=== PATIENT | female | born 1955 | race Caucasian/White ===

== ENCOUNTER → 2017-05-27 15:23 | Outpatient (CLI) | payer OTHER, SELFPAY ==
--- NOTE | 2017-05-27 15:31 | EKG12_ITS ---
Test Reason : ARRTHYMIAS Blood Pressure : / mmHG Vent. Rate : 101 BPM Atrial Rate : 101 BPM P-R Int : 174 ms QRS Dur : 080 ms QT Int : 352 ms P-R-T Axes : 034 007 023 degrees QTc Int : 456 ms Sinus tachycardia Possible Left atrial enlargement Borderline ECG Confirmed by DANNI PAULINO, DANTE ([id number]), editor in chief newspaper AKIL MAKI ([id number]) on 05/29/2017 2:34:25 PM Referred By: Nathalia MENDOZA Confirmed By:DANTE RAZO MD
== END ==
DX: R94.31 Abnormal electrocardiogram [ECG] [EKG] (principal); R00.0 Tachycardia, unspecified
CPT/HCPCS: 93005

== ENCOUNTER 2017-06-10 16:49 | Inpatient (IN) | payer OTHER, SELFPAY ==
[2017-06-10 16:50] VITALS: BP 138/63; PULSE 124; RESP 16; TEMP 36.9; O2SAT 99; BMI 31.4
[2017-06-10 16:56] LABS: Bedside Glucose 47 mg/dL (70-110)
--- NOTE | 2017-06-10 17:47 | EKG12_ITS ---
Test Reason : Blood Pressure : / mmHG Vent. Rate : 114 BPM Atrial Rate : 114 BPM P-R Int : 164 ms QRS Dur : 078 ms QT Int : 334 ms P-R-T Axes : 036 007 034 degrees QTc Int : 460 ms Sinus tachycardia Otherwise normal ECG Confirmed by DANNI PAULINO, DANTE ([id number]), newspaper managing editor AKIL MAKI ([id number]) on 06/12/2017 3:46:38 PM Referred By: Nathalia MENDOZA Confirmed By:DANTE RAZO MD
--- NOTE | 2017-06-10 17:47 | RAD_ITS ---
STUDY: X-RAY CHEST REASON FOR EXAM: Female, 61 years old. Chest pain TECHNIQUE: Frontal and lateral views COMPARISON: None. FINDINGS: The lungs are expanded. There is mild interstitial prominence. Normal size heart. Normal mediastinum and kenzie. Normal visualized pulmonary arteries. Calcified aortic arch and descending thoracic aorta. Normal visualized thoracic spine. Normal visualized ribs, clavicles, and shoulders. There is no demonstrated abnormality of the visualized soft tissue structures of the upper abdomen. RAD/Chest PA and Lateral IMPRESSION: Mild interstitial prominence. Electronically Signed: Stanislav Garza DO at 18:49 EDT Tel [phone], Service support ,
[2017-06-10 18:23] LABS: Absolute Lymphocyte Count 1.77 X10^3/ul (0.83-4.51); Absolute Neutrophil Count 13.6 X10^3/uL (2.0-7.7); Basophil# 0.01 X10^3/uL; Basophil% 0.1 % (0-1); Eosinophil# 0.05 X10^3/uL; Eosinophils% 0.3 % (0-5); Hematocrit 34.3 % (37-47); Hemoglobin 11.5 g/dl (12.0-15.0); Lymphocyte # 1.77 X10^3/ul (4.0); Lymphocyte % 10.8 % (19-41); Mean Corp Hgb Conc 33.5 g/gl (32-36); Mean Corpuscular Hgb 31.1 pg (27.0-32.0); Mean Corpuscular Volume 92.7 fL (81-99); Monocyte# 0.88 X10^3/uL; Monocyte% 5.4 % (0-10); Platelet Count 94 K/mm3 (150-450); RBC Distribution Width CV 14.8 % (11.6-14.6); RBC Distribution Width SD 49.6 fl (35.1-43.9); White Blood Count 16.4 K/mm3 (4.4-11.0)
[2017-06-10 18:25] LABS: POSITIVE COUNT NO; POSITIVE DIFFERENTIAL NO; POSITIVE MORPHOLOGY NO
[2017-06-10] MEDS: 0.9% Normal Saline 1,000 ML 1000 ML IV (18:28)
[2017-06-10 18:37] LABS: International Normalized Ratio 1.2; Prothrombin Time (Protime)PT. 14.8 SECONDS (11.7-14.9)
[2017-06-10 18:51] LABS: ALB/GLOB Ratio 0.8 RATIO (0.9-2.4); AST(SGOT) 27 U/L (15-37); Alanine Aminotransfer ALT/SGPT 34 U/L (13-56); Albumin, Serum 3.8 g/dL (3.2-5.0); Alkaline Phosphatase 72 U/L (45-117); Anion Gap 13 (5-15); BUN 71 mg/dL (7-18); BUN/Creat Ratio 35.9 RATIO (10-20); Chloride 107 mmol/L (98-107); Creatinine, Serum 1.98 mg/dL (0.55-1.02); EST Glomerular Filtration Rate 27 mL/min (>60); Est Glom Filt Rate - Afr Amer 33 mL/min (>60); Estimated Creatinine Clearance 34.14 ml/min; Globulin 4.6 g/dL (2.2-4.2); Glucose 143 mg/dL (74-106); Potassium 4.3 mmol/L (3.5-5.1); Protein, Total 8.4 g/dL (6.4-8.2); Sodium Level 137 mmol/L (136-145)
[2017-06-10 19:32] LABS: Mucous, Urine 0 SEEN /hpf (<or=2+); Red Blood Cells-Urine 0 SEEN /hpf (0-5)
[2017-06-10 19:36] LABS: Color, Urine Yellow (Yellow); Glucose, Dipstick Normal (Normal); Ketone-Dipstick Negative (Negative); Leukocyte Esterase-Dipstick 500 /ul (Negative); Nitrite-Dipstick Negative (Negative); Occult Blood-Urine 50 /ul (Negative); Protein-Dipstick 30 mg/dl (Negative); Specific Gravity, Urine 1.015 (1.002-1.030); Urine Bilirubin Dipstick Negative (Negative); Urine Clarity Cloudy (Clear); Urine Urobilinogen Normal (Normal)
[2017-06-10 19:52] LABS: Bacteria 1+ /hpf (None Seen); Squamous Epithelial Cells - UA 0-5 SEEN /hpf (5-10); White Blood Cells >100 SEEN /hpf (0-5)
[2017-06-10 21:04] LABS: Lactic Acid 4.2 mmol/L (0.4-2.0)
--- NOTE | 2017-06-10 21:04 | NURSING ---
lab called with critical lab results. lactic acid 4.2. dr. donnelly made aware. no new orders at this time
--- NOTE | 2017-06-10 21:17 | ED.DCSUM_ITS ---
- ER Visit Summary Date of Service: 06/10/17 Chief Complaint: I feel lousy History of Present Illness: The patient is a 61 F who presents with an extensive list of complaints. She reports chills and sweats but no documented fever. She complains of chest pain shortness of breath. She complains of lightheadedness and dizziness. She complains of decreased urination. She complains of numbness to her left hand. She complains of a pins and needles sensation in her legs. She complains of decreased urination. She denies dysuria or urgency. She is concerned she may have a UTI. She believes the pins and needles sensation is related to her neuropathy. She is off of her medication for a short time while her insurance was being sorted out. Physical Examination: Initial heart rate 124 vitals otherwise normal Moist mucous membranes Heart regular rhythm tachycardia Lungs are clear Abdomen soft Extremities nontender Alert Test Results: Laboratory studies notable for white blood cell count 16.4 and a BUN of 71 with creatinine of 1.98. Blood cultures were sent. UA does show 500 leukocyte esterase and greater than 100 WBCs. Her lactic acid is 4.2. EKG showed sinus tachycardia at a rate of 114. Chest x-ray showed mild interstitial prominence. Emergency Department Course and Treatment: Laboratory studies and IV fluids initially ordered. The patient removed her on IV because it was painful. When laboratory studies returned notable for leukocytosis and significant pyuria and a new IV was established and lactic acid and blood cultures were sent. Patient was treated with IV Rocephin. Based on lactic a 30 cc/kg IV fluid bolus has been ordered and is infusing. Patient discussed with hospitalist will be admitted. Treatment Plan: [] Disposition: Admit Impression: UTI Acute kidney injury Septic shock This note was generated with [employer] dictation software. It may contain incorrect words, spelling, and punctuation that were not noted in review of the chart prior to signing ED Disposition - Plan for ED Patient: Chief Complaint: Weakness Referrals: Nathalia Villegas NP-C [Primary Care Provider] -
[2017-06-10] MEDS: 0.9% Normal Saline 1,000 ML 999 ML IV (21:18)
[2017-06-10] MEDS: Ceftriaxone 1 GM/50 ML BAG IV (21:18)
[2017-06-10 21:33] VITALS: BP 127/84; PULSE 100; PULSE 102; RESP 18; O2SAT 100
--- NOTE | 2017-06-10 21:49 | PCM.HP.STD ---
Problem List (1) UTI (urinary tract infection) Status: Acute Qualifiers: Urinary tract infection type: site unspecified Hematuria presence: with hematuria Qualified Code(s): N39.0 - Urinary tract infection, site not specified; R31.9 - Hematuria, unspecified (2) Severe sepsis Status: Acute (3) Diabetes Status: Chronic Qualifiers: Diabetes mellitus type: type 2 Diabetes mellitus [facility] insulin use: without [facility] use Diabetes mellitus complication status: with unspecified complications Qualified Code(s): E11.8 - Type 2 diabetes mellitus with unspecified complications (4) Hyperlipidemia Status: Chronic Qualifiers: Hyperlipidemia type: unspecified Qualified Code(s): E78.5 - Hyperlipidemia, unspecified History of Present Illness Date of Admission: 06/10/17 Chief Complaint: UTI, general illness The patient is a 61 year old female patient who states she has been progressively ill over the past two weeks. Yesterday she became markedly more sick with fever and generalized weakness. She has not been able to produce much urine. She complains of mild flank pain. In the ER she has a marked leukocytosis with a left shift. Her urine is positive for blood, leukocytes and protein, Lactate is 4.2 and she has an acute kidney injury with BUN 71 and creatinine 1.98. Her current heart rate is 124 and she is normotensive. She will be admitted to the ICU overnight due to sepsis protocol. Past Medical History Past Medical History (Chronic Problems): Chronic Problems Diabetes (Chronic) Hyperlipidemia (Chronic) Allergies haloperidol [From Haldol] Adverse Reaction (Verified 06/10/17 16:55) Unknown haloperidol lactate [From Haldol] Adverse Reaction (Verified 06/10/17 16:55) Unknown Home Medications: Ambulatory Orders Medication Instructions Recorded Atorvastatin Calcium [Lipitor] 10 mg PO QHS 06/10/17 Cyanocobalamin (Vitamin B-12) 1,000 mcg PO DAILY 06/10/17 [Vitamin B-12] Ergocalciferol [Vitamin D] 50,000 unit PO QWEEK 06/10/17 Glimepiride [Amaryl] 4 mg PO BID 06/10/17 Insulin Aspart [Novolog Flexpen 15 units SC BID 06/10/17 ([facility])] Insulin Glargine,Hum.rec.anlog 20 unit SQ DAILY 06/10/17 [Basaglar Kwikpen U-100] Insulin Glargine,Hum.rec.anlog 40 unit SQ QHS 06/10/17 [Basaglar Kwikpen U-100] Linagliptin/Metformin HCl 1 tab PO BID 06/10/17 [Jentadueto 2.5 mg-1000 mg Tab] Surgical History: no surgical history Smoking Status: Current every day smoker - *Family History Maternal History Items: No pertinent history Review of Systems Constitutional: Reports: Chills, Malaise, Weakness, Fatigue. Denies: Fever, Weight Change HEENT: Denies: Head Aches, Sinus Congestion, Sinus Drainage Cardiovascular: Denies: Chest Pain, Palpitations Respiratory: Denies: Cough, Shortness of breath at rest, Sputum production Gastrointestinal: Denies: Abdominal Pain, Nausea, Vomiting Genitourinary: Reports: Hesitancy. Denies: Dysuria Musculoskeletal: Reports: Leg Pain - right, - - bilateral flank pain. Denies: Joint Pain, Joint Tenderness Skin: Denies: Rash, Wounds Neurological: Denies: Numbness, Tingling, Focal weakness Psychiatric: Denies: Anxiety, Depression, Homicidal Ideations, Suicidal Ideations Hematologic/ Lymphatic: Denies: Easy Bruising, Easy Bleeding VTE Information - Inpt Only VTE Present on Admission: No VTE Mechan Device Prophylaxis: None VTE Pharm Prophylaxis ordered?: Yes Patient Problems: Active and Suspected Problems UTI (urinary tract infection) (Acute) Severe sepsis (Acute) - Physical Exam General: Alert, Oriented x3, Cooperative HEENT: Atraumatic, PERRLA, EOMI, Normocephalic Neck: Supple, No JVD, Negative Carotid Bruits Lungs: Clear to auscultation, Normal air movement Cardiovascular: Regular Rhythm, Normal S1, Normal S2, No murmurs, Tachycardic Abdomen: Bowel Sounds Present, Soft, Non Tender Extremities: No edema, Capillary Refill Less than 3 Seconds, Tenderness - right lower leg , ant kim contusion Skin: No rashes, No breakdown Musculoskeletal: Tenderness - bilat flank pain Neurological: Neuro grossly intact Psych/Mental Status: Normal Affect, Appropriate Vital Signs Temp Pulse Resp BP Pulse Ox 98.5 F 102 H 18 127/84 H 100 06/10/17 16:50 06/10/17 21:33 06/10/17 21:33 06/10/17 21:33 06/10/17 21:33 Oxygen Delivery Method Room Air Weight: 155 lb 13.869 oz Body Mass Index (BMI) 31.4 Finger Stick Blood Glucose 47 Laboratory Tests Past 24 Hrs 06/10/17 06/10/17 06/10/17 18:15 18:15 18:15 WBC 16.4 H RBC 3.70 L Hgb 11.5 L Hct 34.3 L MCV 92.7 MCH 31.1 MCHC 33.5 RDW 14.8 H RDW Differential 49.6 H Plt Count 94 L MPV 12.0 Immature Gran % (Auto) 0.400 Neut % (Auto) 83.0 H Lymph % (Auto) 10.8 L [place] % (Auto) 5.4 Eos % (Auto) 0.3 Baso % (Auto) 0.1 Absolute Neuts (auto) 13.6 H Absolute Lymphs (auto) 1.77 Total Counted Not Reportable PT 14.8 INR 1.2 Sodium 137 Potassium 4.3 Chloride 107 Carbon Dioxide 17.0 L Anion Gap 13 BUN 71 H Creatinine 1.98 H Estim Creat Clear Calc 34.14 Est GFR (MDRD) Af Amer 33 L Est GFR (MDRD) Non-Af 27 L BUN/Creatinine Ratio 35.9 H Glucose 143 H Lactic Acid Calcium 10.0 Total Bilirubin 0.40 AST 27 ALT 34 Alkaline Phosphatase 72 Troponin I < 0.02 Total Protein 8.4 H Albumin 3.8 Globulin 4.6 H Albumin/Globulin Ratio 0.8 L Urine Color Urine Clarity Urine pH Ur Specific Doran Urine Protein Urine Glucose (UA) Urine Ketones Urine Occult Blood Urine Nitrite Urine Bilirubin Urine Urobilinogen Ur Leukocyte Esterase Urine RBC Urine WBC Ur Squamous Epith Cells Urine Bacteria Urine Mucus 06/10/17 06/10/17 19:20 20:20 WBC RBC Hgb Hct MCV MCH MCHC RDW RDW Differential Plt Count MPV Immature Gran % (Auto) Neut % (Auto) Lymph % (Auto) [place] % (Auto) Eos % (Auto) Baso % (Auto) Absolute Neuts (auto) Absolute Lymphs (auto) Total Counted PT INR Sodium Potassium Chloride Carbon Dioxide Anion Gap BUN Creatinine Estim Creat Clear Calc Est GFR (MDRD) Af Amer Est GFR (MDRD) Non-Af BUN/Creatinine Ratio Glucose Lactic Acid 4.2 H* Calcium Total Bilirubin AST ALT Alkaline Phosphatase Troponin I Total Protein Albumin Globulin Albumin/Globulin Ratio Urine Color Yellow Urine Clarity Cloudy Urine pH 6.0 Ur Specific Doran 1.015 Urine Protein 30 H Urine Glucose (UA) Normal Urine Ketones Negative Urine Occult Blood 50 H Urine Nitrite Negative Urine Bilirubin Negative Urine Urobilinogen Normal Ur Leukocyte Esterase 500 H Urine RBC 0 SEEN Urine WBC >100 SEEN Ur Squamous Epith Cells 0-5 SEEN Urine Bacteria 1+ Urine Mucus 0 SEEN POC Glucose 06/10/17 16:53 POC Glucose 47 L Assessment/Plan Active and Suspected Problems UTI (urinary tract infection) (Acute) Severe sepsis (Acute) Chronic Problems Diabetes (Chronic) Hyperlipidemia (Chronic) Plan - admit to ICU - Consult Dr Quinonez for ICU management - Sepsis protocol - Rocephin 1gram iv q 24hrs - cbc, bmp in am and repeat lactate - continue routine home medications hold sulfonylurea due to low appetite and hold metformin due to acute kidney changes will add low dose insulin sliding scale coverage - LMWH for DVT prophylaxis Code Visit Inpatient E&M: 75992 Init Hosp L3
--- NOTE | 2017-06-10 22:05 | RAD_ITS ---
STUDY: X-RAY - RIGHT TIBIA AND FIBULA REASON FOR EXAM: Female, 61 years old. Pain TECHNIQUE: 2 view(s) of the tibia and fibula were obtained. COMPARISON: None. FINDINGS: Normal visualized tibia. Normal visualized fibula. The soft tissue structures are unremarkable. RAD/Tibia & Fibula 2 Views IMPRESSION: Normal x-ray examination of the tibia and fibula. Electronically Signed: Stanislav Garza DO at 22:44 EDT Tel [phone], Service support ,
[2017-06-10 22:53] VITALS: BMI 31.5
[2017-06-10 23:00] VITALS: BP 114/59; PULSE 99; RESP 20; TEMP 36.7; O2SAT 100
[2017-06-10 23:03] VITALS: PULSE 99
[2017-06-10 23:15] VITALS: BP 120/62; PULSE 103; RESP 19; O2SAT 100
[2017-06-10 23:23] VITALS: BP 117/98; PULSE 110; RESP 25; O2SAT 99
[2017-06-11] VITALS (15 sets, daily range): BP systolic 94–130; BP diastolic 56–72; PULSE 87–106; RESP 14–24; TEMP 36.2–36.9; O2SAT 94–100
[2017-06-11 00:13] LABS: Lactic Acid 2.7 mmol/L (0.4-2.0)
[2017-06-11] MEDS: Ceftriaxone 1 GM/50 ML BAG IV (00:32)
[2017-06-11 00:35] LABS: Reflex Lactate? Y
[2017-06-11 00:40] LABS: Bedside Glucose 78 mg/dL (70-110)
[2017-06-11 03:33] LABS: Reflex Lactate? Y
[2017-06-11 04:19] LABS: Absolute Lymphocyte Count 2.72 X10^3/ul (0.83-4.51); Absolute Neutrophil Count 9.2 X10^3/uL (2.0-7.7); Basophil# 0.01 X10^3/uL; Basophil% 0.1 % (0-1); Eosinophil# 0.08 X10^3/uL; Eosinophils% 0.6 % (0-5); Hematocrit 27.6 % (37-47); Hemoglobin 9.5 g/dl (12.0-15.0); Lymphocyte # 2.72 X10^3/ul (4.0); Lymphocyte % 21.3 % (19-41); Mean Corp Hgb Conc 34.4 g/gl (32-36); Mean Corpuscular Hgb 31.6 pg (27.0-32.0); Mean Corpuscular Volume 91.7 fL (81-99); Mean Platelet Vol. 12.1 fl (6.2-12.0); Monocyte# 0.78 X10^3/uL; Monocyte% 6.1 % (0-10); Neutrophil # 9.15 X10^3/uL (2.7-7.7); Neutrophil % 71.7 % (47-70); Platelet Count 98 K/mm3 (150-450); RBC Distribution Width CV 14.6 % (11.6-14.6); RBC Distribution Width SD 46.9 fl (35.1-43.9); Red Blood Count 3.01 M/mm3 (4.2-5.4); White Blood Count 12.8 K/mm3 (4.4-11.0)
[2017-06-11 04:22] LABS: POSITIVE COUNT NO; POSITIVE DIFFERENTIAL NO; POSITIVE MORPHOLOGY NO
[2017-06-11 04:36] LABS: Anion Gap 12 (5-15); BUN 61 mg/dL (7-18); BUN/Creat Ratio 42.4 RATIO (10-20); Calcium,Total 8.5 mg/dL (8.5-10.1); Chloride 114 mmol/L (98-107); Creatinine, Serum 1.44 mg/dL (0.55-1.02); EST Glomerular Filtration Rate 40 mL/min (>60); Est Glom Filt Rate - Afr Amer 48 mL/min (>60); Estimated Creatinine Clearance 47.02 ml/min; Glucose 51 mg/dL (74-106); Magnesium 1.5 mg/dL (1.6-2.6); Phosphorus 3.4 mg/dL (2.5-4.9); Potassium 3.2 mmol/L (3.5-5.1); Sodium Level 144 mmol/L (136-145)
[2017-06-11 04:42] LABS: Lactic Acid 1.3 mmol/L (0.4-2.0)
--- NOTE | 2017-06-11 04:54 | PCM.CON.CC ---
Reason for Consult Date of Consultation: 06/11/17 Reason for Consultation: Severe sepsis History of Present Illness: The patient is a 61-year-old female, with a history as outlined below, who presented to the emergency department on June 10 with a myriad of complaints, including generalized malaise, fatigue, shortness of breath, chest pain, dizziness and lightheadedness. The patient also began to experience a decrease in urinary output along with mild flank pain. The patient does have a history of severe obstructive sleep apnea with an AHI of 32, for which it was recommended that she be placed on CPAP with a pressure setting of 10 cm of water with medication. On presentation to the emergency department, the patient was noted to be afebrile, tachycardic and hemodynamically stable. She was able to maintain appropriate oxygen saturations on room air. Initial laboratory evaluation revealed elevated white blood cell count 16,000 with left shift. INR was within normal limits. Chemistry profile revealed a decreased serum bicarbonate to 17 along with evidence of acute kidney injury with a creatinine 1.98. Serum lactate was additionally noted to be 4.3. Troponin was negative. Initial plain film chest x-ray revealed no acute cardiopulmonary process. The patient was provided with supplemental IV fluid hydration and started on antibiotics. She was subsequently transferred to the medical intensive care unit for ongoing management. Overnight, the patient has remained hemodynamically stable. She never required the initiation of vasopressor support. Her lactic acidemia has resolved. Potassium and magnesium levels are low this morning. Creatinine is improving, following IV fluid resuscitation. Past Medical History Past Medical History (Chronic Problems): Chronic Problems Diabetes (Chronic) Hyperlipidemia (Chronic) Allergies haloperidol [From Haldol] Adverse Reaction (Verified 06/10/17 16:55) Unknown haloperidol lactate [From Haldol] Adverse Reaction (Verified 06/10/17 16:55) Unknown Home Medications: Ambulatory Orders Medication Instructions Recorded Atorvastatin Calcium [Lipitor] 10 mg PO QHS 06/10/17 Cyanocobalamin (Vitamin B-12) 1,000 mcg PO DAILY 06/10/17 [Vitamin B-12] Ergocalciferol [Vitamin D] 50,000 unit PO QWEEK 06/10/17 Glimepiride [Amaryl] 4 mg PO BID 06/10/17 Insulin Aspart [Novolog Flexpen 15 units SC BID 06/10/17 ([facility])] Insulin Glargine,Hum.rec.anlog 20 unit SQ DAILY 06/10/17 [Basaglar Kwikpen U-100] Insulin Glargine,Hum.rec.anlog 40 unit SQ QHS 06/10/17 [Basaglar Kwikpen U-100] Linagliptin/Metformin HCl 1 tab PO BID 06/10/17 [Jentadueto 2.5 mg-1000 mg Tab] Surgical History: no surgical history Smoking Status: Current every day smoker - *Family History Maternal History Items: No pertinent history Review of Systems Constitutional: Reports: Chills, Malaise, Fatigue Eyes: Denies: Blurred vision, Double vision HEENT: Denies: Head Aches, Sinus Congestion, Sinus Drainage Cardiovascular: Reports: Chest Pain Respiratory: Denies: Cough, Shortness of breath at rest, Sputum production Gastrointestinal: Reports: Nausea Genitourinary: Reports: Retention Musculoskeletal: Reports: Back Pain, Leg Pain Skin: Denies: Rash, Wounds Neurological: Denies: Numbness, Tingling, Focal weakness Psychiatric: Denies: Anxiety, Depression, Homicidal Ideations, Suicidal Ideations Hematologic/ Lymphatic: Denies: Easy Bruising, Easy Bleeding Patient Problems: Active and Suspected Problems UTI (urinary tract infection) (Acute) Severe sepsis (Acute) Objective: The patient's most recent lab work, culture data and imaging studies have all been personally reviewed. Blood and urine cultures are currently pending. - Physical Exam General: Alert, Cooperative, No apparent distress, - - Seated in bedside recliner, eating breakfast. HEENT: Atraumatic, PERRLA, Normocephalic Oral: No Gingival or Mucosal Lesions/ Ulcerations Neck: Supple, No Nodes, Trachea Midline Lungs: No rhonchi, No wheeze, No rales, Diminished Cardiovascular: Regular rate, Regular Rhythm, Normal S1, Normal S2, No murmurs Abdomen: Bowel Sounds Present, Soft, Non Tender, Obese Extremities: No clubbing, No cyanosis Skin: No rashes, No breakdown Musculoskeletal: No Muscle Wasting Lymphatic: No Cervical, Supraclavicular, or Inguinal Adenopathy Neurological: Neuro grossly intact Psych/Mental Status: Normal Affect, Appropriate Vital Signs Temp Pulse Resp BP Pulse Ox 98.2 F 101 H 21 H 110/65 97 06/11/17 04:00 06/11/17 04:00 06/11/17 04:00 06/11/17 04:00 06/11/17 04:00 Oxygen Delivery Method Room Air Weight: 156 lb 1.396 oz Body Mass Index (BMI) 31.5 Intake and Output for Last 24 Hours 06/09/17 06/10/17 06/11/17 23:59 23:59 23:59 Intake Total 2704 / 2704 Output Total 400 / 400 Balance 2304 / 2304 Laboratory Tests Past 24 Hrs 06/10/17 06/11/17 06/11/17 23:20 04:05 04:05 WBC 12.8 H RBC 3.01 L Hgb 9.5 L Hct 27.6 L MCV 91.7 MCH 31.6 MCHC 34.4 RDW 14.6 RDW Differential 46.9 H Plt Count 98 L MPV 12.1 H Immature Gran % (Auto) 0.200 Neut % (Auto) 71.7 H Lymph % (Auto) 21.3 [place] % (Auto) 6.1 Eos % (Auto) 0.6 Baso % (Auto) 0.1 Absolute Neuts (auto) 9.2 H Absolute Lymphs (auto) 2.72 Total Counted Not Reportable Sodium Potassium Chloride Carbon Dioxide Anion Gap BUN Creatinine Estim Creat Clear Calc Est GFR (MDRD) Af Amer Est GFR (MDRD) Non-Af BUN/Creatinine Ratio Glucose Lactic Acid 2.7 H 1.3 Calcium Phosphorus Magnesium 06/11/17 04:05 WBC RBC Hgb Hct MCV MCH MCHC RDW RDW Differential Plt Count MPV Immature Gran % (Auto) Neut % (Auto) Lymph % (Auto) [place] % (Auto) Eos % (Auto) Baso % (Auto) Absolute Neuts (auto) Absolute Lymphs (auto) Total Counted Sodium 144 Potassium 3.2 L Chloride 114 H Carbon Dioxide 18.0 L Anion Gap 12 BUN 61 H Creatinine 1.44 H Estim Creat Clear Calc 47.02 Est GFR (MDRD) Af Amer 48 L Est GFR (MDRD) Non-Af 40 L BUN/Creatinine Ratio 42.4 H Glucose 51 L Lactic Acid Calcium 8.5 Phosphorus 3.4 Magnesium 1.5 L POC Glucose 06/10/17 23:06 POC Glucose 78 Clinical Impression(s) from Imaging Studies Chest X-Ray 06/10/17 17:47 IMPRESSION: Mild interstitial prominence. Electronically Signed: Stanislav Garza at 18:49 EDT Tel [phone], Service support , Tibia/Fibula X-Ray 06/10/17 22:05 IMPRESSION: Normal x-ray examination of the tibia and fibula. Electronically Signed: Stanislav Garza DO at 22:44 EDT Tel [phone], Service support , Assessment/Plan Active and Suspected Problems UTI (urinary tract infection) (Acute) Severe sepsis (Acute) RECOMMENDATIONS: 1. Encourage p.o. intake. Supplemental IV fluids can be discontinued. 2. Continue antibiotics, pending finalized infectious workup. 3. Electrolyte replacement 4. Continue Levemir and sliding scale insulin coverage 5. Encourage incentive spirometer use and mobilize patient as tolerated. IMPRESSIONS: 1. Severe sepsis secondary to presumptive cystitis The patient has been adequately volume resuscitated at this time. Lactic acidemia has resolved. Continue antibiotics, pending finalized infectious workup. Encourage p.o. intake. Okay from my perspective to discontinue supplemental IV fluids. 2. Acute kidney injury Likely prerenal in etiology. Creatinine has improved with volume expansion. Urine output is appropriate. No indication for renal replacement therapy at this time. 3. Hypokalemia/hypomagnesemia Electrolyte repletion as indicated. Recheck levels in the morning. 4. Obstructive sleep apnea Continue nocturnal CPAP therapy with a pressure setting of 10 cm of water, per polysomnogram report. 5. Diabetes/hyperlipidemia/obesity Complicates care, management, recovery and prognosis. Continue Levemir and sliding scale insulin coverage. Okay to continue statin. Recommend physical therapy evaluation. This note was generated with [employer] dictation software. It may contain incorrect words, spelling, and punctuation that were not noted in checking the note before signing. DISPOSITION: The patient is medically stable for transfer out of the intensive care unit. As the patient is without any further ICU needs, will sign off. Please call with any additional questions. Code Visit Inpatient E&M: 89752 Init Hosp L3
[2017-06-11 08:01] LABS: Bedside Glucose 62 mg/dL (70-110)
--- NOTE | 2017-06-11 09:44 | PCM.PN.HOSP ---
Patient Problems: Active and Suspected Problems UTI (urinary tract infection) (Acute) Severe sepsis (Acute) Subjective: Patient is afebrile.Tachycardia is getting better. Blood pressure is good. No hypoxia. Patient has tenderness over both legs with mild edema for last 3-4 weeks. This seems because of diabetic neuropathy as she was not able to take gabapentin for last 3-4 weeks as the insurance stopped covering her medication Vitals/I&O's: Vital Signs Temp Pulse Resp BP Pulse Ox 98.2 F 93 15 97/63 97 06/11/17 04:00 06/11/17 06:00 06/11/17 06:00 06/11/17 06:00 06/11/17 06:00 Oxygen Delivery Method Room Air Weight: 157 lb 6.561 oz Body Mass Index (BMI) 31.5 Intake and Output for Last 24 Hours 06/09/17 06/10/17 06/11/17 23:59 23:59 23:59 Intake Total 2704 / 2704 60.1 / 60.1 Output Total 400 / 400 400 / 400 Balance 2304 / 2304 -339.9 / -339.9 General: Alert, Oriented x3, Cooperative HEENT: Atraumatic, PERRLA, EOMI, Normocephalic Neck: Supple, No JVD, Negative Carotid Bruits Lungs: No rales, Diminished, Rhonchi - Findings expiratory rhonchi present. Cardiovascular: Regular rate, Regular Rhythm, Normal S1, Normal S2, No murmurs Abdomen: Bowel Sounds Present, Soft, Non Tender, Non-Distended, No Hepato-splenomegaly Extremities: Capillary Refill Less than 3 Seconds, Edema Skin: No rashes, No breakdown Musculoskeletal: Arthritic Changes, Tenderness Neurological: Cranial nerves II-XII grossly intact Psych/Mental Status: Normal Affect, Appropriate Laboratory Results 06/10/17 22:45: MRSA (PCR) Pending 06/10/17 23:06: POC Glucose 78 06/10/17 23:20: Lactic Acid 2.7 H 06/11/17 04:05: Lactic Acid 1.3 06/11/17 04:05: WBC 12.8 H, RBC 3.01 L, Hgb 9.5 L, Hct 27.6 L, MCV 91.7, MCH 31.6, MCHC 34.4, RDW 14.6, RDW Differential 46.9 H, Plt Count 98 L, MPV 12.1 H, Immature Gran % (Auto) 0.200, Neut % (Auto) 71.7 H, Lymph % (Auto) 21.3, [place] % (Auto) 6.1, Eos % (Auto) 0.6, Baso % (Auto) 0.1, Absolute Neuts (auto) 9.2 H, Absolute Lymphs (auto) 2.72, Total Counted Not Reportable 06/11/17 04:05: Sodium 144, Potassium 3.2 L, Chloride 114 H, Carbon Dioxide 18.0 L, Anion Gap 12, BUN 61 H, Creatinine 1.44 H, Estim Creat Clear Calc 47.02, Est GFR (MDRD) Af Amer 48 L, Est GFR (MDRD) Non-Af 40 L, BUN/Creatinine Ratio 42.4 H, Glucose 51 L, Calcium 8.5, Phosphorus 3.4, Magnesium 1.5 L 06/11/17 07:47: POC Glucose 62 L Current Medications Atorvastatin Calcium (Lipitor) 10 mg PO QHS MARCY Cyanocobalamin (Vitamin B12) 1,000 mcg PO DAILY MARCY Dextrose (D50w Syringe) 0 gm IV X1 PRN; Protocol PRN Reason: Hypoglycemia Enoxaparin Sodium (Lovenox) 40 mg SC DAILY@1000 MARCY Glucagon () 1 mg IM .X1 PRN PRN Reason: Hypoglycemia Ceftriaxone Sodium 2 gm/ (Sodium Chloride) 50 mls @ 100 mls/hr IV Q24 MARCY Insulin Aspart (Novolog Flexpen (Bkc)) 0 units SC ACHS MARCY PRN Reason: Protocol Last Admin: 06/11/17 07:56 Dose: Not Given Insulin Detemir (Levemir (Bkc)) 20 units SC DAILY MARCY Magnesium Hydroxide (Milk Of Magnesia) 30 ml PO DAILY PRN PRN PRN Reason: Constipation Magnesium Oxide (Mag-Ox 400) 400 mg PO BIDCM [facility]END[facility] TO [facility] Stop: 06/12/17 08:01 Nutritional Formula (Lactose Free) (Glucerna Shake) 120 ml PO 4X/DAY MARCY Sodium Chloride () 5 - 30 ml IV UD PRN PRN Reason: SALINE FLUSH Assessment/Plan Active and Suspected Problems UTI (urinary tract infection) (Acute) Severe sepsis (Acute) This is a 61-year-old female who was admitted in the ICU through ER for gradual progressive generalized weakness, mild shortness of breath along with fever, chills and mild flank pain and decreased urine output in ER, she has mild leukocytosis with left shift and UA consistent with UTI. Lactate 4.2 with acute kidney injury, BUN 71 creatinine 1.98. Patient was also tachycardic in the ER. And his chronic smoker since teenage, 17 years and still smokes a pack per day but recently 4-5 cigarettes because of her illness. 1. SIRS WITH Septic shock (tachycardia, lactic acid 4.2 leukocytosis with left shift secondary to UTI ): Patient lactic acid improved with IV fluid and did not require vessel pressure. Currently in ICU but hemodynamically stable now. Leukocytosis improving. 2. Lower UTI/cystitis: Patient is diabetic mellitus type II. On IV ceftriaxone 2 g daily. 3. Acute kidney injury on CKD stage II due to ATN secondary to UTI/sepsis and prerenal etiology: Her baseline creatinine in June 2016 and November 2016 is around 1.0. But UA in June 2014 was positive for proteinuria so CKD stage II. Creatinine profile is improving. Continue IV fluid normal saline. Monitor intake and output. 4. Diabetes mellitus type 2 complicated with diabetic neuropathy and diabetic nephropathy CKD stage II with proteinuria. Control blood sugar. Resume gabapentin. Accu-Chek before meals and at bedtime and cover with NovoLog sliding scale. Her blood sugar is controlled. A1c 6.2% in November 2016. Last Accu-Chek is 62 mg percent. 5. Other chronic comorbidities include chronic smoker with possibility of COPD, dyslipidemia, and physical deconditioning: Home medication reconciliation done. Patient is hemodynamically stable to be transferred to regular floor. This note was generated with [employer]ravnik[employer] dictation software. Every effort was made to ensure accuracy, however computerized car changer mistakes may persist. Code Visit Inpatient E&M: 10918 Subs Hosp L3
[2017-06-11 10:09] LABS: M R Staph aureus DNA By PCR Negative (Negative); Probe Check PASS; Specimen Processing Control PASS
--- NOTE | 2017-06-11 10:14 | PN_ITS ---
Patient Problems: Active and Suspected Problems UTI (urinary tract infection) (Acute) Severe sepsis (Acute) Subjective: Patient is afebrile.Tachycardia is getting better. Blood pressure is good. No hypoxia. Patient has tenderness over both legs with mild edema for last 3-4 weeks. This seems because of diabetic neuropathy as she was not able to take gabapentin for last 3-4 weeks as the insurance stopped covering her medication Vitals/I&O's: Vital Signs Temp Pulse Resp BP Pulse Ox 98.2 F 93 15 97/63 97 06/11/17 04:00 06/11/17 06:00 06/11/17 06:00 06/11/17 06:00 06/11/17 06:00 Oxygen Delivery Method Room Air Weight: 157 lb 6.561 oz Body Mass Index (BMI) 31.5 Intake and Output for Last 24 Hours 06/09/17 06/10/17 06/11/17 23:59 23:59 23:59 Intake Total 2704 / 2704 60.1 / 60.1 Output Total 400 / 400 400 / 400 Balance 2304 / 2304 -339.9 / -339.9 General: Alert, Oriented x3, Cooperative HEENT: Atraumatic, PERRLA, EOMI, Normocephalic Neck: Supple, No JVD, Negative Carotid Bruits Lungs: No rales, Diminished, Rhonchi - Findings expiratory rhonchi present. Cardiovascular: Regular rate, Regular Rhythm, Normal S1, Normal S2, No murmurs Abdomen: Bowel Sounds Present, Soft, Non Tender, Non-Distended, No Hepato- splenomegaly Extremities: Capillary Refill Less than 3 Seconds, Edema Skin: No rashes, No breakdown Musculoskeletal: Arthritic Changes, Tenderness Neurological: Cranial nerves II-XII grossly intact Psych/Mental Status: Normal Affect, Appropriate Laboratory Results 06/10/17 22:45: MRSA (PCR) Pending 06/10/17 23:06: POC Glucose 78 06/10/17 23:20: Lactic Acid 2.7 H 06/11/17 04:05: Lactic Acid 1.3 06/11/17 04:05: WBC 12.8 H, RBC 3.01 L, Hgb 9.5 L, Hct 27.6 L, MCV 91.7, MCH 31.6, MCHC 34.4, RDW 14.6, RDW Differential 46.9 H, Plt Count 98 L, MPV 12.1 H, Immature Gran % (Auto) 0.200, Neut % (Auto) 71.7 H, Lymph % (Auto) 21.3, [place] % (Auto) 6.1, Eos % (Auto) 0.6, Baso % (Auto) 0.1, Absolute Neuts (auto) 9.2 H, Absolute Lymphs (auto) 2.72, Total Counted Not Reportable 06/11/17 04:05: Sodium 144, Potassium 3.2 L, Chloride 114 H, Carbon Dioxide 18.0 L, Anion Gap 12, BUN 61 H, Creatinine 1.44 H, Estim Creat Clear Calc 47.02 , Est GFR (MDRD) Af Amer 48 L, Est GFR (MDRD) Non-Af 40 L, BUN/Creatinine Ratio 42.4 H, Glucose 51 L, Calcium 8.5, Phosphorus 3.4, Magnesium 1.5 L 06/11/17 07:47: POC Glucose 62 L Current Medications Atorvastatin Calcium (Lipitor) 10 mg PO QHS MARCY Cyanocobalamin (Vitamin B12) 1,000 mcg PO DAILY MARCY Dextrose (D50w Syringe) 0 gm IV X1 PRN; Protocol PRN Reason: Hypoglycemia Enoxaparin Sodium (Lovenox) 40 mg SC DAILY@1000 MARCY Glucagon () 1 mg IM .X1 PRN PRN Reason: Hypoglycemia Ceftriaxone Sodium 2 gm/ (Sodium Chloride) 50 mls @ 100 mls/hr IV Q24 MARCY Insulin Aspart (Novolog Flexpen (Bkc)) 0 units SC ACHS MARCY PRN Reason: Protocol Last Admin: 06/11/17 07:56 Dose: Not Given Insulin Detemir (Levemir (Bkc)) 20 units SC DAILY MARCY Magnesium Hydroxide (Milk Of Magnesia) 30 ml PO DAILY PRN PRN PRN Reason: Constipation Magnesium Oxide (Mag-Ox 400) 400 mg PO BIDCM [facility] Stop: 06/12/17 08:01 Nutritional Formula (Lactose Free) (Glucerna Shake) 120 ml PO 4X/DAY MARCY Sodium Chloride () 5 - 30 ml IV UD PRN PRN Reason: SALINE FLUSH Assessment/Plan Active and Suspected Problems UTI (urinary tract infection) (Acute) Severe sepsis (Acute) This is a 61-year-old female who was admitted in the ICU through ER for gradual progressive generalized weakness, mild shortness of breath along with fever, chills and mild flank pain and decreased urine output in ER, she has mild leukocytosis with left shift and UA consistent with UTI. Lactate 4.2 with acute kidney injury, BUN 71 creatinine 1.98. Patient was also tachycardic in the ER. And his chronic smoker since teenage, 17 years and still smokes a pack per day but recently 4-5 cigarettes because of her illness. 1. SIRS WITH Septic shock (tachycardia, lactic acid 4.2 leukocytosis with left shift secondary to UTI ): Patient lactic acid improved with IV fluid and did not require vessel pressure. Currently in ICU but hemodynamically stable now. Leukocytosis improving. 2. Lower UTI/cystitis: Patient is diabetic mellitus type II. On IV ceftriaxone 2 g daily. 3. Acute kidney injury on CKD stage II due to ATN secondary to UTI/sepsis and prerenal etiology: Her baseline creatinine in June 2016 and November 2016 is around 1.0. But UA in June 2014 was positive for proteinuria so CKD stage II. Creatinine profile is improving. Continue IV fluid normal saline. Monitor intake and output. 4. Diabetes mellitus type 2 complicated with diabetic neuropathy and diabetic nephropathy CKD stage II with proteinuria. Control blood sugar. Resume gabapentin. Accu-Chek before meals and at bedtime and cover with NovoLog sliding scale. Her blood sugar is controlled. A1c 6.2% in November 2016. Last Accu-Chek is 62 mg percent. 5. Other chronic comorbidities include chronic smoker with possibility of COPD , dyslipidemia, and physical deconditioning: Home medication reconciliation done. Patient is hemodynamically stable to be transferred to regular floor. This note was generated with [employer] dictation software. Every effort was made to ensure accuracy, however computerized senior consumer insights consultant mistakes may persist. Code Visit Inpatient E&M: 14145 Subs Hosp L3
--- NOTE | 2017-06-11 10:24 | CASEMGMT ---
See RN CM Assessment Link. Intro role of CM to patient and her in room. is on disability, and pt has [employer] insurance with higher deductible so [facility] goes to [facility] for [facility] and f/u. Call made to Dr. Shabazz's office requesting a new pt referral. Also noted that Dr. Miles, pulmonology is on the list of [facility] providers if f/u is recommended. Yvon NAVARRETEN RN ACM
[2017-06-11] MEDS: Magnesium Oxide 400 MG Tablet PO ×2 (10:41→17:13)
[2017-06-11] MEDS: Cyanocobalamin 500 MCG Tablet 1000 MCG PO (10:43)
[2017-06-11] MEDS: Gabapentin 300 MG Capsule PO ×2 (10:47→17:13)
[2017-06-11] MEDS: Glucerna Shake 120 ML LIQUID PO ×3 (10:47→21:14)
[2017-06-11 11:55] LABS: Bedside Glucose 264 mg/dL (70-110)
[2017-06-11] MEDS: 0.9% NaCl Peripheral Flush Adult/Peds IV (12:14)
[2017-06-11] MEDS: Acetaminophen 325 MG Tablet 650 MG PO ×3 (14:39→23:53)
[2017-06-11 17:20] LABS: Bedside Glucose 323 mg/dL (70-110)
[2017-06-11] MEDS: Atorvastatin Calcium 10 MG Tablet PO (21:14)
[2017-06-11 21:26] LABS: Bedside Glucose 256 mg/dL (70-110)
--- NOTE | 2017-06-11 22:40 | NURSING ---
Pt arrived to [facility] from ICU.
--- NOTE | 2017-06-11 23:00 | NURSING ---
Addendum entered by Yuni Lopez 06/11/17 23:21: This RN & resp therapist tried to educated and encourage CPAP but pt still refusing. Original Note: Pt is refusing to wear CPAP tonight.
--- NOTE | 2017-06-11 23:40 | CPS ---
Pt refuses to wear CPAP at this time
[2017-06-12 04:25] VITALS: BP 118/54; PULSE 90; RESP 18; TEMP 36.6; O2SAT 98
[2017-06-12 06:45] VITALS: O2SAT 96
[2017-06-12 07:01] LABS: Bedside Glucose 259 mg/dL (70-110)
[2017-06-12] MEDS: Gabapentin 300 MG Capsule PO (07:55)
[2017-06-12] MEDS: Acetaminophen 325 MG Tablet 650 MG PO (07:55)
[2017-06-12] MEDS: Magnesium Oxide 400 MG Tablet PO (07:55)
[2017-06-12 08:27] LABS: Absolute Neutrophil Count 3.6 X10^3/uL (2.0-7.7); Basophil# 0.01 X10^3/uL; Basophil% 0.1 % (0-1); Eosinophil# 0.13 X10^3/uL; Eosinophils% 1.9 % (0-5); Hemoglobin 9.7 g/dl (12.0-15.0); Lymphocyte % 38.8 % (19-41); Mean Corp Hgb Conc 34.6 g/gl (32-36); Mean Corpuscular Hgb 32.1 pg (27.0-32.0); Mean Corpuscular Volume 92.7 fL (81-99); Mean Platelet Vol. 11.3 fl (6.2-12.0); Monocyte# 0.46 X10^3/uL; Monocyte% 6.6 % (0-10); Neutrophil # 3.64 X10^3/uL (2.7-7.7); Neutrophil % 52.5 % (47-70); POSITIVE COUNT NO; POSITIVE DIFFERENTIAL NO; POSITIVE MORPHOLOGY NO; Platelet Count 84 K/mm3 (150-450); RBC Distribution Width CV 14.7 % (11.6-14.6); RBC Distribution Width SD 47.9 fl (35.1-43.9); Red Blood Count 3.02 M/mm3 (4.2-5.4)
[2017-06-12 08:34] LABS: Anion Gap 8 (5-15); BUN 42 mg/dL (7-18); BUN/Creat Ratio 31.3 RATIO (10-20); Calcium,Total 9.1 mg/dL (8.5-10.1); Chloride 112 mmol/L (98-107); Creatinine, Serum 1.34 mg/dL (0.55-1.02); EST Glomerular Filtration Rate 43 mL/min (>60); Est Glom Filt Rate - Afr Amer 52 mL/min (>60); Estimated Creatinine Clearance 50.67 ml/min; Glucose 230 mg/dL (74-106); Potassium 4.3 mmol/L (3.5-5.1); Sodium Level 142 mmol/L (136-145)
[2017-06-12 08:35] VITALS: BP 111/64; PULSE 94; RESP 18; TEMP 37.6; O2SAT 99
[2017-06-12] MEDS: Cyanocobalamin 500 MCG Tablet 1000 MCG PO (08:39)
[2017-06-12] MEDS: 0.9% NaCl Peripheral Flush Adult/Peds IV (10:53)
--- NOTE | 2017-06-12 11:32 | PCM.DC ---
- Discharge Diagnoses Current Active Problems: Current Active and Chronic Problems UTI (urinary tract infection) (Acute) Severe sepsis (Acute) Diabetes (Chronic) Hyperlipidemia (Chronic) You will use the following diet at home:: Calorie/Carbohydrate Controlled (specify 1200, 1400, etc) - 1800 ADA diet, Cardiac Discharge Activity: May not drive while taking narcotic pain medications. Allergies/Adverse Reactions: Allergies haloperidol [From Haldol] Adverse Reaction (Verified 06/10/17 16:55) Unknown haloperidol lactate [From Haldol] Adverse Reaction (Verified 06/10/17 16:55) Unknown Medications to take at Discharge Atorvastatin Calcium [Lipitor] 10 mg PO QHS 06/10/17 Cyanocobalamin (Vitamin B-12) [Vitamin B-12] 1,000 mcg PO DAILY 06/10/17 Ergocalciferol [Vitamin D] 50,000 unit PO QWEEK 06/10/17 Glimepiride [Amaryl] 4 mg PO BID 06/10/17 Insulin Aspart [Novolog Flexpen] 15 units SC BID 06/10/17 Insulin Glargine,Hum.rec.anlog [Basaglar Kwikpen U-100] 20 unit SQ DAILY 06/10/17 Linagliptin/Metformin HCl [Jentadueto 2.5 mg-1000 mg Tab] 1 tab PO BID 06/10/17 Cefadroxil [Duracef] 500 mg PO BID #10 cap 06/12/17 Gabapentin [Neurontin] 300 mg PO TIDCM #90 cap 06/12/17 The following prescriptions were given: Cefadroxil [Duracef] 500 mg PO BID #10 cap Gabapentin [Neurontin] 300 mg PO TIDCM #90 cap Primary Care Physician: Nathalia Villegas NP-C [Primary Care Provider] - Please follow up with your Primary Care Physician in: in 1-2 weeks Please Follow Up With: Natalia Wiggins NP-C When: For DM-2 AND GLUCOSE control
--- NOTE | 2017-06-12 11:34 | DS.PCM_ITS ---
Discharge Date and Diagnosis Date of Admission: 06/10/17 Date of Discharge: 06/12/17 - Primary Discharge Diagnosis Active and Suspected Problems 1. SIRS WITH Septic shock (tachycardia, lactic acid 4.2 leukocytosis with left shift) secondary to E. coli UTI : 2. Lower UTI/cystitis due to E. coli: 3. Acute kidney injury on CKD stage II due to ATN secondary to UTI/sepsis and prerenal etiology: Acute kidney injury resolved. 4. Diabetes mellitus type 2 complicated with diabetic neuropathy and diabetic nephropathy CKD stage II with proteinuria - Secondary Discharge Diagnosis Chronic Problems Diabetes (Chronic) Hyperlipidemia (Chronic) Hospital Course and Treatment Summary of Care Provided: [] This is a 61-year-old female who was admitted in the ICU through ER for gradual progressive generalized weakness, mild shortness of breath along with fever, chills and mild flank pain and decreased urine output in ER, she has mild leukocytosis with left shift and UA consistent with UTI. Lactate 4.2 with acute kidney injury, BUN 71 creatinine 1.98. Patient was also tachycardic in the ER. And his chronic smoker since teenage, 17 years and still smokes a pack per day but recently 4-5 cigarettes because of her illness. Patient seen and examined today. General: Alert, Oriented x3, Cooperative HEENT: Atraumatic, PERRLA, EOMI, Normocephalic Neck: Supple, No JVD, Negative Carotid Bruits Lungs: No rales, Diminished, Rhonchi - Findings expiratory rhonchi present. Cardiovascular: Regular rate, Regular Rhythm, Normal S1, Normal S2, No murmurs Abdomen: Bowel Sounds Present, Soft, Non Tender, Non-Distended, No Hepato- splenomegaly Extremities: Capillary Refill Less than 3 Seconds, Edema Skin: No rashes, No breakdown Musculoskeletal: Arthritic Changes, Tenderness Neurological: Cranial nerves II-XII grossly intact Psych/Mental Status: Normal Affect, Appropriate 1. SIRS WITH Septic shock (tachycardia, lactic acid 4.2 leukocytosis with left shift) secondary to E. coli UTI : Patient lactic acid improved with IV fluid and did not require vessel pressure. Currently in ICU but hemodynamically stable now. Leukocytosis improving. 2. Lower UTI/cystitis due to E. coli: Patient is diabetic mellitus type II. Patient was treated with IV ceftriaxone discharged on cefadroxil. 3. Acute kidney injury on CKD stage II due to ATN secondary to UTI/sepsis and prerenal etiology: Her baseline creatinine in June 2016 and November 2016 is around 1.0. But UA in June 2014 was positive for proteinuria so CKD stage II. Creatinine profile is improving. Was treated with IV fluid. Monitor intake and output. Acute kidney injury resolved. 4. Diabetes mellitus type 2 complicated with diabetic neuropathy and diabetic nephropathy CKD stage II with proteinuria. Control blood sugar. Resume gabapentin. Accu-Chek before meals and at bedtime and cover with NovoLog sliding scale. Her blood sugar is controlled. A1c 6.2% in November 2016. Last Accu-Chek is 62 mg percent. 5. Other chronic comorbidities include chronic smoker with possibility of COPD , dyslipidemia, and physical deconditioning: Home medication reconciliation done. Patient is hemodynamically stable to be transferred to regular floor. Microbiology Past 72 Hours 06/10/17 19:20 Urine, Clean Catch Urine Culture - Preliminary Presumptive E. coli Laboratory Results 06/11/17 21:12: POC Glucose 256 H 06/12/17 06:33: POC Glucose 259 H 06/12/17 08:10: Sodium 142, Potassium 4.3, Chloride 112 H, Carbon Dioxide 22.0, Anion Gap 8, BUN 42 H, Creatinine 1.34 H, Estim Creat Clear Calc 50.67, Est GFR (MDRD) Af Amer 52 L, Est GFR (MDRD) Non-Af 43 L, BUN/Creatinine Ratio 31.3 H, Glucose 230 H, Calcium 9.1 06/12/17 08:10: WBC 7.0, RBC 3.02 L, Hgb 9.7 L, Hct 28.0 L, MCV 92.7, MCH 32.1 H , MCHC 34.6, RDW 14.7 H, RDW Differential 47.9 H, Plt Count 84 L, MPV 11.3, Immature Gran % (Auto) 0.100, Neut % (Auto) 52.5, Lymph % (Auto) 38.8, [place] % ( Auto) 6.6, Eos % (Auto) 1.9, Baso % (Auto) 0.1, Absolute Neuts (auto) 3.6, Absolute Lymphs (auto) 2.70, Total Counted Not Reportable This note was generated with [employer] dictation software. Every effort was made to ensure accuracy, however computerized product safety tester mistakes may persist. Discharge medication reconciliation done. Discharge follow-up instructions completed. Total time spent, exact 32 minutes on discharge meds reconciliation, examination , review of imaging and blood test and discussion with the patient on follow-up instructions. Discharge Activity: May not drive while taking narcotic pain medications. Home Medications: Medications to take at Discharge Atorvastatin Calcium [Lipitor] 10 mg PO QHS 06/10/17 Cyanocobalamin (Vitamin B-12) [Vitamin B-12] 1,000 mcg PO DAILY 06/10/17 Ergocalciferol [Vitamin D] 50,000 unit PO QWEEK 06/10/17 Glimepiride [Amaryl] 4 mg PO BID 06/10/17 Insulin Aspart [Novolog Flexpen] 15 units SC BID 06/10/17 Insulin Glargine,Hum.rec.anlog [Basaglar Kwikpen U-100] 20 unit SQ DAILY Linagliptin/Metformin HCl [Jentadueto 2.5 mg-1000 mg Tab] 1 tab PO BID 06/10/17 Cefadroxil [Duracef] 500 mg PO BID #10 cap 06/12/17 Gabapentin [Neurontin] 300 mg PO TIDCM #90 cap 06/12/17 Following Prescrptions Were Given to Patient: Cefadroxil [Duracef] 500 mg PO BID #10 cap Gabapentin [Neurontin] 300 mg PO TIDCM #90 cap Primary Care Physician: Nathalia Villegas NP-C [Primary Care Provider] - Please follow up with your Primary Care Physician in: in 1-2 weeks Please Follow Up With: Natalia Wiggins NP-C When: For DM-2 AND GLUCOSE control Meaningful Use Info Meaningful Use Diagnoses (Choose all that apply): None applicable Code Visit Inpatient E&M: 66166 Disch Hosp
--- NOTE | 2017-06-12 12:03 | CASEMGMT ---
New pt referral form and brochure given for [facility]. Explained to pt who can take completed form to office and they will set up appointment for her. Discussed dc concerns. Pt appreciative of information. Will f/u in the interim with [facility] for new medications. Yvon NAVARRETEN RN ACM
[2017-06-12 12:05] VITALS: BP 111/64; PULSE 94; RESP 18; TEMP 37.6; O2SAT 99
== END 2017-06-12 12:02 | disposition home or self-care (01) | DRG 871 ==
LOC: ED 22:07 → ICU 22:15 → MS2 06-11 22:35
PROVIDERS: Internal Medicine Critical Care Medicine; Admitting Provider Family Medicine; Emergency Provider Emergency Medicine; Family Provider Nurse Practitioner Family; PCP Nurse Practitioner Family; Visit Provider Internal Medicine
DX: A41.9 Sepsis, unspecified organism (principal); R65.21 Severe sepsis with septic shock; N17.0 Acute kidney failure with tubular necrosis; E11.22 Type 2 diabetes mellitus with diabetic chronic kidney disease; N30.90 Cystitis, unspecified without hematuria; B96.20 Unspecified Escherichia coli [E. coli] as the cause of diseases classified elsewhere; E11.40 Type 2 diabetes mellitus with diabetic neuropathy, unspecified; N18.2 Chronic kidney disease, stage 2 (mild); E78.5 Hyperlipidemia, unspecified; F17.210 Nicotine dependence, cigarettes, uncomplicated; E66.9 Obesity, unspecified; E83.42 Hypomagnesemia; E87.6 Hypokalemia; Z68.31 Body mass index [BMI] 31.0-31.9, adult; Z79.4 Long term (current) use of insulin
CPT/HCPCS: 36415; 71046; 73590; 80048; 80053; 81001; 82962; 83605; 83735; 84100; 84484; 85025; 85610; 87040; 87086; 87088; 87186; 87641; 93005; 97802; 99285; 99406; J7030; J7040; A4216; J0696

== ENCOUNTER → 2017-06-20 11:56 | Outpatient (CLI) | payer OTHER, SELFPAY | PROVIDERS: Family Provider Nurse Practitioner Family; PCP Nurse Practitioner Family; Visit Provider Nurse Practitioner Family | DX: N39.0 Urinary tract infection, site not specified (principal) | CPT/HCPCS: 87086; 87088 ==

== ENCOUNTER 2017-11-16 14:41 | Emergency (ER) | payer OTHER, SELFPAY ==
[2017-11-16 14:43] VITALS: BP 154/81; PULSE 113; RESP 18; TEMP 36.6; O2SAT 97; BMI 31.7
--- NOTE | 2017-11-16 16:10 | ED.DEP ---
ED Disposition - Plan for ED Patient: Chief Complaint: Eye Problem Instructions: Shingles (Herpes Zoster) Prescriptions: Hydrocodone Bitart/Apap 5-325 [[place] 5MG-325MG] 1 tab PO Q4H PRN PRN 2 Days #10 tab PRN Reason: Pain Famciclovir [Famvir] 500 mg PO TID #21 tab Referrals: Nathalia Villegas, FRANCK-C [Primary Care Provider] - Aries Guerrero MD [STAFF PHYSICIAN] - 2 Days
--- NOTE | 2017-11-16 16:13 | ED.VISSUMM ---
- ER Visit Summary Date of Service: 11/16/17 Chief Complaint: [Right eye pain] History of Present Illness: The patient is a 62 F presents the emergency department complaint right eye pain that started 3 days ago. Patient states initially she started with a rash on her right forehead that was blisterlike. Patient subsequently developed redness around the right eye and today woke up with her right eye being swollen shut. Patient complains of photophobia. She complains of a pain to the right side of her head only. Patient denies any visual changes.] Physical Examination: [HEENT-PERRLA, EOMI. Cranial nerves II through XII grossly intact. TMs clear. Mucous membranes moist. No adenopathy. Patient does have a vesicular type rash involving the right side of the forehead. Patient has diffuse erythema to the right upper and lower eyelids with a subtle vesicular component noted. Extraocular muscle movements were painless. Conjunctiva was not injected. Cornea was clear. Cardiovascular-regular rate and rhythm without murmur or ectopy Lungs-clear to auscultation, chest wall stable without crepitus or subcu emphysema Abdomen-normoactive bowel sounds, soft, nontender, no rebound or rigidity, no peritoneal signs. Extremities-intact ?4, normal range of motion, normal pulses, atraumatic] Test Results: [None indicated Emergency Department Course and Treatment: [I did stain the patient's eye with fluorescein and there was no evidence of dendritic lesions. I discussed case with Dr. Guerrero who was on-call for ophthalmology. Patient will be seen by his office in 2 days or if the patient calls his office before that should she feel like her symptoms are worsening he can see her tomorrow.] Treatment Plan: [Patient will be started on Famvir and [place] for pain.] Disposition: [Discharged home in stable condition] Impression: [Herpes zoster Right eye pain] This note was generated with [employer] dictation software. It may contain incorrect words, spelling, and punctuation that were not noted in review of the chart prior to signing ED Disposition - Plan for ED Patient: Chief Complaint: Eye Problem Instructions: Shingles (Herpes Zoster) Prescriptions: Hydrocodone Bitart/Apap 5-325 [[place] 5MG-325MG] 1 tab PO Q4H PRN PRN 2 Days #10 tab PRN Reason: Pain Famciclovir [Famvir] 500 mg PO TID #21 tab Referrals: Aries Guerrero MD [STAFF PHYSICIAN] - 2 Days Nathalia Villegas NP-C [Primary Care Provider] -
== END 2017-11-16 16:33 | disposition home or self-care (01) ==
LOC: ED 16:08
PROVIDERS: Emergency Provider Emergency Medicine; Family Provider Nurse Practitioner Family; PCP Nurse Practitioner Family
DX: B02.9 Zoster without complications (principal); H57.11 Ocular pain, right eye; E11.9 Type 2 diabetes mellitus without complications; E78.00 Pure hypercholesterolemia, unspecified; Z90.49 Acquired absence of other specified parts of digestive tract; Z79.4 Long term (current) use of insulin; Z79.84 Long term (current) use of oral hypoglycemic drugs; Z79.899 Other long term (current) drug therapy; Z72.0 Tobacco use
CPT/HCPCS: 99283

== ENCOUNTER 2017-12-31 22:24 | Emergency (ER) | payer OTHER, SELFPAY ==
[2017-12-31 22:24] VITALS: BP 145/53; PULSE 86; RESP 17; TEMP 36.9; O2SAT 99; BMI 32.4
--- NOTE | 2017-12-31 22:47 | CT_ITS ---
STUDY: CT ABDOMEN AND PELVIS WITHOUT CONTRAST REASON FOR EXAM: Female, 62 years old. Right flank and upper quadrant pain, prior cholecystectomy and x4. RADIATION DOSAGE (If Supplied By Facility): CTDIvol = ( 13.64 ) mGy, DLP = ( 668.11 ) mGycm TECHNIQUE: Transaxial 2.5 mm images were obtained from the dome of the diaphragm to the symphysis pubis without oral contrast, and without intravenous contrast. Sagittal and coronal images were reconstructed. This examination is limited for the evaluation of gastrointestinal, solid organs and vascular structures due to the lack of intravenous and oral contrast. Individualized dose optimization techniques were used for this CT. COMPARISON: CT abdomen and pelvis 07/21/2014. 07/16/2014. FINDINGS: Mild increased interstitial prominence possible mild atelectasis/compression of parenchyma. There is no focal parenchymal abnormality. 2 stable less than 0.5 cm lymph nodes in the anterior right cardiophrenic angle. The visualized portions of the heart are within normal limits. Enlarged stable liver with lobular contour. There are surgical clips in the gallbladder fossa consistent with a prior cholecystectomy. There is stable mild splenomegaly. Normal pancreas. Normal bilateral adrenal glands. Right kidney measures sagittal 8.6 cm. Normal left kidney. Left kidney measures sagittal 8.8 cm. There is a lobular contour of the left upper renal pole possibly an exophytic low-attenuation mass, previously seen is a small cyst on contrast enhanced imaging without change. Normal visualized stomach. Normal small intestine. Normal colon. There is non-visualization of the appendix. There is stable atherosclerotic calcification of the abdominal aorta, without a demonstrated aneurysm. Normal inferior vena cava. Normal retroperitoneum. Normal urinary bladder. There is atrophy of the uterus. There is low attenuation in the left adnexa measuring 2.6 x 2.2 cm measuring 16 Hounsfield units. There is a small umbilical hernia containing fat. Obesity. Age-appropriate osseous structures. CT/Abdomen/Pelvis without Cont IMPRESSION: 1. There is no obstructive uropathy, obstructive renal or ureteral calculi. 2. There is no abscess, collection, perforation or obstruction. 3. Low-attenuation left ovary possibly a cyst, this can be further assessed with ultrasound. 4. Stable hepatosplenomegaly a lobulated hepatic contour possible early cirrhosis. 5. Stable arteriosclerosis fat-containing umbilical hernia, obesity. Electronically Signed: Vicky Cohn MD at 23:57 EDT , Service support ,
--- NOTE | 2017-12-31 22:49 | ED.VIS.GEN ---
History of Present Illness Chief Complaint: Flank Pain Informant: Patient Onset: Days - 2-3 Context: Sudden Onset Timing: Continuous, Waxes and wanes Quality: aching Location: R flank Current Severity: Severe Maximum Severity: Severe Worsened by: moving around, taking deep breath Relieved by: remaining still Associated Symptoms: nausea. sob due to abd pain worse w/ deep inspiration. no cp. no ur sx. Narrative: No trauma. Never had this before. Not triggered or worse w/ eating; appetite has been ok, but hasn't drank a lot of fluids lately. No fevers. Prior remote cholecystectomy, no other abd surgeries. Hurts into right low back also. Prior similar symptoms: No - Past Medical History (1) Anemia Status: Chronic (2) Diabetes Status: Chronic (3) Hyperlipidemia Status: Chronic (4) Obstructive sleep apnea Status: Chronic (5) Peripheral neuropathy Status: Chronic (6) Thrombocytopenia Status: Chronic Past Medical History - Allergies and Home Meds Allergies/Adverse Reactions: Allergies haloperidol [From Haldol] Adverse Reaction (Verified 12/31/17 22:27) Unknown haloperidol lactate [From Haldol] Adverse Reaction (Verified 12/31/17 22:27) Unknown Primary Care Physician: Nathalia Villegas, SENIOR STAFF ACCOUNTANT-C [NON-STAFF] - 3-5 Days if not improving Surgical History: cholecystectomy Smoking Status: Current every day smoker - Family History Maternal Family History: Family History (Last Updated 07/16/17 @ 14:49 by Tami Henry) Unknown No problems noted. Family History: Reports: No pertinent history Review of Systems General: Reports: Malaise. Denies: Chills, Fever, Sweats Eyes: Denies: Visual changes - bilaterally, Diplopia ENT: Denies: Rhinorrhea, Sore throat Cardiovascular: Denies: Chest pain, Palpitations Respiratory: Reports: Dyspnea - only due to R flank pain that is worse w/ inspiring, Cough - just today, minor SENIOR STAFF ACCOUNTANT. Denies: Sputum, Dyspnea on exertion, Orthopnea Gastrointestinal: Reports: Abdominal pain, Nausea. Denies: Vomiting, Diarrhea, Melena, Hematochezia Genitourinary: Reports: - - +urgency chronically, unchanged. Denies: Dysuria, Hematuria, Frequency Musculoskeletal: Reports: Back pain. Denies: Neck pain, Swelling, Extremity Pain Skin: Denies: Rash Neurological: Denies: Headache, Weakness, Parasthesia, Numbness Endocrine: Denies: Polyuria, Polydipsia Hematologic: Denies: Easy bruising, Easy bleeding Allergy: Denies: Swelling of the mouth, Swelling of the tongue Physical Exam Vital Signs/Narrative: Vital Signs Temp Pulse Resp BP Pulse Ox 12/31/17 22:24 98.5 F 86 17 145/53 H 99 Inital Vital Signs reviewed: Yes General: Well nourished, Well developed Head: Normocephalic, Atraumatic Eyes: Perrl, EOMI ENT: Moist mucous membranes, No rhinorrhea Neck: Supple, Nontender, No JVD Cardiovascular: Regular rate, Regular rhythm, No murmurs Respiratory: No distress, CTA bilaterally, Chest nontender Abdomen: Soft, Normal bowel sounds, Tender - throughout R side, moderate; mildly ttp suprapubic and epigastric. Negative for: Nondistended - +distended, soft Back: Normal Inspection, CVA tenderness - R only; also tender w/ superficial palpation of this area. no rashes. Extremities: Nontender, No edema Skin: Normal color, No rash Neurological: Alert, Oriented x3, Cranial nerves II-XII grossly intact, Normal Strength, Normal Sensation, Normal Gait Psychological: - - anxious. Negative for: Agitated Diagnostic/Tx/Re-eval Impressions Abdomen/Pelvis CT 12/31/17 22:47 IMPRESSION: 1. There is no obstructive uropathy, obstructive renal or ureteral calculi. 2. There is no abscess, collection, perforation or obstruction. 3. Low-attenuation left ovary possibly a cyst, this can be further assessed with ultrasound. 4. Stable hepatosplenomegaly a lobulated hepatic contour possible early cirrhosis. 5. Stable arteriosclerosis fat-containing umbilical hernia, obesity. Electronically Signed: Vicky Cohn MD at 23:57 EDT , Service support , Chest X-Ray 12/31/17 22:50 IMPRESSION: Normal x-ray examination of the chest. Electronically Signed: Jonny Arriaza MD at 23:12 EDT Tel , Service support , 12/31/17 22:47 CT Abd [Abdomen/Pelvis without Cont] [CT] Stat 12/31/17 22:50 Chest 1 View (Portable) [RAD] Stat Laboratory Results 12/31/17 12/31/17 12/31/17 23:07 23:07 23:07 WBC 12.0 H RBC 3.86 L Hgb 11.6 L Hct 36.9 L MCV 95.6 MCH 30.1 MCHC 31.4 L RDW 14.4 RDW Differential 49.4 H Plt Count 92 L MPV 12.6 H Immature Gran % (Auto) 0.200 Neut % (Auto) 73.1 H Lymph % (Auto) 17.1 L [place] % (Auto) 8.8 Eos % (Auto) 0.7 Baso % (Auto) 0.1 Absolute Neuts (auto) 8.8 H Absolute Lymphs (auto) 2.05 Total Counted Not Reportable Sodium 141 Potassium 4.8 Chloride 106 Carbon Dioxide 26.0 Anion Gap 9 BUN 18 Creatinine 1.32 H Estim Creat Clear Calc 52.16 Est GFR (MDRD) Af Amer 53 L Est GFR (MDRD) Non-Af 44 L BUN/Creatinine Ratio 13.6 Glucose 241 H Calcium 9.1 Total Bilirubin 0.60 AST 29 ALT 38 Alkaline Phosphatase 66 Total Protein 8.4 H Albumin 3.9 Globulin 4.5 H Albumin/Globulin Ratio 0.9 Urine Color Yellow Urine Clarity Sl. Cloudy Urine pH 5.0 Ur Specific [place] 1.015 Urine Protein 15 H Urine Glucose (UA) 250 H Urine Ketones 5 H Urine Occult Blood Negative Urine Nitrite Negative Urine Bilirubin Negative Urine Urobilinogen 1 H Ur Leukocyte Esterase 25 H Urine RBC 0 SEEN Urine WBC 0-5 SEEN Ur Squamous Epith Cells 10-25 SEEN Urine Bacteria 1+ Urine Mucus 0 SEEN - Medical Decision Making Labs show a mild nonspecific leukocytosis, chronic stable renal insufficiency and thrombocytopenia, and are otherwise unremarkable including urinalysis. Chest x-ray is normal. CT abdomen/pelvis without contrast shows no etiology for her discomfort. There is no rash to suggest recurrent zoster which she just got over from a month or 2 ago on her face, she is very superficially tender in the abdomen and the back, suggesting a possible musculoskeletal etiology, and she is worse with movement which is also consistent with that. Intestinal etiologies are in the differential, although there is no suggestion of inflammation in the mesentery or duodenum on the CT. She is preferring to have something for pain to take home with her, so she is given a home pack of [place] instead of a prescription, and we will give her Bentyl to see if that helps in addition to another shot of morphine, which did take the edge off initially. Holding off on any anti-inflammatories given her renal insufficiency and diabetes. Discussed at length at the bedside she is comfortable with following up or returning if worse. ED Disposition - Plan for ED Patient: Disposition: Home or Assisted Living Chief Complaint: Shortness of Breath Diagnosis: Acute right flank pain Instructions: ED Flank Pain Uncertain Cause, ED Strain Abdominal Muscle Prescriptions: Dicyclomine HCl [Bentyl] 20 mg PO TIDAC PRN #12 cap PRN Reason: abdominal pain Referrals: Nathalia Villegas, SENIOR STAFF ACCOUNTANT-C [NON-STAFF] - 3-5 Days if not improving
--- NOTE | 2017-12-31 22:50 | RAD_ITS ---
STUDY: X-RAY CHEST REASON FOR EXAM: Female, 62 years old. Shortness of breath TECHNIQUE: Single frontal view of the chest. COMPARISON: 06/10/2017 FINDINGS: The lungs are clear and expanded. There is no demonstrated pleural abnormality. Normal size heart. Normal mediastinum and kenzie. Normal visualized pulmonary arteries. Normal visualized aortic arch and descending thoracic aorta. Normal visualized thoracic spine. Normal visualized ribs, clavicles, and shoulders. Abdominal clips. RAD/Chest 1 View (Portable) IMPRESSION: Normal x-ray examination of the chest. Electronically Signed: Jonny Arriaza MD at 23:12 EDT Tel , Service support ,
--- NOTE | 2017-12-31 22:53 | ED.DCSUM_ITS ---
History of Present Illness Chief Complaint: Flank Pain Informant: Patient Onset: Days - 2-3 Context: Sudden Onset Timing: Continuous, Waxes and wanes Quality: aching Location: R flank Current Severity: Severe Maximum Severity: Severe Worsened by: moving around, taking deep breath Relieved by: remaining still Associated Symptoms: nausea. sob due to abd pain worse w/ deep inspiration. no cp. no ur sx. Narrative: No trauma. Never had this before. Not triggered or worse w/ eating; appetite has been ok, but hasn't drank a lot of fluids lately. No fevers. Prior remote cholecystectomy, no other abd surgeries. Hurts into right low back also. Prior similar symptoms: No - Past Medical History (1) Anemia Status: Chronic (2) Diabetes Status: Chronic (3) Hyperlipidemia Status: Chronic (4) Obstructive sleep apnea Status: Chronic (5) Peripheral neuropathy Status: Chronic (6) Thrombocytopenia Status: Chronic Past Medical History - Allergies and Home Meds Allergies/Adverse Reactions: Allergies haloperidol [From Haldol] Adverse Reaction (Verified 12/31/17 22:27) Unknown haloperidol lactate [From Haldol] Adverse Reaction (Verified 12/31/17 22:27) Unknown Primary Care Physician: Nathalia Villegas, DATABASE ADMINISTRATION MANAGER-C [NON-STAFF] - 3-5 Days if not improving Surgical History: cholecystectomy Smoking Status: Current every day smoker - Family History Maternal Family History: Family History (Last Updated 07/16/17 @ 14:49 by Tami Henry) Unknown No problems noted. Family History: Reports: No pertinent history Review of Systems General: Reports: Malaise. Denies: Chills, Fever, Sweats Eyes: Denies: Visual changes - bilaterally, Diplopia ENT: Denies: Rhinorrhea, Sore throat Cardiovascular: Denies: Chest pain, Palpitations Respiratory: Reports: Dyspnea - only due to R flank pain that is worse w/ inspiring, Cough - just today, minor DATABASE ADMINISTRATION MANAGER. Denies: Sputum, Dyspnea on exertion, Orthopnea Gastrointestinal: Reports: Abdominal pain, Nausea. Denies: Vomiting, Diarrhea, Melena, Hematochezia Genitourinary: Reports: - - +urgency chronically, unchanged. Denies: Dysuria, Hematuria, Frequency Musculoskeletal: Reports: Back pain. Denies: Neck pain, Swelling, Extremity Pain Skin: Denies: Rash Neurological: Denies: Headache, Weakness, Parasthesia, Numbness Endocrine: Denies: Polyuria, Polydipsia Hematologic: Denies: Easy bruising, Easy bleeding Allergy: Denies: Swelling of the mouth, Swelling of the tongue Physical Exam Vital Signs/Narrative: Vital Signs Temp Pulse Resp BP Pulse Ox 12/31/17 22:24 98.5 F 86 17 145/53 H 99 Inital Vital Signs reviewed: Yes General: Well nourished, Well developed Head: Normocephalic, Atraumatic Eyes: Perrl, EOMI ENT: Moist mucous membranes, No rhinorrhea Neck: Supple, Nontender, No JVD Cardiovascular: Regular rate, Regular rhythm, No murmurs Respiratory: No distress, CTA bilaterally, Chest nontender Abdomen: Soft, Normal bowel sounds, Tender - throughout R side, moderate; mildly ttp suprapubic and epigastric. Negative for: Nondistended - +distended, soft Back: Normal Inspection, CVA tenderness - R only; also tender w/ superficial palpation of this area. no rashes. Extremities: Nontender, No edema Skin: Normal color, No rash Neurological: Alert, Oriented x3, Cranial nerves II-XII grossly intact, Normal Strength, Normal Sensation, Normal Gait Psychological: - - anxious. Negative for: Agitated Diagnostic/Tx/Re-eval Impressions Abdomen/Pelvis CT 12/31/17 22:47 IMPRESSION: 1. There is no obstructive uropathy, obstructive renal or ureteral calculi. 2. There is no abscess, collection, perforation or obstruction. 3. Low-attenuation left ovary possibly a cyst, this can be further assessed with ultrasound. 4. Stable hepatosplenomegaly a lobulated hepatic contour possible early cirrhosis. 5. Stable arteriosclerosis fat-containing umbilical hernia, obesity. Electronically Signed: Vicky Cohn MD at 23:57 EDT , Service support , Chest X-Ray 12/31/17 22:50 IMPRESSION: Normal x-ray examination of the chest. Electronically Signed: Jonny Arriaza MD at 23:12 EDT Tel , Service support , 12/31/17 22:47 CT Abd [Abdomen/Pelvis without Cont] [CT] Stat 12/31/17 22:50 Chest 1 View (Portable) [RAD] Stat Laboratory Results 12/31/17 12/31/17 12/31/17 23:07 23:07 23:07 WBC 12.0 H RBC 3.86 L Hgb 11.6 L Hct 36.9 L MCV 95.6 MCH 30.1 MCHC 31.4 L RDW 14.4 RDW Differential 49.4 H Plt Count 92 L MPV 12.6 H Immature Gran % (Auto) 0.200 Neut % (Auto) 73.1 H Lymph % (Auto) 17.1 L [place] % (Auto) 8.8 Eos % (Auto) 0.7 Baso % (Auto) 0.1 Absolute Neuts (auto) 8.8 H Absolute Lymphs (auto) 2.05 Total Counted Not Reportable Sodium 141 Potassium 4.8 Chloride 106 Carbon Dioxide 26.0 Anion Gap 9 BUN 18 Creatinine 1.32 H Estim Creat Clear Calc 52.16 Est GFR (MDRD) Af Amer 53 L Est GFR (MDRD) Non-Af 44 L BUN/Creatinine Ratio 13.6 Glucose 241 H Calcium 9.1 Total Bilirubin 0.60 AST 29 ALT 38 Alkaline Phosphatase 66 Total Protein 8.4 H Albumin 3.9 Globulin 4.5 H Albumin/Globulin Ratio 0.9 Urine Color Yellow Urine Clarity Sl. Cloudy Urine pH 5.0 Ur Specific [place] 1.015 Urine Protein 15 H Urine Glucose (UA) 250 H Urine Ketones 5 H Urine Occult Blood Negative Urine Nitrite Negative Urine Bilirubin Negative Urine Urobilinogen 1 H Ur Leukocyte Esterase 25 H Urine RBC 0 SEEN Urine WBC 0-5 SEEN Ur Squamous Epith Cells 10-25 SEEN Urine Bacteria 1+ Urine Mucus 0 SEEN - Medical Decision Making Labs show a mild nonspecific leukocytosis, chronic stable renal insufficiency and thrombocytopenia, and are otherwise unremarkable including urinalysis. Chest x-ray is normal. CT abdomen/pelvis without contrast shows no etiology for her discomfort. There is no rash to suggest recurrent zoster which she just got over from a month or 2 ago on her face, she is very superficially tender in the abdomen and the back, suggesting a possible musculoskeletal etiology, and she is worse with movement which is also consistent with that. Intestinal etiologies are in the differential, although there is no suggestion of inflammation in the mesentery or duodenum on the CT. She is preferring to have something for pain to take home with her, so she is given a home pack of [place] instead of a prescription, and we will give her Bentyl to see if that helps in addition to another shot of morphine, which did take the edge off initially. Holding off on any anti-inflammatories given her renal insufficiency and diabetes. Discussed at length at the bedside she is comfortable with following up or returning if worse. ED Disposition - Plan for ED Patient: Disposition: Home or Assisted Living Chief Complaint: Shortness of Breath Diagnosis: Acute right flank pain Instructions: ED Flank Pain Uncertain Cause, ED Strain Abdominal Muscle Prescriptions: Dicyclomine HCl [Bentyl] 20 mg PO TIDAC PRN #12 cap PRN Reason: abdominal pain Referrals: Nathalia Villegas, DATABASE ADMINISTRATION MANAGER-C [NON-STAFF] - 3-5 Days if not improving
[2017-12-31] MEDS: Ondansetron 4 MG/2 ML Vial IV (23:06)
[2017-12-31] MEDS: 0.9% Normal Saline 1,000 ML 999 ML IV (23:06)
[2017-12-31] MEDS: Morphine 4 MG/ML Syringe IV (23:07)
[2017-12-31 23:22] LABS: Mucous, Urine 0 SEEN /hpf (<or=2+); Red Blood Cells-Urine 0 SEEN /hpf (0-5)
[2017-12-31 23:25] LABS: Absolute Lymphocyte Count 2.05 X10^3/ul (0.83-4.51); Absolute Neutrophil Count 8.8 X10^3/uL (2.0-7.7); Basophil# 0.01 X10^3/uL; Basophil% 0.1 % (0-1); Eosinophil# 0.08 X10^3/uL; Eosinophils% 0.7 % (0-5); Hematocrit 36.9 % (37-47); Hemoglobin 11.6 g/dl (12.0-15.0); Lymphocyte # 2.05 X10^3/ul (4.0); Lymphocyte % 17.1 % (19-41); Mean Corp Hgb Conc 31.4 g/gl (32-36); Mean Corpuscular Hgb 30.1 pg (27.0-32.0); Mean Corpuscular Volume 95.6 fL (81-99); Mean Platelet Vol. 12.6 fl (6.2-12.0); Monocyte# 1.06 X10^3/uL; Monocyte% 8.8 % (0-10); Neutrophil # 8.78 X10^3/uL (2.7-7.7); Neutrophil % 73.1 % (47-70); Platelet Count 92 K/mm3 (150-450); RBC Distribution Width CV 14.4 % (11.6-14.6); RBC Distribution Width SD 49.4 fl (35.1-43.9); Red Blood Count 3.86 M/mm3 (4.2-5.4)
[2017-12-31 23:26] LABS: Color, Urine Yellow (Yellow); Glucose, Dipstick 250 mg/dl (Normal); Ketone-Dipstick 5 mg/dl (Negative); Leukocyte Esterase-Dipstick 25 /ul (Negative); Nitrite-Dipstick Negative (Negative); Occult Blood-Urine Negative /ul (Negative); POSITIVE COUNT NO; POSITIVE DIFFERENTIAL NO; POSITIVE MORPHOLOGY NO; Protein-Dipstick 15 mg/dl (Negative); Specific Gravity, Urine 1.015 (1.002-1.030); Urine Bilirubin Dipstick Negative (Negative); Urine Clarity Sl. Cloudy (Clear); Urine Urobilinogen 1 mg/dl (Normal)
[2017-12-31 23:35] LABS: Bacteria 1+ /hpf (None Seen)
[2017-12-31 23:36] LABS: Squamous Epithelial Cells - UA 10-25 SEEN /hpf (5-10); White Blood Cells 0-5 SEEN /hpf (0-5)
[2017-12-31 23:52] LABS: ALB/GLOB Ratio 0.9 RATIO (0.9-2.4); AST(SGOT) 29 U/L (15-37); Alanine Aminotransfer ALT/SGPT 38 U/L (13-56); Albumin, Serum 3.9 g/dL (3.2-5.0); Alkaline Phosphatase 66 U/L (45-117); Anion Gap 9 (5-15); BUN 18 mg/dL (7-18); BUN/Creat Ratio 13.6 RATIO (10-20); Calcium,Total 9.1 mg/dL (8.5-10.1); Chloride 106 mmol/L (98-107); Creatinine, Serum 1.32 mg/dL (0.55-1.02); EST Glomerular Filtration Rate 44 mL/min (>60); Est Glom Filt Rate - Afr Amer 53 mL/min (>60); Estimated Creatinine Clearance 52.16 ml/min; Globulin 4.5 g/dL (2.2-4.2); Glucose 241 mg/dL (74-106); Potassium 4.8 mmol/L (3.5-5.1); Protein, Total 8.4 g/dL (6.4-8.2); Sodium Level 141 mmol/L (136-145)
[2018-01-01] MEDS: Dicyclomine 10 MG Capsule 20 MG PO (00:22)
[2018-01-01] MEDS: Morphine 4 MG/ML Syringe IV (00:22)
[2018-01-01] MEDS: HYDROcodone Bitartrate/Apap 5/325 Tablet PO (00:23)
[2018-01-01 00:27] VITALS: BP 111/58; PULSE 104; RESP 17; O2SAT 99
== END 2018-01-01 00:39 | disposition home or self-care (01) ==
PROVIDERS: Emergency Provider Emergency Medicine; Referring Provider Nurse Practitioner Family
DX: R10.9 Unspecified abdominal pain (principal); R11.0 Nausea; R06.00 Dyspnea, unspecified; M54.9 Dorsalgia, unspecified; K42.9 Umbilical hernia without obstruction or gangrene; R16.2 Hepatomegaly with splenomegaly, not elsewhere classified; E78.5 Hyperlipidemia, unspecified; G47.33 Obstructive sleep apnea (adult) (pediatric); E11.42 Type 2 diabetes mellitus with diabetic polyneuropathy; D69.6 Thrombocytopenia, unspecified; E11.22 Type 2 diabetes mellitus with diabetic chronic kidney disease; N18.9 Chronic kidney disease, unspecified; Z86.2 Personal history of diseases of the blood and blood-forming organs and certain disorders involving the immune mechanism; Z90.49 Acquired absence of other specified parts of digestive tract; Z79.4 Long term (current) use of insulin; Z79.899 Other long term (current) drug therapy; F17.200 Nicotine dependence, unspecified, uncomplicated
CPT/HCPCS: 71045; 74176; 80053; 81001; 85025; 96361; 96374; 96375; 99284; J2405

== ENCOUNTER → 2018-06-25 07:50 | Outpatient (CLI) | payer OTHER, SELFPAY ==
[2018-06-18 15:09] VITALS: BMI 29.8
--- NOTE | 2018-06-25 07:53 | US_ITS ---
STUDY: ABDOMINAL ULTRASOUND REASON FOR EXAM: Female, 62 years old. Thrombocytopenia. TECHNIQUE: Transabdominal ultrasound was performed with real-time and static isaacs scale imaging. TECHNICAL QUALITY: Adequate. COMPARISON: None. FINDINGS: Liver: The liver measures 17 cm. There is normal echogenicity of the liver. The bile ducts are within normal limits. There is hepatic color flow. The direction of portal flow is hepatopetal. There is no demonstrated mass lesion. Portal vein measurement: Gallbladder: The patient is status post cholecystectomy. Common Bile Duct (C.B.D.): The common bile duct measures 4.1 mm. Pancreas: Normal size of the head, body and tail of the pancreas. There is increased echogenicity of the pancreas. There is no demonstrated pancreatic mass or cyst. Spleen: There is splenomegaly. The spleen measures 16.3 cm x 7 cm x 5.3 cm. Right Kidney: Normal size of the right kidney. The right kidney measures 8.6 cm x 4.4 cm x 4.6 cm. Normal renal cortex. The right cortex measures 1.3 cm. There is no demonstrated renal mass or cyst. There is no right hydronephrosis. Left Kidney: Normal size of the left kidney. The left kidney measures 8.9 cm x 4.2 cm x 4.6 cm. Normal renal cortex. The left cortex measures 1.4 cm. There is a 1.1 cm x 1.2 cm x 0.9 cm cyst. There is no left hydronephrosis. Aorta: Obscured due to overlying bowel gas. I.V.C.: The IVC is patent. There is no ascites. US/Abdomen Complete IMPRESSION: Splenomegaly. Electronically Signed: Tomer Vegas, at 15:54 EDT , Service support ,
== END ==
LOC: US 07:51
PROVIDERS: Referring Provider Internal Medicine Medical Oncology; Visit Provider Internal Medicine Medical Oncology
DX: D69.6 Thrombocytopenia, unspecified (principal)
CPT/HCPCS: 76700

== ENCOUNTER 2018-09-16 22:01 | Emergency (ER) | payer OTHER, SELFPAY ==
[2018-07-02 14:18] VITALS: BMI 29.4
[2018-09-16 22:02] VITALS: BP 141/70; PULSE 108; RESP 18; TEMP 36.4; O2SAT 98; BMI 31.8
--- NOTE | 2018-09-16 22:14 | RAD_ITS ---
STUDY: X-RAY - RIGHT TIBIA AND FIBULA REASON FOR EXAM: Female, 63 years old. Pain. TECHNIQUE: 2 view(s) of the tibia and fibula were obtained. COMPARISON: None. FINDINGS: Normal visualized tibia. Normal visualized fibula. There is no acute fracture, dislocation or destructive osseous pathology. The ankle appear intact. The soft tissue structures are unremarkable. RAD/Tibia & Fibula 2 Views IMPRESSION: Normal x-ray examination of the tibia and fibula. Electronically Signed: Cameron Rai DO at 22:34 EDT Tel [phone], Service support ,
--- NOTE | 2018-09-16 22:15 | ED.VIS.GEN ---
History of Present Illness Chief Complaint: Lower Extremity Injury Informant: Patient Onset: Month(s) - 1 Narrative: Presents for evaluation of pain anterior right lower leg and foot for the past month. Denies any injuries. No paresthesias. No new activities. Denies any previous similar symptoms. No medications taken. Has not seen any healthcare provider for this. History of diabetes denies history gastric ulcers or kidney injury. Pain worse with palpation. Prior similar symptoms: No Past Medical History - Allergies and Home Meds Allergies/Adverse Reactions: Allergies haloperidol [From Haldol] Adverse Reaction (Verified 07/02/18 14:17) Unknown haloperidol lactate [From Haldol] Adverse Reaction (Verified 07/02/18 14:17) Unknown Primary Care Physician: Mikal De Anda,Candace Olivia [NON-STAFF] - Surgical History: cholecystectomy Smoking Status: Current every day smoker - Family History Maternal Family History: Family History (Last Updated 07/16/17 @ 14:49 by Tami Henry) Unknown No problems noted. Family History: Reports: No pertinent history Review of Systems General: Denies: Chills, Fever, Sweats Eyes: Denies: Visual changes - bilaterally, Diplopia ENT: Denies: Rhinorrhea, Sore throat Cardiovascular: Denies: Chest pain, Palpitations Respiratory: Denies: Dyspnea, Cough, Dyspnea on exertion Gastrointestinal: Denies: Abdominal pain, Nausea, Vomiting, Diarrhea, Melena, Hematochezia Genitourinary: Denies: Dysuria, Hematuria, Frequency Musculoskeletal: Reports: Arthralgias. Denies: Back pain, Extremity Pain Skin: Denies: Rash, Wounds Neurological: Denies: Headache, Weakness, Numbness Physical Exam Vital Signs/Narrative: Vital Signs Temp Pulse Resp BP Pulse Ox 09/16/18 22:02 97.6 F L 108 H 18 141/70 H 98 Inital Vital Signs reviewed: Yes General: Well nourished, Well developed, No Acute Distress Head: Normocephalic, Atraumatic Eyes: Perrl, EOMI ENT: Moist mucous membranes, No rhinorrhea Neck: Supple, Nontender Cardiovascular: Regular rate, Regular rhythm, No murmurs Respiratory: No distress, CTA bilaterally, Chest nontender Abdomen: Soft, Nontender, Nondistended, Normal bowel sounds Back: Nontender, Normal Inspection Extremities: - - Right lower extremity: No hip or knee pain. There is tenderness along the anterior aspect of the [place] distal third of the tibia, tender around dorsal foot. There is swelling bilateral malleolus, no erythema. Skin intact. Neurovascular intact distally. Skin: Normal color, No rash Neurological: Alert, Oriented x3, Cranial nerves II-XII grossly intact, Normal Strength, Normal Sensation Psychological: Normal affect, Normal Mood Diagnostic/Tx/Re-eval Right tib-fib: No acute process Right foot: Degenerative changes towards great toe without fracture - Medical Decision Making Patient exam concerns for shinsplints and tendinitis dorsal foot. Treated with Tylenol. X-rays obtained of the tib-fib and foot with no acute findings. Steve wrap provided. Discussed continuing Tylenol every 6 hours as needed. She is able to ambulate. She will follow-up as an outpatient. All questions were answered. ED Disposition - Plan for ED Patient: Disposition: Home or Assisted Living Diagnosis: De [place]ira splint of right lower extremity, Tendinitis of right foot Instructions: De Oliveira Splints, What Is Tendinitis of the Foot? Referrals: Free Candace De Anda [NON-STAFF] - 3-5 Days Additional Instructions: X-ray of your lower leg and foot negative for fracture dislocation. There is degenerative changes of the great toe. Continue Steve wrap, Tylenol every 6 hours as needed.
--- NOTE | 2018-09-16 22:20 | RAD_ITS ---
STUDY: X-RAY - RIGHT FOOT CLINICAL: Female, 63 years old. Pain. TECHNIQUE: 3 view(s) of the foot. COMPARISON: None. FINDINGS: Normal talus, calcaneus, and tarsal bones. There are minimal degenerative changes of the visualized subtalar, talonavicular, calcaneocuboid, tarsal and tarsometatarsal articulations. Normal metatarsi. Mild degenerative changes of the metatarsophalangeal joint of the great toe. Normal tibial and fibular sesamoid bones. Normal phalanges of the great toe. Normal second through fifth metatarsophalangeal joints. There is Claw toe deformity of the second through fifth toes. The soft tissue structures are unremarkable. RAD/Foot min 3 Views IMPRESSION: Degenerative changes of the right foot without acute fracture or dislocation. Electronically Signed: Cameron Rai DO at 22:33 EDT Tel [phone], Service support ,
[2018-09-16] MEDS: Acetaminophen 500 MG Tablet 1000 MG PO (22:34)
[2018-09-16 22:46] VITALS: BP 138/69; PULSE 89; RESP 16; O2SAT 97
[2018-09-16 22:47] VITALS: BP 138/69; PULSE 89; RESP 16; O2SAT 97
== END 2018-09-16 22:56 | disposition home or self-care (01) ==
PROVIDERS: Emergency Provider Emergency Medicine; Family Provider Nurse Practitioner Family; PCP Nurse Practitioner Family
DX: S86.891A Other injury of other muscle(s) and tendon(s) at lower leg level, right leg, initial encounter (principal); M77.51 Other enthesopathy of right foot and ankle; X58.XXXA Exposure to other specified factors, initial encounter; Y93.9 Activity, unspecified; Y92.9 Unspecified place or not applicable; F17.200 Nicotine dependence, unspecified, uncomplicated
CPT/HCPCS: 73590; 73630; 99282

== ENCOUNTER → 2018-12-22 14:34 | Outpatient (CLI) | payer OTHER, SELFPAY ==
--- NOTE | 2018-12-22 14:37 | RAD_ITS ---
STUDY: X-RAY CHEST REASON FOR EXAM: Female, 63 years old. 3 day history of cough and shortness of breath. TECHNIQUE: PA and lateral views of the chest. COMPARISON: Comparison is made with prior examination dated December 31, 2017. FINDINGS: Stable mild increased markings at the bases suggestive of mild scarring. Scattered calcified granulomas. There is no demonstrated pleural abnormality. Normal size heart. Normal mediastinum and kenzie. Normal visualized pulmonary arteries. There is atherosclerotic calcification of the aortic arch with tortuosity. There are degenerative changes of the visualized thoracic spine. Normal visualized ribs, clavicles, and shoulders. Prior cholecystectomy. RAD/Chest PA and Lateral IMPRESSION: Stable mild increased markings at the lung bases suggestive of mild bibasilar atelectasis. Electronically Signed: Tomer Vegas, at 15:10 EDT , Service support ,
== END ==
DX: R05 Cough (principal)
CPT/HCPCS: 71046

== ENCOUNTER 2018-12-27 17:13 | Emergency (ER) | payer OTHER, SELFPAY ==
[2018-12-27 17:14] VITALS: BP 121/69; PULSE 98; RESP 15; TEMP 36.8; O2SAT 97; BMI 32.5
[2018-12-27 17:50] VITALS: BP 121/69; PULSE 98; RESP 15; TEMP 36.8; O2SAT 97
[2018-12-27 17:51] VITALS: O2SAT 97
--- NOTE | 2018-12-27 18:35 | RAD_ITS ---
STUDY: X-RAY CHEST REASON FOR EXAM: Female, 63 years old. Cough, SOB. Bronchitis. TECHNIQUE: PA and lateral chest. COMPARISON: 12/22/2018. FINDINGS: The lungs are clear and expanded. There is no demonstrated pleural abnormality. Normal size heart. Normal mediastinum and kenzie. Normal visualized pulmonary arteries. Mild atherosclerotic calcification of the aortic arch. Normal visualized thoracic spine. Normal visualized ribs, clavicles, and shoulders. There is no demonstrated abnormality of the visualized soft tissue structures of the upper abdomen. RAD/Chest PA and Lateral IMPRESSION: No acute findings. Electronically Signed: Coni Rick MD at 18:57 EDT Tel , Service support ,
--- NOTE | 2018-12-27 19:24 | ED.VIS.DYS ---
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 Negative for: Fever, Rhinorrhea Chest Pain: None Narrative: Patient states I know my body, I have bronchitis. She is a longtime smoker but does not have a history of COPD or heart disease and is on no oxygen at home. She was prescribed doxycycline and she has been taking it for several days, she has been sick for a week total, she states she is no better and she needs to be better for work. She has tried no cough medications for this illness. She states she has taken every [id number] cough medicine made for her other episodes of bronchitis throughout her life and since they have never worked, she chose not to try any for this illness. - Past Medical History (1) Diabetes Status: Chronic (2) Hyperlipidemia Status: Chronic (3) Obstructive sleep apnea Status: Chronic (4) Peripheral neuropathy Status: Chronic (5) Thrombocytopenia Status: Chronic Past Medical History - Allergies and Home Meds Allergies/Adverse Reactions: Allergies haloperidol [From Haldol] Adverse Reaction (Verified 12/27/18 17:17) Unknown haloperidol lactate [From Haldol] Adverse Reaction (Verified 12/27/18 17:17) Unknown Primary Care Physician: Candace Cook [Primary Care Provider] - Surgical History: cholecystectomy Smoking Status: Current every day smoker - Family History Maternal Family History: Family History (Last Updated 07/16/17 @ 14:49 by Tami Henry) Unknown No problems noted. Family History: Reports: No pertinent history Review of Systems General: Reports: Malaise. Denies: Chills, Fever, Sweats Eyes: Denies: Visual changes - bilaterally, Diplopia ENT: Denies: Rhinorrhea, Sore throat Cardiovascular: Denies: Chest pain, Palpitations Respiratory: Reports: Dyspnea - Only due to coughing, Cough, Orthopnea - Due to lots of coughing. Denies: Sputum, Dyspnea on exertion Gastrointestinal: Denies: Abdominal pain, Nausea, Vomiting, Diarrhea, Melena, Hematochezia Genitourinary: Denies: Dysuria, Hematuria, Frequency Musculoskeletal: Denies: Back pain, Swelling, Extremity Pain Skin: Denies: Rash, Wounds Neurological: Reports: Headache. Denies: Weakness, Numbness Physical Exam Vital Signs/Narrative: Vital Signs Temp Pulse Resp BP Pulse Ox 12/27/18 17:50 98.3 F 98 15 121/69 H 97 12/27/18 17:14 98.3 F 98 15 121/69 H 97 Inital Vital Signs reviewed: Yes General: Well nourished, Well developed, No Acute Distress Head: Normocephalic, Atraumatic Eyes: Perrl, EOMI ENT: Moist mucous membranes, No rhinorrhea, TM's clear. Negative for: Nasal congestion, Sinus tenderness Neck: Supple, Nontender, No lymphadenopathy, No JVD Cardiovascular: Regular rate, Regular rhythm, No murmurs Respiratory: No distress, CTA bilaterally, Chest nontender Abdomen: Soft, Nontender, Nondistended, Normal bowel sounds Back: Nontender, Normal Inspection Extremities: Nontender, No edema Skin: Normal color, No rash Neurological: Alert, Oriented x3, Cranial nerves II-XII grossly intact, Normal Strength, Normal Sensation, Normal Gait Psychological: Normal affect, Normal Mood Diagnostic/Tx/Re-eval Chest X-Ray - ED: 2 View, Read by ED Physician, Heart, Lungs, Bony Structures, No Acute Disease Clinical Impression(s) from Imaging Studies Chest X-Ray 12/27/18 18:35 IMPRESSION: No acute findings. Electronically Signed: Coni Rick MD at 18:57 EDT Tel , Service support , - Medical Decision Making Chest x-ray is unremarkable. I agree the patient probably has bronchitis. I do not think she needs a different antibiotic than the one she is on, it probably is not making her better because her illness is viral in etiology. I do not think prednisone will help her at this time since she has no wheezing. I offered an albuterol inhaler but she states that her physician commercial lending assistant already prescribed her one she just has not tried it. I advised that she try it. Will prescribe her Tessalon Perles and advised that she follow-up if it does not help. ED Disposition - Plan for ED Patient: Disposition: Home or Assisted Living Diagnosis: Acute bronchitis with bronchospasm Instructions: BRONCHITIS, No Antibiotic (Adult) Prescriptions: Benzonatate [Tessalon Perle] 100 mg PO Q4H PRN PRN #20 cap PRN Reason: Cough Prescription Printed [facility]errals: [facility] Olivia [Primary Care Provider] - 1 Week if not improving
[2018-12-27] MEDS: guaiFENesin Dm 10 ML UDC PO (19:41)
[2018-12-27 19:48] VITALS: BP 127/87; PULSE 81; RESP 14; O2SAT 97
== END 2018-12-27 19:50 | disposition home or self-care (01) ==
PROVIDERS: Emergency Provider Emergency Medicine
DX: J20.9 Acute bronchitis, unspecified (principal); E11.42 Type 2 diabetes mellitus with diabetic polyneuropathy; E78.5 Hyperlipidemia, unspecified; G47.33 Obstructive sleep apnea (adult) (pediatric); D69.6 Thrombocytopenia, unspecified; Z79.4 Long term (current) use of insulin; Z79.899 Other long term (current) drug therapy; F17.200 Nicotine dependence, unspecified, uncomplicated
CPT/HCPCS: 71046; 99283

== ENCOUNTER 2019-11-30 22:39 | Emergency (ER) | payer MEDICAID, SELFPAY ==
[2019-10-27 14:03] VITALS: BMI 35.7
[2019-11-30 22:40] VITALS: BP 152/76; PULSE 90; RESP 18; TEMP 36.8; O2SAT 95; BMI 34.5
--- NOTE | 2019-11-30 23:29 | EKG12_ITS ---
Test Reason : ABD PAIN Blood Pressure : / mmHG Vent. Rate : 102 BPM Atrial Rate : 102 BPM P-R Int : 172 ms QRS Dur : 080 ms QT Int : 368 ms P-R-T Axes : 026 -03 049 degrees QTc Int : 479 ms Sinus tachycardia Low voltage QRS Poor R wave progression Confirmed by CAROLYN PAULINO, MARIAM ([id number]), staff editor AMANUEL NANCE ([id number]) on 12/03/2019 11:15:33 AM Referred By: CL Confirmed By:MARIAM LEON MD
--- NOTE | 2019-11-30 23:29 | CT_ITS ---
HISTORY: RIGHT SIDED ABD PAIN X 2-3 DAYS. EXAMINATION: CT Abdomen And Pelvis W/O Contrast Injection TECHNIQUE: Helically acquired images were obtained of the abdomen and pelvis following IV contrast. A radiation dose optimization technique was used for this scan. IV Contrast dosage and agent: 100mL Isovue-370 contrast Oral contrast: None. COMPARISON: 12/31/2017 FINDINGS: Lower thorax: Posterior right basilar mild passive atelectasis. No pleural effusion or pericardial effusion. Cholecystectomy with surgical clips within the gallbladder fossa. No biliary dilatation. Generalized hepatosplenomegaly. Spleen is moderately enlarged measuring 17.7 cm in length measured in the sagittal plane as compared to 15.9 cm previously. The liver shows a mildly nodular contour as seen with cirrhosis. No focal hepatic or splenic lesion. Mildly atrophic pancreas. Bilateral borderline atrophic kidneys with each kidney measuring less than 9 cm in length. No hydronephrosis or suspicious renal lesion. Small exophytic cortical cyst of the left renal upper pole. The adrenal glands are not enlarged. Abdominal aorta is atherosclerotic and normal in caliber. Left para-aortic borderline enlarged lymph nodes, unchanged. Right subhepatic and right paracolic gutter trace free fluid. GI tract: No obstruction. Pelvis: Anteverted uterus which is normal in size. Superior to the uterus and urinary bladder, circumscribed multilocular cystic mass measuring 9.1 x 9.8 x 9.1 cm. The lesion shows internal thin septations and an outer thin wall and likely represents ovarian serous cystadenoma. The pelvic mass is new compared to prior. Normal urinary bladder. Fat-containing left inguinal hernia. No free fluid or lymph node enlargement. Bones: No acute osseous abnormality. CT/Abdomen/Pelvis W IV Cont ONLY IMPRESSION: 1. Pelvic 9.8 cm multilocular cystic mass, new compared to prior, and compatible with ovarian serous cystadenoma. INDUSTRIAL HYGIENE MANAGER referral and surgical excision recommended. 2. Hepatosplenomegaly with cirrhosis and worsening splenomegaly. Subhepatic and right paracolic gutter trace free fluid. 3. Cholecystectomy and additional nonacute findings, as above. Individualized dose optimization techniques were used for this CT. at 0201 Reported and signed by: Pedro Carlson MD Electronically Signed: Pedro Carlson, at 2:00 EDT Tel , Service support ,
[2019-11-30 23:46] LABS: Absolute Lymphocyte Count 1.58 X10^3/uL (0.83-4.51); Absolute Neutrophil Count 7.9 X10^3/uL (2.0-7.7); Basophil# 0.02 X10^3/uL; Basophil% 0.2 % (0-1); Eosinophil# 0.03 X10^3/uL; Eosinophils% 0.3 % (0-5); Hematocrit 37.5 % (37-47); Lymphocyte # 1.58 X10^3/ul (4.0); Lymphocyte % 14.9 % (19-41); Mean Corpuscular Hgb 31.4 pg (27.0-32.0); Mean Corpuscular Volume 98.2 fL (81-99); Mean Platelet Vol. 12.5 fl (6.2-12.0); Monocyte# 0.97 X10^3/uL; Monocyte% 9.2 % (0-10); NRBC Flagged by Analyzer 0 % (0-5); Neutrophil # 7.91 X10^3/uL (2.7-7.7); Neutrophil % 74.8 % (47-70); POSITIVE COUNT YES; Platelet Count 77 K/mm3 (150-450); RBC Distribution Width CV 14.6 % (11.6-14.6); RBC Distribution Width SD 52.4 fl (35.1-43.9); Red Blood Count 3.82 M/mm3 (4.2-5.4); White Blood Count 10.6 K/mm3 (4.4-11.0)
--- NOTE | 2019-11-30 23:46 | ED.VIS.GEN ---
History of Present Illness Chief Complaint: Abd Pain Informant: Patient Narrative: 64-year-old female with past medical history of COPD and diabetes presents with concern for right abdominal pain. States it has been present over the past 3 days. Intermittent in nature. Sharp. Denies any relieving or worsening factors. Admits to nausea without vomiting. Denies any diarrhea, constipation, chest pain, shortness of breath, fever, chills, urinary symptoms, vaginal bleeding or discharge. Past Medical History - Allergies and Home Meds Allergies/Adverse Reactions: Allergies haloperidol [From Haldol] Adverse Reaction (Verified 11/30/19 22:43) Unknown haloperidol lactate [From Haldol] Adverse Reaction (Verified 11/30/19 22:43) Unknown Primary Care Physician: Care Physician,No Primary [Primary Care Provider] - Past Medical History: - - COPD and diabetes Surgical History: cholecystectomy, - - x4 Lives: With Family Smoking Status: Current every day smoker Alcohol: None Drugs: None - Family History Maternal Family History: Family History (Last Reviewed 10/27/19 @ 14:[address] Marco Antonio Leiva MD) Unknown No problems noted. Family History: Reports: No pertinent history Review of Systems General: Denies: Chills, Fever, Sweats Eyes: Denies: Visual changes - bilaterally, Diplopia ENT: Denies: Rhinorrhea, Sore throat Cardiovascular: Denies: Chest pain, Palpitations Respiratory: Denies: Dyspnea, Cough, Dyspnea on exertion Gastrointestinal: Reports: Abdominal pain, Nausea. Denies: Vomiting, Diarrhea, Melena, Hematochezia Genitourinary: Denies: Dysuria, Hematuria, Frequency Musculoskeletal: Denies: Back pain, Extremity Pain Skin: Denies: Rash, Wounds Neurological: Denies: Headache, Weakness, Numbness Physical Exam Vital Signs/Narrative: Vital Signs Temp Pulse Resp BP Pulse Ox 11/30/19 22:40 98.3 F 90 18 152/76 H 95 Inital Vital Signs reviewed: Yes General: Well nourished, Well developed, No Acute Distress Head: Normocephalic, Atraumatic Eyes: Perrl, EOMI ENT: Moist mucous membranes, No rhinorrhea Neck: Supple, Nontender Cardiovascular: Regular rate, Regular rhythm, No murmurs Respiratory: No distress, CTA bilaterally, Chest nontender Abdomen: Soft, Normal bowel sounds, - - Tenderness to palpation in the right upper and lower quadrants. No rebound or guarding. Moderate distention. Back: Nontender, Normal Inspection Extremities: Nontender, No edema Skin: Normal color, No rash Neurological: Alert, Oriented x3, Cranial nerves II-XII grossly intact, Normal Strength, Normal Sensation Psychological: Normal affect, Normal Mood Diagnostic/Tx/Re-eval Clinical Impression(s) from Imaging Studies Abdomen/Pelvis CT 11/30/19 23:29 IMPRESSION: 1. Pelvic 9.8 cm multilocular cystic mass, new compared to prior, and compatible with ovarian serous cystadenoma. ASSISTANT PROGRAM DIRECTOR referral and surgical excision recommended. 2. Hepatosplenomegaly with cirrhosis and worsening splenomegaly. Subhepatic and right paracolic gutter trace free fluid. 3. Cholecystectomy and additional nonacute findings, as above. Individualized dose optimization techniques were used for this CT. at 0201 Reported and signed by: Pedro Carlson MD Electronically Signed: Pedro Carlson, at 2:00 EDT Tel , Service support , Laboratory Data 11/30/19 11/30/19 12/01/19 23:26 23:26 00:50 WBC 10.6 RBC 3.82 L Hgb 12.0 Hct 37.5 MCV 98.2 MCH 31.4 MCHC 32.0 RDW Std Deviation 52.4 H RDW Coeff of Nick 14.6 Plt Count 77 L MPV 12.5 H Immature Gran % (Auto) 0.600 Neut % (Auto) 74.8 H Lymph % (Auto) 14.9 L [place] % (Auto) 9.2 Eos % (Auto) 0.3 Baso % (Auto) 0.2 Absolute Neuts (auto) 7.9 H Absolute Lymphs (auto) 1.58 Nucleated RBC % 0 Sodium 138 Potassium 3.6 Chloride 103 Carbon Dioxide 31.0 Anion Gap 4 L BUN 18 Creatinine 1.37 H Estim Creat Clear Calc 52.13 Est GFR (MDRD) Af Amer 50 L Est GFR (MDRD) Non-Af 42 L BUN/Creatinine Ratio 13.1 Glucose 230 H Calcium 8.8 Total Bilirubin 1.60 H AST 26 ALT 30 Alkaline Phosphatase 71 Troponin I < 0.015 Total Protein 8.1 Albumin 3.5 Globulin 4.6 H Albumin/Globulin Ratio 0.8 L Lipase 176 Urine Color Yellow Urine Clarity Cloudy Urine pH 6.0 Ur Specific [place] 1.010 Urine Protein 30 H Urine Glucose (UA) 50 H Urine Ketones Negative Urine Occult Blood 50 H Urine Nitrite Negative Urine Bilirubin Negative Urine Urobilinogen 1 H Ur Leukocyte Esterase 500 H Urine RBC 10-25 SEEN Urine WBC 50-100 SEEN Ur Squamous Epith Cells 0 SEEN Urine Bacteria RARE Urine Mucus 0 SEEN - Rhythm Strip Rhythm Strip: Sinus Tach Rate: 102 Ectopy: None - EKG Initial EKG Interpretation: Sinus Tachycardia - Is tachycardia at 102 bpm. CO interval 172 ms. QTC of 479 ms. Nonspecific T wave changes. No evidence of ST elevation or depression at this time. No significant change from 06/10/2017. - Medical Decision Making Patient in mild to moderate distress secondary to abdominal pain. Was given 1 L of normal saline, Zofran, morphine. Lab work shows no evidence of leukocytosis. Chronic kidney disease at baseline. Hyperbilirubinemia of 1.6. Urine shows the infection. Will be sent for culture. CT shows large most likely ovarian serous cystadenoma. Patient was continued to have pain and was given 0.5 mg of Dilaudid which did resolve her pain. Patient was offered admission given this large mass as well as her abdominal pain. States that she is feeling improved and does want to be discharged home because her needs help changing his dressings for venous stasis wounds which he has to his right lower extremity. Patient will be given to code own and Zofran for home. Patient does have some liver changes on her CT concerning for possible cirrhosis. No transaminitis. I did discuss this with the patient who states that she was a heavy drinker but has not had a drink in 17 years. I did ask her to follow-up with her primary care provider about this issue. Patient will be given CORRECTIONS SERGEANT follow-up for tomorrow. Asked to return if she has worsening pain or uncontrolled nausea. Patient will be given Keflex for home given her urine. Discharged home in stable condition. Impression: 1. Pelvic mass 2. Abdominal pain 3. Nausea 4. Hyperbilirubinemia 5. Cirrhotic liver changes 6. UTI ED Disposition - Plan for ED Patient: Disposition: Home or Assisted Living Instructions: ED Tumor UK[facility], Understanding Urinary Tract Infections (UTIs) Prescriptions: Cephalexin [Keflex] 500 mg PO Q12 #14 cap Prescription Printed Oxycodone [Oxyir] 5 mg PO Q6H PRN PRN 2 Days #8 tab PRN Reason: Pain Score 6-10/10 Prescription Printed Ondansetron [Zofran Odt] 4 mg PO Q8H PRN PRN #10 tab PRN Reason: Nausea Prescription Printed Referrals: Noemi Israel MD [STAFF PHYSICIAN] - 1 Day Additional Instructions: Please call OBGYN tomorrow for follow up CHAD. Return for worsening pain or nausea.
[2019-11-30] MEDS: 0.9% Normal Saline 1,000 ML 1000 ML IV (23:47)
[2019-11-30] MEDS: Ondansetron 4 MG/2 ML Vial IV (23:48)
[2019-11-30] MEDS: Morphine 4 MG/ML Syringe IV (23:49)
[2019-12-01 00:03] LABS: ALB/GLOB Ratio 0.8 RATIO (0.9-2.4); AST(SGOT) 26 U/L (15-37); Alanine Aminotransfer ALT/SGPT 30 U/L (13-56); Albumin, Serum 3.5 g/dL (3.2-5.0); Alkaline Phosphatase 71 U/L (45-117); Anion Gap 4 (5-15); BUN 18 mg/dL (7-18); BUN/Creat Ratio 13.1 RATIO (10-20); Calcium,Total 8.8 mg/dL (8.5-10.1); Chloride 103 mmol/L (98-107); Creatinine, Serum 1.37 mg/dL (0.55-1.02); EST Glomerular Filtration Rate 42 mL/min (>60); Est Glom Filt Rate - Afr Amer 50 mL/min (>60); Estimated Creatinine Clearance 52.13 ml/min; Globulin 4.6 g/dL (2.2-4.2); Glucose 230 mg/dL (74-106); Lipase 176 U/L (73-393); Potassium 3.6 mmol/L (3.5-5.1); Protein, Total 8.1 g/dL (6.4-8.2); Sodium Level 138 mmol/L (136-145)
[2019-12-01 00:54] LABS: Mucous, Urine 0 SEEN /hpf (<or=2+)
[2019-12-01 00:55] VITALS: RESP 16
[2019-12-01 00:56] LABS: Color, Urine Yellow (Yellow); Glucose, Dipstick 50 mg/dl (Normal); Ketone-Dipstick Negative (Negative); Leukocyte Esterase-Dipstick 500 /ul (Negative); Nitrite-Dipstick Negative (Negative); Occult Blood-Urine 50 /ul (Negative); Protein-Dipstick 30 mg/dl (Negative); Urine Bilirubin Dipstick Negative (Negative); Urine Clarity Cloudy (Clear); Urine Urobilinogen 1 mg/dl (Normal)
[2019-12-01 00:58] VITALS: BP 115/62; PULSE 106; RESP 18; TEMP 37.1; O2SAT 92
[2019-12-01] MEDS: HYDROmorphone 0.5 MG/0.5 ML SYRINGE IV (01:03)
[2019-12-01 01:07] LABS: Bacteria RARE /hpf (None Seen); Red Blood Cells-Urine 10-25 SEEN /hpf (0-5); Squamous Epithelial Cells - UA 0 SEEN /hpf (5-10)
[2019-12-01 01:08] LABS: White Blood Cells 50-100 SEEN /hpf (0-5)
[2019-12-01] MEDS: Cephalexin 250 MG Capsule 500 MG PO (02:35)
[2019-12-01 02:37] VITALS: BP 124/69; PULSE 100; RESP 20; O2SAT 92
== END 2019-12-01 02:37 | disposition home or self-care (01) ==
PROVIDERS: Emergency Provider Emergency Medicine
DX: R10.9 Unspecified abdominal pain (principal); R11.0 Nausea; K74.60 Unspecified cirrhosis of liver; N39.0 Urinary tract infection, site not specified; F17.200 Nicotine dependence, unspecified, uncomplicated
CPT/HCPCS: 74177; 80053; 81001; 83690; 84484; 85025; 93005; 96374; 96375; 99283; J7030; Q9967; A4216; J2405

== ENCOUNTER 2019-12-02 12:39 | Emergency (ER) | payer MEDICAID, SELFPAY ==
[2019-12-02 12:40] VITALS: BP 115/59; PULSE 96; RESP 16; TEMP 36.3; O2SAT 93; BMI 35.7
--- NOTE | 2019-12-02 12:51 | ED.VISSUMM ---
- ER Visit Summary Date of Service: 12/02/19 Chief Complaint: Abdominal pain History of Present Illness: The patient is a 64 F who goes to the [facility] and also sees Dr. Jiménez. She was diagnosed with an ovarian mass 2 days ago. She was seen by Dr. Jiménez this morning and is felt to need urgent surgery. She discussed the patient with Dr. Mary Bates at [facility]. Patient reports that she has right lower abdominal pain that began 2 to 3 months ago. Says sharp pain is 1010 severity. Is worsened by movement or pressure. She taken oxycodone without relief. She denies any associated nausea, vomiting, or diarrhea. No fever or chills. Physical Examination: Vitals: Stable. Afebrile. General: Well-nourished and well-developed. Head: Normocephalic atraumatic. Neck: Supple, no lymphadenopathy. No JVD. Nontender. Cardiovascular: Regular rate and rhythm. No murmurs. Respiratory: No respiratory distress. Clear to auscultation bilaterally. Abdominal: Soft, moderate tenderness palpation in the right lower quadrant that extends up to the right periumbilical area, nondistended, normal bowel sounds. No guarding, rebound, or peritoneal signs. Back: Nontender. Extremities: Nontender, no edema. Skin: Normal color, no rash. Neurologic: Alert and oriented ?3. Cranial nerves II through XII are intact. Normal strength and sensation. Psych: Normal affect. Test Results: Patient did not have labs repeated. The CT obtained on November 29 shows a 9.1 cm multiloculated cystic mass on the right. Review of the patient's labs shows that she did have thrombocytopenia on the with platelets of 77. Because of this a CBC was repeated. She had a creatinine of 1.3 and elevated LFTs. Because of this a CMP was repeated. CBC today shows a white count of 11.5 with an H&H of 10.7 and 33.5, platelets of 84. CMP shows a calcium of 8.3, BUN 24, creatinine 1.51. Globulin is 4.6. Total bili is 1.3. Emergency Department Course and Treatment: Patient had an IV placed. She refused pain medications. She was discussed with Dr. Jiménez who did an ultrasound in the office and the patient does not have a torsion at this time. However, she feels the patient requires transfer to a tertiary care center to see gynecology oncology. The patient was discussed with Dr. Eaton who has accepted her. Treatment Plan: Patient will be discussed with [facility] and transferred for further evaluation and treatment. Disposition: Pending Impression: 1. Right ovarian mass. 2. Thrombocytopenia. 3. Chronic renal insufficiency. This note was generated with Exam18 software. It may contain incorrect words, spelling, and punctuation that were not noted in review of the chart prior to signing <Kj Alvarez - Last Filed: 12/02/19 14:19> - ER Visit Summary Date of Service: 12/02/19 Chief Complaint: [] History of Present Illness: The patient is a 64 F [] Physical Examination: [] Test Results: [] Emergency Department Course and Treatment: [] Treatment Plan: Patient has been awaiting transfer to [facility]. Currently they are tight on beds. She has been waiting multiple hours. And wants to be discharged to home. She is going to sign out AMA. She can follow-up as an outpatient for further evaluation of this pelvic mass. Disposition: Signing out AMA Impression: Right ovarian mass of uncertain etiology rule out malignancy This note was generated with Exam18 software. It may contain incorrect words, spelling, and punctuation that were not noted in review of the chart prior to signing <Nikunj Ramirez - Last Filed: 12/02/19 20:57> ED Disposition <Kj Alvarez - Last Filed: 12/02/19 14:19> <Nikunj Ramirez - Last Filed: 12/02/19 20:57> - Plan for ED Patient: Referrals: Care Physician,No Primary [NON-STAFF] -
[2019-12-02 13:23] LABS: Absolute Lymphocyte Count 2.78 X10^3/uL (0.83-4.51); Absolute Neutrophil Count 7.6 X10^3/uL (2.0-7.7); Basophil# 0.03 X10^3/uL; Basophil% 0.3 % (0-1); Eosinophil# 0.06 X10^3/uL; Eosinophils% 0.5 % (0-5); Hematocrit 33.5 % (37-47); Hemoglobin 10.7 g/dL (12.0-15.0); Lymphocyte # 2.78 X10^3/ul (4.0); Lymphocyte % 24.2 % (19-41); Mean Corp Hgb Conc 31.9 g/dL (32-36); Mean Corpuscular Hgb 31.7 pg (27.0-32.0); Mean Corpuscular Volume 99.1 fL (81-99); Mean Platelet Vol. 12.3 fl (6.2-12.0); Monocyte% 7.8 % (0-10); NRBC Flagged by Analyzer 0 % (0-5); Neutrophil # 7.61 X10^3/uL (2.7-7.7); Neutrophil % 66.4 % (47-70); POSITIVE COUNT YES; Platelet Count 84 K/mm3 (150-450); RBC Distribution Width CV 14.7 % (11.6-14.6); RBC Distribution Width SD 53.5 fl (35.1-43.9); Red Blood Count 3.38 M/mm3 (4.2-5.4); White Blood Count 11.5 K/mm3 (4.4-11.0)
[2019-12-02 13:35] LABS: ALB/GLOB Ratio 0.7 RATIO (0.9-2.4); AST(SGOT) 26 U/L (15-37); Alanine Aminotransfer ALT/SGPT 24 U/L (13-56); Albumin, Serum 3.2 g/dL (3.2-5.0); Alkaline Phosphatase 57 U/L (45-117); Anion Gap 2 (5-15); BUN 24 mg/dL (7-18); BUN/Creat Ratio 15.9 RATIO (10-20); Calcium,Total 8.3 mg/dL (8.5-10.1); Chloride 104 mmol/L (98-107); Creatinine, Serum 1.51 mg/dL (0.55-1.02); EST Glomerular Filtration Rate 37 mL/min (>60); Est Glom Filt Rate - Afr Amer 45 mL/min (>60); Estimated Creatinine Clearance 49.82 ml/min; Globulin 4.6 g/dL (2.2-4.2); Glucose 92 mg/dL (74-106); Potassium 3.7 mmol/L (3.5-5.1); Protein, Total 7.8 g/dL (6.4-8.2); Sodium Level 137 mmol/L (136-145)
--- NOTE | 2019-12-02 14:16 | NURSING ---
DR PICHARDO FOR DR LEHMAN
[2019-12-02 14:45] VITALS: BP 118/60; PULSE 90; RESP 16; O2SAT 98
[2019-12-02] MEDS: Ondansetron 4 MG/2 ML Vial IV (15:05)
[2019-12-02] MEDS: Morphine 4 MG/ML Syringe IV (15:06)
[2019-12-02 15:10] VITALS: BP 118/60; PULSE 90; RESP 16; TEMP 36.6; O2SAT 98
--- NOTE | 2019-12-02 16:32 | ED.RN ---
pt insisted on going outside to smoke a cigarette, this nurse and explained the hospital is a no smoking facility, offered to get pt a nicotine patch and anxiety medication orders from Dr. Ramirez, pt refused. pt is demanding to go smoke outside. Nicole Crawford, chargeback analyst nurse and aware of same.
[2019-12-02] MEDS: hydrOXYzine PAM 25 MG Capsule 50 MG PO (16:53)
--- NOTE | 2019-12-02 18:18 | ED.RN ---
PT INFORMED THAT THERE NO ROOM ASSIGNMENT AT THIS TIME FOR [facility]. PT VERY UPSET AND DEMANDING TO GO OUTSIDE TO SMOKE, THIS NURSE EXPLAINED THE NO SMOKING POLICY, PT STATED I DON'T CARE, I COULD HAVE ALREADY LEFT AND BEEN ADMITTED IF I HAD TRANSPORTATION
[2019-12-02 18:33] VITALS: BP 114/57; PULSE 92; RESP 16; O2SAT 96
--- NOTE | 2019-12-02 20:45 | NURSING ---
CALLED THE [facility] AND WAS TOLD STILL NO BED AVAILABLE
--- NOTE | 2019-12-02 20:57 | DCINST.ED_ITS ---
ED Disposition - Plan for ED Patient: Disposition: Home or Assisted Living Referrals: Cherise Godinez MD [STAFF PHYSICIAN] - As soon as possible Additional Instructions: Up with your PHARMACIST MANAGER doctors office tomorrow to be set up for outpatient evaluation to [facility].
--- NOTE | 2019-12-02 21:27 | ED.RN ---
PT REPORTS NOT WANTING TO WAIT ANY LONGER ON A BED AT [facility]. PT STATES THEY TOLD ME OVER AT THE DOCTOR'S OFFICE THAT IT WOULD ONLY TAKE 3 HOURS AND I WOULD BE IN [place]. NOW I HAVE BEEN HERE FOR ALMOST 9 HOURS AND THERE IS NO IDEA WHEN I WILL GET A BED. IF THAT IS THE CASE I WOULD RATHER JUST SLEEP AT HOME TONIGHT IN MY OWN BED AND HAVE SOMEONE TAKE ME UP THERE TOMORROW. DR CAMPBELL PROVIDED PT WITH D/C PAPER WORK AND PT SIGNED RELEASE OF MEDICAL INFORMATION FOR A COPY OF HER CHART FROM YESTERDAY AND TODAY ALONG WITH A CT DISC. OFF UNIT VIA AMBULATION.
[2019-12-02 21:30] VITALS: BP 115/57; PULSE 93; RESP 16; RESP 17; O2SAT 96
== END 2019-12-02 21:31 | disposition home or self-care (01) ==
PROVIDERS: Emergency Provider Emergency Medicine
DX: D69.6 Thrombocytopenia, unspecified (principal); N18.9 Chronic kidney disease, unspecified; Z79.4 Long term (current) use of insulin
CPT/HCPCS: 80053; 85025; 96374; 96375; 99285; A4216; J2405

== ENCOUNTER → 2020-04-05 10:12 | Outpatient (CLI) | payer MEDICAID, SELFPAY ==
--- NOTE | 2020-04-05 10:15 | RAD_ITS ---
ACR Level 3 findings have been noted. An addendum which confirms receipt of the report will follow. STUDY: X-RAY - LUMBAR SPINE REASON FOR EXAM: Female, 64 years old. LOW BACK PAIN. POP AFTER LIFTING PATIENT TECHNIQUE: 3 view(s) of the lumbar spine were obtained. COMPARISON: CT abdomen and pelvis dated 12/01/2019. FINDINGS: Normal lumbar lordosis. There is a new depression at the superior endplate of L5 with cortical step off. There is multilevel endplate spondylosis of the lumbar vertebrae. There is multi-level degenerative disc disease with multi-level disc space narrowing. There is atherosclerotic calcification of the abdominal aorta. RAD/Lumbar Spine 2 or 3 Views IMPRESSION: New compression fracture at L5. Further evaluation with CT can be obtained. Electronically Signed: Natalee Nuñez MD at 8:31 EST Tel , Service support ,
== END ==
PROVIDERS: Visit Provider Family Medicine
DX: M54.5 Low back pain (principal)
CPT/HCPCS: 72100

== ENCOUNTER → 2020-04-19 14:42 | Outpatient (CLI) | payer MEDICAID, SELFPAY ==
--- NOTE | 2020-04-19 14:51 | BD_ITS ---
STUDY: DUAL ENERGY X-RAY ABSORPTIOMETRY / DXA REASON FOR EXAM: Female, 64 years old. 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 COMPARISON: None. FINDINGS: Lumbar Spine (L1-L4): g/cm2 (0.857) / T-score (-2.6) / Z-score (-1.2) Findings are suggestive of osteoporosis with a high fracture risk. Left Femur Total: g/cm2 (0.889) / T-score (-0.9) / Z-score (0.1) Left Femoral Neck: g/cm2 (0.790) / T-score (-1.8) / Z-score (-0.4) Right Femur Total: g/cm2 (0.823) / T-score (-1.5) / Z-score (-0.4) Right Femoral Neck: g/cm2 (0.725) / T-score (-2.3) / Z-score (-0.9) BD/Dexa Bone Density Study IMPRESSION: The patient is considered osteoporotic as outlined below according to World Ayush Organization (WHO) criteria with a high fracture risk. Reference Information: The T-score is the number of standard deviations above or below the standard which is normal for young adults at their peak bone mineral density. The World Health Organization (WHO) interprets the T-scores as follows: Above -1 Normal bone density Between -1 and -2.5 Osteopenia Equal to / or below -2.5 Osteoporosis As a practical clinical guideline, osteopenia may be graded as follows: Mild -1 through -1.5 Moderate -1.6 through -2.0 Severe -2.1 through -2.4 The Z-score is the number of standard deviations above or below age-matched controls. A Z-score of less than -1.5 would be considered abnormal. References: 1. NIH Osteoporosis and Related Bone Diseases www osteo.org 2. International Society for Clinical Densitometry www iscd.org 3. National Osteoporosis Foundation www nof.org Electronically Signed: Tomer Vegas MD at 12:24 EST , Service support ,
== END ==
DX: S32.050K Wedge compression fracture of fifth lumbar vertebra, subsequent encounter for fracture with nonunion (principal); X58.XXXD Exposure to other specified factors, subsequent encounter
CPT/HCPCS: 77080

== ENCOUNTER → 2020-05-27 10:31 | Outpatient (CLI) | payer MEDICAID, SELFPAY ==
[2020-05-27 11:37] LABS: Glucose 280 mg/dL (74-106)
[2020-05-27 11:47] LABS: Hemoglobin A1c 6.9 % (3.8-5.6)
== END ==
PROVIDERS: Referring Provider Family Medicine
DX: E11.65 Type 2 diabetes mellitus with hyperglycemia (principal)
CPT/HCPCS: 36415; 82947; 83036

== ENCOUNTER → 2020-07-19 15:35 | Outpatient (CLI) | payer MEDICAID, SELFPAY ==
[2020-07-12 13:09] VITALS: BMI 34.0
--- NOTE | 2020-07-19 16:18 | RAD_ITS ---
STUDY: X-RAY - ABDOMEN/PELVIS REASON FOR EXAM: Female, 64 years old. Irritable bowel syndrome and constipation. TECHNIQUE: AP supine and upright views of the abdomen and pelvis. COMPARISON: CT abdomen and pelvis December 01, 2019. FINDINGS: Normal visualized lung bases. There is an unremarkable bowel gas pattern. Stool is present throughout the colon which could represent constipation. There is no demonstrated free abdominal air. The visualized liver, spleen and kidneys are grossly normal in size and morphology. Normal soft tissue structures. Normal visualized osseous structures. Surgical clips right upper quadrant. RAD/Abd Inc Decub and/or Erect IMPRESSION: Normal x-ray examination of the abdomen and pelvis. Consider constipation. The pelvic mass identified on the prior CT scan is not appreciated on this plain film. Electronically Signed: Nadir Anders MD at 3:25 EDT , Service support ,
== END ==
DX: K58.1 Irritable bowel syndrome with constipation (principal); E11.65 Type 2 diabetes mellitus with hyperglycemia
CPT/HCPCS: 74019; 97802

== ENCOUNTER 2020-07-28 14:00 | Outpatient (RCR) | payer MEDICAID, SELFPAY | END 2020-07-29 23:59 | LOC: DC 14:00 | PROVIDERS: Visit Provider Nurse Practitioner Adult Health | DX: E11.65 Type 2 diabetes mellitus with hyperglycemia (principal) | CPT/HCPCS: 97802; G0108 ==

== ENCOUNTER → 2020-08-24 13:32 | Outpatient (CLI) | payer MEDICAID, SELFPAY ==
[2020-07-12 13:09] VITALS: BMI 34.0
--- NOTE | 2020-08-24 13:37 | ART_ITS ---
Reason For Study: Pain in legs Procedure A bilateral lower extremity continuous wave Doppler with analog waveform analysis,segmental pressures,and ankle brachial indexes without exercise. Left Segmental Pressures Left brachial= 126mmHg. Left posterior tibial artery = 144mmHg. Left dorsalis pedis artery = 142mmHg. Left digit = 116 mmHg. Right Segmental Pressures Right brachial= 121mmHg. Right posterior tibial artery = 148mmHg. Right dorsalis pedis artery = 144mmHg. Right digit = 114 mmHg. Indices The right ankle brachial index by the posterior tibial artery is 1.17. The right ankle brachial index by the dorsalis pedis is 1.14. The right digital-brachial index is 0.90. The left ankle brachial index by the posterior tibial artery is 1.14. The left ankle brachial index by the dorsalis pedis is 1.13. The left digital-brachial index is 0.92. VL/Lower Ext Art Exam w/o Exercis Interpretation Summary Triphasic Doppler waveforms are noted at ankle level bilaterally. Pulse-volume recordings appear satisfactory at all levels bilaterally, including low-thigh, calf, ankle, and d igital levels. Resting ankle-brachial indices are normal bilaterally. Digital-brachial indices are normal bilaterally. There is no evidence of significant arterial occlusive disease in the lower ext remities bilaterally. Ordering Physician: [facility] Candace Brandt [facility] Performed By: Loraine Wilburn RDCS/RVT
== END ==
DX: M79.604 Pain in right leg (principal); M79.605 Pain in left leg
CPT/HCPCS: 93923

== ENCOUNTER 2020-12-24 16:15 | Emergency (ER) | payer MEDICAID, SELFPAY ==
[2020-12-24 16:15] VITALS: BP 115/62; PULSE 92; RESP 16; TEMP 36.1; O2SAT 95; BMI 32.9
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
[2020-12-24] MEDS: Ondansetron 4 MG/2 ML Vial IV (18:47)
[2020-12-24] MEDS: Morphine 4 MG/ML Syringe IV (18:47)
[2020-12-24 19:17] LABS: Anion Gap 2 (5-15); BUN 13 mg/dL (7-18); BUN/Creat Ratio 10.9 RATIO (10-20); Calcium,Total 9.9 mg/dL (8.5-10.1); Chloride 109 mmol/L (98-107); Creatinine, Serum 1.19 mg/dL (0.55-1.02); EST Glomerular Filtration Rate 49 mL/min (>60); Est Glom Filt Rate - Afr Amer 59 mL/min (>60); Estimated Creatinine Clearance 56.48 ml/min; Glucose 135 mg/dL (74-106); Potassium 4.1 mmol/L (3.5-5.1); Sodium Level 140 mmol/L (136-145)
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
[2020-12-24 21:24] VITALS: RESP 16
== END 2020-12-24 21:25 | disposition home or self-care (01) ==
PROVIDERS: Emergency Provider Emergency Medicine
DX: Z04.1 Encounter for examination and observation following transport accident (principal); R10.9 Unspecified abdominal pain; V49.40XA Driver injured in collision with unspecified motor vehicles in traffic accident, initial encounter; Y93.9 Activity, unspecified; Y92.9 Unspecified place or not applicable; Y99.9 Unspecified external cause status; E11.40 Type 2 diabetes mellitus with diabetic neuropathy, unspecified; M06.9 Rheumatoid arthritis, unspecified; J42 Unspecified chronic bronchitis; E78.5 Hyperlipidemia, unspecified; H40.9 Unspecified glaucoma; G47.33 Obstructive sleep apnea (adult) (pediatric); K58.9 Irritable bowel syndrome, unspecified; F17.210 Nicotine dependence, cigarettes, uncomplicated; Z79.4 Long term (current) use of insulin; Z79.899 Other long term (current) drug therapy
CPT/HCPCS: 70450; 71045; 72125; 74177; 80048; 96374; 96375; 99283; Q9967; A4216; J2405

== ENCOUNTER → 2020-12-30 13:25 | Outpatient (CLI) | payer MEDICAID, SELFPAY ==
--- NOTE | 2020-12-30 13:27 | BI_ITS ---
MAMMOGRAPHY - BILATERAL SCREENING REASON FOR EXAM: Female, 65 years old. Routine annual screening examination. PERTINENT HISTORY: Non-contributory. TECHNIQUE: Digital bilateral breast melonie (3D mammographic acquisition) in the CC and MLO projections. 2-D mediolateral oblique (MLO) and craniocaudad (CC) views of both breasts were obtained. CAD: Full Field Digital Mammography with Computer Added Detection was performed. COMPARISON: Comparison is made with prior outside examination dated 10/25/2008. FINDINGS: Breast Composition: The breasts are heterogeneously dense, which may obscure small masses. There are no dominant masses or suspicious calcifications. Stable small benign appearing bilateral axillary lymph nodes. No other significant abnormalities are identified. There has been no significant change since the prior study. BI/SCRN MAMM (CAD)W/MELONIE BILAT IMPRESSION: Stable bilateral screening mammogram. Yearly follow-up mammogram recommended. (A) ASSESSMENT CATEGORY: BIRADS Category 2: Benign. A letter regarding these results will be sent to the patient by the facility within 30 days. Approximately 10% of breast cancers are not detected by mammography. A normal mammogram should not delay biopsy of a clinically suspicious abnormality. [id number] Electronically Signed: Tomer Vegas MD at 14:31 EDT , Service support ,
== END ==
PROVIDERS: Referring Provider Nurse Practitioner Adult Health; Visit Provider Nurse Practitioner Adult Health
DX: Z12.31 Encounter for screening mammogram for malignant neoplasm of breast (principal)
CPT/HCPCS: 77063; 77067

== ENCOUNTER → 2021-01-03 14:44 | Outpatient (CLI) | payer MEDICAID, SELFPAY ==
--- NOTE | 2021-01-03 15:00 | CT_ITS ---
STUDY: LOW DOSE CT LUNG CANCER SCREENING REASON FOR EXAM: Female, 65 years old. NICOTINE DEPENDENCE RADIATION DOSAGE (If Supplied By Facility): CTDIvol = ( 3.02 ) mGy, DLP = ( 79.70 ) mGycm TECHNIQUE: No contrast was administered. Low dose technique was utilized (average mAS-38 and kVp 120). 1.25 mm axial source images with a slice interval of 1.25-mm were reconstructed in lung windows. 2.5 mm axial source images with a slice interval of 2.5-mm were reconstructed in lung windows. 5.0 mm axial source images with a slice interval of 5.0-mm were reconstructed in soft tissue windows. Nodule measured using lung windows on PACS and/or independent workstation with automated measurement of minimum and maximum diameter. Nodule measurement reported as average diameter rounded to the nearest whole number. Growth is defined as an increase ins size of greater than 1.5 mm. COMPARISON: None. NODULES: No noncalcified pulmonary nodules or localized groundglass opacity. Emphysema: Mild emphysema with bronchiectasis and peripheral subpleural fibrotic reticulation. Endobronchial lesion: None Aorta: Moderate atherosclerosis. Coronary arteries: Moderate coronary artery atherosclerosis Heart: Normal size Pulmonary artery: Unremarkable for unopacified technique. Mediastinal nodes: No adenopathy Other chest and abdominal findings: Spleen and liver are mildly enlarged. CT/Low Dose CT Lung Screening IMPRESSION: 1. Lung-RADS category 1 - Continue annual screening with LDCT in 12 months. 2. Hepatosplenomegaly. 3. Mild subpleural fibrotic changes. IMPORTANT NOTES FOR USE: ACR Lung-RADS Version 1.1 Assessment Categories Release Date: 2018 Category: Coded 0-4 bases on nodule(s) with highest degree of suspicion. Negative screen is defined as categories 1 and 2; a positive screen is defined as categories 3 and 4. Category 3 and 4A nodules that are unchanged on interval CT should be coded as category 2, and individuals returned to screening in 12 months. Category 4X: Category 3 or 4 nodules with additional imaging findings that increase the suspicion of lung cancer, such as spiculation, GGN that doubles in size in 1 year, enlarged lymph notes, etc. Category Modifiers: S (significant finding unrelated to lung cancer) Electronically Signed: Fabio Roberts MD (Brooks) at 16:20 EDT , Service support ,
== END ==
PROVIDERS: Referring Provider Nurse Practitioner Adult Health; Visit Provider Nurse Practitioner Adult Health
DX: F17.200 Nicotine dependence, unspecified, uncomplicated (principal)
CPT/HCPCS: 71271

== ENCOUNTER 2021-01-19 22:32 | Observation (INO) | payer MEDICAID, SELFPAY ==
[2021-01-19 22:32] VITALS: BP 123/60; PULSE 88; RESP 16; TEMP 36.4; O2SAT 99; BMI 33.5
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
--- NOTE | 2021-01-19 22:42 | ED.VIS.FALL ---
HPI HPI - Fall History of Present Illness Chief Complaint: Fall Informant: patient and friend Occured/Mechanism Occurred: Today Mechanism/Context: Yes same level fall and Yes trip Usually ambulates: Without assistance Pain/Injury Location: BLE Quality of Pain: Aching Current Severity: Severe Maximum Severity: Severe Associated Symptoms Associated Symptoms: Positive for Loss of function (R knee) and Inability to ambulate; Negative for Parasthesias and Weakness Narrative Narrative: Patient tripped and fell, lunging for a door handle as she was falling but it did not break her fall in time. She landed on both of her knees and her toes went underneath of her as well, sustained an injury to both knees mostly on the right, and both great toes mostly on the left. She denies any other pain or injuries. Brought by EMS due to the inability to bear weight. [facility] Medical History Anemia Chronic bronchitis Diabetes Glaucoma Hyperlipidemia IBS (irritable bowel syndrome) Neuropathy Obesity Obstructive sleep apnea Peripheral neuropathy Rheumatoid arthritis Sinus tachycardia Thrombocytopenia Vision problem Home Medications cyanocobalamin (vitamin B-12) 1,000 mcg PO DAILY 06/10/17 [History Last Taken Unknown] ergocalciferol (vitamin D2) 50,000 unit PO QWEEK 06/10/17 [History Last Taken Unknown] hydroxyzine pamoate 25 mg capsule 25 mg PO QHS cap 07/16/17 [History Last Taken Unknown] atorvastatin 10 mg PO QHS 09/16/18 [History Last Taken Unknown] gabapentin 300 mg capsule 300 mg PO .4 x qd cap 06/23/19 [History Last Taken Unknown] lancets 33 gauge #100 ea 06/25/19 [Rx Last Taken Unknown] blood-glucose meter #1 ea 06/29/19 [Rx Last Taken Unknown] insulin glargine 100 unit/mL (3 mL) subcutaneous pen 80 unit SC DAILY #24 ml 02/16/20 [Rx Last Taken Unknown] insulin aspart U-100 100 unit/mL (3 mL) subcutaneous pen See Rx Instructions SC TID #30 ml MDD 98 units (3 meals 2 snacks) 11/24/20 [Rx Last Taken Unknown] cholecalciferol (vitamin D3) 1,250 mcg (50,000 unit) capsule 50,000 unit PO QMONTH cap 11/28/20 [History Last Taken Unknown] gabapentin 600 mg tablet 600 mg PO BID tab 11/28/20 [History Last Taken Unknown] blood sugar diagnostic #120 ea 11/29/20 [Rx Last Taken Unknown] furosemide 20 mg tablet 20 mg PO DAILY 12/07/20 [History Last Taken Unknown] hydrocodone-acetaminophen 1 tab PO Q4H PRN PRN 2 Days #10 tablet 01/19/21 [Rx Last Taken Unknown] Allergy/AdvReac Type Severity Reaction Status Date / Time haloperidol [From Haldol] AdvReac Unknown Verified 01/19/21 22:40 haloperidol lactate AdvReac Unknown Verified 01/19/21 22:40 [From Haldol] Family History Unknown No problems noted. Surgical History H/O shoulder surgery History of History of cataract extraction History of cholecystectomy Social History Smoking Status: Current every day smoker tobacco type: cigarettes Tobacco: How many years used: 42 alcohol intake: current substance use type: does not use what type of physical activity do you participate in: walking ROS ROS ED Constitutional Constitutional ED: Denies chills or fever(s) Musculoskeletal Musculoskeletal: Reports extremity pain; Denies neck pain Integumentary Denies Abrasions, rash or wounds Neurologic Neurologic: Denies paresthesias or weakness EXAM Physical Exam Const Vital Signs: 01/19/21 22:32 01/19/21 22:37 01/20/21 00:11 Temperature 97.5 F L Temperature Source Oral Pulse Rate 88 58 L Respiratory Rate 16 22 H Respiratory Effort Non-Labored Respiratory Depth Normal Respiratory Pattern Normal Blood Pressure 123/60 H 125/58 H Blood Pressure Mean 81 80 Pulse Ox 99 96 Oxygen Delivery Method Room Air Room Air Positive well nourished and well developed General Appearance ED: well developed and NAD Neck full ROM and supple Back/Spine normal ROM and normal to inspection Extremity Extremity Narrative: Swelling and tenderness anterior right knee, diffusely mildly tender. Not able to move due to pain. No deformities. Left knee small tender contusion anteriorly, full range of motion without effusion or any other bony tenderness or instability. The left great toe is contused, very tender throughout, limited range of motion due to pain, skin intact no deformities. No subungual hematoma. The right great toe was only very mildly tender near the base of the proximal phalanx, full range of motion there, no deformity or subungual hematoma, no other bilateral foot or ankle tenderness. Neuro oriented x3, no focal motor deficits and no sensory deficits noted Sensorium / Orientation: alert Psych mental status grossly normal and thought process normal Skin Rashes: no rashes Trauma: abrasion; Negative for laceration MDM MDM MDM Narrative Medical decision making narrative: On my interpretation: 2 view x-ray series right knee shows a nondisplaced patella fracture and no other fractures. Left knee 4 views negative. Left hand 3 views chronic arthritis multiple joints no acute fractures. Left foot 3 views minor nondisplaced fracture distal phalanx great toe medial aspect. Chronic arthritis no other fractures. Right foot 3 views chronic arthritis no other fractures. Patient was given Ashuelot for pain. She said that her finger was hurting her after she arrived at x-ray so we had 3 views done of her hand as well. On examination afterwards, her left small finger is tender multiple areas but there are no deformities and she can bend it okay with no loss of tendon function. We will place her in a knee immobilizer on the right, give her crutches, postop shoe for the left foot. Follow-up with orthopedics. Prescribed Ashuelot. Radiography Diagnostic Testing: Clinical Impression(s) from Imaging Studies Knee X-Ray 01/19/21 22:41 IMPRESSION: 1. Slightly displaced fracture of the lateral patella. 2. Small knee effusion. Electronically Signed: Fabian Leonard MD at 23:29 EDT Tel , Service support , Knee X-Ray 01/19/21 22:41 IMPRESSION: Negative left knee x-rays. Electronically Signed: Fabian Leonard MD at 23:29 EDT Tel , Service support , Foot X-Ray 01/19/21 22:42 IMPRESSION: No acute findings in the right foot. Electronically Signed: Fabian Leonard MD at 23:26 EDT Tel , Service support , Foot X-Ray 01/19/21 22:50 IMPRESSION: No acute findings in the left foot. Electronically Signed: Fabian Leonard MD at 23:27 EDT Tel , Service support , Hand X-Ray 01/19/21 22:52 IMPRESSION: 1. Osteoarthritic degenerative changes. 2. Osteopenia. Electronically Signed: Fabian Leonard MD at 23:28 EDT Tel , Service support , Discharge Plan Triage Chief Complaint: Fall ED Provider: Ronald Krueger Dx/Rx/DC Orders Clinical Impression: Closed fracture of right patella, Closed displaced fracture of distal phalanx of left great toe, Contusion of multiple sites, Fall from slip, trip, or stumble Instructions: ED Fracture, Foot, ED Patella Fracture Prescriptions: New hydrocodone-acetaminophen [hydrocodone-acetaminophen] 1 TABLET tablet 1 tab PO Q4H PRN PRN (Reason: Pain) 2 Days Qty: 10 RF: 0 No Action hydroxyzine pamoate 25 mg capsule 25 mg PO QHS RF: 0 furosemide 20 mg tablet 20 mg PO DAILY RF: 0 gabapentin 600 mg tablet 600 mg PO BID RF: 0 cholecalciferol (vitamin D3) 1,250 mcg (50,000 unit) capsule 50,000 unit PO QMONTH RF: 0 cyanocobalamin (vitamin B-12) 1,000 MCG tablet 1,000 mcg PO DAILY RF: 0 ergocalciferol (vitamin D2) 50,000 capsule 50,000 unit PO QWEEK RF: 0 gabapentin 300 mg capsule 300 mg PO .4 x qd RF: 0 atorvastatin 10 MG tablet 10 mg PO QHS RF: 0 (DME) lancets [OneTouch Delica Lancets] 33 gauge misc See Rx Instructions .ROUTE .MEDSUPPLY Qty: 100 RF: 11 (DME) blood-glucose meter [LM TechnologiesTouch Verio Flex meter] Misc See Rx Instructions .ROUTE .MEDSUPPLY Qty: 1 RF: 0 Basaglar KwikPen U-100 Insulin 100 unit/mL (3 mL) insulin pen 80 unit SC DAILY Qty: 24 RF: 5 insulin aspart U-100 [Novolog Flexpen U-100 Insulin] 100 unit/mL (3 mL) insulin pen See Rx Instructions SC TID MDD 98 units (3 meals 2 snacks) Qty: 30 RF: 6 (DME) OneTouch Verio test strips Strip See Rx Instructions .ROUTE .MEDSUPPLY Qty: 120 RF: 8 Primary Care Provider: Tami Gutierres Referrals: Luis Alberto Granados DO [STAFF PHYSICIAN] - 5-7 Days Melody Bianchi DPM [STAFF PHYSICIAN] - 10-14 Days if not better (with regards to toes) Tami Gutierres, [facility] [Primary Care Provider] - Disposition Disposition: Home, Self Care
--- NOTE | 2021-01-19 22:50 | RAD_ITS ---
EXAM: XR Left Foot Complete, 3 or More Views CLINICAL INDICATION: 65 years old, Female; injury TECHNIQUE: Frontal, lateral and oblique views of the left foot. This report was created using [employer] report generation technology. COMPARISON: None. FINDINGS: Bones/joints: Mild degenerative changes in the IP joints of the toes. No acute fracture. No subluxation. Normal alignment. No sclerotic or destructive changes observed. Soft tissues: Unremarkable. No soft tissue swelling or gas. No radiopaque foreign body. RAD/Foot min 3 Views IMPRESSION: No acute findings in the left foot. Electronically Signed: Fabian Leonard MD at 23:27 EDT Tel , Service support ,
--- NOTE | 2021-01-19 22:52 | RAD_ITS ---
EXAM: XR Left Hand Complete, 3 or More Views CLINICAL INDICATION: 65 years old, Female; injury TECHNIQUE: Frontal, lateral and oblique views of the left hand. This report was created using [employer] report generation technology. COMPARISON: None. FINDINGS: Bones/joints: Degenerative changes in the IP joints of the fingers. Osteopenia. No acute fracture. No subluxation. Normal alignment. No sclerotic or destructive changes observed. Soft tissues: Unremarkable. No soft tissue swelling or gas. No radiopaque foreign body. RAD/Hand Min 3 Views IMPRESSION: 1. Osteoarthritic degenerative changes. 2. Osteopenia. Electronically Signed: Fabian Leonard MD at 23:28 EDT Tel , Service support ,
[2021-01-19] MEDS: HYDROcodone Bitartrate/Apap 5/325 Tablet PO (23:17)
[2021-01-20] VITALS (13 sets, daily range): BP systolic 102–146; BP diastolic 53–86; PULSE 58–95; RESP 16–22; TEMP 36.1–37.1; O2SAT 94–100; BMI 32.6
[2021-01-20] MEDS: HYDROcodone Bitartrate/Apap 5/325 Tablet PO ×3 (00:31→21:14)
--- NOTE | 2021-01-20 00:43 | ED.RN ---
Patient not able to take a step and fall risk. He could not move from bed to w/c with it right up next to bed so Dr Overton is aware as Dr Krueger gone. Patient back into bed and daughter out in lot to take her home, is being told to come back in.
--- NOTE | 2021-01-20 01:02 | HP.PCM.HOS_ITS ---
HPI - General General Date of Admission: 01/20/21 Date of Service: 01/20/21 Chief Complaint: Mechanical fall, debility HPI Narrative The patient is a 65 y/o F w/ PMHx: Obesity, IBS, Rheumatoid arthritis, JAMES, Chronic anemia, Diabetes mellitus type II, Tobacco use who presents to the [facility] ED on 01/20/21 with history of mechanical fall on day prior to ED presentation, falling forward landing onto both of her knees noting that her toe went underneath her with significant bilateral knee pain, right greater than left and difficulty bearing weight prompting ED evaluation. Work-up in the ED included T 97.5, heart rate 88, BP 123/60, respiratory rate 16, 99% on room air, plain film of the right knee with a slightly displaced fracture of the lateral patella with a small knee effusion, plain film of the left knee unremarkable, plain film of the right foot unremarkable, plain film of the left foot unremarkable, plain film of the left hand with osteoarthritic degenerative changes and osteopenia otherwise no acute fracture. In the ED patient was administered Slovan for her pain and placed in a knee immobilizer on the right with crutches and plan for postop shoe to the left foot secondary to suspected nondisplaced fracture of the distal phalanx of the great toe however upon attempted discharge patient was unable to safely ambulate with crutches. [facility] Medical History Anemia Chronic bronchitis Diabetes Glaucoma Hyperlipidemia IBS (irritable bowel syndrome) Neuropathy Obesity Obstructive sleep apnea Peripheral neuropathy Rheumatoid arthritis Sinus tachycardia Thrombocytopenia Vision problem Home Medications cyanocobalamin (vitamin B-12) 1,000 mcg PO DAILY 06/10/17 [History Last Taken Unknown] ergocalciferol (vitamin D2) 50,000 unit PO QWEEK 06/10/17 [History Last Taken Unknown] hydroxyzine pamoate 25 mg capsule 25 mg PO QHS cap 07/16/17 [History Last Taken Unknown] atorvastatin 10 mg PO QHS 09/16/18 [History Last Taken Unknown] gabapentin 300 mg capsule 300 mg PO .4 x qd cap 06/23/19 [History Last Taken Unknown] lancets 33 gauge #100 ea 06/25/19 [Rx Last Taken Unknown] blood-glucose meter #1 ea 06/29/19 [Rx Last Taken Unknown] insulin glargine 100 unit/mL (3 mL) subcutaneous pen 80 unit SC DAILY #24 ml 02/16/20 [Rx Last Taken Unknown] insulin aspart U-100 100 unit/mL (3 mL) subcutaneous pen See Rx Instructions SC TID #30 ml MDD 98 units (3 meals 2 snacks) 11/24/20 [Rx Last Taken Unknown] cholecalciferol (vitamin D3) 1,250 mcg (50,000 unit) capsule 50,000 unit PO QMONTH cap 11/28/20 [History Last Taken Unknown] gabapentin 600 mg tablet 600 mg PO BID tab 11/28/20 [History Last Taken Unknown] blood sugar diagnostic #120 ea 11/29/20 [Rx Last Taken Unknown] furosemide 20 mg tablet 20 mg PO DAILY 12/07/20 [History Last Taken Unknown] hydrocodone-acetaminophen 1 tab PO Q4H PRN PRN 2 Days #10 tablet 01/19/21 [Rx Last Taken Unknown] Allergy/AdvReac Type Severity Reaction Status Date / Time haloperidol [From Haldol] AdvReac Unknown Verified 01/19/21 22:40 haloperidol lactate AdvReac Unknown Verified 01/19/21 22:40 [From Haldol] Family History Unknown No problems noted. other (Patient does not know any of her paternal/maternal family history.) Surgical History H/O shoulder surgery History of History of cataract extraction History of cholecystectomy Social History (Updated 01/20/21 @ 01:[address] Yandy Miller MD) household members: none Smoking Status: Current every day smoker tobacco type: cigarettes Smoking packs per day: 1 Smoking cigarettes per day: 20.0 Tobacco: How many years used: 42 alcohol intake: current substance use type: does not use what type of physical activity do you participate in: walking ROS ROS Narrative Admission Review of Systems: CONSTITUTIONAL: No weight loss, fever, chills, + weakness or fatigue. HEENT: Eyes: No visual loss, blurred vision, double vision or yellow sclerae. Ears, Nose, Throat: No hearing loss, sneezing, congestion, runny nose or sore throat. SKIN: No rash or itching, lesions, wounds. CARDIOVASCULAR: No chest pain, chest pressure or chest discomfort, palpitations, edema, orthopnea, syncopal events. RESPIRATORY: No shortness of breath, cough or sputum, wheezing, hemoptysis. GASTROINTESTINAL: No anorexia, nausea, vomiting or diarrhea, abdominal pain, melena, BRBPR. GENITOURINARY: No dysuria, frequency, urgency or retention. NEUROLOGICAL: No headache, dizziness, syncope, paralysis, ataxia, numbness or tingling in the extremities, focal weakness, change in bowel or bladder control, seizure. MUSCULOSKELETAL: + muscle, back pain, joint pain or stiffness. HEMATOLOGIC: + anemia, bleeding or bruising. LYMPHATICS: No enlarged nodes. No history of splenectomy. PSYCHIATRIC: No history of depression or anxiety. ENDOCRINOLOGIC: No reports of sweating, cold or heat intolerance. No polyuria or polydipsia. ALLERGIES: No history of asthma, hives, eczema or rhinitis. Vital Signs Vital Signs Vital Signs: 01/19/21 22:32 01/19/21 22:37 01/20/21 00:11 Temperature 97.5 F L Temperature Source Oral Pulse Rate 88 58 L Respiratory Rate 16 22 H Respiratory Effort Non-Labored Respiratory Depth Normal Respiratory Pattern Normal Blood Pressure 123/60 H 125/58 H Blood Pressure Mean 81 80 Pulse Ox 99 96 Oxygen Delivery Method Room Air Room Air Weight Weight: 165 lb 12.602 oz Body Mass Index (BMI) 33.5 Physical Exam Narrative Physical Examination: General: Awake, alert, oriented x 3 and cooperative, laying in the ED bed, reporting discomfort ongoing. Skin: Normal color, normal turgor, no icterus, no cyanosis except staged ecchymoses, contusion right great toe, right knee in immobilizer now. HEENT: AT/NC, EOMI, PERRLA, MMM, no carotid bruits or JVD noted. Lungs: Diminished, greater bases, moderate effort, no rales, ronchi or wheezing. Heart: Regular rate and rhythm; no gallop, rub audible. Abdomen: Soft, obese, NTTP, ND, distant normal BS, no HSM. Extremities: No cyanosis, no clubbing, see skin. Neurological: Patient awake, alert, oriented as noted, cognitive function intact; pupils equally reactive to light and accommodation, cranial nerves II- XII grossly normal, moving all 4 extremities however limited with right knee immobilizer in place and discomfort to the left foot with boot in place, no focal deficits, strength severely global decreased. Psychiatric: Affect appears uncomfortable, no acute evidence of depressive or anxiety feelings. Results Radiology Impression Knee X-Ray 01/19/21 22:41 IMPRESSION: 1. Slightly displaced fracture of the lateral patella. 2. Small knee effusion. Electronically Signed: Fabian Leonard MD at 23:29 EDT Tel , Service support , Knee X-Ray 01/19/21 22:41 IMPRESSION: Negative left knee x-rays. Electronically Signed: Fabian Leonard MD at 23:29 EDT Tel , Service support , Foot X-Ray 01/19/21 22:42 IMPRESSION: No acute findings in the right foot. Electronically Signed: Fabian Leonard MD at 23:26 EDT Tel , Service support , Foot X-Ray 01/19/21 22:50 IMPRESSION: No acute findings in the left foot. Electronically Signed: Fabian Leonard MD at 23:27 EDT Tel , Service support , Hand X-Ray 01/19/21 22:52 IMPRESSION: 1. Osteoarthritic degenerative changes. 2. Osteopenia. Electronically Signed: Fabian Leonard MD at 23:28 EDT Tel , Service support , Assessment & Plan Assessment/Plan (1) Closed fracture of right patella: QUALIFIERS: Encounter type: initial encounter Fracture morphology: unspecified fracture morphology Fracture alignment: displaced Qualified Code(s): S82.001A - Unspecified fracture of right patella, initial encounter for closed fracture (2) Closed displaced fracture of distal phalanx of left great toe: QUALIFIERS: Encounter type: initial encounter Qualified Code(s): S92.422A - Displaced fracture of distal phalanx of left great toe, initial encounter for closed fracture (3) Contusion of multiple sites: (4) Fall from slip, trip, or stumble: QUALIFIERS: Encounter type: initial encounter Qualified Code(s): W01.0XXA - Fall on same level from slipping, tripping and stumbling without subsequent striking against object, initial encounter PLAN: The patient is a 65 y/o F w/ PMHx: Obesity, IBS, Rheumatoid arthritis, JAMES, Chronic anemia, Diabetes mellitus type II, Tobacco use who presents to the [facility] ED on 01/20/21 with history of mechanical fall on day prior to ED presentation, falling forward landing onto both of her knees noting that her toe went underneath her with significant bilateral knee pain, right greater than left and difficulty bearing weight prompting ED evaluation. 1. Mechanical fall with acutely displaced fracture of the lateral right patella and L nondisplaced fracture of the distal phalanx of the great toe: Will admit to [facility], will continue knee immobilization as well as left foot boot, fall precautions, consult PT and OT for crutch training as well as case management for discharge planning, monitor I/Os, frequent positioning, fall precautions, pain, anti-emetic regimen. Will require follow-up with orthopedic surgery at discharge. 2. Chronic anemia: Admission hemoglobin is pending as no labs were initially performed upon evaluation, most recent lab noted 11.5 hemoglobin 11/30/2020. 3. Diabetes mellitus type II with peripheral neuropathy: Hold oral home regimen, continue home insulin regimen, ADA diet, accu checks w/ ISS, continue patient home gabapentin regimen. Most recent hemoglobin A1c noted 7.2% 11/03/2020. 4. Hypertension: Continue home regimen including Lasix with hold parameters as needed, PRN hydralazine. 5. Hyperlipidemia: We will continue patient on statin therapy. 6. Obesity: Weight loss and lifestyle changes encouraged. 7. Tobacco Abuse: Encouraged cessation, inpatient consultation per RT, NR if desired. 8. Rheumatoid arthritis: Patient on any routine chronic agents, complicates presentation likely, maintain on fall precautions. 9. JAMES: Non complaint with CPAP, notes unable to tolerate. 10. DVT prophylaxis: SCDs, Lovenox. Charges/Coding Visit Charges OBSV E&M: 40470 Initial observation care L3
[2021-01-20] MEDS: oxyCODONE 5 MG Tablet PO ×2 (03:35→07:35)
[2021-01-20] MEDS: Acetaminophen 325 MG Tablet 650 MG PO ×2 (07:35→14:05)
[2021-01-20 07:47] LABS: Absolute Lymphocyte Count 1.08 X10^3/uL (0.83-4.51); Basophil# 0.01 X10^3/uL; Basophil% 0.2 % (0-1); Eosinophil# 0.02 X10^3/uL; Eosinophils% 0.3 % (0-5); Hematocrit 34.1 % (37-47); Hemoglobin 11.3 g/dL (12.0-15.0); Lymphocyte # 1.08 X10^3/ul (0.83-4.51); Lymphocyte % 16.5 % (19-41); Mean Corp Hgb Conc 33.1 g/dL (32-36); Mean Corpuscular Hgb 32.3 pg (27.0-32.0); Mean Corpuscular Volume 97.4 fL (81-99); Mean Platelet Vol. 13.5 fl (6.2-12.0); Monocyte# 0.41 X10^3/uL; Monocyte% 6.3 % (0-10); NRBC Flagged by Analyzer 0 % (0-5); Neutrophil # 4.99 X10^3/uL (2.7-7.7); Neutrophil % 76.2 % (47-70); POSITIVE COUNT YES; RBC Distribution Width CV 14.1 % (11.6-14.6); RBC Distribution Width SD 50.2 fl (35.1-43.9); White Blood Count 6.5 K/mm3 (4.4-11.0)
[2021-01-20 07:49] LABS: Platelet Count 53 K/mm3 (150-450)
[2021-01-20 08:13] LABS: ALB/GLOB Ratio 0.8 RATIO (0.9-2.4); AST(SGOT) 24 U/L (15-37); Alanine Aminotransfer ALT/SGPT 25 U/L (13-56); Albumin, Serum 3.4 g/dL (3.2-5.0); Alkaline Phosphatase 60 U/L (45-117); Anion Gap 6 (5-15); BUN 18 mg/dL (7-18); BUN/Creat Ratio 13.2 RATIO (10-20); Calcium,Total 9.1 mg/dL (8.5-10.1); Chloride 105 mmol/L (98-107); Creatinine, Serum 1.36 mg/dL (0.55-1.02); EST Glomerular Filtration Rate 42 mL/min (>60); Est Glom Filt Rate - Afr Amer 50 mL/min (>60); Estimated Creatinine Clearance 49.86 ml/min; Globulin 4.3 g/dL (2.2-4.2); Glucose 385 mg/dL (74-106); Protein, Total 7.7 g/dL (6.4-8.2); Sodium Level 136 mmol/L (136-145)
[2021-01-20] MEDS: Insulin Lispro 100 UNIT/ML INSULN.PEN SC ×3 (08:22→17:15)
[2021-01-20] MEDS: Insulin Lispro 100 UNIT/ML INSULN.PEN 26 UNIT SC ×2 (08:23→11:52)
[2021-01-20] MEDS: Gabapentin 600 MG Tablet PO ×2 (08:24→21:09)
[2021-01-20] MEDS: Spironolactone 25 MG Tablet PO (08:24)
[2021-01-20 08:40] LABS: Bedside Glucose 404 mg/dL (70-110)
--- NOTE | 2021-01-20 09:08 | PCS.PANDOC ---
PANDEMIC DOCUMENTATION INITIATED: Date: 11/14/2020 Time: 190
--- NOTE | 2021-01-20 10:50 | CASEMGMT ---
Social Work Assessment Referral Date: 01/20/2021 Date of Assessment: 01/20/2021 Reason for referral: Possibly SNF, recently Informant: MD Personal Status: SW met with pt to complete initial assessment. SW introduced self and role at [facility]. Pt is alert and orientated x3, answers questions appropriately. Living Arrangements: Pt states she lives alone in a one floor apartment, with no steps to enter. Pt states her Darrion just , his was yesterday. ADLs: Pt previously independent PCP: Tami Gutierres at [facility] Pharmacy: [facility] Transportation: Pt drives self DME: Pt states her had a cane, but pt has no DME herself. Family Support: Pt states she has two children that are supportive and Darrion's family is supportive. 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 Mental Health Hx: Pt denied. SW spoke with pt about the recent loss of her Darrion. Pt states they had been together 20 years. Pt states Darrion was at [facility] and his kidneys failed. SW offered support to pt. SW offered to provide pt with Bereavement/Grief Counseling and pt denied. SNF: None HHC: None SW spoke with pt about SNF. Patient was provided a list of SNF providers including quality and resource use data and consistent with the patient?s preferred geographic region, medical needs, and insurance network. Pt states preferred provider is [facility]. SW informed pt that this worker will send referral, pt will need pre-cert. Pt states understanding. JACKIE placed a call to [facility] and provided referral. Gabbi states she may have a bed available, states to send referral. SW to fax referral once PT/OT works with pt and evaluations are available. Plan: [facility] pending acceptance and pre-cert Barbara Saxena CAR REPAIRER HELPER, SYSTEM ADMINISTRATION ADVISOR
[2021-01-20 12:00] LABS: Bedside Glucose 175 mg/dL (70-110)
--- NOTE | 2021-01-20 12:45 | CASEMGMT ---
Social Work Note SW faxed referral to [facility]. Plan: [facility] pending acceptance and pre-cert Barbara Saxena BOILERMAKER'S ASSISTANT, SEWING TRIMMER
--- NOTE | 2021-01-20 14:31 | CASEMGMT ---
Addendum entered by Barbara Saxena 01/20/21 16:02: Pt will need COVID test on day of discharge. Original Note: Social Work Note JACKIE received call from Gabbi at [facility] stating they can accept pt tomorrow. Gabbi states she is checking to determine if pt needs pre-cert or not. Gabbi states to make sure pt knows she will not be able to go across the street to smoke cigarettes since that is what she did when her was at [facility]. SW in to speak with pt. Pt's sister present in room. Pt gave this worker permission to talk to her in front of her guest. SW updated pt that she has been accepted to [facility], will likely be discharged tomorrow. JACKIE updated pt that she will not be able to smoke while she is at [facility], will not be able to go across the street to smoke. Pt states I will find a way to sneak out and smoke. JACKIE encouraged pt to not do that, as there will likely be consequences for that. JACKIE informed pt that it is different now that she will be a resident at [facility] instead of visiting someone. Pt asked if she can smoke while she is here at [facility] and this worker informed her no she cannot. Pt states that see's pt's all the time out smoking. JACKIE informed pt that it could be pt's from the outpatient pavilion, wound center, Behavior Health, etc that are smoking. Pt states No they are patients. JACKIE informed pt that this worker didn't know, informed pt that this worker knows pt cannot leave unit to smoke. JACKIE placed another call to Gabbi at [facility]. Gabbi states that her internet is down, will call around and see if she can figure it out. JACKIE received call from Gabbi at [facility] stating she called pt's insurance and they gave her the approval to admit pt. Pt to admit to [facility] tomorrow. JACKIE updated physician. JACKIE completed PAS/RR in HENS. JACKIE placed Green sheet, transport forms, COVID tool and PAS/RR on pt's chart. Plan: [facility] skilled under convalescent stay when medically cleared Barbara Saxena INTERLOCKING AND SIGNAL MECHANIC, DEPUTY TREASURER
--- NOTE | 2021-01-20 15:03 | PN.HOSP_ITS ---
Hospitalist Note Mrs. Wiseman is a 65-year-old female who reported to the emergency department yesterday after a mechanical fall. She told the emergency department that she tripped and fell and in the process lunged forward for door handle but was unable to break her fall and landed on both of her knees and her toes went underneath of her as well. At that time she sustained an injury to both knees but mostly on the right and predominantly the left hallux and the left fifth digit. They attempted to get her home but she lives alone as her just and felt that she would be unsafe at home therefore she was admitted for placement and continued rehab until she was safe to be discharged home. She was found to have a nondisplaced patellar fracture for which she was placed in a knee immobilizer as well as a nondisplaced distal phalanx fracture of the left hallux. On my exam today this morning she was up in a chair and stated she felt fairly well except for pain at 6-7 out of 10 in her right knee and 2 out of 3 in her left toe. She also had an injury to her left fifth digit but did not show fracture on x-ray but appears to be sprained as it is swollen and ecchymotic today. This is fortunately her nondominant hand. She feels that she is not safe to go home and will need therapy. We discussed follow-up with orthopedics in 1 week for her knee and her toe after discharge to half-way facility. She indicated to me [facility] if [facility]. I told her that case management was going to see her later today. Later in the day she was sitting in a chair and developed some dizziness it is unclear whether or not it is actual dizziness or lightheadedness. She did appear mildly dehydrated on admission and therefore was given a 500 cc bolus and her narcotics were changed from oxycodone to [place]. We also were obtaining orthostatic vitals. Family did indicate to the nurses that her fall was not actually mechanical and she had some lightheadedness at home as well although she states that this is not the case. We will put her on telemetry to watch for any arrhythmias given her symptoms. Plan is for discharge potentially the next 24 to 48 hours if we receive approval for him a facility and she remains medically stable.
[2021-01-20 16:35] LABS: Bedside Glucose 197 mg/dL (70-110)
[2021-01-20] MEDS: Insulin Lispro 100 UNIT/ML INSULN.PEN 30 UNIT SC (17:15)
[2021-01-20] MEDS: hydrOXYzine PAM 25 MG Capsule PO (21:09)
[2021-01-20] MEDS: Atorvastatin Calcium 20 MG Tablet PO (21:09)
[2021-01-20 21:50] LABS: Bedside Glucose 108 mg/dL (70-110)
[2021-01-21] VITALS (8 sets, daily range): BP systolic 108–120; BP diastolic 49–62; PULSE 78–101; RESP 18; TEMP 36.7–37.3; O2SAT 92–95
[2021-01-21] MEDS: HYDROcodone Bitartrate/Apap 5/325 Tablet PO ×2 (08:17→15:24)
[2021-01-21] MEDS: Insulin Lispro 100 UNIT/ML INSULN.PEN 26 UNIT SC ×2 (08:19→12:18)
[2021-01-21] MEDS: Insulin Lispro 100 UNIT/ML INSULN.PEN SC ×2 (08:20→12:19)
[2021-01-21 08:36] LABS: Absolute Lymphocyte Count 1.58 X10^3/uL (0.83-4.51); Absolute Neutrophil Count 4.2 X10^3/uL (2.0-7.7); Basophil# 0.02 X10^3/uL; Basophil% 0.3 % (0-1); Eosinophil# 0.06 X10^3/uL; Eosinophils% 0.9 % (0-5); Hematocrit 34.2 % (37-47); Hemoglobin 11.2 g/dL (12.0-15.0); Lymphocyte # 1.58 X10^3/ul (0.83-4.51); Lymphocyte % 24.7 % (19-41); Mean Corp Hgb Conc 32.7 g/dL (32-36); Mean Corpuscular Hgb 32.6 pg (27.0-32.0); Mean Corpuscular Volume 99.4 fL (81-99); Mean Platelet Vol. 12.6 fl (6.2-12.0); Monocyte# 0.57 X10^3/uL; Monocyte% 8.9 % (0-10); NRBC Flagged by Analyzer 0 % (0-5); Neutrophil # 4.15 X10^3/uL (2.7-7.7); POSITIVE COUNT YES; Platelet Count 58 K/mm3 (150-450); RBC Distribution Width CV 14.4 % (11.6-14.6); RBC Distribution Width SD 52.1 fl (35.1-43.9); Red Blood Count 3.44 M/mm3 (4.2-5.4); White Blood Count 6.4 K/mm3 (4.4-11.0)
[2021-01-21 08:47] LABS: ALB/GLOB Ratio 0.7 RATIO (0.9-2.4); AST(SGOT) 19 U/L (15-37); Alanine Aminotransfer ALT/SGPT 23 U/L (13-56); Albumin, Serum 3.1 g/dL (3.2-5.0); Alkaline Phosphatase 63 U/L (45-117); Anion Gap 8 (5-15); BUN 20 mg/dL (7-18); BUN/Creat Ratio 14.9 RATIO (10-20); Calcium,Total 8.6 mg/dL (8.5-10.1); Chloride 106 mmol/L (98-107); Creatinine, Serum 1.34 mg/dL (0.55-1.02); EST Glomerular Filtration Rate 42 mL/min (>60); Est Glom Filt Rate - Afr Amer 51 mL/min (>60); Estimated Creatinine Clearance 50.61 ml/min; Globulin 4.6 g/dL (2.2-4.2); Glucose 305 mg/dL (74-106); Potassium 4.2 mmol/L (3.5-5.1); Protein, Total 7.7 g/dL (6.4-8.2); Sodium Level 137 mmol/L (136-145)
--- NOTE | 2021-01-21 10:14 | PCM.DC.SUM ---
Providers Date of Admission: 01/20/21 Primary Care Physician: JU Lopez Reason For Visit: FALL, R PATELLAR FRX, L GREAT TOE FRX Diagnosis Discharge Diagnosis (1) Closed fracture of right patella: Status: Acute Code(s): S82.001A - Unspecified fracture of right patella, initial encounter for closed fracture Qualifiers: Encounter type: initial encounter Fracture morphology: unspecified fracture morphology Fracture alignment: displaced Qualified Code(s): S82.001A - Unspecified fracture of right patella, initial encounter for closed fracture (2) Closed displaced fracture of distal phalanx of left great toe: Status: Acute Code(s): S92.422A - Displaced fracture of distal phalanx of left great toe, initial encounter for closed fracture Qualifiers: Encounter type: initial encounter Qualified Code(s): S92.422A - Displaced fracture of distal phalanx of left great toe, initial encounter for closed fracture (3) Contusion of multiple sites: Status: Acute Code(s): T07.XXXA - Unspecified multiple injuries, initial encounter (4) Fall from slip, trip, or stumble: Status: Acute Code(s): W01.0XXA - Fall on same level from slipping, tripping and stumbling without subsequent striking against object, initial encounter Qualifiers: Encounter type: initial encounter Qualified Code(s): W01.0XXA - Fall on same level from slipping, tripping and stumbling without subsequent striking against object, initial encounter Medications at Discharge Home Medications cyanocobalamin (vitamin B-12) 1,000 mcg PO DAILY 06/10/17 hydroxyzine pamoate 25 mg capsule 25 mg PO QHS cap 07/16/17 atorvastatin 20 mg PO QHS 09/16/18 lancets 33 gauge #100 ea 06/25/19 blood-glucose meter #1 ea 06/29/19 insulin aspart U-100 100 unit/mL (3 mL) subcutaneous pen See Rx Instructions SC TID #30 ml MDD 98 units (3 meals 2 snacks) 11/24/20 cholecalciferol (vitamin D3) 1,250 mcg (50,000 unit) capsule 50,000 unit PO FORBES cap 11/28/20 gabapentin 600 mg tablet 600 mg PO BID tab 11/28/20 blood sugar diagnostic #120 ea 11/29/20 Eunice Herman U-100 Insulin 80 unit SC QHS 01/20/21 spironolactone 25 mg PO DAILY 01/20/21 magnesium hydroxide 30 ml PO DAILY PRN PRN #0 ml 01/21/21 sennosides-docusate sodium [Stool Softener-Stimulant Laxat] 2 tab PO BID PRN PRN #0 tab 01/21/21 tramadol 50 mg PO Q6H PRN #4 tab 01/21/21 tramadol [Ultram] 50 mg PO Q6H PRN #4 tab 01/21/21 Hospital Course Operations None Procedures None Summary of Care Provided Minutes Spent on Discharge: 42 Hospital Course: Mrs. Wiseman is a 65-year-old white female who presented to the emergency department at [facility] on the evening of 01/19/2021 after suffering a mechanical fall. Her report was that she tripped and fell and while falling she lunged forward trying to grab a door handle to break her fall but she did not recheck in time and fell and landed on both knees and her toes were underneath her and she hit her left hand. She had no other injuries and denied hitting her head. While in the emergency department she was found to have a nondisplaced patellar fracture of the right knee, a nondisplaced distal phalanx fracture of the left hallux medially and a negative left hand film. She was given a knee immobilizer on the right and a postoperative shoe on the left and was instructed to follow-up with orthopedics in the emergency department despite attempted to discharge her but she was unfortunately unable to stand secondary to her pain and given the fact that she lives at home alone and was not able to ambulate well it was felt that she was not safe for discharge. The patient was agreeable for placement to obtain further rehab given her inability to ambulate and care for herself. Her had recently , in fact, the was on her day of admission. She was admitted to the medical floor and treated with medications for pain. Although the pain was not completely abated with the pain medication she did indicate that state took the edge off her symptoms. With her fall and some complaints of dizziness on the day of admission she was placed on telemetry and orthostatic vitals were obtained. Telemetry was negative for any arrhythmias and orthostatic vitals were negative. On the a.m. of 01/21/2021 she states that the dizziness had abated and she not had any more symptoms so no further work-up was pursued with this at this time. She was able to be discharged in stable [facility]. She is to follow-up with Dr. Granados from orthopedic surgery in 5 to 7 days for her knee and with podiatry as needed if her foot pain persists. She is to continue wearing the leg immobilizer until she follows up with Dr. Granados and may be weightbearing as tolerated. Continue postoperative shoe on the left foot while up and about. Recommended follow-up with her PCP in 2 to 4 weeks. Discharge diagnoses: Mechanical fall Nondisplaced right patellar fracture Medial distal phalanx fracture of the left hallux Sprain left fifth digit Chronic thrombocytopenia Chronic anemia secondary to chronic disease/renal disease CKD stage IIIb DM-2 Hyperlipidemia IBS Diabetic neuropathy Obesity JAMES RA Physical Exam Const alert, oriented x3 and no apparent distress Constitutional Narrative: Obese white female sitting up in a chair at the bedside, appears well, nontoxic, slightly agitated when we discuss smoking, appears older than stated age General Appearance: cooperative, comfortable, well kempt and well developed Orientation / Consciousness: awake Nutritional Appearance: obese HEENT normocephalic, head/scalp atraumatic, hearing grossly normal bilaterally and moist oral mucous membranes HEENT Narrative: Edentulous, no thrush, Mallampati 3 Eyes PERRL, EOMs intact bilaterally and conjunctivae normal Eyes Narrative: No scleral icterus Neck no lymphadenopathy, supple and no JVD Neck Narrative: Trachea midline, no thyroid enlargement Resp normal respiratory effort, no retractions, no use of accessory muscles and clear to auscultation bilaterally Auscultation: Negative for crackles, rales, rhonchi or wheezes Cardio regular rate, regular rhythm, S1 normal heart sound, S2 normal heart sound, no murmurs, no rub, no gallops, no clicks and no JVD GI normal to inspection, nondistended, normoactive bowel sounds, soft to palpation, non-tender and non-distended; Negative for hepatosplenomegaly Extremity no clubbing, cyanosis or edema Extremity Narrative: Ecchymotic fifth digit of left hand with swelling and limited range of motion although patient is able to move, ecchymosis and swelling of the left hallux, right knee in leg immobilizer, good cap refill Skin no wounds, skin turgor normal and no jaundice Neuro oriented x3, CN's II-XII intact bilaterally, moves all extremities, no focal motor deficits and no sensory deficits noted Neuro Narrative: Limited movement right lower extremity but able to lift leg secondary to patellar fracture Sensorium / Orientation: awake, alert, oriented to person, oriented to place and oriented to time Speech: speech normal Psych Psych Narrative: Very pleasant until we discussed smoking in which she became agitated and was insisting on smoking prior to being discharged and transferred to the [facility] facility Weight / BMI Weight Weight: 74.6 kg Body Mass Index (BMI) 32.6 ABG / Lab / Microbiology Data Result Diagrams: 01/21/21 08:04 01/21/21 08:04 Laboratory: Laboratory Results - last 24 hr 01/20/21 11:52: POC Glucose 175 H 01/20/21 16:27: POC Glucose 197 H 01/20/21 21:13: POC Glucose 108 01/21/21 08:04: WBC 6.4, RBC 3.44 L, Hgb 11.2 L, Hct 34.2 L, MCV 99.4 H, MCH 32.6 H, MCHC 32.7, RDW Std Deviation 52.1 H, RDW Coeff of Nick 14.4, Plt Count 58 L, MPV 12.6 H, Immature Gran % (Auto) 0.200, Neut % (Auto) 65.0, Lymph % (Auto) 24.7, Ramsey % (Auto) 8.9, Eos % (Auto) 0.9, Baso % (Auto) 0.3, Absolute Neuts (auto) 4.2, Absolute Lymphs (auto) 1.58, Nucleated RBC % 0 01/21/21 08:04: Sodium 137, Potassium 4.2, Chloride 106, Carbon Dioxide 23.0, Anion Gap 8, BUN 20 H, Creatinine 1.34 H, Estim Creat Clear Calc 50.61, Est GFR (MDRD) Af Amer 51 L, Est GFR (MDRD) Non-Af 42 L, BUN/Creatinine Ratio 14.9, Glucose 305 H, Calcium 8.6, Total Bilirubin 0.70, AST 19, ALT 23, Alkaline Phosphatase 63, Total Protein 7.7, Albumin 3.1 L, Globulin 4.6 H, Albumin/Globulin Ratio 0.7 L D/C Instructions Discharge Diet: Low fat / Low cholesterol and 1800 Calorie Control Diet Discharge Activity: Use Crutches Meaningful Use Info Meaningful Use Diagnoses (Choose all that apply): None applicable Discharge Plan Admission Admit Date/Time: 01/20/21 01:17 Primary Reason for Your Visit: Fall Attending Provider: Parvin Nunez Primary Care Provider: Tami Gutierres Discharge Orders/Prescriptions Prescriptions: New sennosides-docusate sodium [Stool Softener-Stimulant Laxat] 8.6-50 mg Tablet 2 tab PO BID PRN PRN (Reason: Constipation) Qty: 0 RF: 0 magnesium hydroxide 400 mg/5 mL Suspension 30 ml PO DAILY PRN PRN (Reason: Constipation) Qty: 0 RF: 0 tramadol [Ultram] 50 mg tablet 50 mg PO Q6H PRN (Reason: pain) Qty: 4 RF: 0 Continued hydroxyzine pamoate 25 mg capsule 25 mg PO QHS RF: 0 gabapentin 600 mg tablet 600 mg PO BID RF: 0 cholecalciferol (vitamin D3) 1,250 mcg (50,000 unit) capsule 50,000 unit PO FORBES RF: 0 cyanocobalamin (vitamin B-12) 1,000 MCG tablet 1,000 mcg PO DAILY RF: 0 atorvastatin 10 MG tablet 20 mg PO QHS RF: 0 spironolactone 25 mg tablet 25 mg PO DAILY RF: 0 Basaglar KwikPen U-100 Insulin 100 unit/mL (3 mL) insulin pen 80 unit SC QHS RF: 0 (DME) lancets [OneTouch Delica Lancets] 33 gauge misc See Rx Instructions .ROUTE .MEDSUPPLY Qty: 100 RF: 11 (DME) blood-glucose meter [OneTouch Verio Flex meter] Misc See Rx Instructions .ROUTE .MEDSUPPLY Qty: 1 RF: 0 insulin aspart U-100 [Novolog Flexpen U-100 Insulin] 100 unit/mL (3 mL) insulin pen See Rx Instructions SC TID MDD 98 units (3 meals 2 snacks) Qty: 30 RF: 6 (DME) OneTouch Verio test strips Strip See Rx Instructions .ROUTE .MEDSUPPLY Qty: 120 RF: 8 Changed tramadol 50 mg Tablet 50 mg PO Q6H PRN (Reason: pain) Qty: 4 RF: 0 Referrals / Follow Up: Luis Alberto Granados DO [STAFF PHYSICIAN] - 5-7 Days Melody Bianchi DPM [STAFF PHYSICIAN] - 10-14 Days if not better (with regards to toes) Tami Gutierres, RN MATERNAL CHILD-C [Primary Care Provider] - Within 2 Weeks Disposition Disposition (needs filled in before D/C Order can be placed): Shelter Facility Charges/Coding Visit Charges Inpatient E&M: 86536 SNF Disch >30 Min
--- NOTE | 2021-01-21 10:35 | PCM.TXEXTCAR ---
Diet 01/20/21 02:50 Diet: Consistent Carb - Calorie Controlled Food consistency:: Regular Liquid Consistency:: Regular/Thin How many daily calories?: 1800 calorie Routine Orders/Code Status Suppository Frequency: Daily PRN O2 Frequency: PRN Keep PO Greater than or Equal to (%): 92 Routine Lab Work: CBC and BMP Code Status: Full Code Wound(s) Rt elbow: Wound Type: Abrasion Rt knee: Wound Type: Abrasion front of head: Wound Type: Puncture Suggestions for Active Care Change Position every (hours): 2 Therapies Weight Bearing: Weight bearing as tolerated Extremity Affected:: Bilateral Lower Physical Therapy: Eval and Treat Occupational Therapy: Eval and Treat Problem/Diagnosis (1) Closed fracture of right patella: Status: Acute (2) Closed displaced fracture of distal phalanx of left great toe: Status: Acute (3) Contusion of multiple sites: Status: Acute (4) Fall from slip, trip, or stumble: Status: Acute Allergies/Procedures Done in Hospital Allergies haloperidol [From Haldol] Adverse Reaction (Verified 01/19/21 22:40) Unknown haloperidol lactate [From Haldol] Adverse Reaction (Verified 01/19/21 22:40) Unknown Procedures: None Type of Care/Length of Stay Estimated LOS: Convalescent Care Less Than 30 days Type of Care Needed: Skilled Rehab Potential: Good Prognosis: Good Additional Orders/Day of Discharge Additional Orders: Wear surgical walking shoe with ambulation, leg immobilizer on right at all times Day of Discharge: 01/21/21 Discharge Plan Admission Admit Date/Time: 01/20/21 01:17 Primary Reason for Your Visit: Fall Attending Provider: Parvin Nunez Primary Care Provider: Tami Gutierres Discharge Orders/Prescriptions Prescriptions: New sennosides-docusate sodium [Stool Softener-Stimulant Laxat] 8.6-50 mg Tablet 2 tab PO BID PRN PRN (Reason: Constipation) Qty: 0 RF: 0 magnesium hydroxide 400 mg/5 mL Suspension 30 ml PO DAILY PRN PRN (Reason: Constipation) Qty: 0 RF: 0 tramadol [Ultram] 50 mg tablet 50 mg PO Q6H PRN (Reason: pain) Qty: 4 RF: 0 Continued hydroxyzine pamoate 25 mg capsule 25 mg PO QHS RF: 0 gabapentin 600 mg tablet 600 mg PO BID RF: 0 cholecalciferol (vitamin D3) 1,250 mcg (50,000 unit) capsule 50,000 unit PO FORBES RF: 0 cyanocobalamin (vitamin B-12) 1,000 MCG tablet 1,000 mcg PO DAILY RF: 0 atorvastatin 10 MG tablet 20 mg PO QHS RF: 0 spironolactone 25 mg tablet 25 mg PO DAILY RF: 0 Basaglar KwikPen U-100 Insulin 100 unit/mL (3 mL) insulin pen 80 unit SC QHS RF: 0 (DME) lancets [OneTouch Delica Lancets] 33 gauge misc See Rx Instructions .ROUTE .MEDSUPPLY Qty: 100 RF: 11 (DME) blood-glucose meter [OneTouch Verio Flex meter] Misc See Rx Instructions .ROUTE .MEDSUPPLY Qty: 1 RF: 0 insulin aspart U-100 [Novolog Flexpen U-100 Insulin] 100 unit/mL (3 mL) insulin pen See Rx Instructions SC TID MDD 98 units (3 meals 2 snacks) Qty: 30 RF: 6 (DME) OneTouch Verio test strips Strip See Rx Instructions .ROUTE .MEDSUPPLY Qty: 120 RF: 8 Changed tramadol 50 mg Tablet 50 mg PO Q6H PRN (Reason: pain) Qty: 4 RF: 0 Referrals / Follow Up: Luis Alberto Granados DO [STAFF PHYSICIAN] - 5-7 Days Melody Bianchi DPM [STAFF PHYSICIAN] - 10-14 Days if not better (with regards to toes) Tami Gutierres NP-C [Primary Care Provider] - Within 2 Weeks Disposition Disposition (needs filled in before D/C Order can be placed): Intermediate Facility
[2021-01-21] MEDS: Gabapentin 600 MG Tablet PO (11:11)
[2021-01-21] MEDS: Spironolactone 25 MG Tablet PO (11:11)
[2021-01-21 12:06] LABS: Bedside Glucose 320 mg/dL (70-110)
--- NOTE | 2021-01-21 15:59 | NURSING ---
report called to [facility] and spoke with rosangela pugh- pt left with sister and she will transport pt to [facility].
[2021-01-21 17:50] LABS: Bedside Glucose 298 mg/dL (70-110)
== END 2021-01-21 16:00 | disposition skilled nursing facility (03) ==
LOC: ED 23:30 → MS3 01-20 01:41
PROVIDERS: Admitting Provider Family Medicine; Emergency Provider Emergency Medicine; PCP Nurse Practitioner Adult Health; Visit Provider Internal Medicine
DX: S82.091A Other fracture of right patella, initial encounter for closed fracture (principal); S92.422A Displaced fracture of distal phalanx of left great toe, initial encounter for closed fracture; W01.0XXA Fall on same level from slipping, tripping and stumbling without subsequent striking against object, initial encounter; E11.40 Type 2 diabetes mellitus with diabetic neuropathy, unspecified; E11.22 Type 2 diabetes mellitus with diabetic chronic kidney disease; N18.32 Chronic kidney disease, stage 3b; E78.5 Hyperlipidemia, unspecified; G47.33 Obstructive sleep apnea (adult) (pediatric); M06.9 Rheumatoid arthritis, unspecified; D64.9 Anemia, unspecified; D69.6 Thrombocytopenia, unspecified; I12.9 Hypertensive chronic kidney disease with stage 1 through stage 4 chronic kidney disease, or unspecified chronic kidney disease; F17.210 Nicotine dependence, cigarettes, uncomplicated; E66.9 Obesity, unspecified; Y93.9 Activity, unspecified; Y92.9 Unspecified place or not applicable; Y99.9 Unspecified external cause status; Z68.33 Body mass index [BMI] 33.0-33.9, adult; Z79.899 Other long term (current) drug therapy; Z79.4 Long term (current) use of insulin; K58.9 Irritable bowel syndrome, unspecified
CPT/HCPCS: 36415; 73130; 73560; 73564; 73630; 80053; 82962; 85025; 87426; 96360; 97162; 97166; 97535; 99218; 99285; 99406; J7040; G0378

== ENCOUNTER → 2021-01-27 11:15 | Outpatient (CLI) | payer MEDICAID, SELFPAY | PROVIDERS: PCP Nurse Practitioner Adult Health; Visit Provider Orthopaedic Surgery | DX: M79.89 Other specified soft tissue disorders (principal); M79.661 Pain in right lower leg; Y99.9 Unspecified external cause status; S89.91XA Unspecified injury of right lower leg, initial encounter; X58.XXXA Exposure to other specified factors, initial encounter; Y93.9 Activity, unspecified; Y92.9 Unspecified place or not applicable ==

== ENCOUNTER 2021-01-27 11:28 | Emergency (ER) | payer MEDICAID, SELFPAY ==
[2021-01-27 11:29] VITALS: BP 113/59; PULSE 94; RESP 18; TEMP 36.5; O2SAT 94; BMI 33.6
--- NOTE | 2021-01-27 11:46 | VDLE_ITS ---
Reason For Study: Swelling RIGHT GSV is normal. CFV is compressible, spontaneous, phasic, competent and demonstrates normal augmentation. FV is compressible, spontaneous, phasic, competent and demonstrates normal augmentation. POP V is compressible, spontaneous, phasic, competent and demonstrates normal augmentation. T/P Trunk is compressible. PTV is compressible. RT PerV is compressible. Procedure This is a venous duplex using B-mode, color flow and spectral Doppler. Exam performed portable in ED. A preliminary report was called and/or faxed to Dr. Peña. VL/Venous Duplex US, Unilateral Interpretation Summary Deep veins of the right lower extremity are patent and compressible segmentally . There is no evidence of right lower extremity deep vein thrombosis. Valvular competence tomás ears intact within the proximal deep venous system on the right . The right great saphenous vein a ppears patent and compressible segmentally. Ordering Physician: Ranjit Peña Referring Physician: Tami Gutierres Performed By: Loraine Wilburn, PAVITHRA, RVT
--- NOTE | 2021-01-27 12:56 | ED.VIS.LOWEX ---
HPI History of Present Illness Chief Complaint: Lower Extremity Injury Informant: patient Onset/Context/Timing Onset: Days Context: Gradual Onset Timing: Continuous Quality of Pain: Aching Worsened by: Walking Relieved by: Elevation Narrative Narrative: Patient presents with right leg pain and swelling that has been getting worse over the past several days. Patient is concerned about a blood clot. Patient states her pain is dull and aching. Patient states it is worse with walking and better whenever she keeps it elevated. Patient denies any trauma or injury. Patient denies any paresthesias or weakness. Patient denies any fevers or chills. [facility] Medical History Anemia Chronic bronchitis Diabetes Glaucoma Hyperlipidemia IBS (irritable bowel syndrome) Neuropathy Obesity Obstructive sleep apnea Peripheral neuropathy Rheumatoid arthritis Sinus tachycardia Thrombocytopenia Vision problem Home Medications cyanocobalamin (vitamin B-12) 1,000 mcg PO DAILY 06/10/17 [History Last Taken 01/19/21] hydroxyzine pamoate 25 mg capsule 25 mg PO QHS cap 07/16/17 [History Last Taken 01/18/21] atorvastatin 20 mg PO QHS 09/16/18 [History Last Taken 01/18/21] lancets 33 gauge #100 ea 06/25/19 [Rx Last Taken Unknown] blood-glucose meter #1 ea 06/29/19 [Rx Last Taken Unknown] insulin aspart U-100 100 unit/mL (3 mL) subcutaneous pen See Rx Instructions SC TID #30 ml MDD 98 units (3 meals 2 snacks) 11/24/20 [Rx Last Taken 01/19/21] cholecalciferol (vitamin D3) 1,250 mcg (50,000 unit) capsule 50,000 unit PO FORBES cap 11/28/20 [History Last Taken 01/15/21] gabapentin 600 mg tablet 600 mg PO BID tab 11/28/20 [History Last Taken 01/19/21] blood sugar diagnostic #120 ea 11/29/20 [Rx Last Taken Unknown] Basaglar KwikPen U-100 Insulin 80 unit SC QHS 01/20/21 [History Last Taken 01/18/21] spironolactone 25 mg PO DAILY 01/20/21 [History Last Taken 01/19/21] magnesium hydroxide 30 ml PO DAILY PRN PRN #0 ml 01/21/21 [Rx Last Taken Unknown] sennosides-docusate sodium [Stool Softener-Stimulant Laxat] 2 tab PO BID PRN PRN #0 tab 01/21/21 [Rx Last Taken Unknown] tramadol 50 mg PO Q6H PRN #4 tab 01/21/21 [Rx Last Taken 01/18/21] acetaminophen 325 mg capsule 325 mg PO ONCE PRN 01/27/21 [History Last Taken Unknown] bisacodyl 10 mg rectal suppository 10 mg [place] DAILY PRN 01/27/21 [History Last Taken Unknown] magnesium hydroxide 400 mg/5 mL oral suspension 5 ml PO DAILY PRN 01/27/21 [History Last Taken Unknown] mineral oil 118 ml [place] DAILY PRN 01/27/21 [History Last Taken Unknown] Allergy/AdvReac Type Severity Reaction Status Date / Time haloperidol [From Haldol] AdvReac Unknown Verified 01/27/21 09:36 haloperidol lactate AdvReac Unknown Verified 01/27/21 09:36 [From Haldol] Family History Unknown No problems noted. Other Foster child Surgical History H/O shoulder surgery History of History of cataract extraction History of cholecystectomy Social History adopted: Yes household members: none housing: assisted living facility Smoking Status: Current every day smoker tobacco type: cigarettes Tobacco: How many years used: 44 alcohol intake: current substance use type: does not use what type of physical activity do you participate in: none do you feel safe at home: Yes ROS ROS ED Constitutional Constitutional ED: Denies chills or fever(s) Eyes Eyes: Denies blurry vision or change in vision ENT ENT ED: Denies rhinorrhea or sore throat Cardiovascular Cardiovascular: Denies chest pain or palpitations Respiratory/Chest Respiratory/Chest: Denies cough or dyspnea Gastrointestinal Gastrointestinal: Denies nausea or vomiting Genitourinary Genitourinary ED: Denies dysuria or hematuria Musculoskeletal Musculoskeletal: Denies back pain or neck pain Integumentary Denies abscess or rash Neurologic Neurologic: Denies headache(s) or weakness Allergic/Immunologic Allergic/Immunologic ED: Denies mouth swelling or urticaria EXAM Physical Exam Const Vital Signs: 01/27/21 11:29 Temperature 97.7 F L Temperature Source Temporal Pulse Rate 94 Respiratory Rate 18 Blood Pressure 113/59 L Blood Pressure Mean 77 Pulse Ox 94 Oxygen Delivery Method Room Air Positive well nourished and well developed General Appearance ED: well developed HEENT Reports moist mucous membranes Neck full ROM Extremity Extremity Narrative: There is tenderness and edema of the right lower leg. There is no ecchymosis. There is no deformity. There is good range of motion. Pedal pulses are equal bilaterally. Sensation was intact to light touch in all digits. General Extremety ED: Yes edema General Extremity: edema Neuro oriented x3, CN's II-XII intact bilaterally, moves all extremities and no sensory deficits noted Sensorium / Orientation: alert Motor Exam: strength 5/5 throughout Psych mental status grossly normal MDM MDM MDM Narrative Medical decision making narrative: Venous duplex of the right lower extremity was obtained. There is no evidence of DVT. Patient was given a dose of [place] here. Patient was instructed to keep her leg elevated. Patient was instructed to follow-up with her primary care physician in 5 to 7 days. Patient understood and was agreeable with the plan. All questions were answered. Discharge Plan Triage Chief Complaint: Lower Extremity Injury ED Provider: Ranjit Peña Dx/Rx/DC Orders Clinical Impression: Edema of right lower leg Instructions: ED Peripheral Edema, Unilateral Prescriptions: No Action hydroxyzine pamoate 25 mg capsule 25 mg PO QHS RF: 0 gabapentin 600 mg tablet 600 mg PO BID RF: 0 cholecalciferol (vitamin D3) 1,250 mcg (50,000 unit) capsule 50,000 unit PO FORBES RF: 0 bisacodyl 10 mg suppository 10 mg [place] DAILY PRN (Reason: Constipation) RF: 0 mineral oil [Fleet Mineral Oil] Enema 118 ml [place] DAILY PRN (Reason: Constipation) RF: 0 magnesium hydroxide [Milk of Magnesia] 400 mg/5 mL suspension 5 ml PO DAILY PRN (Reason: Indigestion) RF: 0 acetaminophen [Tylenol] 325 mg capsule 325 mg PO ONCE PRN (Reason: Pain) RF: 0 cyanocobalamin (vitamin B-12) 1,000 MCG tablet 1,000 mcg PO DAILY RF: 0 atorvastatin 10 MG tablet 20 mg PO QHS RF: 0 spironolactone 25 mg tablet 25 mg PO DAILY RF: 0 Basaglar KwikPen U-100 Insulin 100 unit/mL (3 mL) insulin pen 80 unit SC QHS RF: 0 sennosides-docusate sodium [Stool Softener-Stimulant Laxat] 8.6-50 mg Tablet 2 tab PO BID PRN PRN (Reason: Constipation) Qty: 0 RF: 0 magnesium hydroxide 400 mg/5 mL Suspension 30 ml PO DAILY PRN PRN (Reason: Constipation) Qty: 0 RF: 0 tramadol 50 mg Tablet 50 mg PO Q6H PRN (Reason: pain) Qty: 4 RF: 0 (DME) lancets [OneTouch Delica Lancets] 33 gauge misc See Rx Instructions .ROUTE .MEDSUPPLY Qty: 100 RF: 11 (DME) blood-glucose meter [OneTouch Verio Flex meter] Misc See Rx Instructions .ROUTE .MEDSUPPLY Qty: 1 RF: 0 insulin aspart U-100 [Novolog Flexpen U-100 Insulin] 100 unit/mL (3 mL) insulin pen See Rx Instructions SC TID MDD 98 units (3 meals 2 snacks) Qty: 30 RF: 6 (DME) OneTouch Verio test strips Strip See Rx Instructions .ROUTE .MEDSUPPLY Qty: 120 RF: 8 Primary Care Provider: Tami Gutierres Referrals: Tami Gutierres, FRANCK-C [Primary Care Provider] - 3-5 Days Disposition Disposition: Home, Self Care
[2021-01-27] MEDS: HYDROcodone Bitartrate/Apap 5/325 Tablet PO (13:05)
== END 2021-01-27 14:59 | disposition home or self-care (01) ==
PROVIDERS: Emergency Provider Emergency Medicine; PCP Nurse Practitioner Adult Health
DX: R60.0 Localized edema (principal); E11.40 Type 2 diabetes mellitus with diabetic neuropathy, unspecified; J42 Unspecified chronic bronchitis; M06.9 Rheumatoid arthritis, unspecified; E78.5 Hyperlipidemia, unspecified; H40.9 Unspecified glaucoma; K58.9 Irritable bowel syndrome, unspecified; G47.33 Obstructive sleep apnea (adult) (pediatric); E66.9 Obesity, unspecified; F17.210 Nicotine dependence, cigarettes, uncomplicated; Z79.4 Long term (current) use of insulin; Z79.899 Other long term (current) drug therapy
CPT/HCPCS: 93971; 99282

== ENCOUNTER 2021-05-08 20:42 | Emergency (ER) | payer MEDICAID, SELFPAY ==
[2021-05-08 20:43] VITALS: BP 134/69; PULSE 90; RESP 18; TEMP 36.7; O2SAT 100; BMI 42.9
--- NOTE | 2021-05-08 20:50 | RAD_ITS ---
STUDY: XR Elbow 2 Views REASON FOR EXAM: Female, 65 years old. PAIN TECHNIQUE: XR Elbow 2 Views COMPARISON: None. FINDINGS: Normal visualized humerus, radius and ulna. Normal radiocapitellar and ulnotrochlear articulations. Anterior humeral line and radiocapitellar line are preserved. The soft tissue structures are unremarkable. RAD/Elbow 2 Views IMPRESSION: Positive fat pad sign, suggesting a radiographically occult fracture of the elbow. Electronically Signed: El Marinelli MD at 21:13 EST ,
--- NOTE | 2021-05-08 20:50 | RAD_ITS ---
STUDY: XR Knee 1 or 2 Views 05/08/2021 9:13 PM REASON FOR EXAM: Female, 65 years old. LEFT KNEE PAIN. TECHNIQUE: XR Knee 1 or 2 Views COMPARISON: None. FINDINGS: Normal visualized distal femur. Normal visualized proximal tibia and fibula. Normal proximal tibiofibular articulation. Normal medial femorotibial compartment. Normal lateral femorotibial compartment. Normal patellofemoral articulation. The soft tissue structures are unremarkable. RAD/Knee 1 or 2 Views IMPRESSION: There are no acute findings. Electronically Signed: El Marinelli MD at 21:13 EST ,
--- NOTE | 2021-05-08 20:50 | RAD_ITS ---
EXAM: XR RIGHT ELBOW, 2 VIEWS CLINICAL INDICATION: FALL pain TECHNIQUE: Frontal and lateral views of the right elbow. This report was created using [employer] report generation technology. COMPARISON: None. FINDINGS: BONES/JOINTS: Unremarkable. There is no displacement of the anterior or posterior fat pads. No acute fracture. No subluxation. Normal alignment. Preservation of the joint space. No destructive or sclerotic lesions. SOFT TISSUES: Unremarkable. No soft tissue swelling or gas. No radiopaque foreign body. RAD/Elbow 2 Views IMPRESSION: Negative right elbow. Electronically Signed: El Marinelli MD at 21:14 EST Reading Location ID and State: [facility] / [place] , Service support ,
--- NOTE | 2021-05-08 20:50 | RAD_ITS ---
STUDY: XR Knee 1 or 2 Views 05/08/2021 9:15 PM REASON FOR EXAM: Female, 65 years old. PAIN TECHNIQUE: XR Knee 1 or 2 Views Right COMPARISON: None. FINDINGS: Normal visualized distal femur. Normal visualized proximal tibia and fibula. Normal proximal tibiofibular articulation. Normal medial femorotibial compartment. Normal lateral femorotibial compartment. Normal patellofemoral articulation. There is a soft tissue prominence in the suprapatellar region suggesting a small volume joint effusion. Right patellar fracture. There is soft tissue swelling around the knee. RAD/Knee 1 or 2 Views IMPRESSION: Right patellar fracture. There is a soft tissue prominence in the suprapatellar region suggesting a small volume joint effusion. Electronically Signed: El Marinelli MD at 21:17 EST ,
--- NOTE | 2021-05-08 22:13 | RAD_ITS ---
EXAM: XR RIGHT WRIST COMPLETE, 3 OR MORE VIEWS CLINICAL INDICATION: Injury/Pain TECHNIQUE: Frontal, lateral and oblique views of the right wrist. This report was created using [employer] report generation technology. COMPARISON: None. FINDINGS: BONES/JOINTS: No acute or healing fracture or malalignment. No unusual lytic or sclerotic lesions of bone. Mild degenerative change at the triscaphe joint. SOFT TISSUES: Diffuse soft tissue swelling about the wrist. No radiopaque foreign body. RAD/Wrist min 3 Views IMPRESSION: No acute or healing fracture or malalignment. Electronically Signed: Fernie Alexandre MD at 22:56 EST ,
--- NOTE | 2021-05-08 22:15 | RAD_ITS ---
EXAM: XR RIGHT RIBS AND AP CHEST, 3 OR MORE VIEWS : 1955 CLINICAL INDICATION: Fall TECHNIQUE: Frontal and oblique views of the right ribs and frontal view of the chest. This report was created using [employer] report generation technology. COMPARISON: 12/24/2020 FINDINGS: LUNGS AND PLEURAL SPACES: Unremarkable. No consolidation or edema. No pneumothorax. No effusion. HEART: Unremarkable. Cardiac silhouette not enlarged. MEDIASTINUM: Central airways and mediastinal contour are unremarkable. BONES/JOINTS: Unremarkable. No evidence of displaced rib fractures. RAD/Ribs Uni Min 3V w/PA Chest IMPRESSION: Negative chest and right ribs series. at 2242 Reported and signed by: Shravan Pollock MD Electronically Signed: Shravan Pollock MD at 22:41 EST ,
--- NOTE | 2021-05-08 22:20 | EDS_ITS ---
HPI HPI - Fall History of Present Illness Chief Complaint: Fall Informant: patient Occured/Mechanism Occurred: Today Mechanism/Context: Yes same level fall Pain/Injury Pain Location: abdomen, upper extremity and lower extremity Quality of Pain: Aching and Stabbing Worsened by: Nothing Relieved by: Nothing Associated Symptoms Associated Symptoms: Negative for Parasthesias, Weakness, Loss of function, Inability to ambulate, Loss of consciousness and Amnesia Narrative Narrative: Patient presents after a fall that occurred earlier this morning. P atient states she got up to go to the bathroom when she lost her balance and fell forward. Patient denies hitting her head. Patient denies any loss of consciousness. Patient states she did have difficulty getting up from the floor. Patient complains of pain in her right wrist, both elbows, both knees, and right upper abdomen and lower ribs. Patient describes her pain as aching and stabbing. Patient states nothing makes her pain worse and nothing makes it better. Patient denies any paresthesias or weakness. PFSH [facility] Medical History Anemia Ascites Chronic bronchitis Cirrhosis Closed displaced fracture of distal phalanx of left great toe Closed fracture of right patella Contusion of multiple sites Diabetes Encephalopathy Fall from slip, trip, or stumble Glaucoma Hyperlipidemia IBS (irritable bowel syndrome) Neuropathy Obesity Obstructive sleep apnea Peripheral neuropathy Rheumatoid arthritis Sinus tachycardia Thrombocytopenia Thrombocytopenia Vision problem Home Medications cyanocobalamin (vitamin B-12) 1,000 mcg PO DAILY 06/10/17 [History Last Taken 01/19/21] hydroxyzine pamoate 25 mg capsule 25 mg PO QHS cap 07/16/17 [History Last Taken 01/18/21] atorvastatin 20 mg PO QHS 09/16/18 [History Last Taken 01/18/21] lancets 33 gauge #100 ea 06/25/19 [Rx Last Taken Unknown] blood-glucose meter #1 ea 06/29/19 [Rx Last Taken Unknown] insulin aspart U-100 100 unit/mL (3 mL) subcutaneous pen See Rx Instructions SC TID #30 ml MDD 98 units (3 meals 2 snacks) 11/24/20 [Rx Last Taken 01/19/21] cholecalciferol (vitamin D3) 1,250 mcg (50,000 unit) capsule 50,000 unit PO FORBES cap 11/28/20 [History Last Taken 01/15/21] gabapentin 600 mg tablet 600 mg PO BID tab 11/28/20 [History Last Taken 01/19/21] blood sugar diagnostic #120 ea 11/29/20 [Rx Last Taken Unknown] Eunice Herman U-100 Insulin 80 unit SC QHS 01/20/21 [History Last Taken 01/18/21] spironolactone 25 mg PO DAILY 01/20/21 [History Last Taken 01/19/21] magnesium hydroxide 30 ml PO DAILY PRN PRN #0 ml 01/21/21 [Rx Last Taken Unknown ] sennosides-docusate sodium [Stool Softener-Stimulant Laxat] 2 tab PO BID PRN PRN #0 tab 01/21/21 [Rx Last Taken Unknown] tramadol 50 mg PO Q6H PRN #4 tab 01/21/21 [Rx Last Taken 01/18/21] acetaminophen 325 mg capsule 325 mg PO ONCE PRN 01/27/21 [History Last Taken Unknown] bisacodyl 10 mg rectal suppository 10 mg ID DAILY PRN 01/27/21 [History Last Taken Unknown] magnesium hydroxide 400 mg/5 mL oral suspension 5 ml PO DAILY PRN 01/27/21 [History Last Taken Unknown] mineral oil 118 ml ID DAILY PRN 01/27/21 [History Last Taken Unknown] hydrocodone-acetaminophen 1 tab PO Q6H PRN PRN 3 Days #10 tablet 05/09/21 [Rx Last Taken Unknown] Allergy/AdvReac Type Severity Reaction Status Date / Time haloperidol [From Haldol] AdvReac Unknown Verified 05/08/21 20:45 haloperidol lactate AdvReac Unknown Verified 05/08/21 20:45 [From Haldol] Family History Unknown No problems noted. Other Foster child Surgical History H/O shoulder surgery History of History of cataract extraction History of cholecystectomy Social History adopted: Yes household members: none housing: assisted living facility Smoking Status: Current every day smoker tobacco type: cigarettes Tobacco: How many years used: 44 alcohol intake: current Alcohol type: hard liquor details: 18+years substance use type: marijuana what type of physical activity do you participate in: none do you feel safe at home: Yes ROS ROS ED Constitutional Constitutional ED: Denies chills or fever(s) Eyes Eyes: Denies blurry vision or change in vision ENT ENT ED: Denies rhinorrhea or sore throat Cardiovascular Cardiovascular: Denies chest pain or palpitations Respiratory/Chest Respiratory/Chest: Denies cough or dyspnea Gastrointestinal Gastrointestinal: Reports abdominal pain; Denies nausea or vomiting Genitourinary Genitourinary ED: Denies dysuria or hematuria Musculoskeletal Musculoskeletal: Reports neck pain; Denies back pain Integumentary Denies abscess or rash Neurologic Neurologic: Denies headache(s) or weakness Allergic/Immunologic Allergic/Immunologic ED: Denies mouth swelling or urticaria EXAM Physical Exam Const Vital Signs: 05/08/21 20:43 05/08/21 22:07 Temperature 98.0 F Temperature Source Temporal Pulse Rate 90 Respiratory Rate 18 Respiratory Effort Normal Non-Labored Respiratory Depth Normal Respiratory Pattern Normal Blood Pressure 134/69 H Blood Pressure Mean 90 Pulse Ox 100 Oxygen Delivery Method Room Air Room Air Positive well nourished, well developed and obese General Appearance ED: well developed Nutritional Appearance: obese HEENT Reports normocephalic atraumatic Resp normal respiratory effort and clear to auscultation bilaterally Cardio regular rate and regular rhythm GI GI Narrative: There is some mild tenderness over the right side of the abdomen. There is some mild edema and ecchymosis. There is no rebound or guarding noted. There are no peritoneal signs noted. Auscultation: normoactive bowel sounds Palpation: soft; Negative for guarding or rebound tenderness present Extremity Extremity Narrative: There is tenderness over the elbows bilaterally. There is a superficial abrasion over the posterior aspect of the right elbow. There is also tenderness over the right wrist area. There are some mild edema. There is no deformity noted. There is also tenderness over the anterior knees bilaterally. There is a superficial abrasion over the right knee. There is no bleeding noted. Range of motion was limited in all motions of the elbows, right wrist, and knees bilaterally. There are no deformities noted. Radial and pedal pulses are equal bilaterally. Neuro oriented x3, CN's II-XII intact bilaterally, moves all extremities, no focal motor deficits and no sensory deficits noted Sensorium / Orientation: alert Psych mental status grossly normal MDM MDM MDM Narrative Medical decision making narrative: X-rays of the right knee were obtained. There are 2 views. On my interpretation, there is a nondisplaced fracture of the patella. There is a mild effusion. There is no dislocation. There is no other abnormality noted. Radiologist also interpreted the x-rays and agrees. X-rays of the left knee were obtained. There are 2 views. On my interpretation, there is no acute fracture or dislocation. There is no joint effusion. There is no soft tissue swelling. Radiologist also interpreted the x-rays and agrees. X-rays of the right elbow were obtained. There are 3 views. On my interpretation, there is no acute fracture or dislocation. There is no fat pad sign. There is no soft tissue swelling. Radiologist also interpreted the x-rays and agrees. X-rays of the left elbow were obtained. There are 2 views. On my interpretation, there is a positive anterior fat pad sign. There is no acute fracture noted. Radiologist also interpreted the x-rays and agrees. X-rays of the right wrist were obtained. There are 3 views. On my interpretation, there is no acute fracture. There is no dislocation. There is no soft tissue swelling. Radiologist also interpreted the x-rays and agrees. X-rays of the right ribs were obtained. There are 4 views. On my interpretation, there is no acute fracture. There is no acute cardiopulmonary process noted. Radiologist also interpreted the x-rays and agrees. Patient was advised of her findings. Patient was given a sling for her left elbow and a knee immobilizer for her right knee. Patient was given a prescription for a short course of [place]. Patient was instructed to follow-up with her primary care physician in 5 to 7 days. Patient understood and was agreeable with the plan. All questions were answered. Radiography Diagnostic Testing: Clinical Impression(s) from Imaging Studies Elbow X-Ray 05/08/21 20:50 IMPRESSION: Positive fat pad sign, suggesting a radiographically occult fracture of the elbow. Electronically Signed: El Marinelli MD at 21:13 EST Reading Location ID and State: [facility] / [place] , Service support , Elbow X-Ray 05/08/21 20:50 IMPRESSION: Negative right elbow. Electronically Signed: El Marinelli MD at 21:14 EST , Knee X-Ray 05/08/21 20:50 IMPRESSION: There are no acute findings. Electronically Signed: El Marinelli MD at 21:13 EST , Knee X-Ray 05/08/21 20:50 IMPRESSION: Right patellar fracture. There is a soft tissue prominence in the suprapatellar region suggesting a small volume joint effusion. Electronically Signed: El Marinelli MD at 21:17 EST , Wrist X-Ray 05/08/21 22:13 IMPRESSION: No acute or healing fracture or malalignment. Electronically Signed: Fernie Alexandre MD at 22:56 EST , Ribs w/Chest X-Ray 05/08/21 22:15 IMPRESSION: Negative chest and right ribs series. at 2242 Reported and signed by: Shravan Pollock MD Electronically Signed: Shravan Pollock MD at 22:41 EST , Discharge Plan Triage Chief Complaint: Fall ED Provider: Ranjit Peña Dx/Rx/DC Orders Clinical Impression: Nondisplaced fracture of right patella, Effusion of left elbow Instructions: ED Patella Fracture Prescriptions: New hydrocodone-acetaminophen [hydrocodone-acetaminophen] 1 TABLET tablet 1 tab PO Q6H PRN PRN (Reason: Pain) 3 Days Qty: 10 RF: 0 No Action hydroxyzine pamoate 25 mg capsule 25 mg PO QHS RF: 0 gabapentin 600 mg tablet 600 mg PO BID RF: 0 cholecalciferol (vitamin D3) 1,250 mcg (50,000 unit) capsule 50,000 unit PO FORBES RF: 0 bisacodyl 10 mg suppository 10 mg ID DAILY PRN (Reason: Constipation) RF: 0 mineral oil [Fleet Mineral Oil] Enema 118 ml ID DAILY PRN (Reason: Constipation) RF: 0 magnesium hydroxide [Milk of Magnesia] 400 mg/5 mL suspension 5 ml PO DAILY PRN (Reason: Indigestion) RF: 0 acetaminophen [Tylenol] 325 mg capsule 325 mg PO ONCE PRN (Reason: Pain) RF: 0 cyanocobalamin (vitamin B-12) 1,000 MCG tablet 1,000 mcg PO DAILY RF: 0 atorvastatin 10 MG tablet 20 mg PO QHS RF: 0 spironolactone 25 mg tablet 25 mg PO DAILY RF: 0 Basaglar KwikPen U-100 Insulin 100 unit/mL (3 mL) insulin pen 80 unit SC QHS RF: 0 sennosides-docusate sodium [Stool Softener-Stimulant Laxat] 8.6-50 mg Tablet 2 tab PO BID PRN PRN (Reason: Constipation) Qty: 0 RF: 0 magnesium hydroxide 400 mg/5 mL Suspension 30 ml PO DAILY PRN PRN (Reason: Constipation) Qty: 0 RF: 0 tramadol 50 mg Tablet 50 mg PO Q6H PRN (Reason: pain) Qty: 4 RF: 0 (DME) lancets [OneTouch Delica Lancets] 33 gauge misc See Rx Instructions .ROUTE .MEDSUPPLY Qty: 100 RF: 11 (DME) blood-glucose meter [OneTouch Verio Flex meter] Misc See Rx Instructions .ROUTE .MEDSUPPLY Qty: 1 RF: 0 insulin aspart U-100 [Novolog Flexpen U-100 Insulin] 100 unit/mL (3 mL) insulin pen See Rx Instructions SC TID MDD 98 units (3 meals 2 snacks) Qty: 30 RF: 6 (DME) OneTouch Verio test strips Strip See Rx Instructions .ROUTE .MEDSUPPLY Qty: 120 RF: 8 Primary Care Provider: Tami Gutierres Referrals: Kenny Liu DO [STAFF PHYSICIAN] - 3-5 Days Tami Gutierres, [facility]-C [Primary Care Provider] - 3-5 Days Disposition Disposition: Home, Self Care
[2021-05-09] MEDS: HYDROcodone Bitartrate/Apap 5/325 Tablet PO (00:22)
[2021-05-09 00:26] VITALS: BP 144/74; PULSE 100; RESP 18; O2SAT 95
--- NOTE | 2021-05-09 00:26 | NURSING ---
pt refused the knee immobilizer. Pt said she has 1 at home
== END 2021-05-09 00:27 | disposition home or self-care (01) ==
PROVIDERS: Emergency Provider Emergency Medicine; PCP Nurse Practitioner Adult Health; Visit Provider Emergency Medicine
DX: S82.001A Unspecified fracture of right patella, initial encounter for closed fracture (principal); M06.9 Rheumatoid arthritis, unspecified; J42 Unspecified chronic bronchitis; E11.42 Type 2 diabetes mellitus with diabetic polyneuropathy; Z79.4 Long term (current) use of insulin; W18.30XA Fall on same level, unspecified, initial encounter; M25.422 Effusion, left elbow; R07.81 Pleurodynia; M54.2 Cervicalgia; M25.521 Pain in right elbow; M25.561 Pain in right knee; E78.5 Hyperlipidemia, unspecified; H40.9 Unspecified glaucoma; G47.33 Obstructive sleep apnea (adult) (pediatric); Z79.899 Other long term (current) drug therapy; F17.210 Nicotine dependence, cigarettes, uncomplicated; E66.9 Obesity, unspecified
CPT/HCPCS: 36415; 71101; 73070; 73110; 73560; 80053; 80074; 82105; 82164; 82390; 82525; 82784; 82785; 83516; 85025; 85652; 86140; 86225; 86235; 86256; 99283

== ENCOUNTER 2021-05-18 15:36 | Outpatient (CLI) | payer MEDICAID, SELFPAY ==
--- NOTE | 2021-05-18 15:41 | CT_ITS ---
STUDY: CT ABDOMEN AND PELVIS WITH CONTRAST REASON FOR EXAM: Female, 65 years old. Ascites and cirrhosis RADIATION DOSAGE (If Supplied By Facility): CTDIvol = ( 16.59 ) mGy, DLP = ( 1174.24 ) mGycm TECHNIQUE: Transaxial images were obtained from the dome of the diaphragm to the symphysis pubis without oral contrast. IV 100mL Isovue-300 was administered. Sagittal and coronal images were reconstructed. Individualized dose optimization techniques were used for this CT. COMPARISON: 12/24/2020. FINDINGS: The visualized lung bases demonstrate mild interstitial prominence. The visualized portions of the heart are within normal limits. Mild cirrhotic changes of the liver. Status post cholecystectomy. No significant dilatation of the extrahepatic biliary system. Enlarged spleen. Normal pancreas. Normal bilateral adrenal glands. Normal right kidney. 1 cm upper pole cyst in the left kidney. Normal visualized stomach. Normal small intestine. Normal colon. The appendix is not visualized. Calcified abdominal aorta. Normal inferior vena cava. Normal retroperitoneum. Mucosal enhancement in the urinary bladder likely inflammatory in etiology. Normal abdominal wall. Mild compression of L5. CT/Abdomen/Pelvis W IV Cont ONLY IMPRESSION: Cirrhosis. Splenomegaly. Left renal cyst. Mucosal thickening in the urinary bladder suggesting cystitis. Electronically Signed: Stanislav Garza DO at 23:39 EST Reading Location ID and State: [facility] / [place] Tel [phone], Service support ,
== END 2021-05-18 23:59 | disposition home or self-care (01) ==
LOC: CT 15:39
PROVIDERS: PCP Nurse Practitioner Adult Health; Referring Provider Internal Medicine Gastroenterology; Visit Provider Internal Medicine Gastroenterology
DX: R18.8 Other ascites (principal); K74.60 Unspecified cirrhosis of liver
CPT/HCPCS: 74177; Q9967

== ENCOUNTER 2021-06-16 10:21 | Outpatient (CLI) | payer MEDICAID, SELFPAY ==
--- NOTE | 2021-06-16 13:26 | PFTCOMP ---
COMPLETE PULMONARY FUNCTION TEST INTERPRETATION Brief HPI: Patient is a 65 year old female, currently under the care of Dr. Quinonez, who presents to [facility] for complete pulmonary function tests secondary to diagnosis of nicotine dependence. Respiratory therapist reports good effort and marginally reproducible results. Interpretation: Forced expiration spirometry shows a moderate large airways obstructive ventilatory defect with an FEV1 of 65% predicted. There is no significant bronchodilator response by strict ATS criteria. Spirograms are of poor quality and plateau normally. The respiratory flow volume loop shows a normal pattern. Lung volumes by body plethysmography show a normal total lung capacity at 3.37 L, 87% predicted. All other lung volumes are within normal limits. Diffusion capacity by carbon monoxide is normal at 120% predicted. The airway resistance is normal. No previous pulmonary function tests were available for review. Impression: Irreversible moderate large airways obstructive ventilatory defect with preserved diffusing capacity. Patient did have difficulty with testing, so clinical correlation is advised.
== END 2021-06-16 23:59 | disposition home or self-care (01) ==
LOC: PSN 10:21
PROVIDERS: PCP Nurse Practitioner Adult Health; Visit Provider Internal Medicine Critical Care Medicine
DX: F17.200 Nicotine dependence, unspecified, uncomplicated (principal); E66.9 Obesity, unspecified
CPT/HCPCS: 94060; 94726; 94729

== ENCOUNTER 2021-06-20 08:43 | Outpatient (CLI) | payer MEDICAID, SELFPAY ==
--- NOTE | 2021-06-20 08:44 | US_ITS ---
STUDY: ABDOMINAL ULTRASOUND REASON FOR EXAM: Female, 65 years old. Ascites -- ABD PAIN TECHNIQUE: Transabdominal ultrasound was performed with real-time and static isaacs scale imaging. TECHNICAL QUALITY: Adequate. COMPARISON: Comparison is made with prior study dated 06/25/2018. FINDINGS: Liver: The liver measures 16.9 cm. There is increased echogenicity consistent with fatty infiltration. The bile ducts are within normal limits. There is hepatic color flow. The direction of portal flow is hepatopetal. There is no demonstrated mass lesion. Gallbladder: The patient is status post cholecystectomy. Common Bile Duct (C.B.D.): The common bile duct measures 5.1 mm. Pancreas: Normal size of the head, body and tail of the pancreas. There is increased echogenicity of the pancreas. There is no demonstrated pancreatic mass or cyst. Spleen: There is splenomegaly. The spleen measures 18.1 cm x 6.8 cm x 6.9 cm. Right Kidney: Normal size of the right kidney. The right kidney measures 8.9 cm x 4.7 cm x 4.2 cm. Normal renal cortex. The right cortex measures 1.0 cm. There is no demonstrated renal mass or cyst. There is no right hydronephrosis. Left Kidney: Normal size of the left kidney. The left kidney measures 8.6 cm x 4.2 cm x 3.9 cm. Normal renal cortex. The left cortex measures 1.3 cm. There is a 1 cm x 1.4 cm x 0.8 cm left renal cyst. There is no left hydronephrosis. Aorta: Obscured by overlying bowel gas. I.V.C.: The IVC is patent. There is no ascites. US/Abdomen Complete IMPRESSION: Fatty infiltration of the liver. Splenomegaly. Status post cholecystectomy. Small left renal cyst. Electronically Signed: Tomer Vegas MD at 10:32 EDT ,
== END 2021-06-20 23:59 | disposition home or self-care (01) ==
PROVIDERS: PCP Nurse Practitioner Adult Health; Referring Provider Internal Medicine Gastroenterology; Visit Provider Internal Medicine Gastroenterology
DX: R18.8 Other ascites (principal)
CPT/HCPCS: 76700

== ENCOUNTER 2021-06-29 10:57 | Outpatient (CLI) | payer MEDICAID, SELFPAY ==
[2021-06-29 12:07] VITALS: PULSE 107; PULSE 108; PULSE 109; PULSE 112; PULSE 113; PULSE 79; PULSE 83; PULSE 94; O2SAT 93; O2SAT 94; O2SAT 95; O2SAT 96
--- NOTE | 2021-06-29 12:10 | CPS ---
SHE STATES SHE IS TO WEAR O2 AT 2LPM AT NIGHT BUT DOES NOT USE IT. SHE ALSO STATED THAT HER KNEES BOTHERED HER THE MOST. SHE SAID THAT IF SHE HAD TO WALK ANY MORE SHE WOULD HAVE TO STOP.
--- NOTE | 2021-06-29 14:33 | PCM.PSN.6M ---
PSN 6 Minute Walk Test 6 Minute Walk Test 6 Minute Walk Test: 6 Minute Walk Test PSN:6-Minute Walk Test Start: 06/29/21 12:06 Freq: Status: Active Protocol: RESP.6MINW Document 06/29/21 12:07 FR (Rec: 06/29/21 12:13 FR [id number]) 6 Minute Walk Test Date Performed 06/29/21 Time Performed 11:15 Height 4 ft 11 in Weight: 74.843 kg Weight in Pounds 165.[address]: DR. CORDERO Assistive device used: None Pre-test Oxygen Delivery Method Room Air Pulse Ox (%) 95 Pulse Rate (60-100 beats/min) 79 Dyspnea Christopher Scale (0-10) 5 Exertion Christopher Scale (6-20) 10 1st minute Oxygen Delivery Method Room Air Pulse Ox (%) 96 Pulse Rate (60-100 beats/min) 94 2nd minute Oxygen Delivery Method Room Air Pulse Ox (%) 94 Pulse Rate (60-100 beats/min) 107 H 3rd minute Oxygen Delivery Method Room Air Pulse Ox (%) 94 Pulse Rate (60-100 beats/min) 108 H 4th minute Oxygen Delivery Method Room Air Pulse Ox (%) 94 Pulse Rate (60-100 beats/min) 109 H 5th minute Oxygen Delivery Method Room Air Pulse Ox (%) 95 Pulse Rate (60-100 beats/min) 112 H 6th minute Oxygen Delivery Method Room Air Pulse Ox (%) 93 Pulse Rate (60-100 beats/min) 113 H Dyspnea Christopher Scale (0-10) 7 Exertion Christopher Scale (6-20) 13 Post-test Oxygen Delivery Method Nasal Cannula Pulse Ox (%) 96 Pulse Rate (60-100 beats/min) 83 Full Laps Walked 18 Partial Lap, Number of Tiles Walked 21 Total Distance Walked (ft) 1083 06/29/21 12:10 Cardiopulmonary Services by Ruby Gorman SHE STATES SHE IS TO WEAR O2 AT 2LPM AT NIGHT BUT DOES NOT USE IT. SHE ALSO STATED THAT HER KNEES BOTHERED HER THE MOST. SHE SAID THAT IF SHE HAD TO WALK ANY MORE SHE WOULD HAVE TO STOP. Initialized on 06/29/21 12:10 - END OF NOTE Interpretation Interpretation: Patient was able to ambulate 1083 feet over the course of 6 minutes on room air with no assistive devices or breaks. The patient experienced no significant desaturation, but did have a peak heart rate of 113 bpm. These findings are consistent with a cardiovascular limitation exercise tolerance. Recommendations Recommendations: No supplemental oxygen is indicated at this time.
== END 2021-06-29 23:59 | disposition home or self-care (01) ==
LOC: PSN 10:58
PROVIDERS: PCP Nurse Practitioner Adult Health; Referring Provider Internal Medicine Critical Care Medicine; Visit Provider Internal Medicine Critical Care Medicine
DX: F17.210 Nicotine dependence, cigarettes, uncomplicated (principal); R06.02 Shortness of breath
CPT/HCPCS: 94618

== ENCOUNTER 2021-06-30 05:11 | Day surgery (SDC) | payer MEDICAID, SELFPAY ==
[2021-06-30] MEDS: Lactated Ringers 1,000 ML 15 ML IV (05:58)
[2021-06-30 05:59] VITALS: BP 135/76; PULSE 80; RESP 18; TEMP 36.3; O2SAT 94; BMI 33.2
[2021-06-30 06:15] LABS: Bedside Glucose 110 mg/dL (74-106)
--- NOTE | 2021-06-30 06:30 | COLBX_PTH ---
PATIENT: NEERU LECHUGA LOC: EN U#:[id number] AGE/SX: 65/F ROOM: RE06/30/[address]: Dr. Morris Henderson DO : 1955 BED: DIS: 06/30/2021 SPEC #: [id number] RECD: 06/30/21 08:35 STATUS: CAROLYNN PAULINA #: [id number] OLYA: 06/30/21 06:[address]: Morris Henderson DEPT: SURGICAL PATHOLOGY RECD BY: Ludmila Xavier ENTERED: 06/30/21 10:08 SP TYPE: COLON BX OTHR DR: Tami Gutierres, ENGRAVINGS POLISHER-[facility] Tissues: A - Gastric mucous membrane B - Esophagus, NOS Procedures: Special Stain Group II Surgery Specimen Level IV Alcian Blue/PAS (control) HEADER OPERATION: Colonoscopy, EGD ([facility]) with PRE-OP DIAGNOSIS: Cirrhosis, encephalopathy, ascites, anemia, thrombocytopenia TISSUE SUBMITTED: A ? Gastric body biopsy, B ? Distal esophagus biopsy MICROSCOPIC DIAGNOSIS A. Gastric body, biopsy: Mild gastritis. See microscopic description and comment. B. Distal esophagus, biopsy: Fragments of gastroesophageal mucosa with mild chronic inflammation. Intestinal metaplasia (goblet cell metaplasia) not identified. See comment. SJ:clarissa 07/03/2021 COMMENT A. The results of immunohistochemistry for Helicobacter pylori will be reported separately ([id number]). B. Alcian blue/PAS stain with matched control is used in the evaluation of the specimen. MICROSCOPIC DESCRIPTION Slides are reviewed. A. The specimen shows fragments of gastric mucosa with chronic inflammatory cell infiltrates in the lamina propria consisting of lymphocytes and plasma cells, consistent with mild chronic gastritis. GROSS DESCRIPTION A - Received in fixative is one container labeled with the patient's name and designated gastric body biopsy. The specimen consists of two irregular fragments of light zaragoza soft tissue that in aggregate measure 1 x 0.4 x 0.1 cm. The specimen is totally submitted in one cassette. B - Received in fixative is one container labeled with the patient's name and designated distal esophagus biopsy. The specimen consists of two irregular fragments of light zaragoza soft tissue that in aggregate measure 0.5 x 0.3 x 0.1 cm. The specimen is totally submitted in one cassette. / LITZY:clarissa 06/30/2021 TC:3 CPT: 64707 x2, 76984
--- NOTE | 2021-06-30 06:30 | IMM_PTH ---
PATIENT: NEERU LECHUGA LOC: EN U#:[id number] AGE/SX: 65/F ROOM: RE06/30/[address]: Dr. Morris Henderson DO : 1955 BED: DIS: 06/30/2021 SPEC #: [id number] RECD: 07/03/21 13:20 STATUS: CAROLYNN REJaclyn #: [id number] OLYA: 06/30/21 06:[address]: Morris Henderson DEPT: IMMUNOHISTOCHEMISTRY RECD BY: Daxa Long ENTERED: 07/03/21 13:20 SP TYPE: IMMUNO OTHR DR: Tami Gutierres, MEDICAL ASSISTANT DERMATOLOGY-[facility] Tissues: A - Stomach, NOS Procedures: H Pylori (initial) PHYSICIAN & INSTITUTION [place] [id number] SPECIMEN INFORMATION: Tissue Source: A ? Gastric body biopsy Clinical Info: Cirrhosis, ascites, anemia, thrombocytopenia Specimen Number: [id number] CPT code: 25109 METHODOLOGY: Deparaffinized sections of prefer/formalin-fixed tissue or PAP/DQ stained slides are incubated with monoclonal/polyclonal antibodies/oligonucleotide probes. Localization is made via biotin free immunoperoxidase method. Appropriate controls are performed and reacted as expected. Results on target cell population are indicated in the following table: RESULTS: ANTIBODY / CLONE RESULT Block A H Pylori (polyclonal) negative These tests were developed and their performance characteristics determined by [facility]. They may not have been cleared or approved by the U.S. Food and Drug Administration. The FDA has determined that such clearance or approval is not necessary. The above immunohistochemical/dualISH markers are ordered and reviewed by the Pathologist. INTERPRETATION: A. Gastric body, biopsy: Negative for Helicobacter pylori organisms. LITZY:clarissa 06/03/2021
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
[2021-06-30 07:30] VITALS: BP 106/53; BP 135/76; PULSE 83; RESP 16; TEMP 35.8; O2SAT 96
--- NOTE | 2021-06-30 07:32 | OP.EGD_ITS ---
Patient Name: Sheyla Wiseman Procedure Date: 06/30/2021 6:26 AM Date of : 1955 Age: 65 Procedure: Upper GI endoscopy Indications: Cirrhosis rule out esophageal varices Providers: Morris Henderson DO Medicines: See the Anesthesia note for documentation of the administered medications Patient Profile: This is a 65 year old female. Refer to note in patient chart for documentation of history and physical. Patient has symptoms. Complications: No immediate complications. Procedure: Pre-Anesthesia Assessment: - Prior to the procedure, a History and Physical was performed, and patient medications and allergies were reviewed. The patient is competent. The risks and benefits of the procedure and the sedation options and risks were discussed with the patient. All questions were answered and informed consent was obtained. Patient identification and proposed procedure were verified by the physician in the pre-procedure area. Mental Status Examination: alert and oriented. Airway Examination: normal oropharyngeal airway and neck mobility. Respiratory Examination: clear to auscultation. CV Examination: normal. Prophylactic Antibiotics: The patient does not require prophylactic antibiotics. Prior Anticoagulants: The patient has taken no previous anticoagulant or antiplatelet agents. After reviewing the risks and benefits, the patient was deemed in satisfactory condition to undergo the procedure. The anesthesia plan was to use moderate sedation / analgesia (conscious sedation). Immediately prior to administration of medications, the patient was re-assessed for adequacy to receive sedatives. The heart rate, respiratory rate, oxygen saturations, blood pressure, adequacy of pulmonary ventilation, and response to care were monitored throughout the procedure. The physical status of the patient was re-assessed after the procedure. After obtaining informed consent, the endoscope was passed under direct vision. Throughout the procedure, the patient's blood pressure, pulse, and oxygen saturations were monitored continuously. The Colonoscope was introduced through the mouth, and advanced to the second part of duodenum. The gastroscope was introduced through the and advanced to the. The upper GI endoscopy was accomplished without difficulty. The patient tolerated the procedure well. Moderate Sedation: Moderate (conscious) sedation was administered by the endoscopy nurse and supervised by the endoscopist. The following parameters were monitored: oxygen saturation, heart rate, blood pressure, and response to care. Total physician intraservice time was 15 minutes. Scope In: 6:49:27 AM Scope Out: 7:03:30 AM Total Procedure Duration Time 0 hours 14 minutes 3 seconds Findings: Grade II varices were found in the middle third of the esophagus and in the lower third of the esophagus. They were 5 mm in largest diameter. Two bands were successfully placed with incomplete eradication of varices. There was no bleeding during the procedure. LA Grade A (one or more mucosal breaks less than 5 mm, not extending between tops of 2 mucosal folds) esophagitis with no bleeding was found 38 to 40 cm from the incisors. Biopsies were taken with a cold forceps for histology. Verification of patient identification for the specimen was done. Estimated blood loss was minimal. Patchy glycogenic acanthosis was found in the middle third of the esophagus. A medium-sized hiatal hernia was present. Moderate portal hypertensive gastropathy was found in the gastric body. Biopsies were taken with a cold forceps for histology. Verification of patient identification for the specimen was done. Estimated blood loss was minimal. The second portion of the duodenum was normal. Scattered moderate inflammation characterized by erosions and erythema was found in the gastric body. Biopsies were taken with a cold forceps for histology. Verification of patient identification for the specimen was done. Impression: - Grade II esophageal varices. Incompletely eradicated. Banded. - LA Grade A reflux esophagitis. Biopsied. - Glycogenic acanthosis of the esophagus. - Medium-sized hiatal hernia. - Portal hypertensive gastropathy. Biopsied. - Normal second portion of the duodenum. - Gastritis. Biopsied. Recommendation: - Await pathology results. - Repeat upper endoscopy in 3 months for surveillance. - Continue present medications. Procedure Code(s): --- Professional --- 46061, Esophagogastroduodenoscopy, flexible, transoral; with band ligation of esophageal/gastric varices 17678, Esophagogastroduodenoscopy, flexible, transoral; with biopsy, single or multiple 11802, 59, Moderate sedation services provided by the same physician or other qualified health adult daycare coordinator performing the diagnostic or therapeutic service that the sedation supports, requiring the presence of an independent trained observer to assist in the monitoring of the patient's level of consciousness and physiological status; initial 15 minutes of intraservice time, patient age 5 years or older CPT copyright 2017 [employer]. All rights reserved. The codes documented in this report are preliminary and upon hcc coders review may be revised to meet current compliance requirements. Morris Henderson DO 06/30/2021 7:31:32 AM This report has been signed electronically. Number of Addenda: 1 Note Initiated On: 06/30/2021 6:26 AM Addendum Number: 1 Addendum Date: 12/28/2021 6:48:31 AM MAC was used as sedation for this procedure. Morris Henderson DO 12/28/2021 6:48:35 AM This report has been signed electronically.
--- NOTE | 2021-06-30 07:32 | OP.CCLET_ITS ---
12/28/2021 Magali Lopez Re : Upper GI endoscopy procedure for Sheyla Wiseman Dear Nenita This procedure was performed on Wednesday, June 30, 2021. My impressions and recommendations are as follows: Impressions : - Grade II esophageal varices. Incompletely eradicated. Banded. - LA Grade A reflux esophagitis. Biopsied. - Glycogenic acanthosis of the esophagus. - Medium-sized hiatal hernia. - Portal hypertensive gastropathy. Biopsied. - Normal second portion of the duodenum. - Gastritis. Biopsied. Recommendations : - Await pathology results. - Repeat upper endoscopy in 3 months for surveillance. - Continue present medications. My findings are described in the full procedure note, which is enclosed. If I can be of further assistance, please feel free to contact me at . Sincerely, Morris Henderson DO 06/30/2021 7:31:32 AM This report has been signed electronically.
--- NOTE | 2021-06-30 07:34 | OP.COLON_ITS ---
Patient Name: Sheyla Wiseman Procedure Date: 06/30/2021 7:03 AM Date of : 1955 Age: 65 Procedure: Colonoscopy Indications: Iron deficiency anemia Providers: Morris Henderson DO Medicines: See the Anesthesia note for documentation of the administered medications Patient Profile: This is a 65 year old female. Refer to note in patient chart for documentation of history and physical. Patient has symptoms. Last Colonoscopy: none. The patient's first colonoscopy is today. Complications: No immediate complications. Procedure: Pre-Anesthesia Assessment: - Prior to the procedure, a History and Physical was performed, and patient medications and allergies were reviewed. The patient is competent. The risks and benefits of the procedure and the sedation options and risks were discussed with the patient. All questions were answered and informed consent was obtained. Patient identification and proposed procedure were verified by the physician in the pre-procedure area. Mental Status Examination: alert and oriented. Airway Examination: normal oropharyngeal airway and neck mobility. Respiratory Examination: clear to auscultation. CV Examination: normal. Prophylactic Antibiotics: The patient does not require prophylactic antibiotics. Prior Anticoagulants: The patient has taken no previous anticoagulant or antiplatelet agents. After reviewing the risks and benefits, the patient was deemed in satisfactory condition to undergo the procedure. The anesthesia plan was to use moderate sedation / analgesia (conscious sedation). Immediately prior to administration of medications, the patient was re-assessed for adequacy to receive sedatives. The heart rate, respiratory rate, oxygen saturations, blood pressure, adequacy of pulmonary ventilation, and response to care were monitored throughout the procedure. The physical status of the patient was re-assessed after the procedure. After I obtained informed consent, the scope was passed under direct vision. Throughout the procedure, the patient's blood pressure, pulse, and oxygen saturations were monitored continuously. The Colonoscope was introduced through the anus and advanced to the terminal ileum. The colonoscopy was performed without difficulty. The patient tolerated the procedure well. The quality of the bowel preparation was good. Moderate Sedation: Moderate (conscious) sedation was administered by the endoscopy nurse and supervised by the endoscopist. The following parameters were monitored: oxygen saturation, heart rate, blood pressure, and response to care. Total physician intraservice time was 15 minutes. Scope In: 7:08:03 AM Scope Withdrawal Time 0 hours 8 minutes 43 seconds Scope Out: 7:22:57 AM Total Procedure Duration Time 0 hours 14 minutes 54 seconds Findings: The perianal and digital rectal examinations were normal. A diffuse area of moderately friable mucosa with contact bleeding was found in the entire colon. The exam was otherwise without abnormality on direct and retroflexion views. Impression: - Friability with contact bleeding in the entire examined colon. - The examination was otherwise normal on direct and retroflexion views. - No specimens collected. Recommendation: - Discharge patient to home. - Resume previous diet. - Continue present medications. - Repeat colonoscopy in 5 years for surveillance. - Return to GI office. Procedure Code(s): --- Professional --- 75954, Colonoscopy, flexible; diagnostic, including collection of specimen(s) by brushing or washing, when performed (separate procedure) 67775, 59, Moderate sedation services provided by the same physician or other qualified health intensive care ambulance paramedic performing the diagnostic or therapeutic service that the sedation supports, requiring the presence of an independent trained observer to assist in the monitoring of the patient's level of consciousness and physiological status; initial 15 minutes of intraservice time, patient age 5 years or older CPT copyright 2017 [employer]. All rights reserved. The codes documented in this report are preliminary and upon invoice coder review may be revised to meet current compliance requirements. Morris Henderson DO 06/30/2021 7:34:10 AM This report has been signed electronically. Number of Addenda: 1 Note Initiated On: 06/30/2021 7:03 AM Addendum Number: 1 Addendum Date: 12/28/2021 6:48:43 AM MAC was used as sedation for this procedure. Morris Henderson DO 12/28/2021 6:48:49 AM This report has been signed electronically.
--- NOTE | 2021-06-30 07:34 | OP.CCLET_ITS ---
12/28/2021 Magali Lopez Re : Colonoscopy procedure for Sheyla Wiseman Dear Nenita This procedure was performed on Wednesday, June 30, 2021. My impressions and recommendations are as follows: Impressions : - Friability with contact bleeding in the entire examined colon. - The examination was otherwise normal on direct and retroflexion views. - No specimens collected. Recommendations : - Discharge patient to home. - Resume previous diet. - Continue present medications. - Repeat colonoscopy in 5 years for surveillance. - Return to GI office. My findings are described in the full procedure note, which is enclosed. If I can be of further assistance, please feel free to contact me at . Sincerely, Morris Henderson, 06/30/2021 7:34:10 AM This report has been signed electronically.
[2021-06-30 07:35] VITALS: BP 107/72; BP 135/76; PULSE 85; RESP 14; O2SAT 99
[2021-06-30 07:41] VITALS: BP 113/72; BP 135/76; PULSE 83; RESP 14; O2SAT 100
[2021-06-30 07:46] VITALS: BP 124/76; BP 135/76; PULSE 81; RESP 14; TEMP 36.1; O2SAT 100
[2021-06-30 08:00] VITALS: BP 135/76
== END 2021-06-30 23:59 | disposition home or self-care (01) ==
LOC: EN 05:14 → AC 05:15
PROVIDERS: Visit Provider Internal Medicine Gastroenterology
PROC: 0DJD8ZZ Inspection of Lower Intestinal Tract, Via Natural or Artificial Opening Endoscopic (ICD-10-PCS; CPT 45378; principal; 2021-06-30 06:25)
DX: I85.00 Esophageal varices without bleeding (principal); K76.6 Portal hypertension; K74.60 Unspecified cirrhosis of liver; J44.9 Chronic obstructive pulmonary disease, unspecified; D69.6 Thrombocytopenia, unspecified; E11.9 Type 2 diabetes mellitus without complications; K21.00 Gastro-esophageal reflux disease with esophagitis, without bleeding; K44.9 Diaphragmatic hernia without obstruction or gangrene; D50.9 Iron deficiency anemia, unspecified; K29.70 Gastritis, unspecified, without bleeding; Z20.822 Contact with and (suspected) exposure to COVID-19; I10 Essential (primary) hypertension; E78.5 Hyperlipidemia, unspecified; E66.9 Obesity, unspecified; F17.200 Nicotine dependence, unspecified, uncomplicated; Z68.33 Body mass index [BMI] 33.0-33.9, adult
CPT/HCPCS: 43244; 43239; 45378; 82962; 87426; 88305; 88313; 88342; J7120; J2405

== ENCOUNTER → 2021-09-22 | Outpatient (CLI) | payer MEDICAID, SELFPAY ==
[2021-09-22 15:16] LABS: Absolute Lymphocyte Count 1.23 X10^3/uL (0.83-4.51); Absolute Neutrophil Count 2.9 X10^3/uL (2.0-7.7); Basophil# 0.01 X10^3/uL; Basophil% 0.2 % (0-1); Eosinophil# 0.06 X10^3/uL; Eosinophils% 1.3 % (0-5); Hematocrit 34.1 % (37-47); Hemoglobin 11.2 g/dL (12.0-15.0); Lymphocyte # 1.23 X10^3/ul (0.83-4.51); Lymphocyte % 26.7 % (19-41); Mean Corp Hgb Conc 32.8 g/dL (32-36); Mean Corpuscular Hgb 31.6 pg (27.0-32.0); Mean Corpuscular Volume 96.3 fL (81-99); Mean Platelet Vol. 13.5 fl (6.2-12.0); Monocyte# 0.39 X10^3/uL; Monocyte% 8.5 % (0-10); NRBC Flagged by Analyzer 0 % (0-5); Neutrophil # 2.91 X10^3/uL (2.7-7.7); Neutrophil % 63.1 % (47-70); POSITIVE COUNT YES; Platelet Count 49 K/mm3 (150-450); RBC Distribution Width CV 14.1 % (11.6-14.6); RBC Distribution Width SD 49.8 fl (35.1-43.9); Red Blood Count 3.54 M/mm3 (4.2-5.4); White Blood Count 4.6 K/mm3 (4.4-11.0)
[2021-09-22 15:25] LABS: Differential Indicated SCAN CRITERIA MET
[2021-09-22 15:27] LABS: International Normalized Ratio 1.3; Prothrombin Time (Protime)PT. 15.9 SECONDS (11.7-14.9)
[2021-09-22 15:28] LABS: Erythrocyte Sedimentation Rate 21 mm/hr (0-30)
[2021-09-22 15:52] LABS: Platelet Estimate MKD DEC (ADEQ)
[2021-09-22 15:58] LABS: ALB/GLOB Ratio 0.8 RATIO (0.9-2.4); AST(SGOT) 47 U/L (15-37); Alanine Aminotransfer ALT/SGPT 40 U/L (13-56); Albumin, Serum 3.5 g/dL (3.2-5.0); Alkaline Phosphatase 65 U/L (45-117); Anion Gap 6 (5-15); BUN 18 mg/dL (7-18); BUN/Creat Ratio 13.3 RATIO (10-20); CRP < 2.90 mg/L (0.0-3.0); Calcium,Total 8.9 mg/dL (8.5-10.1); Chloride 103 mmol/L (98-107); Creatinine, Serum 1.35 mg/dL (0.55-1.02); EST Glomerular Filtration Rate 42 mL/min (>60); Est Glom Filt Rate - Afr Amer 51 mL/min (>60); Globulin 4.4 g/dL (2.2-4.2); Glucose 232 mg/dL (74-106); LDH 186 U/L (84-246); Potassium 4.1 mmol/L (3.5-5.1); Protein, Total 7.9 g/dL (6.4-8.2); Sodium Level 137 mmol/L (136-145)
[2021-09-25 12:29] LABS: Pathologist Review Reviewed
[2021-09-25 15:40] LABS: EBV Acute VCA IgM < 36.0 U/mL (0.0-35.9); EBV Early Antigen IgG >150.0 U/mL (0.0-8.9); EBV Nuclear Antigen IgG 34.4 U/mL (0.0-17.9); EBV-VCA IgG > 600.0 U/mL (0.0-17.9)
== END | disposition home or self-care (01) ==
PROVIDERS: Internal Medicine Medical Oncology; Referring Provider Internal Medicine Gastroenterology; Visit Provider Internal Medicine Gastroenterology
DX: D64.9 Anemia, unspecified (principal); K74.60 Unspecified cirrhosis of liver; D69.6 Thrombocytopenia, unspecified
CPT/HCPCS: 36415; 80053; 82140; 83615; 85025; 85610; 85652; 86140; 86663; 86664; 86665

== ENCOUNTER → 2021-10-11 | Outpatient (CLI) | payer MEDICAID, SELFPAY ==
--- NOTE | 2021-10-11 08:12 | US_ITS ---
STUDY: ABDOMINAL ULTRASOUND - ascites survey. REASON FOR VISIT: Female, 66 years old ascites eval TECHNIQUE: Ultrasound evaluation of the 4 quadrant was performed with real-time and static isaacs-scale imaging. TECHNICAL QUALITY: Adequate. COMPARISON: None. FINDINGS: The 4 quadrants were assessed for ascites. No ascites is present. US/Abdomen Limited IMPRESSION: No evidence of ascites. Electronically Signed: Tomer Vegas MD at 10:33 EDT ,
== END | disposition home or self-care (01) ==
LOC: US 08:10
PROVIDERS: PCP Nurse Practitioner Adult Health; Referring Provider Internal Medicine Gastroenterology; Visit Provider Internal Medicine Gastroenterology
DX: K74.60 Unspecified cirrhosis of liver (principal)
CPT/HCPCS: 76705

== ENCOUNTER → 2021-12-15 | Outpatient (CLI) | payer MEDICAID, SELFPAY ==
[2021-12-15 15:50] LABS: Absolute Lymphocyte Count 1.56 X10^3/uL (0.83-4.51); Absolute Neutrophil Count 2.6 X10^3/uL (2.0-7.7); Eosinophil# 0.07 X10^3/uL; Eosinophils% 1.5 % (0-5); Hematocrit 36.9 % (37-47); Hemoglobin 11.9 g/dL (12.0-15.0); Lymphocyte # 1.56 X10^3/ul (0.83-4.51); Mean Corp Hgb Conc 32.2 g/dL (32-36); Mean Corpuscular Hgb 31.6 pg (27.0-32.0); Mean Corpuscular Volume 97.9 fL (81-99); Mean Platelet Vol. 12.5 fl (6.2-12.0); Monocyte# 0.31 X10^3/uL; Monocyte% 6.8 % (0-10); NRBC Flagged by Analyzer 0 % (0-5); Neutrophil # 2.64 X10^3/uL (2.7-7.7); Neutrophil % 57.5 % (47-70); POSITIVE COUNT YES; Platelet Count 59 K/mm3 (150-450); RBC Distribution Width CV 14.1 % (11.6-14.6); Red Blood Count 3.77 M/mm3 (4.2-5.4); White Blood Count 4.6 K/mm3 (4.4-11.0)
[2021-12-15 15:52] LABS: International Normalized Ratio 1.3; Prothrombin Time (Protime)PT. 15.5 SECONDS (11.7-14.9)
[2021-12-15 15:53] LABS: Partial Thromboplast Time 43.7 Seconds (24.1-36.2)
[2021-12-15 15:56] LABS: Erythrocyte Sedimentation Rate 12 mm/hr (0-30)
[2021-12-15 15:57] LABS: Differential Indicated SCAN CRITERIA MET
[2021-12-15 16:10] LABS: ALB/GLOB Ratio 0.8 RATIO (0.9-2.4); AST(SGOT) 23 U/L (15-37); Alanine Aminotransfer ALT/SGPT 27 U/L (13-56); Albumin, Serum 3.6 g/dL (3.2-5.0); Alkaline Phosphatase 54 U/L (45-117); Anion Gap 4 (5-15); BUN 14 mg/dL (7-18); BUN/Creat Ratio 11.3 RATIO (10-20); CRP 4.72 mg/L (0.0-3.0); Calcium,Total 8.5 mg/dL (8.5-10.1); Chloride 108 mmol/L (98-107); Creatinine, Serum 1.24 mg/dL (0.55-1.02); EST Glomerular Filtration Rate 46 mL/min (>60); Est Glom Filt Rate - Afr Amer 56 mL/min (>60); Globulin 4.3 g/dL (2.2-4.2); Glucose 86 mg/dL (74-106); Potassium 4.2 mmol/L (3.5-5.1); Protein, Total 7.9 g/dL (6.4-8.2); Sodium Level 140 mmol/L (136-145)
[2021-12-15 16:30] LABS: Platelet Estimate MKD DEC (ADEQ)
[2021-12-15 16:31] LABS: Red Cell Morphology NORM C+C NORMAL (NORM C&C)
[2021-12-17 09:43] LABS: AFP, Tumor Marker 2.2 ng/mL (0.0-9.2)
== END | disposition home or self-care (01) ==
LOC: LAB 13:46
PROVIDERS: PCP Nurse Practitioner Adult Health; Referring Provider Internal Medicine Gastroenterology; Visit Provider Internal Medicine Gastroenterology
DX: R18.8 Other ascites (principal); K74.60 Unspecified cirrhosis of liver; D69.6 Thrombocytopenia, unspecified; N18.9 Chronic kidney disease, unspecified
CPT/HCPCS: 36415; 80053; 82105; 82140; 85025; 85610; 85652; 85730; 86140

== ENCOUNTER → 2022-01-08 | Outpatient (CLI) | payer MEDICAID, SELFPAY ==
--- NOTE | 2022-01-08 13:47 | CT_ITS ---
EXAM: CT CHEST, LUNG CANCER SCREENING WITHOUT INTRAVENOUS CONTRAST CLINICAL INDICATION: smoker and gt; 40 pack years TECHNIQUE: Helically acquired images were obtained of the chest without intravenous contrast using low dose (LDCT) lung cancer screening protocol. This CT exam was performed using one or more of the following dose reduction techniques: automated exposure control, adjustment of the mA and/or kV according to patient size, and/or use of iterative reconstruction technique. This report was created using [employer] report generation technology. COMPARISON: 01/03/2021 FINDINGS: LUNGS AND PLEURAL SPACES: There are persistent subpleural interstitial opacities which may represent scar or fibrosis. No mass. No pneumothorax. HEART: Unremarkable. Heart size is normal. No pericardial effusion. No significant coronary artery calcifications. MEDIASTINUM: Unremarkable. No mediastinal or hilar adenopathy. Esophagus is unremarkable. No hiatal hernia. THYROID: Unremarkable. No thyroid lesions. BONES/JOINTS: Unremarkable. No suspicious lytic or blastic abnormality. VASCULATURE: Unremarkable. Thoracic aorta is non-dilated. LYMPH NODES: Unremarkable. No enlarged lymph nodes. CT/Low Dose CT Lung Screening IMPRESSION: 1. Lung-RADS score: 1 - Recommend continued annual screening with low-dose CT (LDCT) in 12 months. 2. No acute pulmonary abnormality. There has been no significant change. Stable interstitial opacities may represent chronic scarring or fibrosis. Electronically Signed: Shravan Pollock MD at 0:02 EDT ,
== END | disposition home or self-care (01) ==
LOC: CT 13:46
PROVIDERS: PCP Nurse Practitioner Adult Health; Referring Provider Nurse Practitioner Acute Care; Visit Provider Nurse Practitioner Acute Care
DX: F17.210 Nicotine dependence, cigarettes, uncomplicated (principal)
CPT/HCPCS: 71271

== ENCOUNTER → 2022-03-09 | Outpatient (CLI) | payer MEDICAID, SELFPAY ==
[2022-03-09 14:35] LABS: Absolute Lymphocyte Count 1.18 X10^3/uL (0.83-4.51); Absolute Neutrophil Count 3.6 X10^3/uL (2.0-7.7); Basophil# 0.02 X10^3/uL; Basophil% 0.4 % (0-1); Eosinophil# 0.09 X10^3/uL; Eosinophils% 1.7 % (0-5); Hematocrit 36.5 % (37-47); Hemoglobin 11.8 g/dL (12.0-15.0); Lymphocyte # 1.18 X10^3/ul (0.83-4.51); Lymphocyte % 22.1 % (19-41); Mean Corp Hgb Conc 32.3 g/dL (32-36); Mean Corpuscular Hgb 32.4 pg (27.0-32.0); Mean Corpuscular Volume 100.3 fL (81-99); Mean Platelet Vol. 12.2 fl (6.2-12.0); Monocyte# 0.44 X10^3/uL; Monocyte% 8.2 % (0-10); NRBC Flagged by Analyzer 0 % (0-5); Neutrophil # 3.59 X10^3/uL (2.7-7.7); Neutrophil % 67.2 % (47-70); POSITIVE COUNT YES; RBC Distribution Width CV 14.6 % (11.6-14.6); RBC Distribution Width SD 54.4 fl (35.1-43.9); Red Blood Count 3.64 M/mm3 (4.2-5.4); White Blood Count 5.3 K/mm3 (4.4-11.0)
[2022-03-09 14:37] LABS: Platelet Count 57 K/mm3 (150-450)
[2022-03-09 14:46] LABS: International Normalized Ratio 1.2; Prothrombin Time (Protime)PT. 14.7 SECONDS (11.7-14.9)
[2022-03-09 15:12] LABS: ALB/GLOB Ratio 0.8 RATIO (0.9-2.4); AST(SGOT) 35 U/L (15-37); Alanine Aminotransfer ALT/SGPT 40 U/L (13-56); Albumin, Serum 3.6 g/dL (3.2-5.0); Alkaline Phosphatase 72 U/L (45-117); Anion Gap 3 (5-15); BUN 18 mg/dL (7-18); BUN/Creat Ratio 12.5 RATIO (10-20); Calcium,Total 9.1 mg/dL (8.5-10.1); Chloride 109 mmol/L (98-107); Creatinine, Serum 1.44 mg/dL (0.55-1.02); EST Glomerular Filtration Rate 39 mL/min (>60); Est Glom Filt Rate - Afr Amer 47 mL/min (>60); Globulin 4.5 g/dL (2.2-4.2); Glucose 139 mg/dL (74-106); Potassium 4.3 mmol/L (3.5-5.1); Protein, Total 8.1 g/dL (6.4-8.2); Sodium Level 143 mmol/L (136-145)
== END | disposition home or self-care (01) ==
LOC: LAB 12:56
PROVIDERS: Referring Provider Internal Medicine Gastroenterology; Visit Provider Internal Medicine Gastroenterology
DX: K74.60 Unspecified cirrhosis of liver (principal)
CPT/HCPCS: 36415; 80053; 85025; 85610

== ENCOUNTER 2022-04-06 11:18 | Emergency (ER) | payer MEDICAID, SELFPAY ==
[2022-04-06 11:19] VITALS: BP 126/68; PULSE 108; RESP 18; TEMP 36.4; O2SAT 97; BMI 34.3
--- NOTE | 2022-04-06 11:30 | CT_ITS ---
EXAM: CT HEAD WITHOUT INTRAVENOUS CONTRAST CLINICAL INDICATION: Head injury TECHNIQUE: Multiple axial images were obtained of the head without intravenous contrast. This CT exam was performed using one or more of the following dose reduction techniques: automated exposure control, adjustment of the mA and/or kV according to patient size, and/or use of iterative reconstruction technique. This report was created using [employer] report generation technology. COMPARISON: CT head December 24, 2020. FINDINGS: BRAIN AND EXTRA-AXIAL SPACES: Normal. No intra- or extra-axial hemorrhage. No evidence of acute infarct. No intracranial mass or mass effect. There is preservation of the isaacs/white matter interface. Posterior fossa structures are unremarkable. Ventricles are appropriate for age. No hydrocephalus. Basal cisterns are patent. BONES/JOINTS: Normal. No discrete lytic or blastic abnormalities. SINUSES: Unremarkable as visualized. No acute sinusitis. MASTOID AIR CELLS: Normal. Clear. ORBITS: Visualized globes, extraocular muscles, optic nerves and retrobulbar fat appear unremarkable. CT/Brain/Head without Contrast IMPRESSION: No acute intracranial abnormality. No interval change. Electronically Signed: Jozef Knox MD at 12:33 EST ,
--- NOTE | 2022-04-06 11:31 | EDS_ITS ---
HPI HPI - Fall History of Present Illness Chief Complaint: Fall Narrative Narrative: 66-year-old female past medical history of COPD, diabetes, had a fall this morning in her bedroom. She states that around 8:00 or 830, she fell onto her tailbone. Her head went back but she did not strike it, and came forward. She tried to get up and became nauseated and now states she had blurred vision. She called EMS, who evaluated her. She refused transport, but presents with her friend because of her blurred vision and slight headache. She denies any neck pain. No other injury. She is concerned because she did not have blurred vision/double vision before her fall. She is unsure if she lost consciousness or not. She denies taking blood thinners. [facility], [facility] Medical History Alcohol use Ambulates with cane Anemia Anxiety Ascites Back pain Blackout Blood disorder Chronic bronchitis Cirrhosis Cirrhosis Closed displaced fracture of distal phalanx of left great toe Closed fracture of right patella Contusion of multiple sites COVID Depression Dietary restriction Difficulty swallowing Encephalopathy Fall from slip, trip, or stumble Forgetfulness Glaucoma History of edema History of pain when walking History of renal disease Hyperlipidemia IBS (irritable bowel syndrome) Injury of back Insulin dependent diabetes mellitus Leg cramps Marijuana use Neuropathy Obesity Obstructive sleep apnea On home oxygen therapy Peripheral neuropathy Restless legs Rheumatoid arthritis Shortness of breath on exertion Sinus tachycardia Smoker Thrombocytopenia Thrombocytopenia Vision problem Wears glasses Home Medications cyanocobalamin (vitamin B-12) 1,000 mcg tablet 1,000 mcg PO DAILY supplement 06/10/17 [History Last Taken 01/19/21] lancets 33 gauge (Inspiration Biopharm[employer]Touch Delica Lancets) #100 ea 06/25/19 [Rx Last Taken Unknown] blood-glucose meter ([employer] Verio Flex Meter) #1 ea 06/29/19 [Rx Last Taken Unknown] cholecalciferol (vitamin D3) 1,250 mcg (50,000 unit) capsule 50,000 unit PO FORBES supplement 11/28/20 [History Last Taken 01/15/21] gabapentin 600 mg tablet 600 mg PO BID neuropathy 11/28/20 [History Last Taken 01/19/21] blood sugar diagnostic ([employer] Verio test strips) #120 ea 11/29/20 [Rx Last Taken Unknown] insulin glargine 100 unit/mL (3 mL) subcutaneous pen (Basaglar KwikPen U-100 Insulin) 80 unit subcut QHS diabetes 01/20/21 [History Last Taken 01/18/21] hydrocodone-acetaminophen 5-325mg 5mg-325mg 1 tab PO Q6H PRN PRN Pain 3 days #10 TABLETS 05/09/21 [Rx Last Taken Unknown] atorvastatin 20 mg tablet 20 mg PO DAILY 06/01/21 [History Last Taken Unknown] hydroxyzine pamoate 25 mg capsule 25 mg PO QHS sleep 06/01/21 [History Last Taken Unknown] insulin aspart U-100 100 unit/mL (3 mL) subcutaneous pen (Novolog Flexpen U-100 Insulin aspart) See Rx Instructions subcut TID 06/01/21 [History Last Taken Unknown] trazodone 50 mg tablet 50 mg PO QHS 06/01/21 [History Last Taken Unknown] tramadol 50 mg tablet 50 mg PO PRN PRN Pain 06/29/21 [History Last Taken Unknown] albuterol sulfate 2.5 mg/3 mL (0.083 %) solution for nebulization 2.5 mg (3 mL) inhalation Q4H PRN Sob &/Or Wheezing #180 mL 07/05/21 [Rx Last Taken Unknown] clindamycin HCl 300 mg capsule 300 mg PO Q8H #30 caps 07/18/21 [Rx Last Taken Unknown] hydrocortisone 2.5 % topical cream 1 applic topical TID PRN rash #20 grams 07/18/21 [Rx Last Taken Unknown] furosemide 20 mg tablet (Lasix) 20 mg PO Q OTHER DAY #60 tabs 12/15/21 [Rx Last Taken Unknown] lactulose 10 gram/15 mL oral solution 10 g (15 mL) PO TID #946 mL 12/15/21 [Rx Last Taken Unknown] spironolactone 25 mg tablet 25 mg PO DAILY diuretic #90 tabs 12/15/21 [Rx Last Taken Unknown] albuterol sulfate 90 mcg/actuation aerosol inhaler 2 puff inhalation Q4H PRN shortness of breath or wheezing #8.5 grams 02/06/22 [Rx Last Taken Unknown] Allergy/AdvReac Type Severity Reaction Status Date / Time haloperidol [From Haldol] AdvReac Unknown Verified 04/06/22 11:22 haloperidol lactate AdvReac Unknown Verified 04/06/22 11:22 [From Haldol] Family History Unknown No problems noted. Other Foster child Surgical History History of History of cataract extraction History of cholecystectomy Hx of colonoscopy Social History adopted: Yes household members: none housing: assisted living facility Smoking Status: Current every day smoker tobacco type: cigarettes Tobacco: How many years used: 44 alcohol intake: current Alcohol type: hard liquor details: 18+years substance use type: marijuana what type of physical activity do you participate in: none do you feel safe at home: Yes ROS ROS ED ROS Narrative Constitutional: No fever, no chills. HEENT: No sore throat. No neck pain. No loss of vision. No rhinorrhea. Blurred vision/double vision. Cardiovascular: No chest pain. No palpitations. No pedal edema. Respiratory: No cough, no shortness of breath. Abdominal: No abdominal pain. Positive nausea-resolved. No vomiting. Genitourinary: No dysuria. No hematuria. Musculoskeletal: No myalgias. No arthralgias. Neurologic: Mild headaches. No dizziness. No lightheadedness. Skin: No rash. No change in color. Psychiatric: No depression. No anxiety. EXAM Physical Exam Narrative Exam Narrative: Afebrile. Vital signs noted. HEENT: Normocephalic. Atraumatic. PERRL, EOMI. Neck soft and supple. No point tenderness or step off. Cardiovascular: Regular rate and rhythm. No murmurs, rubs, or gallops ap preciated. Respiratory: No tachypnea. Lungs clear to auscultation bilaterally. Gastrointestinal: Abdomen soft, nontender, with normoactive bowel sounds. No rebound or guarding. Neurological: Awake. Alert. Oriented x3. Nonfocal, nonlateralizing. Skin: No rash. Normal color. No pallor. Musculoskeletal: No pedal edema. Full range of motion extremities. Const Vital Signs: 04/06/22 11:19 04/06/22 11:28 04/06/22 13:39 Temperature 97.6 F L Temperature Source Temporal Pulse Rate 108 H 124 H Respiratory Rate 18 Respiratory Effort Normal Respiratory Depth Normal Respiratory Pattern Normal Blood Pressure 126/68 H 81/58 L Blood Pressure Mean 87 65 Pulse Ox 97 Oxygen Delivery Method Room Air Room Air MDM MDM MDM Narrative Medical decision making narrative: I will check her blood glucose. I do feel that she may have more of a postconcussive syndrome. CT of the brain was obtained to rule out fracture or hemorrhage. I interpreted her CT and see no acute hemorrhage, and I also reviewed the radiology and agree that there is no acute intracranial abnormality. [id number] glucose was obtained and although elevated at 217, I do not feel that CMP is indicated as it is less than 250. I do not feel that this is the cause of her reported double vision. I do feel that she can be discharged safely home with follow-up as I feel she has more of a postconcussive type symptoms. Return instructions to the emergency department were reviewed. She was instructed on brain rest and will take [id number] medications as needed. Disposition is discharged home in stable condition. Lab Data Attestation: I reviewed the patient's lab results. Labs: Laboratory Results - last 24 hr 04/06/22 13:37 POC Glucose 217 H Radiography Diagnostic Testing: Clinical Impression(s) from Imaging Studies Brain CT 04/06/22 11:30 IMPRESSION: No acute intracranial abnormality. No interval change. Electronically Signed: Jozef Knox MD at 12:33 EST Reading Location ID and State: [facility] / [place] Tel , Service support , Discharge Plan Triage Chief Complaint: Fall ED Provider: Pedro Schofield Dx/Rx/DC Orders Clinical Impression: Fall, Double vision, Concussion Instructions: ED Concussion, ED Double Vision (Diplopia), ED Fall with U ncertain Cause Prescriptions: No Action hydroxyzine pamoate 25 mg capsule 25 mg PO QHS gabapentin 600 mg tablet 600 mg PO BID cholecalciferol (vitamin D3) 1,250 mcg (50,000 unit) capsule 50,000 unit PO FORBES trazodone 50 mg tablet 50 mg PO QHS atorvastatin 20 mg tablet 20 mg PO DAILY insulin aspart U-100 [Novolog Flexpen U-100 Insulin] 100 unit/mL (3 mL) insu wolf pen See Rx Instructions SC TID Rx Instructions: 26 units with breakfast and lunch, 36U with supper, 10 units with snack, plus sliding scal clindamycin HCl 300 mg capsule 300 mg PO Q8H Qty: 30 0RF hydrocortisone 2.5 % cream 1 applic topical TID PRN (Reason: rash) Qty: 20 0RF albuterol sulfate 2.5 mg /3 mL (0.083 %) solution for nebulization 2.5 mg inhalation Q4H PRN (Reason: Sob &/Or Wheezing) Qty: 180 3RF albuterol sulfate 90 mcg/actuation HFA aerosol inhaler 2 puff inhalation Q4H PRN (Reason: shortness of breath or wheezing) Qty: 8.5 6RF lactulose 10 gram/15 mL solution 10 g PO TID Qty: 946 0RF Rx Instructions: Take 15mL two to three times a day to achieve of 2-3 bowel movements a day. spironolactone 25 mg tablet 25 mg PO DAILY Qty: 90 3RF furosemide [Lasix] 20 mg tablet 20 mg PO Q OTHER DAY Qty: 60 3RF cyanocobalamin (vitamin B-12) 1,000 MCG tablet 1,000 mcg PO DAILY Basaglar KwikPen U-100 Insulin 100 unit/mL (3 mL) insulin pen 80 unit SC QHS hydrocodone-acetaminophen [hydrocodone-acetaminophen] 1 TABLET tablet 1 tab PO Q6H PRN PRN (Reason: Pain) 3 Days Qty: 10 0RF tramadol 50 mg tablet 50 mg PO PRN PRN (Reason: Pain) (DME) lancets [OneTouch Delica Lancets] 33 gauge misc See Rx Instructions .ROUTE .MEDSUPPLY Qty: 100 11RF Rx Instructions: 3 times daily (DME) blood-glucose meter [OneTouch Verio Flex meter] Misc See Rx Instructions .ROUTE .MEDSUPPLY Qty: 1 0RF Rx Instructions: As directed (DME) OneTouch Verio test strips Strip See Rx Instructions .ROUTE .MEDSUPPLY Qty: 120 8RF Rx Instructions: 4 times a day Primary Care Provider: Candace Pollack Referrals: [facility] Candace Brandt [Primary Care Provider] - 1 Week if not improving Disposition Disposition: Home, Self Care Discharge Date/Time: 04/06/22 13:46
[2022-04-06 13:39] VITALS: BP 81/58; PULSE 124
[2022-04-06 13:55] LABS: Bedside Glucose 217 mg/dL (74-106)
== END 2022-04-06 13:46 | disposition home or self-care (01) ==
PROVIDERS: Emergency Provider Emergency Medicine; Visit Provider Emergency Medicine
DX: S06.0X0A Concussion without loss of consciousness, initial encounter (principal); J44.9 Chronic obstructive pulmonary disease, unspecified; E11.42 Type 2 diabetes mellitus with diabetic polyneuropathy; E11.65 Type 2 diabetes mellitus with hyperglycemia; Z79.4 Long term (current) use of insulin; W19.XXXA Unspecified fall, initial encounter; E78.5 Hyperlipidemia, unspecified; G47.33 Obstructive sleep apnea (adult) (pediatric); R11.0 Nausea; F17.210 Nicotine dependence, cigarettes, uncomplicated; Z79.899 Other long term (current) drug therapy
CPT/HCPCS: 70450; 82962; 99282

== ENCOUNTER 2022-04-09 14:26 | Emergency (ER) | payer MEDICAID, SELFPAY ==
[2022-04-09 14:26] VITALS: BP 137/57; PULSE 100; RESP 20; TEMP 36; O2SAT 98; BMI 36.1
--- NOTE | 2022-04-09 16:33 | EDS_ITS ---
HPI HPI - Fall History of Present Illness Chief Complaint: Fall Narrative Narrative: 66-year-old female presenting today for pain in the buttocks. Patient states that she had a fall today while reaching out for her wheelchair for assistance in the wheelchair came out from under her making her fall backwards landing on her buttocks. Patient states she was able to get up and walk and has been ambulatory but states there is pain. She has not taken anything for pain except for her normal home medication which are tramadol and gabapentin. Patient states she did not hit her head or lose consciousness. She states that she has had a couple of falls this week already and was already warned about concussion precautions and expected some of the symptoms. she does complain of a mild headache. He still has blurred vision and a mild headache which she had the other day. She did have a CT of her brain. She is not nauseous. [facility] Medical History Alcohol use Ambulates with cane Anemia Anxiety Ascites Back pain Blackout Blood disorder Chronic bronchitis Cirrhosis Cirrhosis Closed displaced fracture of distal phalanx of left great toe Closed fracture of right patella Contusion of multiple sites COVID Depression Dietary restriction Difficulty swallowing Encephalopathy Fall from slip, trip, or stumble Forgetfulness Glaucoma History of edema History of pain when walking History of renal disease Hyperlipidemia IBS (irritable bowel syndrome) Injury of back Insulin dependent diabetes mellitus Leg cramps Marijuana use Neuropathy Obesity Obstructive sleep apnea On home oxygen therapy Peripheral neuropathy Restless legs Rheumatoid arthritis Shortness of breath on exertion Sinus tachycardia Smoker Thrombocytopenia Thrombocytopenia Vision problem Wears glasses Home Medications cyanocobalamin (vitamin B-12) 1,000 mcg tablet 1,000 mcg PO DAILY supplement 06/10/17 [History Last Taken 01/19/21] lancets 33 gauge (Access SystemsTouch Delica Lancets) #100 ea 06/25/19 [Rx Last Taken Unknown] blood-glucose meter (Behaviouch Verio Flex Meter) #1 ea 06/29/19 [Rx Last Taken Unknown] cholecalciferol (vitamin D3) 1,250 mcg (50,000 unit) capsule 50,000 unit PO FORBES supplement 11/28/20 [History Last Taken 01/15/21] gabapentin 600 mg tablet 600 mg PO BID neuropathy 11/28/20 [History Last Taken 01/19/21] blood sugar diagnostic (OneTouch Verio test strips) #120 ea 11/29/20 [Rx Last Taken Unknown] insulin glargine 100 unit/mL (3 mL) subcutaneous pen (Basaglar KwikPen U-100 Insulin) 80 unit subcut QHS diabetes 01/20/21 [History Last Taken 01/18/21] hydrocodone-acetaminophen 5-325mg 5mg-325mg 1 tab PO Q6H PRN PRN Pain 3 days #10 TABLETS 05/09/21 [Rx Last Taken Unknown] atorvastatin 20 mg tablet 20 mg PO DAILY 06/01/21 [History Last Taken Unknown] hydroxyzine pamoate 25 mg capsule 25 mg PO QHS sleep 06/01/21 [History Last Taken Unknown] insulin aspart U-100 100 unit/mL (3 mL) subcutaneous pen (Novolog FlexPen U-100 Insulin aspart) See Rx Instructions subcut TID 06/01/21 [History Last Taken Unknown] trazodone 50 mg tablet 50 mg PO QHS 06/01/21 [History Last Taken Unknown] tramadol 50 mg tablet 50 mg PO PRN PRN Pain 06/29/21 [History Last Taken Unknown] albuterol sulfate 2.5 mg/3 mL (0.083 %) solution for nebulization 2.5 mg (3 mL) inhalation Q4H PRN Sob &/Or Wheezing #180 mL 07/05/21 [Rx Last Taken Unknown] clindamycin HCl 300 mg capsule 300 mg PO Q8H #30 caps 07/18/21 [Rx Last Taken Unknown] hydrocortisone 2.5 % topical cream 1 applic topical TID PRN rash #20 grams [Rx Last Taken Unknown] furosemide 20 mg tablet (Lasix) 20 mg PO Q OTHER DAY #60 tabs 12/15/21 [Rx Last Taken Unknown] lactulose 10 gram/15 mL oral solution 10 g (15 mL) PO TID #946 mL 12/15/21 [Rx Last Taken Unknown] spironolactone 25 mg tablet 25 mg PO DAILY diuretic #90 tabs 12/15/21 [Rx Last Taken Unknown] albuterol sulfate 90 mcg/actuation aerosol inhaler 2 puff inhalation Q4H PRN shortness of breath or wheezing #8.5 grams 02/06/22 [Rx Last Taken Unknown] Allergy/AdvReac Type Severity Reaction Status Date / Time haloperidol [From Haldol] AdvReac Unknown Verified 04/09/22 16:04 haloperidol lactate AdvReac Unknown Verified 04/09/22 16:04 [From Haldol] Family History Unknown No problems noted. Other Foster child Surgical History History of History of cataract extraction History of cholecystectomy Hx of colonoscopy Social History adopted: Yes household members: none housing: assisted living facility Smoking Status: Current every day smoker tobacco type: cigarettes and e- cigarettes Tobacco: How many years used: 44 alcohol intake: current Alcohol type: hard liquor details: 18+years substance use type: marijuana what type of physical activity do you participate in: none do you feel safe at home: Yes ROS ROS ED Review of Systems ROS Unobtainable: due to encephalopathy Constitutional Constitutional ED: Denies chills or fever(s) Eyes Eyes: Denies change in vision or diplopia ENT ENT ED: Denies rhinorrhea or sore throat Cardiovascular Cardiovascular: Denies chest pain or palpitations Respiratory/Chest Respiratory/Chest: Denies cough or dyspnea Gastrointestinal Gastrointestinal: Denies abdominal pain or constipation Genitourinary Genitourinary ED: Denies dysuria or hematuria Musculoskeletal Musculoskeletal: Reports other Details: Pain in the buttocks region Integumentary Denies abscess or Abrasions Neurologic Neurologic: Reports headache(s); Denies paresthesias EXAM Physical Exam Const Vital Signs: 04/09/22 14:26 04/09/22 16:04 04/09/22 18:00 Temperature 96.8 F L Temperature Source Temporal Pulse Rate 100 Respiratory Rate 20 H 16 Respiratory Effort Normal Non-Labored Blood Pressure 137/57 H Blood Pressure Mean 83 Pulse Ox 98 Oxygen Delivery Method Room Air Room Air Positive well nourished and obese General Appearance ED: NAD Nutritional Appearance: obese HEENT Reports normocephalic atraumatic Resp normal respiratory effort and no retractions Cardio regular rate and regular rhythm GI non-tender Back/Spine no CVA tenderness Extremity Extremity Narrative: Pelvis is stable. Patient able to stand and walk under her own strength. She does have tenderness to palpation in the bilateral buttocks which does include the sacrum. No obvious deformities Neuro oriented x3 and CN's II-XII intact bilaterally Sensorium / Orientation: alert Motor Exam: strength 5/5 throughout Psych mental status grossly normal and thought process normal MDM MDM MDM Narrative Medical decision making narrative: Patient states that she had mechanical fall today and the wheelchair got away from her. She was seen previously on Saturday and had a CT of the brain which was negative. She was given concussion precautions. She has some ongoing lightheadedness/headache, but then she states he is not actually lightheaded. She states she feels off. I did not offer to do blood work but she declines. She states he knows she has been eating and drinking normally. She is not concerned she is dehydrated. I did offer her an x-ray of her pelvis since she had a fall she is amenable to this. She was offered Tylenol because she does not want to take anything stronger. Patient presenting after a fall today. She still having ongoing symptoms from her previous fall. Vital signs are stable and she is afebrile. She is complaining of pain in her bilateral buttocks. She does not want a thing for pain except Tylenol. Patient is able to stand and walk across the room. I did obtain pelvic x-ray which on my interpretation shows no acute fracture. On reevaluation the patient's family request for her to have blood work drawn which was done. CBC shows a normal white blood cell count 5.2. Hemoglobin stable at 11.0. Platelets are low at 56 and this is her baseline. Creatinine 1.43 also baseline. Urinalysis negative for infection. Bilirubin mildly elevated 1.2 but this is also normal for the patient. Her ammonia level was also checked and this is normal. Patient currently takes lactulose 3 times daily. Ultimately her work-up was negative and I feel she stable for discharge. She likely has concussion symptoms from her previous fall. I do not believe she needs a repeat CT scan of her brain. Impression: 1 Concussion 2. Fall 3. Contusion Lab Data Attestation: I reviewed the patient's lab results. Labs: Laboratory Results - last 24 hr 04/09/22 04/09/22 04/09/22 17:48 17:48 17:48 WBC 5.2 RBC 3.46 L Hgb 11.0 L Hct 34.9 L MCV 100.9 H MCH 31.8 MCHC 31.5 L RDW Std Deviation 58.6 H RDW Coeff of Nick 15.9 H Plt Count 56 L MPV 11.7 Immature Gran % (Auto) 0.400 Neut % (Auto) 57.6 Lymph % (Auto) 30.4 [place] % (Auto) 8.7 Eos % (Auto) 2.5 Baso % (Auto) 0.4 Absolute Neuts (auto) 3.0 Absolute Lymphs (auto) 1.58 Nucleated RBC % 0.4 Sodium 140 Potassium 4.5 Chloride 106 Carbon Dioxide 30.0 Anion Gap 4 L BUN 15 Creatinine 1.43 H Estim Creat Clear Calc 51.00 Est GFR (MDRD) Af Amer 47 L Est GFR (MDRD) Non-Af 39 L BUN/Creatinine Ratio 10.5 Glucose 67 L Calcium 9.4 Total Bilirubin 1.20 H AST 32 ALT 33 Alkaline Phosphatase 66 Ammonia 15.0 Total Protein 8.1 Albumin 3.5 Globulin 4.6 H Albumin/Globulin Ratio 0.8 L Urine Color Urine Clarity Urine pH Ur Specific [place] Urine Protein Urine Glucose (UA) Urine Ketones Urine Occult Blood Urine Nitrite Urine Bilirubin Urine Urobilinogen Ur Leukocyte Esterase Urine RBC Urine WBC Ur Squamous Epith Cells Urine Bacteria Urine Mucus 04/09/22 17:59 WBC RBC Hgb Hct MCV MCH MCHC RDW Std Deviation RDW Coeff of Nick Plt Count MPV Immature Gran % (Auto) Neut % (Auto) Lymph % (Auto) [place] % (Auto) Eos % (Auto) Baso % (Auto) Absolute Neuts (auto) Absolute Lymphs (auto) Nucleated RBC % Sodium Potassium Chloride Carbon Dioxide Anion Gap BUN Creatinine Estim Creat Clear Calc Est GFR (MDRD) Af Amer Est GFR (MDRD) Non-Af BUN/Creatinine Ratio Glucose Calcium Total Bilirubin AST ALT Alkaline Phosphatase Ammonia Total Protein Albumin Globulin Albumin/Globulin Ratio Urine Color Yellow Urine Clarity Sl. Cloudy Urine pH 7.0 Ur Specific [place] 1.010 Urine Protein 30 H Urine Glucose (UA) 1000 H Urine Ketones Negative Urine Occult Blood Negative Urine Nitrite Negative Urine Bilirubin Negative Urine Urobilinogen 4 H Ur Leukocyte Esterase 25 H Urine RBC 0 SEEN Urine WBC 0 SEEN Ur Squamous Epith Cells 0 SEEN Urine Bacteria 0 SEEN Urine Mucus 0 SEEN Radiography Diagnostic Testing: Clinical Impression(s) from Imaging Studies Pelvis X-Ray 01/09/23 16:50 IMPRESSION: Unremarkable study. Electronically Signed: Nadir Shepard MD at 17:05 EST Reading Location ID and State: [facility] / [place] Tel , Service support , Discharge Plan Triage Chief Complaint: Fall ED Provider: Markus Ibarra Dx/Rx/DC Orders Instructions: ED Concussion, ED Fall Prevention Prescriptions: No Action hydroxyzine pamoate 25 mg capsule 25 mg PO QHS gabapentin 600 mg tablet 600 mg PO BID cholecalciferol (vitamin D3) 1,250 mcg (50,000 unit) capsule 50,000 unit PO FORBES trazodone 50 mg tablet 50 mg PO QHS atorvastatin 20 mg tablet 20 mg PO DAILY insulin aspart U-100 [Novolog FlexPen U-100 Insulin] 100 unit/mL (3 mL) insulin pen See Rx Instructions SC TID Rx Instructions: 26 units with breakfast and lunch, 36U with supper, 10 units with snack, plus sliding scal clindamycin HCl 300 mg capsule 300 mg PO Q8H Qty: 30 0RF hydrocortisone 2.5 % cream 1 applic topical TID PRN (Reason: rash) Qty: 20 0RF albuterol sulfate 2.5 mg /3 mL (0.083 %) solution for nebulization 2.5 mg inhalation Q4H PRN (Reason: Sob &/Or Wheezing) Qty: 180 3RF albuterol sulfate 90 mcg/actuation HFA aerosol inhaler 2 puff inhalation Q4H PRN (Reason: shortness of breath or wheezing) Qty: 8.5 6RF lactulose 10 gram/15 mL solution 10 g PO TID Qty: 946 0RF Rx Instructions: Take 15mL two to three times a day to achieve of 2-3 bowel movements a day. spironolactone 25 mg tablet 25 mg PO DAILY Qty: 90 3RF furosemide [Lasix] 20 mg tablet 20 mg PO Q OTHER DAY Qty: 60 3RF cyanocobalamin (vitamin B-12) 1,000 MCG tablet 1,000 mcg PO DAILY Basaglar KwikPen U-100 Insulin 100 unit/mL (3 mL) insulin pen 80 unit SC QHS hydrocodone-acetaminophen [hydrocodone-acetaminophen] 1 TABLET tablet 1 tab PO Q6H PRN PRN (Reason: Pain) 3 Days Qty: 10 0RF tramadol 50 mg tablet 50 mg PO PRN PRN (Reason: Pain) (DME) lancets [OneTouch Delica Lancets] 33 gauge misc See Rx Instructions .ROUTE .MEDSUPPLY Qty: 100 11RF Rx Instructions: 3 times daily (DME) blood-glucose meter [OneTouch Verio Flex meter] Misc See Rx Instructions .ROUTE .MEDSUPPLY Qty: 1 0RF Rx Instructions: As directed (DME) OneTouch Verio test strips Strip See Rx Instructions .ROUTE .MEDSUPPLY Qty: 120 8RF Rx Instructions: 4 times a day Primary Care Provider: Candace Pollack Referrals: Candace Pollack [Primary Care Provider] - Disposition Disposition: Home, Self Care
[2022-04-09] MEDS: Acetaminophen 500 MG Tablet 1000 MG PO (16:42)
--- NOTE | 2022-04-09 16:50 | RAD_ITS ---
INDICATION: pain in buttocks EXAMINATION/TECHNIQUE: X-RAY - XR Pelvis 1 or 2 Views COMPARISON: None. FINDINGS: PELVIC BONES: No displaced fracture, destructive or sclerotic lesions. Note that overlapping bowel shadows may however obscure fine detail. Sacroiliac joints are unremarkable. No widening of the pubic symphysis. HIPS: The articular structures are unremarkable. No displaced fracture seen in this frontal view. SOFT TISSUES: No soft tissue swelling or gas. RAD/Pelvis 1 or 2 Views IMPRESSION: Unremarkable study. Electronically Signed: Nadir Shepard MD at 17:05 EST ,
[2022-04-09 18:00] VITALS: RESP 16
[2022-04-09 18:05] LABS: Bacteria 0 SEEN /hpf (None Seen); Mucous, Urine 0 SEEN /hpf (<or=2+); Red Blood Cells-Urine 0 SEEN /hpf (0-5); Squamous Epithelial Cells - UA 0 SEEN /hpf (5-10); White Blood Cells 0 SEEN /hpf (0-5)
[2022-04-09 18:09] LABS: Absolute Lymphocyte Count 1.58 X10^3/uL (0.83-4.51); Basophil# 0.02 X10^3/uL; Basophil% 0.4 % (0-1); Eosinophil# 0.13 X10^3/uL; Eosinophils% 2.5 % (0-5); Hematocrit 34.9 % (37-47); Lymphocyte # 1.58 X10^3/ul (0.83-4.51); Lymphocyte % 30.4 % (19-41); Mean Corp Hgb Conc 31.5 g/dL (32-36); Mean Corpuscular Hgb 31.8 pg (27.0-32.0); Mean Corpuscular Volume 100.9 fL (81-99); Mean Platelet Vol. 11.7 fl (6.2-12.0); Monocyte# 0.45 X10^3/uL; Monocyte% 8.7 % (0-10); NRBC Flagged by Analyzer 0.4 % (0-5); Neutrophil # 2.99 X10^3/uL (2.7-7.7); Neutrophil % 57.6 % (47-70); POSITIVE COUNT YES; Platelet Count 56 K/mm3 (150-450); RBC Distribution Width CV 15.9 % (11.6-14.6); RBC Distribution Width SD 58.6 fl (35.1-43.9); Red Blood Count 3.46 M/mm3 (4.2-5.4); White Blood Count 5.2 K/mm3 (4.4-11.0)
[2022-04-09 18:13] LABS: Color, Urine Yellow (Yellow); Glucose, Dipstick 1000 mg/dl (Normal); Ketone-Dipstick Negative (Negative); Leukocyte Esterase-Dipstick 25 /ul (Negative); Nitrite-Dipstick Negative (Negative); Occult Blood-Urine Negative /ul (Negative); Protein-Dipstick 30 mg/dl (Negative); Urine Bilirubin Dipstick Negative (Negative); Urine Clarity Sl. Cloudy (Clear); Urine Urobilinogen 4 mg/dl (Normal)
[2022-04-09 18:22] LABS: ALB/GLOB Ratio 0.8 RATIO (0.9-2.4); AST(SGOT) 32 U/L (15-37); Alanine Aminotransfer ALT/SGPT 33 U/L (13-56); Albumin, Serum 3.5 g/dL (3.2-5.0); Alkaline Phosphatase 66 U/L (45-117); Anion Gap 4 (5-15); BUN 15 mg/dL (7-18); BUN/Creat Ratio 10.5 RATIO (10-20); Calcium,Total 9.4 mg/dL (8.5-10.1); Chloride 106 mmol/L (98-107); Creatinine, Serum 1.43 mg/dL (0.55-1.02); EST Glomerular Filtration Rate 39 mL/min (>60); Est Glom Filt Rate - Afr Amer 47 mL/min (>60); Globulin 4.6 g/dL (2.2-4.2); Glucose 67 mg/dL (74-106); Potassium 4.5 mmol/L (3.5-5.1); Protein, Total 8.1 g/dL (6.4-8.2); Sodium Level 140 mmol/L (136-145)
== END 2022-04-09 20:39 | disposition home or self-care (01) ==
PROVIDERS: Emergency Provider Student in an Organized Health Care Education/Training Program; Visit Provider Student in an Organized Health Care Education/Training Program
DX: S06.0X0A Concussion without loss of consciousness, initial encounter (principal); J42 Unspecified chronic bronchitis; E11.42 Type 2 diabetes mellitus with diabetic polyneuropathy; Z79.4 Long term (current) use of insulin; M54.50 Low back pain, unspecified; W05.0XXA Fall from non-moving wheelchair, initial encounter; R29.6 Repeated falls; E78.5 Hyperlipidemia, unspecified; F17.210 Nicotine dependence, cigarettes, uncomplicated; Z79.899 Other long term (current) drug therapy; E66.9 Obesity, unspecified
CPT/HCPCS: 72170; 80053; 81001; 82140; 85025; 99284; A4216

== ENCOUNTER 2022-05-30 10:53 | Emergency (ER) | payer MEDICAID, SELFPAY ==
[2022-05-30 10:54] VITALS: BP 136/65; PULSE 100; RESP 14; TEMP 36.1; O2SAT 99; BMI 36.3
--- NOTE | 2022-05-30 11:25 | CT_ITS ---
STUDY: CT BRAIN WITHOUT CONTRAST REASON FOR EXAM: Female, 66 years old. Injury, dizzy RADIATION DOSAGE (If Supplied By Facility): CTDIvol = ( 44.99 ) mGy, DLP = ( 779.24 ) mGycm TECHNIQUE: Transaxial CT imaging of the brain was performed without administration of intravenous contrast material. Individualized dose optimization techniques were used for this CT. COMPARISON: Head CT dated April 06, 2022 FINDINGS: Normal soft tissue structures. Normal calvarium. No skull fractures or hemorrhagic contusions of the brain parenchyma or subdural hematomas are present. Normal size ventricles and extra-axial spaces for the patient''s age. Normal white matter tracts of the cerebral hemispheres. Normal basal ganglia and thalami. Normal brainstem. Normal cerebellum. There is no intracranial hemorrhage. There are no findings of an acute ischemic infarction. Normal visualized paranasal sinuses. CT/Brain/Head without Contrast IMPRESSION: Normal unenhanced CT scan of the brain. Electronically Signed: Mt Carlson MD at 12:27 EST ,
--- NOTE | 2022-05-30 11:26 | EX.ED.DYSGE1 ---
HPI History of Present Illness Chief Complaint: Weakness Informant: patient Narrative Narrative: Patient states she slipped and fell in her house, hitting the top of her head on the floor, was seen here in the ED and had a negative CT, and ever since then has felt lightheaded, dizzy like things are spinning, shaky all over, dropping things with both hands, weakness in arms and legs symmetrically no worse on one side than the other, and has had a couple of falls because of all of this, likely hitting the left side of her head again at least once, but without loss of consciousness. She denies any fevers or symptoms of an illness. She saw her doctor, she was told if this gets worse go back to the ER, she feels like she is worse. [facility] Medical History Alcohol use Ambulates with cane Anemia Anxiety Ascites Back pain Blackout Blood disorder Chronic bronchitis Cirrhosis Cirrhosis Closed displaced fracture of distal phalanx of left great toe Closed fracture of right patella Contusion of multiple sites COVID Depression Dietary restriction Difficulty swallowing Encephalopathy Fall from slip, trip, or stumble Forgetfulness Glaucoma History of edema History of pain when walking History of renal disease Hyperlipidemia IBS (irritable bowel syndrome) Injury of back Insulin dependent diabetes mellitus Leg cramps Marijuana use Neuropathy Obesity Obstructive sleep apnea On home oxygen therapy Peripheral neuropathy Restless legs Rheumatoid arthritis Shortness of breath on exertion Sinus tachycardia Smoker Thrombocytopenia Thrombocytopenia Vision problem Wears glasses Home Medications cyanocobalamin (vitamin B-12) 1,000 mcg tablet 1,000 mcg PO DAILY supplement 06/10/17 [History Last Taken 01/19/21] lancets 33 gauge (Insight EcosystemsTouch Delica Lancets) #100 ea 06/25/19 [Rx Last Taken Unknown] blood-glucose meter ([employer] Verio Flex Meter) #1 ea 06/29/19 [Rx Last Taken Unknown] cholecalciferol (vitamin D3) 1,250 mcg (50,000 unit) capsule 50,000 unit PO FORBES supplement 11/28/20 [History Last Taken 01/15/21] gabapentin 600 mg tablet 600 mg PO BID neuropathy 11/28/20 [History Last Taken 01/19/21] blood sugar diagnostic ([employer] Verio test strips) #120 ea 11/29/20 [Rx Last Taken Unknown] insulin glargine 100 unit/mL (3 mL) subcutaneous pen (Basaglar KwikPen U-100 Insulin) 80 unit subcut QHS diabetes 01/20/21 [History Last Taken 01/18/21] hydrocodone-acetaminophen 5-325mg 5mg-325mg 1 tab PO Q6H PRN PRN Pain 3 days #10 TABLETS 05/09/21 [Rx Last Taken Unknown] atorvastatin 20 mg tablet 20 mg PO DAILY 06/01/21 [History Last Taken Unknown] hydroxyzine pamoate 25 mg capsule 25 mg PO QHS sleep 06/01/21 [History Last Taken Unknown] insulin aspart U-100 100 unit/mL (3 mL) subcutaneous pen (Novolog FlexPen U-100 Insulin aspart) See Rx Instructions subcut TID 06/01/21 [History Last Taken Unknown] trazodone 50 mg tablet 50 mg PO QHS 06/01/21 [History Last Taken Unknown] tramadol 50 mg tablet 50 mg PO PRN PRN Pain 06/29/21 [History Last Taken Unknown] albuterol sulfate 2.5 mg/3 mL (0.083 %) solution for nebulization 2.5 mg (3 mL) inhalation Q4H PRN Sob &/Or Wheezing #180 mL 07/05/21 [Rx Last Taken Unknown] clindamycin HCl 300 mg capsule 300 mg PO Q8H #30 caps 07/18/21 [Rx Last Taken Unknown] hydrocortisone 2.5 % topical cream 1 applic topical TID PRN rash #20 grams 07/18/21 [Rx Last Taken Unknown] furosemide 20 mg tablet (Lasix) 20 mg PO Q OTHER DAY #60 tabs 12/15/21 [Rx Last Taken Unknown] lactulose 10 gram/15 mL oral solution 10 g (15 mL) PO TID #946 mL 12/15/21 [Rx Last Taken Unknown] spironolactone 25 mg tablet 25 mg PO DAILY diuretic #90 tabs 12/15/21 [Rx Last Taken Unknown] albuterol sulfate 90 mcg/actuation aerosol inhaler 2 puff inhalation Q4H PRN shortness of breath or wheezing #8.5 grams 02/06/22 [Rx Last Taken Unknown] meclizine 25 mg tablet 25 mg PO Q8H PRN PRN Dizziness #20 tabs 05/30/22 [Rx Last Taken Unknown] Allergy/AdvReac Type Severity Reaction Status Date / Time haloperidol [From Haldol] AdvReac Unknown Verified 05/30/22 10:54 haloperidol lactate AdvReac Unknown Verified 05/30/22 10:54 [From Haldol] Family History Unknown No problems noted. Other Foster child Surgical History History of History of cataract extraction History of cholecystectomy Hx of colonoscopy Social History adopted: Yes household members: none housing: assisted living facility Smoking Status: Current every day smoker tobacco type: cigarettes and e-cigarettes Tobacco: How many years used: 44 alcohol intake: current Alcohol type: hard liquor details: 18+years substance use type: marijuana what type of physical activity do you participate in: none do you feel safe at home: Yes ROS ROS ED Constitutional Constitutional ED: Reports malaise; Denies chills or fever(s) Eyes Eyes: Reports blurry vision bilateral (Pre-existing vision problems, more blurry since injury 2 weeks ago); Denies change in vision ENT ENT ED: Denies rhinorrhea or sore throat Cardiovascular Cardiovascular: Denies chest pain or palpitations Respiratory/Chest Respiratory/Chest: Denies cough, dyspnea or dyspnea on exertion Gastrointestinal Gastrointestinal: Reports other Details: Chronic abdominal distention ; Denies abdominal pain, diarrhea, nausea or vomiting Genitourinary Genitourinary ED: Denies dysuria or hematuria Musculoskeletal Musculoskeletal: Denies back pain or neck pain Integumentary Denies abscess or rash Neurologic Neurologic: Reports as per HPI, headache(s), paresthesias RLE (Foot) and LLE (Foot), vertigo and weakness Psychiatric Psychiatric: Denies anxiety or suicidal thoughts EXAM Physical Exam Const Vital Signs: 05/30/22 10:54 05/30/22 11:12 05/30/22 13:10 Temperature 97 F L Temperature Source Temporal Pulse Rate 100 89 Respiratory Rate 14 Respiratory Effort Normal Non-Labored Respiratory Pattern Normal Blood Pressure 136/65 H 108/59 L Blood Pressure Mean 88 75 Pulse Ox 99 Oxygen Delivery Method Room Air Positive well nourished and well developed General Appearance ED: well developed and NAD HEENT Reports TM's clear and moist mucous membranes HEENT Narrative: No blevins sign, raccoon eyes, signs of HEENT trauma/tenderness. No crepitance or depressions. normocephalic and atraumatic Tympanic Membrane ED: Yes TM's clear Eyes PERRL and EOMs intact bilaterally Neck full ROM, no lymphadenopathy and supple Chest Wall inspection of chest normal and palpation of chest normal Resp normal respiratory effort and clear to auscultation bilaterally Cardio regular rate, regular rhythm and no murmurs GI non-tender GI Narrative: Obese versus distention Auscultation: normoactive bowel sounds Palpation: soft Back/Spine no CVA tenderness General Back: other FROM Extremity normal to inspection General Extremety ED: Negative for edema, pulses abnormal or tenderness General Extremity: Negative for edema or pulses abnormal Neuro oriented x3, CN's II-XII intact bilaterally and no sensory deficits noted Neuro Narrative: Able to move everything symmetrically. Normal [id number] and [id number], limited with regards to legs because of discomfort in her hips and abdomen due to my abdominal swelling. Sensorium / Orientation: awake and alert Motor Exam: general weakness Skin no rashes or lesions noted and no wounds MDM MDM MDM Narrative Medical decision making narrative: Patient was treated with IV fluids as well as meclizine, this did help significantly and she felt much better. Patient is dehydrated mildly on the labs, I repeated her head scans that she hit her head again and is having persistent concussion-like symptoms, it is negative for any acute. I reviewed the images. My interpretation of the CT agrees with that of the radiologist. At this time I think patient can be safely discharged home, I will give her a prescription for meclizine in case she is having vertigo as a concussion symptom, recommend close outpatient follow-up with her doctor if she has persistent symptoms she may need neuropsychologic testing referral. Lab Data Attestation: I reviewed the patient's lab results. Labs: Laboratory Results - last 24 hr 05/30/22 05/30/22 05/30/22 11:50 11:50 12:27 WBC 5.1 RBC 3.42 L Hgb 11.1 L Hct 34.9 L MCV 102.0 H MCH 32.5 H MCHC 31.8 L RDW Std Deviation 57.6 H RDW Coeff of Nick 15.4 H Plt Count 54 L MPV 11.5 Immature Gran % (Auto) 0.600 Neut % (Auto) 68.7 Lymph % (Auto) 21.4 Gage % (Auto) 7.5 Eos % (Auto) 1.6 Baso % (Auto) 0.2 Absolute Neuts (auto) 3.5 Absolute Lymphs (auto) 1.09 Nucleated RBC % 0 Sodium 140 Potassium 4.8 Chloride 107 Carbon Dioxide 26.0 Anion Gap 7 BUN 25 H Creatinine 1.66 H Estim Creat Clear Calc 44.10 Est GFR (MDRD) Af Amer 40 L Est GFR (MDRD) Non-Af 33 L BUN/Creatinine Ratio 15.1 Glucose 215 H Calcium 9.7 Urine Color Yellow Urine Clarity Sl. Cloudy Urine pH 6.0 Ur Specific [place] 1.015 Urine Protein Negative Urine Glucose (UA) 1000 H Urine Ketones Negative Urine Occult Blood Negative Urine Nitrite Negative Urine Bilirubin Negative Urine Urobilinogen 1 H Ur Leukocyte Esterase 25 H Urine RBC 0 SEEN Urine WBC 0-5 SEEN Ur Squamous Epith Cells 5-10 SEEN Urine Bacteria 2+ Urine Mucus 0 SEEN Radiography Diagnostic Testing: Clinical Impression(s) from Imaging Studies Brain CT 05/30/22 11:25 IMPRESSION: Normal unenhanced CT scan of the brain. Electronically Signed: Mt Carlson MD at 12:27 EST Reading Location ID and State: [facility] / [place] , Service support , Discharge Plan Triage Chief Complaint: Weakness ED Provider: Ronald Krueger Dx/Rx/DC Orders Clinical Impression: Closed head injury with concussion, Mild dehydration, Vertigo Instructions: ED Concussion, ED Dehydration (Adult) Prescriptions: New meclizine [meclizine] 25 mg tablet 25 mg PO Q8H PRN PRN (Reason: Dizziness) Qty: 20 0RF No Action hydroxyzine pamoate 25 mg capsule 25 mg PO QHS gabapentin 600 mg tablet 600 mg PO BID cholecalciferol (vitamin D3) 1,250 mcg (50,000 unit) capsule 50,000 unit PO FORBES trazodone 50 mg tablet 50 mg PO QHS atorvastatin 20 mg tablet 20 mg PO DAILY insulin aspart U-100 [Novolog FlexPen U-100 Insulin] 100 unit/mL (3 mL) insulin pen See Rx Instructions SC TID Rx Instructions: 26 units with breakfast and lunch, 36U with supper, 10 units with snack, plus sliding scal clindamycin HCl 300 mg capsule 300 mg PO Q8H Qty: 30 0RF hydrocortisone 2.5 % cream 1 applic topical TID PRN (Reason: rash) Qty: 20 0RF albuterol sulfate 2.5 mg /3 mL (0.083 %) solution for nebulization 2.5 mg inhalation Q4H PRN (Reason: Sob &/Or Wheezing) Qty: 180 3RF albuterol sulfate 90 mcg/actuation HFA aerosol inhaler 2 puff inhalation Q4H PRN (Reason: shortness of breath or wheezing) Qty: 8.5 6RF lactulose 10 gram/15 mL solution 10 g PO TID Qty: 946 0RF Rx Instructions: Take 15mL two to three times a day to achieve of 2-3 bowel movements a day. spironolactone 25 mg tablet 25 mg PO DAILY Qty: 90 3RF furosemide [Lasix] 20 mg tablet 20 mg PO Q OTHER DAY Qty: 60 3RF cyanocobalamin (vitamin B-12) 1,000 MCG tablet 1,000 mcg PO DAILY Basaglar KwikPen U-100 Insulin 100 unit/mL (3 mL) insulin pen 80 unit SC QHS hydrocodone-acetaminophen [hydrocodone-acetaminophen] 1 TABLET tablet 1 tab PO Q6H PRN PRN (Reason: Pain) 3 Days Qty: 10 0RF tramadol 50 mg tablet 50 mg PO PRN PRN (Reason: Pain) (DME) lancets [OneTouch Delica Lancets] 33 gauge misc See Rx Instructions .ROUTE .MEDSUPPLY Qty: 100 11RF Rx Instructions: 3 times daily (DME) blood-glucose meter [OneTouch Verio Flex meter] Misc See Rx Instructions .ROUTE .MEDSUPPLY Qty: 1 0RF Rx Instructions: As directed (DME) OneTouch Verio test strips Strip See Rx Instructions .ROUTE .MEDSUPPLY Qty: 120 8RF Rx Instructions: 4 times a day Primary Care Provider: [facility] Candace Brandt Referrals: [facility] Candace Brandt [Primary Care Provider] - 3-5 Days if not improving (for evaluation for neuropsychologic testing referral for persistent concussion symptoms) Disposition Disposition: Home, Self Care Discharge Date/Time: 05/30/22 15:25
[2022-05-30] MEDS: Meclizine HCl 25 MG Tablet PO (11:41)
[2022-05-30 11:59] LABS: Absolute Lymphocyte Count 1.09 X10^3/uL (0.83-4.51); Absolute Neutrophil Count 3.5 X10^3/uL (2.0-7.7); Basophil# 0.01 X10^3/uL; Basophil% 0.2 % (0-1); Eosinophil# 0.08 X10^3/uL; Eosinophils% 1.6 % (0-5); Hematocrit 34.9 % (37-47); Hemoglobin 11.1 g/dL (12.0-15.0); Lymphocyte # 1.09 X10^3/ul (0.83-4.51); Lymphocyte % 21.4 % (19-41); Mean Corp Hgb Conc 31.8 g/dL (32-36); Mean Corpuscular Hgb 32.5 pg (27.0-32.0); Mean Platelet Vol. 11.5 fl (6.2-12.0); Monocyte# 0.38 X10^3/uL; Monocyte% 7.5 % (0-10); NRBC Flagged by Analyzer 0 % (0-5); Neutrophil # 3.51 X10^3/uL (2.7-7.7); Neutrophil % 68.7 % (47-70); POSITIVE COUNT YES; Platelet Count 54 K/mm3 (150-450); RBC Distribution Width CV 15.4 % (11.6-14.6); RBC Distribution Width SD 57.6 fl (35.1-43.9); Red Blood Count 3.42 M/mm3 (4.2-5.4); White Blood Count 5.1 K/mm3 (4.4-11.0)
[2022-05-30 12:29] LABS: Anion Gap 7 (5-15); BUN 25 mg/dL (7-18); BUN/Creat Ratio 15.1 RATIO (10-20); Calcium,Total 9.7 mg/dL (8.5-10.1); Chloride 107 mmol/L (98-107); Creatinine, Serum 1.66 mg/dL (0.55-1.02); EST Glomerular Filtration Rate 33 mL/min (>60); Est Glom Filt Rate - Afr Amer 40 mL/min (>60); Glucose 215 mg/dL (74-106); Potassium 4.8 mmol/L (3.5-5.1); Sodium Level 140 mmol/L (136-145)
[2022-05-30 12:32] LABS: Mucous, Urine 0 SEEN /hpf (<or=2+); Red Blood Cells-Urine 0 SEEN /hpf (0-5)
[2022-05-30 12:34] LABS: Color, Urine Yellow (Yellow); Glucose, Dipstick 1000 mg/dl (Normal); Ketone-Dipstick Negative (Negative); Leukocyte Esterase-Dipstick 25 /ul (Negative); Nitrite-Dipstick Negative (Negative); Occult Blood-Urine Negative /ul (Negative); Protein-Dipstick Negative (Negative); Specific Gravity, Urine 1.015 (1.002-1.030); Urine Bilirubin Dipstick Negative (Negative); Urine Clarity Sl. Cloudy (Clear); Urine Urobilinogen 1 mg/dl (Normal)
[2022-05-30 12:41] LABS: Bacteria 2+ /hpf (None Seen); Squamous Epithelial Cells - UA 5-10 SEEN /hpf (5-10); White Blood Cells 0-5 SEEN /hpf (0-5)
[2022-05-30 13:10] VITALS: BP 108/59; PULSE 89
== END 2022-05-30 15:25 | disposition home or self-care (01) ==
PROVIDERS: Emergency Provider Emergency Medicine; Visit Provider Emergency Medicine
DX: S06.0X0A Concussion without loss of consciousness, initial encounter (principal); E11.42 Type 2 diabetes mellitus with diabetic polyneuropathy; R42 Dizziness and giddiness; F17.210 Nicotine dependence, cigarettes, uncomplicated; F17.290 Nicotine dependence, other tobacco product, uncomplicated; E86.0 Dehydration; E78.5 Hyperlipidemia, unspecified; W01.0XXA Fall on same level from slipping, tripping and stumbling without subsequent striking against object, initial encounter
CPT/HCPCS: 70450; 80048; 81001; 85025; 99284; J7030; A4216

== ENCOUNTER → 2022-05-31 | Outpatient (CLI) | payer MEDICAID, SELFPAY ==
[2022-05-31 15:52] LABS: International Normalized Ratio 1.3
[2022-05-31 16:24] LABS: Vitamin B12 1448 pg/mL (211-911); Vitamin D,25 Hydroxy 106.3 ng/mL
[2022-05-31 17:11] LABS: CRP < 2.90 mg/L (0.0-3.0); Magnesium 2.4 mg/dL (1.6-2.6); Phosphorus 4.5 mg/dL (2.5-4.9); Thyroid Stim Hormone (TSH) 3.25 uIU/mL (0.358-3.74)
[2022-06-01 08:22] LABS: ALB/GLOB Ratio 0.7 RATIO (0.9-2.4); AST(SGOT) 36 U/L (15-37); Alanine Aminotransfer ALT/SGPT 29 U/L (13-56); Albumin, Serum 3.4 g/dL (3.2-5.0); Alkaline Phosphatase 69 U/L (45-117); Anion Gap 12 (5-15); BUN 25 mg/dL (7-18); BUN/Creat Ratio 15.7 RATIO (10-20); Calcium,Total 9.3 mg/dL (8.5-10.1); Chloride 104 mmol/L (98-107); Creatinine, Serum 1.59 mg/dL (0.55-1.02); EST Glomerular Filtration Rate 35 mL/min (>60); Est Glom Filt Rate - Afr Amer 42 mL/min (>60); Globulin 4.7 g/dL (2.2-4.2); Glucose 300 mg/dL (74-106); Potassium 4.3 mmol/L (3.5-5.1); Protein, Total 8.1 g/dL (6.4-8.2); Sodium Level 142 mmol/L (136-145)
[2022-06-04 18:52] LABS: Vitamin D 1,25-Dihydroxy 53.6 pg/mL (24.8-81.5)
== END | disposition home or self-care (01) ==
PROVIDERS: Referring Provider Internal Medicine Gastroenterology; Visit Provider Internal Medicine Gastroenterology
DX: K74.60 Unspecified cirrhosis of liver (principal); R18.8 Other ascites
CPT/HCPCS: 36415; 80053; 82140; 82306; 82607; 82652; 82746; 83735; 84100; 84443; 85610; 86140

== ENCOUNTER → 2022-06-07 | Outpatient (CLI) | payer MEDICAID, SELFPAY ==
--- NOTE | 2022-06-07 08:47 | US_ITS ---
STUDY: ABDOMINAL ULTRASOUND - RIGHT UPPER QUADRANT REASON FOR VISIT: Female, 66 years old ascites. TECHNIQUE: Ultrasound evaluation of all 4 quadrants was performed with real-time and static isaacs-scale imaging. TECHNICAL QUALITY: Adequate. COMPARISON: October 11, 2021. FINDINGS: Realtime sonographic imaging of all 4 quadrants demonstrates no evidence of free fluid. Visualized internal organs appear grossly normal. US/Abdomen Limited IMPRESSION: No sonographic evidence of ascites. Electronically Signed: Cameron Rai DO at 17:42 EST ,
== END | disposition home or self-care (01) ==
PROVIDERS: Visit Provider Internal Medicine Gastroenterology
DX: R18.8 Other ascites (principal)
CPT/HCPCS: 76705

== ENCOUNTER 2022-06-12 17:51 | Emergency (ER) | payer MEDICAID, SELFPAY ==
[2022-06-12 17:52] VITALS: BP 146/72; PULSE 111; RESP 22; TEMP 36.1; O2SAT 100; BMI 36.3
--- NOTE | 2022-06-12 18:10 | EX.ED.DYSGE1 ---
HPI History of Present Illness Chief Complaint: Shortness of Breath Informant: patient Onset/Context/Timing Onset: Days Context: Sudden Onset Timing: Intermittent Quality: Sharp stabbing pain in the epigastric area and right upper quadrant Location: Epigastric/right upper quadrant Current Severity: Mild Maximum Severity: Severe Worsened by: Movement, palpation Relieved by: Nothing Associated Symptoms Associated Symptoms: Nothing Narrative Narrative: Patient is a 66-year-old woman who presents with cough, dyspnea, dyspnea on exertion and upper abdominal pain. Patient denies fever or chills. Patient does endorse mild nasal congestion without sore throat. She does have a cough which is nonproductive. She does endorse dyspnea [place] exertion for the past week. She denies chest discomfort. She complains of sharp pain in the epigastric right upper quadrant. She status post cholecystectomy. She does have history of portal hypertension with varices as well as reflux with esophagitis. She also has a moderate size hiatal hernia. She denies black or maroon-colored stool. She denies dysuria, frequency, urgency or hematuria. She denies anorexia. [facility] Medical History Alcohol use Ambulates with cane Anemia Anxiety Ascites Back pain Blackout Blood disorder Chronic bronchitis Cirrhosis Cirrhosis Closed displaced fracture of distal phalanx of left great toe Closed fracture of right patella Contusion of multiple sites COVID Depression Dietary restriction Difficulty swallowing Encephalopathy Fall from slip, trip, or stumble Forgetfulness Glaucoma History of edema History of pain when walking History of renal disease Hyperlipidemia IBS (irritable bowel syndrome) Injury of back Insulin dependent diabetes mellitus Leg cramps Marijuana use Neuropathy Obesity Obstructive sleep apnea On home oxygen therapy Peripheral neuropathy Restless legs Rheumatoid arthritis Shortness of breath on exertion Sinus tachycardia Smoker Thrombocytopenia Thrombocytopenia Vision problem Wears glasses Home Medications cyanocobalamin (vitamin B-12) 1,000 mcg tablet 1,000 mcg PO DAILY supplement 06/10/17 [History Last Taken 01/19/21] lancets 33 gauge (OneTouch Delica Lancets) #100 ea 06/25/19 [Rx Last Taken Unknown] blood-glucose meter ([employer] Verio Flex Meter) #1 ea 06/29/19 [Rx Last Taken Unknown] cholecalciferol (vitamin D3) 1,250 mcg (50,000 unit) capsule 50,000 unit PO FORBES supplement 11/28/20 [History Last Taken 01/15/21] gabapentin 600 mg tablet 600 mg PO BID neuropathy 11/28/20 [History Last Taken 01/19/21] blood sugar diagnostic ([employer] Verio test strips) #120 ea 11/29/20 [Rx Last Taken Unknown] insulin glargine 100 unit/mL (3 mL) subcutaneous pen (Basaglar KwikPen U-100 Insulin) 80 unit subcut QHS diabetes 01/20/21 [History Last Taken 01/18/21] atorvastatin 20 mg tablet 20 mg PO DAILY 06/01/21 [History Last Taken Unknown] insulin aspart U-100 100 unit/mL (3 mL) subcutaneous pen (Novolog FlexPen U-100 Insulin aspart) See Rx Instructions subcut TID 06/01/21 [History Last Taken Unknown] albuterol sulfate 2.5 mg/3 mL (0.083 %) solution for nebulization 2.5 mg (3 mL) inhalation Q4H PRN Sob &/Or Wheezing #180 mL 07/05/21 [Rx Last Taken Unknown] lactulose 10 gram/15 mL oral solution 10 g (15 mL) PO TID #946 mL 12/15/21 [Rx Last Taken Unknown] spironolactone 25 mg tablet 25 mg PO DAILY diuretic #90 tabs 12/15/21 [Rx Last Taken Unknown] albuterol sulfate 90 mcg/actuation aerosol inhaler 2 puff inhalation Q4H PRN shortness of breath or wheezing #8.5 grams 02/06/22 [Rx Last Taken Unknown] meclizine 25 mg tablet 25 mg PO Q8H PRN PRN Dizziness #20 tabs 05/30/22 [Rx Last Taken Unknown] Allergy/AdvReac Type Severity Reaction Status Date / Time haloperidol [From Haldol] AdvReac Unknown Verified 06/12/22 17:54 haloperidol lactate AdvReac Unknown Verified 06/12/22 17:54 [From Haldol] Family History Unknown No problems noted. Other Foster child Surgical History History of History of cataract extraction History of cholecystectomy Hx of colonoscopy Social History adopted: Yes household members: none housing: assisted living facility Smoking Status: Current every day smoker tobacco type: e-cigarettes Tobacco: How many years used: 44 alcohol intake: current Alcohol type: hard liquor details: 18+years substance use type: marijuana what type of physical activity do you participate in: none do you feel safe at home: Yes ROS ROS ED Constitutional Constitutional ED: Denies chills, fever(s), subjective, sweats or weight loss Eyes Eyes: Denies blurry vision, change in vision or diplopia ENT ENT ED: Reports rhinorrhea; Denies ear pain or sore throat Cardiovascular Cardiovascular: Denies chest pain, orthopnea, palpitations, paroxysmal nocturnal dyspnea or racing heartbeat Respiratory/Chest Respiratory/Chest: Reports cough, dyspnea and dyspnea on exertion; Denies orthopnea, paroxysmal nocturnal dyspnea or sputum Gastrointestinal Gastrointestinal: Reports abdominal pain; Denies constipation, diarrhea, melena, nausea or vomiting Genitourinary Genitourinary ED: Denies dysuria, hematuria or urinary frequency Musculoskeletal Musculoskeletal: Denies arthralgias, back pain, myalgias or neck pain Integumentary Denies rash Neurologic Neurologic: Denies headache(s) or paresthesias Psychiatric Psychiatric: Reports depression; Denies anxiety or suicidal ideation Endocrine Endocrinology: Denies cold intolerance, heat intolerance or polydipsia Hematologic/Lymphatic Hematologic/Lymphatic: Reports systems reviewed and no addt'l complaints, except as documented and easy bruising EXAM Physical Exam Const Vital Signs: 06/12/22 17:52 06/12/22 18:44 Temperature 97 F L Temperature Source Temporal Pulse Rate 111 H Respiratory Rate 22 H Respiratory Effort Normal Non-Labored Respiratory Depth Normal Respiratory Pattern Normal Blood Pressure 146/72 H Blood Pressure Mean 96 Pulse Ox 100 Oxygen Delivery Method Room Air Room Air Positive well nourished, well developed, obese and unkempt General Appearance ED: unkempt, well developed, NAD and pallor; Negative for cyanotic or diaphoretic Nutritional Appearance: obese HEENT Reports dry mucous membranes HEENT Narrative: Patient is a dentulous. Ears normal. TMs normal. Nares with slight rhinorrhea. Posterior pharynx without erythema or exudate. Uvula midline. Mouth ED: Yes dry mucous membranes Mouth: dry mucous membranes Eyes PERRL and EOMs intact bilaterally General Eye ED: Negative for pale conjunctiva or scleral icterus Neck no lymphadenopathy, supple and no JVD Chest Wall inspection of chest normal and palpation of chest normal Resp normal respiratory effort Auscultation: rales bilateral base Cardio regular rhythm, S1 normal heart sound, S2 normal heart sound and no murmurs Rate: tachycardic GI GI Narrative: There is a reducible umbilical hernia. Scars noted to cholecystectomy. Significant epigastric pain. Negative clinical Calvert sign. Bowel sounds are diminished. Abdomen is distended and tympanitic. Patient states last bowel movement yesterday. She is passing gas. She denies history of bowel obstruction or small bowel obstruction. Back/Spine no CVA tenderness Cervical Spine: Negative for cervical spine tenderness Thoracic Spine / Upper Back: Negative for thoracic spinal tenderness Lumbar Spine / Lower Back: Negative for lumbar spinal tenderness Extremity normal to inspection Neuro oriented x3, CN's II-XII intact bilaterally and no sensory deficits noted Sensorium / Orientation: alert Motor Exam: strength 5/5 throughout Psych Psych Narrative: Affect flat Appearance: unkempt Skin no rashes or lesions noted, no wounds and No skin turgor normal General Skin Exam: pallor; Negative for elasticity normal or jaundice MDM MDM MDM Narrative Medical decision making narrative: Patient had colonoscopy June 30, [address] Henderson. Findings were: Impressions : - Grade II esophageal varices.? Incompletely eradicated.? Banded. - LA Grade A reflux esophagitis.? Biopsied. - Glycogenic acanthosis of the esophagus. - Medium-sized hiatal hernia. - Portal hypertensive gastropathy.? Biopsied. - Normal second portion of the duodenum. - Gastritis.? Biopsied. And colonoscopy was performed on June [address] Henderson. Findings revealed friable mucosa of the entire colon. Patient was seen by Dr. Henderson on May 31 and impression was chronic cirrhosis of the liver with ascites and thrombocytopenia. In light of her history of reflux with esophagitis and moderate-sized hiatal hernia we will treat her epigastric pain with GI cocktail. Will obtain liver profile to assess transaminases, bilirubin and alkaline phosphatase. CBC to assess white count and H&H since she does have history of prior GI bleeds. Electrolyte panel was obtained to assess renal function, CO2 anion gap. Chest x-ray is obtained because of her complaint of dyspnea with cough. History & Record Review Additional record(s) reviewed:: Prior inpatient record, Prior outpatient record (She has recently seen Dr. Cardona the [employer] laborer for thrombocytopenia.), Prior ED visit and Prior labs Lab Data Attestation: I reviewed the patient's lab results. Lab results narrative: CBC is remarkable for macrocytic anemia. This is chronic. White count differential unremarkable. Electrolyte panel reveals elevated creatinine of 1.45 with a GFR of 39. This is within the patient's normal range. Total bili slightly elevated which it has been in the past. Total protein has been elevated in the past as well. Lipase is low at 34. Labs: Laboratory Results - last 24 hr 06/12/22 06/12/22 18:22 18:22 WBC 7.8 RBC 3.31 L Hgb 10.9 L Hct 34.1 L MCV 103.0 H MCH 32.9 H MCHC 32.0 RDW Std Deviation 56.2 H RDW Coeff of Nick 15.0 H Plt Count 56 L MPV 11.4 Immature Gran % (Auto) 0.500 Neut % (Auto) 74.0 H Lymph % (Auto) 14.4 L [place] % (Auto) 9.9 Eos % (Auto) 0.9 Baso % (Auto) 0.3 Absolute Neuts (auto) 5.8 Absolute Lymphs (auto) 1.12 Nucleated RBC % 0 Differential Comment SCANNED Sodium 142 Potassium 4.1 Chloride 107 Carbon Dioxide 28.0 Anion Gap 7 BUN 16 Creatinine 1.45 H Estim Creat Clear Calc 50.49 Est GFR (MDRD) Af Amer 47 L Est GFR (MDRD) Non-Af 39 L BUN/Creatinine Ratio 11.0 Glucose 123 H Calcium 9.6 Total Bilirubin 1.50 H AST 46 H ALT 44 Alkaline Phosphatase 80 Total Protein 8.3 H Albumin 3.6 Globulin 4.7 H Albumin/Globulin Ratio 0.8 L Lipase 34 L Radiography Chest X-Ray - ED: 2 View and Read by ED Physician (Minimal chronic changes. Limited inspiratory volume. Cardiac silhouette size unremarkable. Perihilar region unremarkable. Osseous structures are unremarkable.) Diagnostic Testing: Clinical Impression(s) from Imaging Studies Chest X-Ray 06/12/22 18:35 IMPRESSION: There are no acute findings. Electronically Signed: El Marinelli MD at 19:15 EDT , Treatment and Re-Evaluation :: When patient was assessed she was still complaining of pain. Pepcid was ordered IV push. Patient was reassessed at 1935. Her pain has diminished by 50%. She has been instructed to follow-up with Dr. Henderson. Discharge Plan Triage Chief Complaint: Shortness of Breath ED Provider: Pedro Carbone Dx/Rx/DC Orders Clinical Impression: Acute epigastric pain, Benign essential hypertension, Ascites, COPD (chronic obstructive pulmonary disease), Gastro-esophageal reflux disease with esophagitis, Hernia, hiatal, Macrocytic anemia, Chronic liver disease and cirrhosis, History of lupus Instructions: GERD Lifestyle Changes, Tips to Control Acid Reflux, ED GERD (Adult) Prescriptions: No Action gabapentin 600 mg tablet 600 mg PO BID cholecalciferol (vitamin D3) 1,250 mcg (50,000 unit) capsule 50,000 unit PO FORBES atorvastatin 20 mg tablet 20 mg PO DAILY insulin aspart U-100 [Novolog FlexPen U-100 Insulin] 100 unit/mL (3 mL) insulin pen See Rx Instructions SC TID Rx Instructions: 26 units with breakfast and lunch, 36U with supper, 10 units with snack, plus sliding scal albuterol sulfate 2.5 mg /3 mL (0.083 %) solution for nebulization 2.5 mg inhalation Q4H PRN (Reason: Sob &/Or Wheezing) Qty: 180 3RF albuterol sulfate 90 mcg/actuation HFA aerosol inhaler 2 puff inhalation Q4H PRN (Reason: shortness of breath or wheezing) Qty: 8.5 6RF lactulose 10 gram/15 mL solution 10 g PO TID Qty: 946 0RF Rx Instructions: Take 15mL two to three times a day to achieve of 2-3 bowel movements a day. spironolactone 25 mg tablet 25 mg PO DAILY Qty: 90 3RF cyanocobalamin (vitamin B-12) 1,000 MCG tablet 1,000 mcg PO DAILY insulin glargine [Basaglar KwikPen U-100 Insulin] 100 unit/mL (3 mL) insulin pen 80 unit SC QHS meclizine [meclizine] 25 mg tablet 25 mg PO Q8H PRN PRN (Reason: Dizziness) Qty: 20 0RF (DME) lancets [OneTouch Delica Lancets] 33 gauge misc See Rx Instructions .ROUTE .MEDSUPPLY Qty: 100 11RF Rx Instructions: 3 times daily (DME) blood-glucose meter [OneTouch Verio Flex meter] Misc See Rx Instructions .ROUTE .MEDSUPPLY Qty: 1 0RF Rx Instructions: As directed (DME) OneTouch Verio test strips Strip See Rx Instructions .ROUTE .MEDSUPPLY Qty: 120 8RF Rx Instructions: 4 times a day Primary Care Provider: [facility] Candace Brandt Referrals: Morris Henderson DO [Med Staff - Active Staff] - 1 Week if not improving [facility],Candace Olivia [Primary Care Provider] - 3-5 Days if not improving Disposition Disposition: Home, Self Care
[2022-06-12 18:31] LABS: Absolute Lymphocyte Count 1.12 X10^3/uL (0.83-4.51); Absolute Neutrophil Count 5.8 X10^3/uL (2.0-7.7); Basophil# 0.02 X10^3/uL; Basophil% 0.3 % (0-1); Eosinophil# 0.07 X10^3/uL; Eosinophils% 0.9 % (0-5); Hematocrit 34.1 % (37-47); Hemoglobin 10.9 g/dL (12.0-15.0); Lymphocyte # 1.12 X10^3/ul (0.83-4.51); Lymphocyte % 14.4 % (19-41); Mean Corpuscular Hgb 32.9 pg (27.0-32.0); Mean Platelet Vol. 11.4 fl (6.2-12.0); Monocyte# 0.77 X10^3/uL; Monocyte% 9.9 % (0-10); NRBC Flagged by Analyzer 0 % (0-5); Neutrophil # 5.76 X10^3/uL (2.7-7.7); POSITIVE COUNT YES; Platelet Count 56 K/mm3 (150-450); RBC Distribution Width SD 56.2 fl (35.1-43.9); Red Blood Count 3.31 M/mm3 (4.2-5.4); White Blood Count 7.8 K/mm3 (4.4-11.0)
[2022-06-12 18:32] LABS: Differential Indicated SCAN CRITERIA MET
[2022-06-12] MEDS: Ondansetron 4 MG/2 ML Vial IV (18:32)
[2022-06-12] MEDS: Mag Hydrox/Al Hydrox/Simeth 30 ML UDC PO (18:33)
[2022-06-12] MEDS: Morphine 4 MG/ML Syringe IV (18:33)
--- NOTE | 2022-06-12 18:35 | RAD_ITS ---
STUDY: XR Chest 2 Views 06/12/2022 6:48 PM REASON FOR EXAM: Female, 66 years old. CHEST PAIN Cough, dyspnea and dyspnea on exertion COMPARISON: 2.7.22 TECHNIQUE: XR Chest 2 Views FINDINGS: There is no demonstrated pleural abnormality. Peripheral pulmonary fibrosis. Enlarged heart size. Normal mediastinum. Normal kenzie. Prominent appearing increased interstitial lung markings. Normal visualized pulmonary arteries. There is atherosclerotic calcification of the aortic arch with tortuosity. There are diffuse degenerative changes of the visualized thoracic spine. There is degenerative osteoarthritis of the bilateral shoulders. There is no demonstrated abnormality of the visualized soft tissue structures of the upper abdomen. RAD/Chest PA and Lateral IMPRESSION: There are no acute findings. Electronically Signed: El Marinelli MD at 19:15 EDT ,
[2022-06-12 18:54] LABS: ALB/GLOB Ratio 0.8 RATIO (0.9-2.4); AST(SGOT) 46 U/L (15-37); Alanine Aminotransfer ALT/SGPT 44 U/L (13-56); Albumin, Serum 3.6 g/dL (3.2-5.0); Alkaline Phosphatase 80 U/L (45-117); Anion Gap 7 (5-15); BUN 16 mg/dL (7-18); Calcium,Total 9.6 mg/dL (8.5-10.1); Chloride 107 mmol/L (98-107); Creatinine, Serum 1.45 mg/dL (0.55-1.02); Differential Comment SCANNED; EST Glomerular Filtration Rate 39 mL/min (>60); Est Glom Filt Rate - Afr Amer 47 mL/min (>60); Estimated Creatinine Clearance 50.49 ml/min; Globulin 4.7 g/dL (2.2-4.2); Glucose 123 mg/dL (74-106); Lipase 34 U/L (73-393); Potassium 4.1 mmol/L (3.5-5.1); Protein, Total 8.3 g/dL (6.4-8.2); Sodium Level 142 mmol/L (136-145)
[2022-06-12] MEDS: Famotidine 200 MG/20 ML MDV 20 MG in 0.9% Normal Saline (Pres. free 8 ML 300 MG IV (19:03)
[2022-06-12 19:58] VITALS: BP 98/55; PULSE 98; RESP 14; O2SAT 96
== END 2022-06-12 19:59 | disposition home or self-care (01) ==
PROVIDERS: Emergency Provider Emergency Medicine; Visit Provider Emergency Medicine
DX: K21.00 Gastro-esophageal reflux disease with esophagitis, without bleeding (principal); K74.60 Unspecified cirrhosis of liver; J44.9 Chronic obstructive pulmonary disease, unspecified; E11.42 Type 2 diabetes mellitus with diabetic polyneuropathy; K44.9 Diaphragmatic hernia without obstruction or gangrene; D53.9 Nutritional anemia, unspecified; F17.290 Nicotine dependence, other tobacco product, uncomplicated; E78.5 Hyperlipidemia, unspecified; Z90.49 Acquired absence of other specified parts of digestive tract; F32.A Depression, unspecified; E66.9 Obesity, unspecified; Z86.2 Personal history of diseases of the blood and blood-forming organs and certain disorders involving the immune mechanism
CPT/HCPCS: 71046; 80053; 83690; 85025; 96374; 96375; 99283; A4216; J2405; J3490

== ENCOUNTER → 2022-08-24 | Outpatient (CLI) | payer MEDICARE, SELFPAY ==
[2022-08-24 14:49] LABS: Absolute Lymphocyte Count 1.43 X10^3/uL (0.83-4.51); Absolute Neutrophil Count 3.7 X10^3/uL (2.0-7.7); Basophil# 0.01 X10^3/uL; Basophil% 0.2 % (0-1); Eosinophil# 0.08 X10^3/uL; Eosinophils% 1.4 % (0-5); Hematocrit 35.7 % (37-47); Hemoglobin 11.3 g/dL (12.0-15.0); Lymphocyte # 1.43 X10^3/ul (0.83-4.51); Lymphocyte % 25.4 % (19-41); Mean Corp Hgb Conc 31.7 g/dL (32-36); Mean Corpuscular Hgb 32.2 pg (27.0-32.0); Mean Corpuscular Volume 101.7 fL (81-99); Mean Platelet Vol. 12.5 fl (6.2-12.0); Monocyte# 0.44 X10^3/uL; Monocyte% 7.8 % (0-10); NRBC Flagged by Analyzer 0 % (0-5); Neutrophil # 3.65 X10^3/uL (2.7-7.7); Neutrophil % 64.7 % (47-70); POSITIVE COUNT YES; Platelet Count 59 K/mm3 (150-450); RBC Distribution Width CV 14.3 % (11.6-14.6); RBC Distribution Width SD 53.2 fl (35.1-43.9); Red Blood Count 3.51 M/mm3 (4.2-5.4); White Blood Count 5.6 K/mm3 (4.4-11.0)
[2022-08-24 14:56] LABS: International Normalized Ratio 1.2; Prothrombin Time (Protime)PT. 15.3 SECONDS (11.7-14.9)
[2022-08-24 15:11] LABS: ALB/GLOB Ratio 0.7 RATIO (0.9-2.4); AST(SGOT) 33 U/L (15-37); Alanine Aminotransfer ALT/SGPT 27 U/L (13-56); Albumin, Serum 3.3 g/dL (3.2-5.0); Alkaline Phosphatase 63 U/L (45-117); Anion Gap 6 (5-15); BUN 12 mg/dL (7-18); Calcium,Total 9.6 mg/dL (8.5-10.1); Chloride 109 mmol/L (98-107); Creatinine, Serum 1.33 mg/dL (0.55-1.02); EST Glomerular Filtration Rate 43 mL/min (>60); Est Glom Filt Rate - Afr Amer 52 mL/min (>60); Globulin 4.7 g/dL (2.2-4.2); Glucose 219 mg/dL (74-106); Potassium 3.6 mmol/L (3.5-5.1); Sodium Level 142 mmol/L (136-145)
== END | disposition home or self-care (01) ==
PROVIDERS: Visit Provider Nurse Practitioner Adult Health
DX: K74.60 Unspecified cirrhosis of liver (principal)
CPT/HCPCS: 36415; 80053; 82140; 85025; 85610

== ENCOUNTER 2022-09-28 18:50 | Emergency (ER) | payer MEDICARE, SELFPAY ==
[2022-09-28 18:52] VITALS: BP 140/55; PULSE 97; RESP 14; TEMP 36.1; O2SAT 96; BMI 34.8
--- NOTE | 2022-09-28 19:15 | RAD_ITS ---
STUDY: X-RAY CHEST REASON FOR EXAM: Female, 67 years old. cough TECHNIQUE: Frontal and lateral views of the chest. COMPARISON: 06/12/2022 FINDINGS: The lungs are clear and expanded. Stable mild diffuse interstitial prominence suggestive of mild fibrosis. Normal size heart. Normal mediastinum and kenzie. Normal visualized pulmonary arteries. There is atherosclerotic calcification of the aortic arch with tortuosity. Normal visualized thoracic spine. Normal visualized ribs, clavicles, and shoulders. There is no demonstrated abnormality of the visualized soft tissue structures of the upper abdomen. RAD/Chest PA and Lateral IMPRESSION: No change or acute abnormality. Stable probable mild diffuse interstitial fibrosis. Electronically Signed: Pedro Pablo Ortiz MD at 19:29 EDT ,
--- NOTE | 2022-09-28 19:38 | EX.ED.DYSGE1 ---
HPI <JU Scott - Last Filed: 09/28/22 20:02> History of Present Illness Chief Complaint: Shortness of Breath Narrative Narrative: Patient is a 67-year-old female with history of type 2 diabetes, COPD, chronic kidney disease who presents to the emergency department with 2 weeks of cough, 1 week of facial pain, bilateral eye drainage and swelling. Patient states that when she wakes up, her eyes are matted shut. She denies any gross drainage. She does states she has green sputum. She denies any worsening shortness of breath however she states that the cough is taking it out of her. She states that she is feels miserable, she denies any actual fever or chills. PFSH <JU Scott - Last Filed: 09/28/22 20:02> [facility] Medical History Alcohol use Ambulates with cane Anemia Anxiety Ascites Back pain Blackout Blood disorder Chronic bronchitis Cirrhosis Cirrhosis Closed displaced fracture of distal phalanx of left great toe Closed fracture of right patella Contusion of multiple sites COVID Depression Dietary restriction Difficulty swallowing Encephalopathy Fall from slip, trip, or stumble Forgetfulness Glaucoma History of edema History of pain when walking History of renal disease Hyperlipidemia IBS (irritable bowel syndrome) Injury of back Insulin dependent diabetes mellitus Leg cramps Marijuana use Neuropathy Obesity Obstructive sleep apnea On home oxygen therapy Peripheral neuropathy Restless legs Rheumatoid arthritis Shortness of breath on exertion Sinus tachycardia Smoker Thrombocytopenia Thrombocytopenia Vision problem Wears glasses Home Medications cyanocobalamin (vitamin B-12) 1,000 mcg tablet 1,000 mcg PO DAILY supplement 06/10/17 [History Last Taken 01/19/21] lancets 33 gauge ([employer] Lancets) #100 ea 06/25/19 [Rx Last Taken Unknown] blood-glucose meter ([employer] Ver[employer] Flex Meter) #1 ea 06/29/19 [Rx Last Taken Unknown] cholecalciferol (vitamin D3) 1,250 mcg (50,000 unit) capsule 50,000 unit PO FORBES supplement 11/28/20 [History Last Taken 01/15/21] gabapentin 600 mg tablet 600 mg PO BID neuropathy 11/28/20 [History Last Taken 01/19/21] blood sugar diagnostic (OneTouch Verio test strips) #120 ea 11/29/20 [Rx Last Taken Unknown] insulin glargine 100 unit/mL (3 mL) subcutaneous pen (Basaglar KwikPen U-100 Insulin) 80 unit subcut QHS diabetes 01/20/21 [History Last Taken 01/18/21] atorvastatin 20 mg tablet 20 mg PO DAILY 06/01/21 [History Last Taken Unknown] insulin aspart U-100 100 unit/mL (3 mL) subcutaneous pen (Novolog FlexPen U-100 Insulin aspart) See Rx Instructions subcut TID 06/01/21 [History Last Taken Unknown] meclizine 25 mg tablet 25 mg PO Q8H PRN PRN Dizziness #20 tabs 05/30/22 [Rx Last Taken Unknown] albuterol sulfate 2.5 mg/3 mL (0.083 %) solution for nebulization 2.5 mg (3 mL) inhalation Q4H PRN Sob &/Or Wheezing #180 mL 06/14/22 [Rx Last Taken Unknown] MAGIC MOUTH WASH (BMX) 180 mL suspension 10 ml PO BID #180 mL 06/15/22 [Rx Last Taken Unknown] Disability Placard #1 ea 08/06/22 [Rx Last Taken Unknown] albuterol sulfate 90 mcg/actuation aerosol inhaler 2 puff inhalation Q4H PRN shortness of breath or wheezing #8.5 grams 08/06/22 [Rx Last Taken Unknown] lactulose 20 gram/30 mL oral solution 20 g (30 mL) PO .COMPLEX hepatic encephalopathy #3,000 mL 08/24/22 [Rx Last Taken Unknown] spironolactone 25 mg tablet 50 mg (2 x 25 mg) PO DAILY diuretic #180 tabs 08/24/22 [Rx Last Taken Unknown] budesonide-formoterol HFA 160 mcg-4.5 mcg/actuation aerosol inhaler (Symbicort) 2 puff inhalation BID #1 ea 09/27/22 [Rx Last Taken Unknown] azithromycin 250 mg tablet (Zithromax Z-Usman) 250 mg PO DAILY 4 days #4 tabs 09/28/22 [Rx Last Taken Unknown] prednisone 20 mg tablet 40 mg (2 x 20 mg) PO DAILY 7 days #14 tabs 09/28/22 [Rx Last Taken Unknown] Allergy/AdvReac Type Severity Reaction Status Date / Time haloperidol [From Haldol] AdvReac Unknown Verified 08/24/22 13:44 haloperidol lactate AdvReac Unknown Verified 08/24/22 13:44 [From Haldol] Family History Unknown No problems noted. Other Foster child Surgical History History of History of cataract extraction History of cholecystectomy Hx of colonoscopy Social History adopted: Yes household members: none housing: assisted living facility Smoking Status: Current every day smoker tobacco type: e-cigarettes Tobacco: How many years used: 44 alcohol intake: current Alcohol type: hard liquor details: 18+years substance use type: marijuana what type of physical activity do you participate in: none do you feel safe at home: Yes ROS <JU Scott - Last Filed: 09/28/22 20:02> ROS ED ROS Narrative Constitutional: Negative for fever, chills, weight loss, weakness Eyes: Negative for vision loss, vision change, double vision. Positive bilateral eye drainage ENT: Negative for any sore throat, ear pain. Positive congestion Cardiovascular: Negative for any chest pain, tightness, palpitations Respiratory: Negative for any hemoptysis, dyspnea, dyspnea on exertion, orthopnea. Positive for cough sputum production Gastrointestinal: Negative for any abdominal pain, nausea, vomiting, diarrhea, constipation, blood in stool, blood in vomit : Negative for any urinary frequency, dysuria, retention, blood in urine Muscle skeletal: Negative for any muscle joint pain, stiffness, myalgias, arthralgias, neck pain, back pain Neurological: Negative for any headache, syncope, numbness or tingling, dizziness Skin: Negative for any rashes, lumps, itching, abrasions, lacerations Psychiatric: Negative for any depression, anxiety, stress, suicidal ideation, homicidal ideation Hematologic: Negative for any easy bruising, excessive bruising, easy bleeding Allergies: Negative for any eczema, hives, rash EXAM <JU Scott - Last Filed: 09/28/22 20:02> Physical Exam Narrative Exam Narrative: Vital signs reviewed. HEET: Head normocephalic atraumatic, TMs clear bilaterally. Posterior pharynx is clear, moist mucous membranes. Nares clear bilaterally. Patient does have clear discharge with slight edema around both eyes. This does not appear to be any bacterial conjunctivitis. There is no gross drainage. There is no injection, conjunctival is clear. Neck: Supple with no lymphadenopathy or tenderness. No signs of meningismus, negative jolt sign. Cardiac: Regular rate and rhythm no murmurs gallops or rubs, equal peripheral pulses bilaterally. Respiratory: Patient has crackles to the upper lung bases, this could be secondary to interstitial disease.. No chest tenderness. Abdomen: Soft, nontender, nondistended. No abdominal bruit or pulsatile masses. No hepatosplenomegaly Extremities: No peripheral edema, no signs of gross trauma or deformity. Active full range of motion of all extremities. Neuro: Cranial nerves II through XII intact, no focal neurological deficits. Skin: Clean dry and intact with no rash, purpura, petechiae, vesicles or pustules. Backs/flank: No CVA tenderness, no midline spinal tenderness, no deformity. Psych: Normal mood and affect. No SI, HI or acute psychosis. Const Vital Signs: 09/28/22 18:52 09/28/22 18:57 Temperature 97 F L Temperature Source Temporal Pulse Rate 97 Respiratory Rate 14 Respiratory Effort Short of Breath Respiratory Depth Shallow Blood Pressure 140/55 H Blood Pressure Mean 83 Pulse Ox 96 Oxygen Delivery Method Room Air <Dr. Nikunj Ramirez MD - Last Filed: 09/28/22 19:56> Physical Exam Const Vital Signs: 09/28/22 18:52 09/28/22 18:57 Temperature 97 F L Temperature Source Temporal Pulse Rate 97 Respiratory Rate 14 Respiratory Effort Short of Breath Respiratory Depth Shallow Blood Pressure 140/55 H Blood Pressure Mean 83 Pulse Ox 96 Oxygen Delivery Method Room Air MDM <JU Scott - Last Filed: 09/28/22 20:02> MDM Radiography Diagnostic Testing: Clinical Impression(s) from Imaging Studies Chest X-Ray 09/28/22 19:15 IMPRESSION: No change or acute abnormality. Stable probable mild diffuse interstitial fibrosis. Electronically Signed: Pedro Pablo Ortiz MD at 19:29 EDT , Treatment and Re-Evaluation :: Patient appears generally well, patient appears nontoxic, vital signs are stable. Patient presents to the emergency department for cough for 2 weeks, sinus congestion, clear drainage. 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 Patient's chest x-ray showed interstitial disease however no acute process. At this time, secondary the patient's age, comorbidities, patient be placed on Zithromax, given her first dose here, she also placed on 7 days of prednisone given her first dose here. Patient's eye exam was positive for allergic conjunctivitis, no evidence of bacterial conjunctivitis. Patient will be given her first doses of antibiotics and prednisone here, she instructed return for any worsening symptoms. <Dr. Nikunj Ramirez MD - Last Filed: 09/28/22 19:56> [facility] Narrative Medical decision making narrative: I have personally performed a face to face assessment of the patient and have reviewed the LINDSEY Note. I performed a substantive portion of the visit including all aspects of the following. My platt findings include: History is [67-year-old female with cough for 2 weeks. No fever. No vomiting or diarrhea. 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 No acute vital sign stable. She is afebrile. Pulse ox 96% on room air no sign hypoxia. H EENT exam mild periorbital swelling. Tearing. No discharge. Lungs coarse breath sounds. No rhonchi. No significant wheezing. Heart regular rhythm no murmur. Abdomen soft nontender. Moving all 4 extremities. Nontender no edema. Awake and alert.] Medical Decision Making [67-year-old smoker with COPD and URI symptoms for 2 weeks. Not improving. Treated with Zithromax. Prednisone. Chest x-ray showed chronic changes no acute process. Discharged home.] Other additions or changes: [None] Radiography Chest X-Ray - ED: 2 View, Read by ED Physician, Read by Radiologist, Heart, Lungs, Mediastinum, Bony Structures, No Acute Disease and Chronic Changes Diagnostic Testing: Clinical Impression(s) from Imaging Studies Chest X-Ray 09/28/22 19:15 IMPRESSION: No change or acute abnormality. Stable probable mild diffuse interstitial fibrosis. Electronically Signed: Pedro Pablo Ortiz MD at 19:29 EDT , Chest x-ray, 2 views, AP and lateral, entered by myself and radiologist shows chronic changes. No pneumonia. Changes consistent with COPD. Discharge Plan Triage Chief Complaint: Shortness of Breath ED Midlevel Provider: Yuriy Og ED Provider: Nikunj Ramirez Dx/Rx/DC Orders Clinical Impression: Bronchitis, Allergic conjunctivitis of both eyes and rhinitis Instructions: ED Bronchitis with Wheezing (Adult) Prescriptions: New prednisone 20 mg tablet 40 mg PO DAILY 7 Days Qty: 14 0RF azithromycin [Zithromax Z-Usman] 250 mg tablet 250 mg PO DAILY 4 Days Qty: 4 0RF Rx Instructions: start on day 2 of therapy No Action gabapentin 600 mg tablet 600 mg PO BID cholecalciferol (vitamin D3) 1,250 mcg (50,000 unit) capsule 50,000 unit PO FORBES atorvastatin 20 mg tablet 20 mg PO DAILY insulin aspart U-100 [Novolog FlexPen U-100 Insulin] 100 unit/mL (3 mL) insulin pen See Rx Instructions SC TID Rx Instructions: 26 units with breakfast and lunch, 36U with supper, 10 units with snack, plus sliding scal albuterol sulfate 90 mcg/actuation HFA aerosol inhaler 2 puff inhalation Q4H PRN (Reason: shortness of breath or wheezing) Qty: 8.5 6RF (DME) Disability Placard See Rx Instructions .Route .MEDSUPPLY Qty: 1 0RF Rx Instructions: Expires 08/07/2027 spironolactone 25 mg tablet 50 mg PO DAILY Qty: 180 3RF lactulose 20 gram/30 mL solution 20 g PO .COMPLEX Qty: 3000 12RF Rx Instructions: 20 grams orally 2-3 times a day; goal is 2-3 BMs per day cyanocobalamin (vitamin B-12) 1,000 MCG tablet 1,000 mcg PO DAILY insulin glargine [Basaglar KwikPen U-100 Insulin] 100 unit/mL (3 mL) insulin pen 80 unit SC QHS meclizine [meclizine] 25 mg tablet 25 mg PO Q8H PRN PRN (Reason: Dizziness) Qty: 20 0RF (DME) lancets [OneTouch Delica Lancets] 33 gauge misc See Rx Instructions .ROUTE .MEDSUPPLY Qty: 100 11RF Rx Instructions: 3 times daily (DME) blood-glucose meter [OneTouch Verio Flex meter] Misc See Rx Instructions .ROUTE .MEDSUPPLY Qty: 1 0RF Rx Instructions: As directed (DME) OneTouch Verio test strips Strip See Rx Instructions .ROUTE .MEDSUPPLY Qty: 120 8RF Rx Instructions: 4 times a day albuterol sulfate 2.5 mg /3 mL (0.083 %) solution for nebulization 2.5 mg inhalation Q4H PRN (Reason: Sob &/Or Wheezing) Qty: 180 3RF MAGIC MOUTH WASH (BMX) 180 mL suspension 10 ml PO BID Qty: 180 0RF Rx Instructions: diphenhydramine 12.5 mg/5 mL oral liquid 60 mL; aluminum-mag hydroxide-simethicone 400 mg-400 mg-40 mg/5 mL oral susp 60 mL; Lidocaine Viscous 2 % mucosal solution 60 mL; Per 180 mL budesonide-formoterol [Symbicort] 160-4.5 mcg/actuation HFA aerosol inhaler 2 puff inhalation BID Qty: 1 11RF Rx Instructions: administer with spacer, rinse mouth after each use Primary Care Provider: Candace Pollack Referrals: [facility] Candace Brandt [Primary Care Provider] - Activity Restrictions/Additional Instructions: Please take antibiotics until finished. Take prednisone for 7 days. Follow-up with your PCP, continue your inhalers. Return here for worsening fever chills nausea vomit
[2022-09-28] MEDS: Azithromycin 250 MG Tablet 500 MG PO (20:19)
[2022-09-28] MEDS: predniSONE 20 MG Tablet 40 MG PO (20:19)
[2022-09-28 20:24] VITALS: BP 138/79; PULSE 79; RESP 20; TEMP 36.7; O2SAT 94
== END 2022-09-28 20:26 | disposition home or self-care (01) ==
PROVIDERS: Emergency Provider Emergency Medicine; Visit Provider Emergency Medicine
DX: J40 Bronchitis, not specified as acute or chronic (principal); H10.13 Acute atopic conjunctivitis, bilateral; J31.0 Chronic rhinitis; N18.9 Chronic kidney disease, unspecified; G47.33 Obstructive sleep apnea (adult) (pediatric); F17.290 Nicotine dependence, other tobacco product, uncomplicated; F12.90 Cannabis use, unspecified, uncomplicated; Z99.81 Dependence on supplemental oxygen; Z86.16 Personal history of COVID-19
CPT/HCPCS: 71046; 99283

== ENCOUNTER 2022-12-10 05:16 | Day surgery (SDC) | payer MEDICARE, SELFPAY ==
[2022-12-10] VITALS (16 sets, daily range): BP systolic 75–111; BP diastolic 44–56; PULSE 75–85; RESP 16–18; TEMP 35.9–36.8; O2SAT 95–100; BMI 33.8
--- NOTE | 2022-12-10 | EGD_PTH ---
PATIENT: NEERU LECHUGA LOC: EN U#:[id number] AGE/SX: 67/F ROOM: RE12/10/[address]: Dr. Morris Henderson DO : 1955 BED: DIS: 12/10/2022 SPEC #: [id number] RECD: 12/10/22 12:29 STATUS: CAROLYNN REJaclyn #: [id number] OLYA: 12/10/22 00:[address]: Morris Henderson DEPT: SURGICAL PATHOLOGY RECD BY: Demarcus Lee ENTERED: 12/10/22 12:30 SP TYPE: EGD BIOPSY OTHR DR: Candace [facility] Tissues: Stomach, NOS Procedures: Surgery Specimen Level IV HEADER OPERATION: EGD ([facility]), biopsy PRE-OP DIAGNOSIS: Cirrhosis TISSUE SUBMITTED: Lesser curvature biopsy MICROSCOPIC DIAGNOSIS Lesser curvature, biopsy: Mild gastritis. See microscopic description and comment. LITZY:clarissa 12/11/2022 COMMENT The results of immunohistochemistry for Helicobacter pylori will be reported separately ([id number]). MICROSCOPIC DESCRIPTION Slides are reviewed. The specimen shows fragments of gastric mucosa with chronic inflammatory cell infiltrates in the lamina propria consisting of lymphocytes and plasma cells, consistent with mild chronic gastritis. GROSS DESCRIPTION Received in fixative is one container labeled with the patient's name and designated lesser curvature biopsy. The specimen consists of two irregular fragments of light zaragoza soft tissue that in aggregate measure 0.8 x 0.8 x 0.1 cm. The specimen is totally submitted in one cassette. / SJ:rg 12/10/2022 TC:3 CPT: 69540
[2022-12-10] MEDS: Lactated Ringers 1,000 ML 15 ML IV ×2 (05:59→07:53)
[2022-12-10 06:03] LABS: Bedside Glucose 190 mg/dL (74-106)
--- NOTE | 2022-12-10 06:29 | PCM.HP.BLA ---
History and Physical Date of Admission: 12/10/22 NEERU LECHUGA, is a 67 F who presents to the office today for 3 month f/u cirrhosis with ascites. She c/o increase abdominal bloating and bilateral leg edema. She is taking spironolactone 25 mg daily. Previously on furosemide, ?d/c'd due to CKD. She denies hx of paracentesis. 05/2022 US negative for ascites. Says rare SOB. Has constipation, only having BM twice a week. Ran out of lactulose, even on lactulose she said she only had BM every other day. She denies confusion. She denies any jaundice, itching, signs or symptoms of GI bleeding.? She suffers from anemia, thrombocytopenia, leukopenia secondary to cirrhosis from previous alcohol addiction and fatty liver disease from poorly controlled diabetes mellitus.?She has not had alcohol in over 15 years. Her last alpha-fetoprotein was 2.2 in 11/2021. 05/2021 CT scan notes hepatic cirrhosis with ascites, splenomegaly and varices. 06/2021 EGD found Grade II esophageal varices, incompletely eradicated, banded; LA Grade A reflux esophagitis without metaplasia; glycogenic acanthosis of the esophagus; medium sized hiatal hernia; portal hypertensive gastropathy; gastritis. Gastritis. H.Pylori negative. Colonoscopy found friability with contact bleeding of the entire colon; otherwise normal examination. MELD Score? 06.13.21 18? 09.22.21 12 ? 12.15.21 13? 03.09.22 12 ? ROS Const Constitutional: Positive for fatigue ENT ENT: No difficulty swallowing Cardio Cardiology: Positive for leg pain with exertion Gastro GI: Positive for abdominal pain, bloating, change in bowel habits, constipation and excessive flatus; No belching, change in stool character, coffee ground emesis, cramping, diarrhea, heartburn, difficulty swallowing, feeling full early, incontinent of stools, Vomiting blood/hematemesis, Blood in stool, loose stools, Black,tarry stools, nausea/dyspepsia, pain with swallowing, vomiting or other Musc Musculoskeletal: Positive for joint pain, back pain, joint swelling, leg pain at night and leg pain with exertion Skin Skin: No yellowing of the eye or itchy eyes Psych Psychiatric: No anxiety and Positive for depression Endo Endocrine: Positive for fatigue Aller/Imm Allergy/Immunologic: No itchy eyes Robert/Lymp Hematologic/Lymphatic: No easy bleeding or easy bruising Exam Const General: cooperative, comfortable and ill appearing chronically Nutritional Appearance: obese Orientation: alert, awake and oriented x3 Eyes Sclera: sclerae normal Resp Effort & Inspection: normal respiratory effort GI Inspection: distended Palpation: soft, no masses and nontender Skin General: no rashes or lesions noted and no jaundice Extrem General: edema Laterality: bilateral Location: ankles Psych Mood: congruent mood Quality Reporting Tobacco Screening ([facility] 138) Smoking Status: Current every day smoker Assessment and Plan Assessment and Plan (1) Cirrhosis: Status: Chronic Plan: 67 yr old female with cirrhosis She c/o abdominal bloating and bilateral LE edema. She declines abd US at this time. Says there is no way she could ever endure paracentesis (saw her have it done). Increase spironolactone to 50 mg daily, check BMP in one wk. Previously on furosemide, declines it at this time due to her concern for CKD. Labs today, will calculate MELD EGD to f/u esophageal varices Resume lactulose with aim of at least 2 BMs per week f/u after EGD Orders: Orders Ammonia Today K74.60 - Unspecified cirrhosis of liver CBC W/Diff, Automated Today K74.60 - Unspecified cirrhosis of liver Comprehensive Metabolic Profil Today K74.60 - Unspecified cirrhosis of liver Prothrombin Time w/INR Today K74.60 - Unspecified cirrhosis of liver Basic Metabolic Profile (BMP) 1 Week K74.60 - Unspecified cirrhosis of liver Medications: New lactulose (30 mL) 20 grams orally 2-3 times a day; goal is 2-3 BMs per day 3,000 mL 12RF hepatic encephalopathy Changed From spironolactone 25 mg PO DAILY 90 tabs 3RF diuretic To spironolactone 50 mg (2 x 25 mg) PO DAILY 180 tabs 3RF diuretic Discontinued lactulose Take 15mL two to three times a day to achieve of 2-3 bowel movements a day. Discontinued Reason: Order Changed 10 grams (15 mL) PO TID 946 mL 0RF I have examined the patient and the H&P has been reviewed. There are no clinical changes since date of exam.
--- NOTE | 2022-12-10 06:30 | IMM_PTH ---
PATIENT: NEERU LECHUGA LOC: EN U#:[id number] AGE/SX: 67/F ROOM: RE12/10/[address]: Dr. Morris Henderson DO : 1955 BED: DIS: 12/10/2022 SPEC #: [id number] RECD: 12/11/22 12:17 STATUS: CAROLYNN REQ #: [id number] OLYA: 12/10/22 06:[address]: Morris Henderson DEPT: IMMUNOHISTOCHEMISTRY RECD BY: Daxa Long ENTERED: 12/11/22 12:18 SP TYPE: IMMUNO OTHR DR: Candace [facility] Tissues: Stomach, NOS Procedures: H Pylori (initial) PHYSICIAN & INSTITUTION [place] [id number] SPECIMEN INFORMATION: Tissue Source: Lesser curvature Clinical Info: Cirrhosis Specimen Number: [id number] CPT code: 14446 METHODOLOGY: Deparaffinized sections of prefer/formalin-fixed tissue or PAP/DQ stained slides are incubated with monoclonal/polyclonal antibodies/oligonucleotide probes. Localization is made via biotin free immunoperoxidase method. Appropriate controls are performed and reacted as expected. Results on target cell population are indicated in the following table: RESULTS: ANTIBODY / CLONE RESULT H Pylori (polyclonal) negative These tests were developed and their performance characteristics determined by [facility]. They may not have been cleared or approved by the U.S. Food and Drug Administration. The FDA has determined that such clearance or approval is not necessary. The above immunohistochemical/dualISH markers are ordered and reviewed by the Pathologist. INTERPRETATION: Lesser curvature, biopsy: Negative for Helicobacter pylori organisms. SJ:clarissa 12/11/2022
--- NOTE | 2022-12-10 06:57 | OP.EGD_ITS ---
Patient Name: Sheyla Wiseman Procedure Date: 12/10/2022 6:19 AM Date of : 1955 Age: 67 Procedure: Upper GI endoscopy Indications: Follow-up of esophageal varices Providers: Morris Henderson DO Referring MD: Morris Henderson DO Medicines: Monitored Anesthesia Care Patient Profile: This is a 67 year old female. Refer to note in patient chart for documentation of history and physical. Patient has symptoms of chronic epigastric abdominal pain and chronic nausea. Her most recent EGD for biopsy and EGD for treatment of bleeding was one year ago. Complications: No immediate complications. Procedure: Pre-Anesthesia Assessment: - Prior to the procedure, a History and Physical was performed, and patient medications and allergies were reviewed. The risks and benefits of the procedure and the sedation options and risks were discussed with the patient. All questions were answered and informed consent was obtained. Patient identification and proposed procedure were verified by the physician. Mental Status Examination: normal. Prophylactic Antibiotics: The patient does not require prophylactic antibiotics. Prior Anticoagulants: The patient has taken no anticoagulant or antiplatelet agents. After reviewing the risks and benefits, the patient was deemed in satisfactory condition to undergo the procedure. The anesthesia plan was to use monitored anesthesia care (MAC). Immediately prior to administration of medications, the patient was re-assessed for adequacy to receive sedatives. The heart rate, respiratory rate, oxygen saturations, blood pressure, adequacy of pulmonary ventilation, and response to care were monitored throughout the procedure. The physical status of the patient was re-assessed after the procedure. After obtaining informed consent, the endoscope was passed under direct vision. Throughout the procedure, the patient's blood pressure, pulse, and oxygen saturations were monitored continuously. The Endoscope was introduced through the mouth, and advanced to the second part of duodenum. The upper GI endoscopy was accomplished without difficulty. The patient tolerated the procedure well. Scope In: 6:47:26 AM Scope Out: 6:49:14 AM Total Procedure Duration Time 0 hours 1 minute 48 seconds Findings: Small (< 5 mm) varices were found in the lower third of the esophagus. They were 3 mm in largest diameter. A large amount of food (residue) was found in the gastric body and in the gastric antrum. Food (residue) was found in the duodenal bulb. Patchy moderate inflammation characterized by erosions and erythema was found on the lesser curvature of the stomach. Biopsies were taken with a cold forceps for histology. Verification of patient identification for the specimen was done. Estimated blood loss was minimal. Impression: - Small (< 5 mm) esophageal varices. - A large amount of food (residue) in the stomach. - Retained food in the duodenum. - No specimens collected. Recommendation: - Discharge patient to home. - Resume previous diet. - Continue present medications. - Await pathology results. Procedure Code(s): --- Professional --- 29560, Esophagogastroduodenoscopy, flexible, transoral; with biopsy, single or multiple CPT copyright 2021 [employer]. All rights reserved. The codes documented in this report are preliminary and upon talent manager review may be revised to meet current compliance requirements. Morris Henderson DO 12/10/2022 6:55:54 AM This report has been signed electronically. Number of Addenda: 0 Note Initiated On: 12/10/2022 6:19 AM
--- NOTE | 2022-12-10 06:57 | OP.CCLET_ITS ---
12/10/2022 Candace Olivia [facility] Re : Upper GI endoscopy procedure for Sheyla Wiseman [facility] This procedure was performed on Saturday, December 10, 2022. My impressions and recommendations are as follows: Impressions : - Small (< 5 mm) esophageal varices. - A large amount of food (residue) in the stomach. - Retained food in the duodenum. - No specimens collected. Recommendations : - Discharge patient to home. - Resume previous diet. - Continue present medications. - Await pathology results. My findings are described in the full procedure note, which is enclosed. If I can be of further assistance, please feel free to contact me at . Sincerely, Morris Henderson, 12/10/2022 6:55:54 AM This report has been signed electronically.
== END 2022-12-10 08:45 | disposition home or self-care (01) ==
LOC: EN 05:16 → AC 05:17
PROVIDERS: Referring Provider Internal Medicine Gastroenterology; Visit Provider Internal Medicine Gastroenterology
PROC: 0DJ08ZZ Inspection of Upper Intestinal Tract, Via Natural or Artificial Opening Endoscopic (ICD-10-PCS; CPT 43235; principal; 2022-12-10 06:25)
DX: K70.31 Alcoholic cirrhosis of liver with ascites (principal); I85.10 Secondary esophageal varices without bleeding; J44.9 Chronic obstructive pulmonary disease, unspecified; F10.21 Alcohol dependence, in remission; E11.22 Type 2 diabetes mellitus with diabetic chronic kidney disease; E11.42 Type 2 diabetes mellitus with diabetic polyneuropathy; D69.6 Thrombocytopenia, unspecified; Z79.4 Long term (current) use of insulin; K29.70 Gastritis, unspecified, without bleeding; I12.9 Hypertensive chronic kidney disease with stage 1 through stage 4 chronic kidney disease, or unspecified chronic kidney disease; N18.9 Chronic kidney disease, unspecified; D63.1 Anemia in chronic kidney disease; Y90.9 Presence of alcohol in blood, level not specified; E78.5 Hyperlipidemia, unspecified; E66.9 Obesity, unspecified; F17.210 Nicotine dependence, cigarettes, uncomplicated; Z68.33 Body mass index [BMI] 33.0-33.9, adult; Z90.49 Acquired absence of other specified parts of digestive tract; Z79.899 Other long term (current) drug therapy; Z86.16 Personal history of COVID-19
CPT/HCPCS: 43239; 82962; 88305; 88342; J7120; J2405

== ENCOUNTER → 2023-01-16 | Outpatient (CLI) | payer MEDICARE, SELFPAY ==
--- NOTE | 2023-01-16 12:54 | CT_ITS ---
EXAM: CT CHEST, LUNG CANCER SCREENING WITHOUT INTRAVENOUS CONTRAST CLINICAL INDICATION: smoking and gt;20 pack years TECHNIQUE: Helically acquired images were obtained of the chest without intravenous contrast using low dose (LDCT) lung cancer screening protocol. This CT exam was performed using one or more of the following dose reduction techniques: automated exposure control, adjustment of the mA and/or kV according to patient size, and/or use of iterative reconstruction technique. COMPARISON: CT Lung Cancer Screening dated 01/08/2022 FINDINGS: LUNGS AND PLEURAL SPACES: The peripheral interstitial thickening of both lungs again noted without significant interval change. No evidence of a lung mass or nodule. No pleural effusion or thickening. No pneumothorax. HEART: Heart is normal size. Prominent coronary artery calcification. No pericardial effusion. MEDIASTINUM: Stable small reactive mediastinal lymph nodes. Esophagus is unremarkable. No hiatal hernia. THYROID: Normal. No thyroid nodules or calcification. BONES/JOINTS: No suspicious lytic or blastic abnormality. VASCULATURE: See above. LYMPH NODES: Normal. No enlarged lymph nodes. CT/Low Dose CT Lung Screening IMPRESSION: 1. No evidence of a lung mass or pulmonary nodule. 2. Stable interstitial fibrosis. Lung-RADS score: 1S - Negative. Additional clinically significant or potentially clinically significant findings are described. Recommend continued annual screening with a low-dose CT (LDCT) in 12 months. Electronically Signed: Jozef Knox MD at 16:21 EDT ,
[2023-01-16 13:19] LABS: Bacteria 0 SEEN /hpf (None Seen); Mucous, Urine 0 SEEN /hpf (<or=2+); Red Blood Cells-Urine 0 SEEN /hpf (0-5); Squamous Epithelial Cells - UA 0 SEEN /hpf (5-10)
[2023-01-16 13:49] LABS: Color, Urine Yellow (Yellow); Glucose, Dipstick 1000 mg/dl (Normal); Ketone-Dipstick Negative (Negative); Leukocyte Esterase-Dipstick 500 /ul (Negative); Nitrite-Dipstick Negative (Negative); Occult Blood-Urine 150 /ul (Negative); Protein-Dipstick 100 mg/dl (Negative); Specific Gravity, Urine 1.015 (1.002-1.030); Urine Bilirubin Dipstick Negative (Negative); Urine Clarity Cloudy (Clear); Urine Urobilinogen Normal (Normal)
[2023-01-16 13:50] LABS: Absolute Lymphocyte Count 1.09 X10^3/uL (0.83-4.51); Absolute Neutrophil Count 3.8 X10^3/uL (2.0-7.7); Basophil# 0.02 X10^3/uL; Basophil% 0.4 % (0-1); Eosinophil# 0.09 X10^3/uL; Eosinophils% 1.7 % (0-5); Hematocrit 33.5 % (37-47); Hemoglobin 10.9 g/dL (12.0-15.0); Lymphocyte # 1.09 X10^3/ul (0.83-4.51); Lymphocyte % 20.1 % (19-41); Mean Corp Hgb Conc 32.5 g/dL (32-36); Mean Corpuscular Volume 101.5 fL (81-99); Mean Platelet Vol. 12.6 fl (6.2-12.0); Monocyte# 0.43 X10^3/uL; Monocyte% 7.9 % (0-10); NRBC Flagged by Analyzer 0 % (0-5); Neutrophil # 3.76 X10^3/uL (2.7-7.7); Neutrophil % 69.5 % (47-70); POSITIVE COUNT YES; Platelet Count 59 K/mm3 (150-450); RBC Distribution Width CV 13.8 % (11.6-14.6); White Blood Count 5.4 K/mm3 (4.4-11.0)
[2023-01-16 14:04] LABS: Erythrocyte Sedimentation Rate 13 mm/hr (0-30)
[2023-01-16 14:16] LABS: White Blood Cells >100 SEEN /hpf (0-5)
[2023-01-16 14:37] LABS: ALB/GLOB Ratio 0.7 RATIO (0.9-2.4); AST(SGOT) 26 U/L (15-37); Alanine Aminotransfer ALT/SGPT 30 U/L (13-56); Albumin, Serum 3.2 g/dL (3.2-5.0); Alkaline Phosphatase 67 U/L (45-117); Anion Gap 5 (5-15); BUN 20 mg/dL (7-18); BUN/Creat Ratio 13.6 RATIO (10-20); CRP 3.44 mg/L (0.0-3.0); Calcium,Total 8.7 mg/dL (8.5-10.1); Chloride 109 mmol/L (98-107); Creatinine, Serum 1.47 mg/dL (0.55-1.02); EST Glomerular Filtration Rate 38 mL/min (>60); Est Glom Filt Rate - Afr Amer 46 mL/min (>60); Globulin 4.4 g/dL (2.2-4.2); Glucose 341 mg/dL (74-106); Potassium 4.2 mmol/L (3.5-5.1); Protein, Total 7.6 g/dL (6.4-8.2); Sodium Level 138 mmol/L (136-145)
[2023-01-18 05:07] LABS: AFP, Tumor Marker 1.9 ng/mL (0.0-9.2)
== END | disposition home or self-care (01) ==
PROVIDERS: Internal Medicine Gastroenterology; Referring Provider Nurse Practitioner Acute Care; Visit Provider Nurse Practitioner Acute Care
DX: F17.210 Nicotine dependence, cigarettes, uncomplicated (principal); K74.60 Unspecified cirrhosis of liver; D69.6 Thrombocytopenia, unspecified; E66.9 Obesity, unspecified
CPT/HCPCS: 36415; 71271; 80053; 81001; 82105; 85025; 85652; 86140

== ENCOUNTER → 2023-06-10 | Outpatient (CLI) | payer MEDICARE, SELFPAY ==
--- NOTE | 2023-06-10 11:35 | RAD_ITS ---
EXAM: XR CHEST, 2 VIEWS CLINICAL INDICATION: COPD TECHNIQUE: Frontal and lateral views of the chest. COMPARISON: XR Chest dated 09/28/2022 FINDINGS: LUNGS AND PLEURAL SPACES: Stable interstitial thickening of the lungs. No pulmonary consolidation. HEART: Normal heart size. MEDIASTINUM: No mediastinal or hilar mass. BONES/JOINTS: No acute abnormality. RAD/Chest PA and Lateral IMPRESSION: Stable interstitial lung disease. Electronically Signed: Jozef Knox MD at 9:32 EDT ,
[2023-06-10 12:34] LABS: Absolute Lymphocyte Count 1.71 X10^3/uL (0.83-4.51); Absolute Neutrophil Count 2.5 X10^3/uL (2.0-7.7); Basophil# 0.02 X10^3/uL; Basophil% 0.4 % (0-1); Eosinophil# 0.05 X10^3/uL; Eosinophils% 1.1 % (0-5); Hematocrit 33.6 % (37-47); Hemoglobin 11.2 g/dL (12.0-15.0); Lymphocyte # 1.71 X10^3/ul (0.83-4.51); Lymphocyte % 36.6 % (19-41); Mean Corp Hgb Conc 33.3 g/dL (32-36); Mean Corpuscular Hgb 31.8 pg (27.0-32.0); Mean Corpuscular Volume 95.5 fL (81-99); Mean Platelet Vol. 13.3 fl (6.2-12.0); Monocyte# 0.29 X10^3/uL; Monocyte% 6.2 % (0-10); NRBC Flagged by Analyzer 0 % (0-5); Neutrophil # 2.54 X10^3/uL (2.7-7.7); Neutrophil % 54.4 % (47-70); POSITIVE COUNT YES; Platelet Count 53 K/mm3 (150-450); RBC Distribution Width SD 51.4 fl (35.1-43.9); Red Blood Count 3.52 M/mm3 (4.2-5.4); White Blood Count 4.7 K/mm3 (4.4-11.0)
[2023-06-10 13:19] LABS: Anion Gap 8 (5-15); BUN 19 mg/dL (7-18); BUN/Creat Ratio 14.2 RATIO (10-20); Calcium,Total 9.3 mg/dL (8.5-10.1); Chloride 104 mmol/L (98-107); Creatinine, Serum 1.34 mg/dL (0.55-1.02); EST Glomerular Filtration Rate 42 mL/min (>60); Est Glom Filt Rate - Afr Amer 51 mL/min (>60); Glucose 248 mg/dL (74-106); Potassium 4.1 mmol/L (3.5-5.1); Sodium Level 138 mmol/L (136-145)
== END | disposition home or self-care (01) ==
DX: J44.1 Chronic obstructive pulmonary disease with (acute) exacerbation (principal)
CPT/HCPCS: 36415; 71046; 80048; 85025

== ENCOUNTER → 2023-07-31 | Outpatient (CLI) | payer MEDICARE, SELFPAY ==
--- NOTE | 2023-07-31 09:21 | US_ITS ---
STUDY: ABDOMINAL ULTRASOUND - RIGHT UPPER QUADRANT; ELASTOGRAPHY REASON FOR VISIT: Female, 68 years old. Cirrhosis. TECHNIQUE: Ultrasound evaluation of the right upper quadrant was performed with real-time and static isaacs-scale imaging. Point quantification shear wave elastography was performed (shopp). TECHNICAL QUALITY: Adequate. COMPARISON: Comparison is made with prior study dated June 07, 2022. FINDINGS: Liver: The liver measures 14.1 cm. There is a heterogeneous echogenicity of the liver. The bile ducts are within normal limits. There is hepatic color flow. The direction of portal flow is hepatopetal. There is a geographic area of increased echotexture along the posterior aspect of the right lobe of the liver measuring 4.6 cm x 6.7 cm x 4 cm. Correlation with a CT scan is recommended. Median liver stiffness measured 7.8 kPa. Gallbladder: The patient is status post cholecystectomy. Common Bile Duct (C.B.D.): The common bile duct measures 3.4 mm. Pancreas: There is increased echogenicity of the pancreas. There is no demonstrated pancreatic mass or cyst. Right Kidney: Normal size of the right kidney. The right kidney measures 9 cm x 5.1 cm x 4 cm. Normal renal cortex. The right cortex measures 1 cm. There is no demonstrated renal mass or cyst. There is no right hydronephrosis. IMPRESSION: 1. Liver stiffness measures 7.8 kPa compatible with F2-F3 (Mild to moderate liver fibrosis) Metavir score. 2. Geographic area of increased echotexture along the posterior aspect of the right lobe of the liver measuring 4.6 cm x 6.7 cm x 4 cm. Correlation [address] a CT scan is recommended for further evaluation. Electronically Signed: Tomer Vegas MD at 14:45 EDT , STUDY: ABDOMINAL ULTRASOUND - LEFT UPPER QUADRANT REASON FOR EXAM: Female, 68 years old. CIRRHOSIS. r/o MASS AND ASCITES -- INCLUDING SPLEEN TECHNIQUE: Transabdominal ultrasound was performed with real-time and static isaacs scale imaging. TECHNICAL QUALITY: Adequate. COMPARISON: None. FINDINGS: Spleen: There is splenomegaly. The spleen measures 16.7 cm x 5.7 cm x 7.7 cm. US/ABD Limited w/ Elastography IMPRESSION: Splenomegaly. Electronically Signed: Tomer Vegas MD at 14:45 EDT ,
[2023-07-31 11:07] LABS: International Normalized Ratio 1.3; Prothrombin Time (Protime)PT. 15.8 SECONDS (11.7-14.9)
[2023-07-31 11:15] LABS: Absolute Lymphocyte Count 0.92 X10^3/uL (0.83-4.51); Absolute Neutrophil Count 2.6 X10^3/uL (2.0-7.7); Basophil# 0.01 X10^3/uL; Basophil% 0.3 % (0-1); Eosinophil# 0.05 X10^3/uL; Eosinophils% 1.3 % (0-5); Hematocrit 32.9 % (37-47); Hemoglobin 10.6 g/dL (12.0-15.0); Lymphocyte # 0.92 X10^3/ul (0.83-4.51); Lymphocyte % 23.9 % (19-41); Mean Corp Hgb Conc 32.2 g/dL (32-36); Mean Corpuscular Volume 102.5 fL (81-99); Monocyte# 0.24 X10^3/uL; Monocyte% 6.2 % (0-10); NRBC Flagged by Analyzer 0 % (0-5); Neutrophil # 2.62 X10^3/uL (2.7-7.7); POSITIVE COUNT YES; Platelet Count 48 K/mm3 (150-450); RBC Distribution Width CV 14.2 % (11.6-14.6); RBC Distribution Width SD 53.2 fl (35.1-43.9); Red Blood Count 3.21 M/mm3 (4.2-5.4); White Blood Count 3.9 K/mm3 (4.4-11.0)
[2023-07-31 11:33] LABS: ALB/GLOB Ratio 0.9 RATIO (0.9-2.4); AST(SGOT) 17 U/L (15-37); Alanine Aminotransfer ALT/SGPT 22 U/L (13-56); Albumin, Serum 3.4 g/dL (3.2-5.0); Alkaline Phosphatase 53 U/L (45-117); Anion Gap 4 (5-15); BUN 20 mg/dL (7-18); BUN/Creat Ratio 14.1 RATIO (10-20); CRP < 2.90 mg/L (0.0-3.0); Calcium,Total 8.9 mg/dL (8.5-10.1); Chloride 108 mmol/L (98-107); Cholesterol 98 mg/dL (200); Creatinine, Serum 1.42 mg/dL (0.55-1.02); EST Glomerular Filtration Rate 39 mL/min (>60); Est Glom Filt Rate - Afr Amer 48 mL/min (>60); Globulin 3.9 g/dL (2.2-4.2); Glucose 267 mg/dL (74-106); High Density Lipoprotein 53 mg/dL; Potassium 4.6 mmol/L (3.5-5.1); Protein, Total 7.3 g/dL (6.4-8.2); Sodium Level 137 mmol/L (136-145); Triglycerides 49 mg/dL; Very Low Density Lipoprotein 10 mg/dL (5-40)
[2023-07-31 11:40] LABS: Hemoglobin A1c 5.4 % (3.8-5.6)
[2023-08-01 01:57] LABS: Pathologist Review May foll
[2023-08-07 18:07] LABS: AFP, Tumor Marker 2.3 ng/mL (0.0-9.2); Albumin 3.6 g/dL (2.9-4.4); Alpha-1-Globulins 0.2 g/dL (0.0-0.4); Alpha-2-Globulins 0.6 g/dL (0.4-1.0); Free Kappa Light Chains 90.8 mg/L (3.3-19.4); Free Lambda Light Chains 54.6 mg/L (5.7-26.3); Gamma Globulin 1.4 g/dL (0.4-1.8); Immunoglobulin A 422 mg/dL (87-352); Immunoglobulin E 6 IU/mL (6-495); Immunoglobulin G 1506 mg/dL (586-1602); Immunoglobulin M 33 mg/dL (26-217); PROEL- TOTAL PROTEIN 6.8 g/dL (6.0-8.5)
== END | disposition home or self-care (01) ==
PROVIDERS: Referring Provider Internal Medicine; Visit Provider Internal Medicine
DX: K74.60 Unspecified cirrhosis of liver (principal); E11.9 Type 2 diabetes mellitus without complications; E66.9 Obesity, unspecified
CPT/HCPCS: 36415; 76705; 76981; 80053; 80061; 82105; 82784; 82785; 83036; 83883; 84165; 85025; 85610; 86140; 86334

== ENCOUNTER → 2023-08-22 | Outpatient (CLI) | payer MEDICARE, SELFPAY ==
[2023-08-22 14:34] LABS: Anion Gap 6 (5-15); BUN 14 mg/dL (7-18); Calcium,Total 9.2 mg/dL (8.5-10.1); Chloride 104 mmol/L (98-107); Creatinine, Serum 1.56 mg/dL (0.55-1.02); EST Glomerular Filtration Rate 35 mL/min (>60); Est Glom Filt Rate - Afr Amer 43 mL/min (>60); Glucose 98 mg/dL (74-106); Magnesium 2.2 mg/dL (1.6-2.6); Potassium 4.2 mmol/L (3.5-5.1); Sodium Level 138 mmol/L (136-145)
== END | disposition home or self-care (01) ==
LOC: LAB 13:28
PROVIDERS: PCP Nurse Practitioner Family; Referring Provider Nurse Practitioner Family; Visit Provider Nurse Practitioner Family
DX: N18.30 Chronic kidney disease, stage 3 unspecified (principal)
CPT/HCPCS: 36415; 80048; 83735

== ENCOUNTER → 2023-11-15 | Outpatient (CLI) | payer MEDICARE, SELFPAY ==
--- NOTE | 2023-11-15 13:44 | MRI_ITS ---
EXAM: MR ABDOMEN WITHOUT AND WITH INTRAVENOUS CONTRAST CLINICAL INDICATION: cirrhosis, R/O HCC -- NAFLD. Ultrasound shows 6.7 cm echo IN RIGH LOBE TECHNIQUE: Multiplanar and multisequence MR images of the abdomen without and with intravenous contrast. CONTRAST: IV 14 CC CLARISCAN COMPARISON: Liver ultrasound 07/31/2023 FINDINGS: LOWER THORAX: Normal. No pleural effusion. LIVER: Liver measures 17.4 cm in cephalocaudad dimension. The left caudate lobes of liver enlarged and there is nodular contour related to underlying liver cirrhosis. No evidence of a liver mass. GALLBLADDER AND BILE DUCTS: Cholecystectomy noted. No intra- or extrahepatic biliary ductal dilation. PANCREAS: Normal. No focal cystic or solid mass. SPLEEN: Images spleen is enlarged measuring 16.8 x 8.8 x 14.5 cm. ADRENALS: Normal. No nodules. KIDNEYS AND URETERS: Normal. Normal renal size and position. No hydronephrosis. INTRAPERITONEAL SPACE: Normal. No ascites or other fluid collection. No free air. VASCULATURE: Normal. Abdominal aorta is non-dilated. LYMPH NODES: No enlarged lymph nodes. MRI/MRI Abd WITH and W/O Contrast IMPRESSION: Liver cirrhosis and portal hypertension. No evidence of a liver mass. Electronically Signed: Jozef Knox MD at 13:14 EDT ,
[2023-11-15 14:56] LABS: Mucous, Urine 0 SEEN /hpf (<or=2+); Red Blood Cells-Urine 0 SEEN /hpf (0-5)
[2023-11-15 15:18] LABS: CREATININE FINGERSTICK < 1.0 mg/dL (0.55-1.02); EGFR FINGERSTICK > 60.0000 mL/min (>60)
[2023-11-15 16:14] LABS: International Normalized Ratio 1.3; Prothrombin Time (Protime)PT. 16.1 SECONDS (11.7-14.9)
[2023-11-15 16:25] LABS: Absolute Lymphocyte Count 1.09 X10^3/uL (0.83-4.51); Absolute Neutrophil Count 3.6 X10^3/uL (2.0-7.7); Basophil# 0.03 X10^3/uL; Basophil% 0.6 % (0-1); Eosinophil# 0.08 X10^3/uL; Eosinophils% 1.5 % (0-5); Hematocrit 36.2 % (37-47); Hemoglobin 11.6 g/dL (12.0-15.0); Lymphocyte # 1.09 X10^3/ul (0.83-4.51); Lymphocyte % 20.5 % (19-41); Mean Corpuscular Hgb 32.2 pg (27.0-32.0); Mean Corpuscular Volume 100.6 fL (81-99); Monocyte# 0.55 X10^3/uL; Monocyte% 10.4 % (0-10); NRBC Flagged by Analyzer 0 % (0-5); Neutrophil # 3.55 X10^3/uL (2.7-7.7); Neutrophil % 66.8 % (47-70); POSITIVE COUNT YES; Platelet Count 63 K/mm3 (150-450); RBC Distribution Width CV 13.3 % (11.6-14.6); RBC Distribution Width SD 49.1 fl (35.1-43.9); White Blood Count 5.3 K/mm3 (4.4-11.0)
[2023-11-15 16:28] LABS: PTHIN 92.5 pg/mL (18.4-80.1)
[2023-11-15 16:34] LABS: Vitamin B12 1451 pg/mL (211-911); Vitamin D,25 Hydroxy 75.7 ng/mL
[2023-11-15 16:41] LABS: ALB/GLOB Ratio 0.9 RATIO (0.9-2.4); AST(SGOT) 27 U/L (15-37); Alanine Aminotransfer ALT/SGPT 27 U/L (13-56); Albumin, Serum 3.8 g/dL (3.2-5.0); Alkaline Phosphatase 68 U/L (45-117); Anion Gap 6 (5-15); BUN 26 mg/dL (7-18); BUN/Creat Ratio 17.1 RATIO (10-20); Calcium,Total 9.6 mg/dL (8.5-10.1); Chloride 103 mmol/L (98-107); Creatinine, Serum 1.52 mg/dL (0.55-1.02); EST Glomerular Filtration Rate 36 mL/min (>60); Est Glom Filt Rate - Afr Amer 44 mL/min (>60); Globulin 4.4 g/dL (2.2-4.2); Glucose 71 mg/dL (74-106); Magnesium 2.2 mg/dL (1.6-2.6); Phosphorus 2.5 mg/dL (2.5-4.9); Potassium 4.1 mmol/L (3.5-5.1); Protein, Total 8.2 g/dL (6.4-8.2); Sodium Level 139 mmol/L (136-145); T4 Free Direct 1.22 ng/dL (0.76-1.46)
[2023-11-15 16:49] LABS: Color, Urine Yellow (Yellow); Glucose, Dipstick Normal (Normal); Ketone-Dipstick Negative (Negative); Leukocyte Esterase-Dipstick 100 /ul (Negative); Nitrite-Dipstick Positive (Negative); Occult Blood-Urine Negative /ul (Negative); Protein-Dipstick 15 mg/dl (Negative); Urine Bilirubin Dipstick Negative (Negative); Urine Clarity Cloudy (Clear); Urine Urobilinogen 1 mg/dl (Normal)
[2023-11-15 17:07] LABS: Protein, Urine (Random) 9.8 mg/dL (<11.9); Protein:Creat Ratio 165 mg/g CRE (0-200)
[2023-11-15 17:10] LABS: Bacteria 3+ /hpf (None Seen); White Blood Cells >100 SEEN /hpf (0-5)
[2023-11-15 17:11] LABS: Squamous Epithelial Cells - UA 10-25 SEEN /hpf (5-10)
== END | disposition home or self-care (01) ==
PROVIDERS: Referring Provider Internal Medicine; Visit Provider Internal Medicine
DX: Z01.812 Encounter for preprocedural laboratory examination (principal); K74.60 Unspecified cirrhosis of liver; N18.31 Chronic kidney disease, stage 3a; R18.8 Other ascites
CPT/HCPCS: 74183; 80053; 81001; 82306; 82570; 82607; 82746; 83735; 83970; 84100; 84156; 84439; 84443; 85025; 85610; A9575; A4216

== ENCOUNTER → 2023-12-11 | Outpatient (CLI) | payer MEDICARE, SELFPAY ==
[2023-12-11 14:17] LABS: Color, Urine Yellow (Yellow); Glucose, Dipstick 50 mg/dl (Normal); Ketone-Dipstick Negative (Negative); Leukocyte Esterase-Dipstick 100 /ul (Negative); Nitrite-Dipstick Negative (Negative); Occult Blood-Urine Negative /ul (Negative); Protein-Dipstick 15 mg/dl (Negative); Specific Gravity, Urine 1.015 (1.002-1.030); Urine Bilirubin Dipstick Negative (Negative); Urine Clarity Sl. Cloudy (Clear); Urine Urobilinogen Normal (Normal)
[2023-12-11 14:18] LABS: Absolute Lymphocyte Count 1.23 X10^3/uL (0.83-4.51); Absolute Neutrophil Count 2.8 X10^3/uL (2.0-7.7); Basophil# 0.02 X10^3/uL; Basophil% 0.4 % (0-1); Eosinophil# 0.08 X10^3/uL; Eosinophils% 1.8 % (0-5); Hematocrit 35.1 % (37-47); Hemoglobin 11.4 g/dL (12.0-15.0); Lymphocyte # 1.23 X10^3/ul (0.83-4.51); Lymphocyte % 27.2 % (19-41); Mean Corp Hgb Conc 32.5 g/dL (32-36); Mean Corpuscular Hgb 31.8 pg (27.0-32.0); Mean Corpuscular Volume 97.8 fL (81-99); Mean Platelet Vol. 12.6 fl (6.2-12.0); Monocyte# 0.39 X10^3/uL; Monocyte% 8.6 % (0-10); NRBC Flagged by Analyzer 0 % (0-5); Neutrophil # 2.78 X10^3/uL (2.7-7.7); Neutrophil % 61.6 % (47-70); POSITIVE COUNT YES; Platelet Count 56 K/mm3 (150-450); RBC Distribution Width CV 13.8 % (11.6-14.6); RBC Distribution Width SD 48.9 fl (35.1-43.9); Red Blood Count 3.59 M/mm3 (4.2-5.4); White Blood Count 4.5 K/mm3 (4.4-11.0)
[2023-12-11 14:25] LABS: Ionized Calcium 4.79 mg/dL (4.36-5.20)
[2023-12-11 14:39] LABS: Microalbumin,Random Urine 9.5 mg/L (NO RANGE EST.)
[2023-12-11 14:52] LABS: ALB/GLOB Ratio 0.8 RATIO (0.9-2.4); AST(SGOT) 21 U/L (15-37); Alanine Aminotransfer ALT/SGPT 27 U/L (13-56); Albumin, Serum 3.4 g/dL (3.2-5.0); Alkaline Phosphatase 67 U/L (45-117); Anion Gap 6 (5-15); BUN 19 mg/dL (7-18); BUN/Creat Ratio 14.7 RATIO (10-20); Calcium,Total 9.2 mg/dL (8.5-10.1); Chloride 108 mmol/L (98-107); Creatinine, Serum 1.29 mg/dL (0.55-1.02); EST Glomerular Filtration Rate 44 mL/min (>60); Est Glom Filt Rate - Afr Amer 53 mL/min (>60); Free T3 2.3 pg/mL (2.18-3.98); Globulin 4.1 g/dL (2.2-4.2); Glucose 84 mg/dL (74-106); Magnesium 1.9 mg/dL (1.6-2.6); Potassium 3.7 mmol/L (3.5-5.1); Protein, Total 7.5 g/dL (6.4-8.2); Sodium Level 138 mmol/L (136-145); T4 Free Direct 0.99 ng/dL (0.76-1.46)
[2023-12-11 14:53] LABS: Hemoglobin A1c 6.3 % (3.8-5.6)
[2023-12-11 14:54] LABS: Ionized Calcium Order ORDER TUBE
[2023-12-11 15:06] LABS: PTHIN 94.2 pg/mL (18.4-80.1)
[2023-12-11 15:09] LABS: Vitamin D,25 Hydroxy 65.2 ng/mL
[2023-12-16 17:07] LABS: Creatine Kinase BB 0 % (0); Creatine Kinase MB 0 % (0-3); Creatine Kinase MM 100 % (97-100); Creatine Kinase,Total,Serum 62 U/L (32-182); Macro I 0 % (Not Observed); Macro II 0 % (Not Observed)
== END | disposition home or self-care (01) ==
LOC: VSLAB 13:54
PROVIDERS: PCP Nurse Practitioner Family; Visit Provider Nurse Practitioner Family
DX: R25.2 Cramp and spasm (principal); E11.65 Type 2 diabetes mellitus with hyperglycemia; E21.3 Hyperparathyroidism, unspecified; R32 Unspecified urinary incontinence
CPT/HCPCS: 36415; 80053; 81002; 82043; 82306; 82330; 82550; 82552; 83036; 83735; 83970; 84439; 84443; 84481; 85025; 87086; 87088

== ENCOUNTER → 2024-01-28 | Outpatient (CLI) | payer MEDICARE, SELFPAY ==
--- NOTE | 2024-01-28 14:43 | CT_ITS ---
EXAM: CT CHEST, LUNG CANCER SCREENING WITHOUT INTRAVENOUS CONTRAST CLINICAL INDICATION: smoker at least 40 pack year history. TECHNIQUE: Helically acquired images were obtained of the chest without intravenous contrast using low dose (LDCT) lung cancer screening protocol. This CT exam was performed using one or more of the following dose reduction techniques: automated exposure control, adjustment of the mA and/or kV according to patient size, and/or use of iterative reconstruction technique. COMPARISON: 01/03/2021, 01/08/2022, 01/16/2023. FINDINGS: LUNGS AND PLEURAL SPACES: Peripheral interstitial thickening in both lungs is similar to the prior examination. Mild additional interstitial thickening and peribronchial thickening is present similar to the prior examination. No dense consolidative pulmonary opacity. Unchanged left upper lobe pulmonary nodule, perifissural measuring 3 mm. (Series 2, image 101). Unchanged 5 mm right lower lobe perifissural pulmonary nodule (series 2, image 97). No pleural effusion or thickening. No pneumothorax. HEART: No significant abnormality. Heart size is normal. No pericardial effusion. No significant coronary artery calcifications. MEDIASTINUM: No significant abnormality. No mediastinal or hilar adenopathy. Esophagus is unremarkable. No hiatal hernia. THYROID: No significant abnormality. No thyroid lesions. BONES/JOINTS: No significant abnormality. No suspicious lytic or blastic abnormality. VASCULATURE: No significant abnormality. Thoracic aorta is non-dilated. LYMPH NODES: No significant abnormality. No enlarged lymph nodes. CT/Low Dose CT Lung Screening IMPRESSION: ACR Lung CT Screening Reporting And Data System (Lung-RADS) score: 2S - Benign Appearance or Behavior. Additional clinically significant or potentially clinically significant findings are described. Recommend continued annual screening with a low-dose CT (LDCT) in 12 months. Unchanged interstitial fibrosis. Electronically Signed: Moshe Ellsworth DO at 23:23 EDT ,
== END | disposition home or self-care (01) ==
LOC: CT 14:41
PROVIDERS: PCP Nurse Practitioner Family; Referring Provider Nurse Practitioner Acute Care; Visit Provider Nurse Practitioner Acute Care
DX: F17.210 Nicotine dependence, cigarettes, uncomplicated (principal)
CPT/HCPCS: 71271

== ENCOUNTER → 2024-02-12 | Outpatient (CLI) | payer MEDICARE, SELFPAY ==
[2024-02-12 13:08] LABS: Absolute Lymphocyte Count 1.29 X10^3/uL (0.83-4.51); Absolute Neutrophil Count 2.8 X10^3/uL (2.0-7.7); Basophil# 0.02 X10^3/uL; Basophil% 0.4 % (0-1); Eosinophil# 0.09 X10^3/uL; Hematocrit 36.9 % (37-47); Hemoglobin 12.3 g/dL (12.0-15.0); Lymphocyte # 1.29 X10^3/ul (0.83-4.51); Lymphocyte % 28.3 % (19-41); Mean Corp Hgb Conc 33.3 g/dL (32-36); Mean Corpuscular Hgb 32.4 pg (27.0-32.0); Mean Corpuscular Volume 97.1 fL (81-99); Mean Platelet Vol. 13.9 fl (6.2-12.0); Monocyte# 0.31 X10^3/uL; Monocyte% 6.8 % (0-10); NRBC Flagged by Analyzer 0 % (0-5); Neutrophil # 2.84 X10^3/uL (2.7-7.7); Neutrophil % 62.3 % (47-70); POSITIVE COUNT YES; Platelet Count 53 K/mm3 (150-450); RBC Distribution Width CV 14.3 % (11.6-14.6); RBC Distribution Width SD 50.8 fl (35.1-43.9); White Blood Count 4.6 K/mm3 (4.4-11.0)
[2024-02-12 13:15] LABS: Differential Indicated SCAN CRITERIA MET
[2024-02-12 13:39] LABS: Anion Gap 11 (5-15); BUN 26 mg/dL (7-18); BUN/Creat Ratio 13.9 RATIO (10-20); Calcium,Total 9.9 mg/dL (8.5-10.1); Chloride 98 mmol/L (98-107); Creatinine, Serum 1.87 mg/dL (0.55-1.02); EST Glomerular Filtration Rate 29 mL/min (>60); Est Glom Filt Rate - Afr Amer 35 mL/min (>60); Glucose 267 mg/dL (74-106); Potassium 3.9 mmol/L (3.5-5.1); Sodium Level 136 mmol/L (136-145)
[2024-02-12 14:16] LABS: Differential Comment SCANNED; Platelet Estimate MOD DEC (ADEQ); Red Cell Morphology NORM C+C NORMAL (NORM C&C)
== END | disposition home or self-care (01) ==
PROVIDERS: PCP Nurse Practitioner Family; Referring Provider Nurse Practitioner Family; Visit Provider Nurse Practitioner Family
DX: J44.0 Chronic obstructive pulmonary disease with (acute) lower respiratory infection (principal); J20.9 Acute bronchitis, unspecified
CPT/HCPCS: 36415; 71046; 80048; 85025

== ENCOUNTER 2024-02-14 20:45 | Emergency (ER) | payer MEDICARE, SELFPAY ==
[2024-02-14] VITALS (7 sets, daily range): BP systolic 86–114; BP diastolic 48–58; PULSE 79–92; RESP 16–20; TEMP 36.2–37.1; O2SAT 95–100; BMI 27.8
--- NOTE | 2024-02-14 21:05 | EKG12_ITS ---
Test Reason : CP Blood Pressure : */* mmHG Vent. Rate : 93 BPM Atrial Rate : 93 BPM P-R Int : 208 ms QRS Dur : 82 ms QT Int : 386 ms P-R-T Axes : 51 -3 29 degrees QTcB Int : 479 ms Normal sinus rhythm Normal ECG Confirmed by PASCUAL PAULINO, DHRUV ([id number]), medical editor AMANUEL NANCE ([id number]) on 02/18/2024 8:05:21 A M Referred By: Confirmed By: DHRUV GARNER MD
--- NOTE | 2024-02-14 21:13 | RAD_ITS ---
EXAM: XR CHEST, 2 VIEWS CLINICAL INDICATION: chest pain TECHNIQUE: Frontal and lateral views of the chest. COMPARISON: 02/12/2024 FINDINGS: LUNGS AND PLEURAL SPACES: Mild diffuse interstitial prominence with peripheral reticular opacities likely secondary to chronic interstitial lung disease, perhaps fibrotic changes. No pneumothorax. No effusion. HEART: No significant abnormality. Cardiac silhouette not enlarged. MEDIASTINUM: Central airways and mediastinal contour are unremarkable. BONES/JOINTS: Degenerative changes in the spine. No acute fracture. SOFT TISSUES: No significant abnormality. VASCULATURE: Atherosclerosis. UPPER ABDOMEN: Surgical clips in the right upper quadrant. RAD/Chest PA and Lateral IMPRESSION: Mild diffuse interstitial prominence with peripheral reticular opacities likely secondary to chronic interstitial lung disease, perhaps fibrotic changes. Electronically Signed: Moshe Ellsworth DO at 21:34 EST ,
--- NOTE | 2024-02-14 21:27 | ED.VIS.CHEST ---
HPI <KRISTI Ashton - Last Filed: 02/14/24 21:51> History of Present Illness Chief Complaint: Chest Pain Narrative Narrative: Patient presenting today due to midsternal chest pain she has had over the past 2 weeks. She denies a cardiac history. She reports that the pain is constant. She also has a history of CKD and recently had outpatient labs performed, she was told today that her kidney labs were abnormal and that she should come to the emergency department. She denies any fevers, chills, nausea, and vomiting. She has a PMH of CKD, T2DM, HLD, COPD, and tobacco use. PE Risk Factors: Negative for Recent Travel/Surgery, Recent Immobilization, Prior DVT or PE or Cancer PFSH <KRISTI Ashton - Last Filed: 02/14/24 21:51> [facility] Medical History UTI (urinary tract infection) Rash and nonspecific skin eruption Smoking greater than 40 pack years COVID Wears glasses Forgetfulness Depression Anxiety Alcohol use Marijuana use Insulin dependent diabetes mellitus Ambulates with cane Blood disorder Restless legs Back pain Injury of back Blackout Difficulty swallowing Dietary restriction On home oxygen therapy Shortness of breath on exertion Leg cramps History of pain when walking History of edema Fracture of right patella Fall from slip, trip, or stumble Contusion of multiple sites Closed displaced fracture of distal phalanx of left great toe Closed fracture of right patella Vision problem Rheumatoid arthritis IBS (irritable bowel syndrome) Glaucoma Chronic bronchitis Infectious mononucleosis Severe sepsis Home Medications ?Medication ?Instructions ?Recorded ?Last Taken ?Type lancets 33 gauge (OneTouch Delica #100 ea 06/25/19 Unknown Rx Lancets) blood-glucose meter (Integrated biometricsTouch #1 ea 06/29/19 Unknown Rx Verio Flex Meter) cholecalciferol (vitamin D3) 1,250 50,000 unit PO FORBES supplement 11/28/20 01/15/21 History mcg (50,000 unit) capsule gabapentin 600 mg tablet 600 mg PO BID neuropathy 11/28/20 01/19/21 History blood sugar diagnostic (Modera.couch #120 ea 11/29/20 Unknown Rx Verio test strips) atorvastatin 20 mg tablet 20 mg PO DAILY 06/01/21 Unknown History insulin aspart U-100 100 unit/mL See Rx Instructions subcut TID PRN 06/01/21 Unknown History (3 mL) subcutaneous pen (Novolog hypoglycemia FlexPen U-100 Insulin aspart) Disability Placard #1 ea 08/06/22 Unknown Rx lactulose 20 gram/30 mL oral 20 g (30 mL) PO .COMPLEX hepatic 08/24/22 Unknown Rx solution encephalopathy #3,000 mL spironolactone 25 mg tablet 50 mg (2 x 25 mg) PO DAILY 08/24/22 Unknown Rx diuretic #180 tabs rifaximin 550 mg tablet (Xifaxan) 550 mg PO BID 30 days #60 tabs 05/02/23 Unknown Rx budesonide 1 mg/2 mL suspension 1 mg (2 mL) inhalation BID #120 mL 08/09/23 Unknown Rx for nebulization ipratropium 0.5 mg-albuterol 3 mg 3 ml inhalation Q4H PRN PRN SOB 08/09/23 Unknown Rx (2.5 mg base)/3 mL nebulization &/OR WHEEZING #180 mL soln furosemide 20 mg tablet 20 mg PO DAILY #30 tabs 11/19/23 Unknown Rx albuterol sulfate 2.5 mg/3 mL 2.5 mg (3 mL) inhalation Q4H PRN 02/10/24 Unknown Rx (0.083 %) solution for nebulization Sob &/Or Wheezing #180 mL albuterol sulfate 90 mcg/actuation 2 puff inhalation Q4H PRN 02/10/24 Unknown Rx aerosol inhaler shortness of breath or wheezing #8.5 grams semaglutide 2 mg/dose (8 mg/3 mL) 2 mg subcut QWEEK 02/14/24 Unknown History subcutaneous pen injector (Ozempic) Allergy/AdvReac Type Severity Reaction Status Date / Time haloperidol (From Haldol) AdvReac Unknown Verified 02/14/24 20:46 haloperidol lactate (From AdvReac Unknown Verified 02/14/24 20:46 Haldol) Family History Unknown No problems noted. Other Foster child Surgical History Hx of colonoscopy H/O shoulder surgery History of cataract extraction History of cholecystectomy History of Social History adopted: Yes household members: none housing: assisted living facility Smoking Status: Current every day smoker tobacco type: cigarettes Tobacco: How many years used: 44 alcohol intake: former details: 18+years . QUITOO3 substance use type: marijuana what type of physical activity do you participate in: none do you feel safe at home: Yes ROS <KRISTI Ashton - Last Filed: 02/14/24 21:51> ROS ED Constitutional Constitutional ED: Denies chills or fever(s) Cardiovascular Cardiovascular: Reports chest pain; Denies palpitations Respiratory/Chest Respiratory/Chest: Reports dyspnea and dyspnea on exertion; Denies cough or tachypnea Gastrointestinal Gastrointestinal: Denies abdominal pain, nausea or vomiting Musculoskeletal Musculoskeletal: Denies arthralgias or myalgias Integumentary Denies rash Neurologic Neurologic: Denies weakness EXAM <KRISTI Ashton - Last Filed: 02/14/24 21:51> Physical Exam Const Vital Signs: 02/14/24 20:46 02/14/24 20:48 02/14/24 21:46 Temperature 97.5 F L 98.7 F Temperature Source Oral Temporal Pulse Rate 92 83 83 Respiratory Rate 16 20 H 18 Respiratory Effort Respiratory Pattern Blood Pressure 114/58 L 99/48 L 99/48 L Blood Pressure Mean 76 65 65 Pulse Ox 100 96 95 Oxygen Delivery Method Room Air Room Air Room Air 02/14/24 21:48 02/14/24 22:00 02/14/24 22:00 Temperature 98.5 F 97.2 F L Temperature Source Temporal Temporal Pulse Rate 84 83 82 Respiratory Rate 17 18 16 Respiratory Effort Respiratory Pattern Blood Pressure 99/48 L 99/48 L Blood Pressure Mean 65 65 Pulse Ox 96 96 97 Oxygen Delivery Method Room Air Room Air Room Air 02/14/24 22:21 02/14/24 22:21 02/14/24 23:00 Temperature Temperature Source Pulse Rate 82 Respiratory Rate 20 H Respiratory Effort Normal Normal Respiratory Pattern Normal Blood Pressure 90/50 L Blood Pressure Mean 63 Pulse Ox 95 Oxygen Delivery Method Room Air 02/14/24 23:00 02/14/24 23:54 Temperature 98 F Temperature Source Temporal Pulse Rate 80 79 Respiratory Rate 18 19 H Respiratory Effort Respiratory Pattern Blood Pressure 86/50 L 97/49 L Blood Pressure Mean 62 65 Pulse Ox 97 96 Oxygen Delivery Method Room Air Room Air Positive well nourished, well developed and no apparent distress General Appearance ED: well developed HEENT Reports normocephalic and head/scalp atraumatic Mouth ED: Yes moist mucous membranes normal Eyes PERRL and EOMs intact bilaterally Neck full ROM and supple Chest Wall inspection of chest normal Chest Narrative: Bilateral parasternal chest tenderness to palpation Resp normal respiratory effort and clear to auscultation bilaterally Cardio regular rate and regular rhythm GI soft to palpation, non-tender, non-distended and no masses Back/Spine normal ROM and normal to inspection Extremity normal to inspection and full ROM Neuro oriented x3, CN's II-XII intact bilaterally, moves all extremities, no focal motor deficits and no sensory deficits noted Sensorium / Orientation: awake and alert Psych mental status grossly normal and thought process normal Skin no rashes or lesions noted and no wounds <Dr. Pedro Carbone MD - Last Filed: 02/15/24 00:26> Physical Exam Const Vital Signs: 02/14/24 20:46 02/14/24 20:48 02/14/24 21:46 Temperature 97.5 F L 98.7 F Temperature Source Oral Temporal Pulse Rate 92 83 83 Respiratory Rate 16 20 H 18 Respiratory Effort Respiratory Pattern Blood Pressure 114/58 L 99/48 L 99/48 L Blood Pressure Mean 76 65 65 Pulse Ox 100 96 95 Oxygen Delivery Method Room Air Room Air Room Air 02/14/24 21:48 02/14/24 22:00 02/14/24 22:00 Temperature 98.5 F 97.2 F L Temperature Source Temporal Temporal Pulse Rate 84 83 82 Respiratory Rate 17 18 16 Respiratory Effort Respiratory Pattern Blood Pressure 99/48 L 99/48 L Blood Pressure Mean 65 65 Pulse Ox 96 96 97 Oxygen Delivery Method Room Air Room Air Room Air 02/14/24 22:21 02/14/24 22:21 02/14/24 23:00 Temperature Temperature Source Pulse Rate 82 Respiratory Rate 20 H Respiratory Effort Normal Normal Respiratory Pattern Normal Blood Pressure 90/50 L Blood Pressure Mean 63 Pulse Ox 95 Oxygen Delivery Method Room Air 02/14/24 23:00 02/14/24 23:54 Temperature 98 F Temperature Source Temporal Pulse Rate 80 79 Respiratory Rate 18 19 H Respiratory Effort Respiratory Pattern Blood Pressure 86/50 L 97/49 L Blood Pressure Mean 62 65 Pulse Ox 97 96 Oxygen Delivery Method Room Air Room Air [facility] <KRISTI Ashton - Last Filed: 02/14/24 21:51> [facility] Narrative Medical decision making narrative: Patient presenting today with midsternal chest pain she has had over the past 2 weeks. She does have bilateral parasternal tenderness to palpation. She has a history of CKD and recently had outpatient labs performed and was told to come into the emergency department today due to abnormal kidney function. When reviewing her labs that were performed 2 days ago, her creatinine was 1.87, increased from previous lab of 1.29, her BUN was 26. Cardiac labs will be obtained. She has a low Wells score, low suspicion for PE. Lab Data Attestation: I reviewed the patient's lab results. Labs: Laboratory Results - last 24 hr 02/14/24 02/14/24 21:00 23:34 WBC 10.8 RBC 3.51 L Hgb 11.4 L Hct 33.9 L MCV 96.6 MCH 32.5 H MCHC 33.6 RDW Std Deviation 49.7 H RDW Coeff of Nick 14.2 Plt Count 53 L MPV 13.4 H Immature Gran % (Auto) 0.600 Neut % (Auto) 87.8 H Lymph % (Auto) 7.6 L Kingman % (Auto) 3.9 Eos % (Auto) 0.0 Baso % (Auto) 0.1 Absolute Neuts (auto) 9.5 H Absolute Lymphs (auto) 0.82 L Nucleated RBC % 0 Platelet Estimate MOD DEC RBC Morphology N CHROM Anisocytosis RARE Macrocytosis RARE Sodium 135 L Potassium 4.4 Chloride 98 Carbon Dioxide 28.0 Anion Gap 9 BUN 41 H Creatinine 2.37 H Estim Creat Clear Calc 19.28 Est GFR (MDRD) Af Amer 26 L Est GFR (MDRD) Non-Af 22 L BUN/Creatinine Ratio 17.3 Glucose 244 H Calcium 9.6 Troponin I High Sens 4 6 Radiography Diagnostic Testing: Clinical Impression(s) from Imaging Studies Chest X-Ray 02/14/24 21:13 IMPRESSION: Mild diffuse interstitial prominence with peripheral reticular opacities likely secondary to chronic interstitial lung disease, perhaps fibrotic changes. Electronically Signed: Moshe Ellsworth DO at 21:34 EST , EKG Initial EKG: Comments: 93 bpm, normal sinus rhythm, no ST elevation, interpreted by attending ED physician <Dr. Pedro Carbone MD - Last Filed: 02/15/24 00:26> [facility] Narrative Medical decision making narrative: Patient presenting today with midsternal chest pain she has had over the past 2 weeks. She does have bilateral parasternal tenderness to palpation. She has a history of CKD and recently had outpatient labs performed and was told to come into the emergency department today due to abnormal kidney function. When reviewing her labs that were performed 2 days ago, her creatinine was 1.87, increased from previous lab of 1.29, her BUN was 26. Cardiac labs will be obtained. She has a low Wells score, low suspicion for PE. I have personally performed a face to face assessment of the patient and have reviewed the LINDSEY Note. I performed a substantive portion of the visit including all aspects of the following. My platt findings include: History is patient is 68-year-old woman was sent in because of abnormal labs. Patient had an increase in her creatinine. Creatinine December 10 was 1.29 with a necessary GFR 44. Creatinine February 11 was 1.87 with an estimated GFR of 29 creatinine on the was 2.37 with an estimated GFR of 22. Patient also had chest pain. Chest pain is atypical. There is no associated diaphoresis, or nausea. She does have a cough which is mildly productive. She does have a history of COPD. She is presently on Augmentin and prednisone. She denies history of PE or DVT. She denies leg pain, swelling discoloration. She denies fever, chills night sweats. She has no known history of coronary artery disease. She does have risk factors, however. Exam is remarkable for low blood pressure. She states her blood pressure normally is in the low 90s. She is essentially at baseline. HEENT exam reveals no acute abnormality. Lungs are clear to auscultation with symmetric breath sounds. Heart is regular. Rate is normal. There is no murmur, gallop or rub. Abdomen is benign. Insert lower extremity exam alert oriented x 3. Neuroexam is nonfocal. Medical Decision Making will obtain EKG with troponin and 2-hour troponin to evaluate for cardiac ischemia. Chest x-ray to evaluate for pneumonia, pneumothorax as causes of her pain as well. Her history is not consistent with PE. With regards to the renal injury she has known kidney disease. It has gotten worse. Since she does not have hyperkalemia and GFR is 22 she does not require inpatient therapy. She can follow-up with Dr. Kumari her accounting support specialist. She also has chronic anemia. Other additions or changes: [None] Lab Data Lab results narrative: CBC reveals mild anemia. Indices were normal. Basic metabolic panel reveals no BUN/creatinine of 41 and 2.37. She has had increasing creatinines over the past couple of months. Troponin is normal. 2-hour troponin is pending. Labs: Laboratory Results - last 24 hr 02/14/24 02/14/24 21:00 23:34 WBC 10.8 RBC 3.51 L Hgb 11.4 L Hct 33.9 L MCV 96.6 MCH 32.5 H MCHC 33.6 RDW Std Deviation 49.7 H RDW Coeff of Nick 14.2 Plt Count 53 L MPV 13.4 H Immature Gran % (Auto) 0.600 Neut % (Auto) 87.8 H Lymph % (Auto) 7.6 L Kingman % (Auto) 3.9 Eos % (Auto) 0.0 Baso % (Auto) 0.1 Absolute Neuts (auto) 9.5 H Absolute Lymphs (auto) 0.82 L Nucleated RBC % 0 Platelet Estimate MOD DEC RBC Morphology N CHROM Anisocytosis RARE Macrocytosis RARE Sodium 135 L Potassium 4.4 Chloride 98 Carbon Dioxide 28.0 Anion Gap 9 BUN 41 H Creatinine 2.37 H Estim Creat Clear Calc 19.28 Est GFR (MDRD) Af Amer 26 L Est GFR (MDRD) Non-Af 22 L BUN/Creatinine Ratio 17.3 Glucose 244 H Calcium 9.6 Troponin I High Sens 4 6 First troponin was 4. Repeat troponin is 6. Delta is 2. Radiography Chest X-Ray - ED: 2 View and Read by ED Physician (Independent reviewed interpreted by me. There is chronic changes. She has some fibrotic changes noted peripherally. Cardiac silhouette and size normal. Hilum is normal. Osseous structures are unremarkable.) Diagnostic Testing: Clinical Impression(s) from Imaging Studies Chest X-Ray 02/14/24 21:13 IMPRESSION: Mild diffuse interstitial prominence with peripheral reticular opacities likely secondary to chronic interstitial lung disease, perhaps fibrotic changes. Electronically Signed: Moshe Ellsworth, DO at 21:34 EST , Discharge Plan Triage Chief Complaint: Chest Pain Other Complaint: Abn Labs ED Midlevel Provider: Olivia Franklin ED Provider: Pedro Carbone Dx/Rx/DC Orders Clinical Impression: Chest pain, DM type 2 (diabetes mellitus, type 2), Cirrhosis, COPD (chronic obstructive pulmonary disease), Chronic kidney disease, stage IV (severe) Instructions: Chronic Lung Disease Avoid These, ED Chest Pain, Uncertain Cause, ED Diet for Chronic Kidney Disease Prescriptions: No Action gabapentin 600 mg tablet 600 mg PO BID cholecalciferol (vitamin D3) 1,250 mcg (50,000 unit) capsule 50,000 unit PO FORBES atorvastatin 20 mg tablet 20 mg PO DAILY insulin aspart U-100 [Novolog FlexPen U-100 Insulin] 100 unit/mL (3 mL) insulin pen See Rx Instructions SC TID PRN (Reason: hypoglycemia) Rx Instructions: subcutaneously three times a day PRN; 26 units with breakfast and lunch, 36U with supper, 10 units with snack, plus sliding scal (DME) Disability Placard See Rx Instructions .Route .MEDSUPPLY Qty: 1 0RF Rx Instructions: Expires 08/07/2027 spironolactone 25 mg tablet 50 mg PO DAILY Qty: 180 3RF lactulose 20 gram/30 mL solution 20 g PO .COMPLEX Qty: 3000 12RF Rx Instructions: 20 grams orally 2-3 times a day; goal is 2-3 BMs per day Xifaxan 550 mg tablet 550 mg PO BID 30 Days Qty: 60 3RF budesonide 1 mg/2 mL suspension for nebulization 1 mg inhalation BID Qty: 120 12RF ipratropium-albuterol 0.5 mg-3 mg(2.5 mg base)/3 mL solution for nebulization 3 ml inhalation Q4H PRN PRN (Reason: SOB &/OR WHEEZING) Qty: 180 6RF albuterol sulfate 90 mcg/actuation HFA aerosol inhaler 2 puff inhalation Q4H PRN (Reason: shortness of breath or wheezing) Qty: 8.5 6RF albuterol sulfate 2.5 mg /3 mL (0.083 %) solution for nebulization 2.5 mg inhalation Q4H PRN (Reason: Sob &/Or Wheezing) Qty: 180 3RF Ozempic 2 mg/dose (8 mg/3 mL) pen injector 2 mg subcut QWEEK Rx Instructions: on Sundays (DME) lancets [OneTouch Delica Lancets] 33 gauge misc See Rx Instructions .ROUTE .MEDSUPPLY Qty: 100 11RF Rx Instructions: 3 times daily (DME) blood-glucose meter [Integrated biometricsTouch Verio Flex meter] Misc See Rx Instructions .ROUTE .MEDSUPPLY Qty: 1 0RF Rx Instructions: As directed (DME) OneTouch Verio test strips Strip See Rx Instructions .ROUTE .MEDSUPPLY Qty: 120 8RF Rx Instructions: 4 times a day furosemide 20 mg tablet 20 mg PO DAILY Qty: 30 11RF Rx Instructions: Hold if creatinine more than 1.7 Primary Care Provider: Rhoda Jameson Referrals: Rhoda Jameson, [facility] MA[facility]GER[facility] [Primary Care Provider] - 3-5 Days Activity Restrictions/Additional Instructions: Follow-up with your kidney specialist. Your most recent creatinine is 2.37 with estimated GFR of 22. Print Language: Latvian Disposition Disposition: Home, Self Care
[2024-02-14 21:45] LABS: Absolute Lymphocyte Count 0.82 X10^3/uL (0.83-4.51); Absolute Neutrophil Count 9.5 X10^3/uL (2.0-7.7); Basophil# 0.01 X10^3/uL; Basophil% 0.1 % (0-1); Hematocrit 33.9 % (37-47); Hemoglobin 11.4 g/dL (12.0-15.0); Lymphocyte # 0.82 X10^3/ul (0.83-4.51); Lymphocyte % 7.6 % (19-41); Mean Corp Hgb Conc 33.6 g/dL (32-36); Mean Corpuscular Hgb 32.5 pg (27.0-32.0); Mean Corpuscular Volume 96.6 fL (81-99); Mean Platelet Vol. 13.4 fl (6.2-12.0); Monocyte# 0.42 X10^3/uL; Monocyte% 3.9 % (0-10); NRBC Flagged by Analyzer 0 % (0-5); Neutrophil # 9.45 X10^3/uL (2.7-7.7); Neutrophil % 87.8 % (47-70); POSITIVE COUNT YES; Platelet Count 53 K/mm3 (150-450); RBC Distribution Width CV 14.2 % (11.6-14.6); RBC Distribution Width SD 49.7 fl (35.1-43.9); Red Blood Count 3.51 M/mm3 (4.2-5.4); White Blood Count 10.8 K/mm3 (4.4-11.0)
[2024-02-14 22:06] LABS: Anion Gap 9 (5-15); BUN 41 mg/dL (7-18); BUN/Creat Ratio 17.3 RATIO (10-20); Calcium,Total 9.6 mg/dL (8.5-10.1); Chloride 98 mmol/L (98-107); Creatinine, Serum 2.37 mg/dL (0.55-1.02); EST Glomerular Filtration Rate 22 mL/min (>60); Est Glom Filt Rate - Afr Amer 26 mL/min (>60); Estimated Creatinine Clearance 19.28 ml/min; Glucose 244 mg/dL (74-106); Potassium 4.4 mmol/L (3.5-5.1); Sodium Level 135 mmol/L (136-145); Troponin-I HS (w/2H Reflex) 4 pg/mL (3.0-54.0)
[2024-02-14 22:19] LABS: Differential Indicated SCAN CRITERIA MET
[2024-02-14 22:20] LABS: Platelet Estimate MOD DEC (ADEQ)
[2024-02-14 22:21] LABS: Anisocytosis RARE; Macrocytosis RARE; Red Cell Morphology N CHROM NORMAL (NORM C&C)
[2024-02-14 23:37] LABS: Reflex Troponin-HS? (from REC) Y
[2024-02-14 23:59] LABS: Troponin-I HS 6 pg/mL (3.0-54.0)
[2024-02-15 00:28] VITALS: BP 90/49; PULSE 76; RESP 18; TEMP 36.6; O2SAT 97
== END 2024-02-15 00:34 | disposition home or self-care (01) ==
PROVIDERS: Physician Assistant; Emergency Provider Emergency Medicine; PCP Nurse Practitioner Family; Visit Provider Emergency Medicine
DX: R07.89 Other chest pain (principal); N18.4 Chronic kidney disease, stage 4 (severe); K74.60 Unspecified cirrhosis of liver; J44.9 Chronic obstructive pulmonary disease, unspecified; E11.22 Type 2 diabetes mellitus with diabetic chronic kidney disease; Z79.4 Long term (current) use of insulin; E78.5 Hyperlipidemia, unspecified; D64.9 Anemia, unspecified; F17.210 Nicotine dependence, cigarettes, uncomplicated; Z79.85 Long-term (current) use of injectable non-insulin antidiabetic drugs; Z79.899 Other long term (current) drug therapy
CPT/HCPCS: 71046; 80048; 84484; 85025; 93005; 99284; A4216

== ENCOUNTER → 2024-02-19 | Outpatient (CLI) | payer MEDICARE, SELFPAY ==
[2024-02-19 17:28] LABS: Anion Gap 8 (5-15); BUN 36 mg/dL (7-18); BUN/Creat Ratio 17.9 RATIO (10-20); Calcium,Total 9.8 mg/dL (8.5-10.1); Chloride 101 mmol/L (98-107); Creatinine, Serum 2.01 mg/dL (0.55-1.02); EST Glomerular Filtration Rate 26 mL/min (>60); Est Glom Filt Rate - Afr Amer 32 mL/min (>60); Glucose 188 mg/dL (74-106); Potassium 3.7 mmol/L (3.5-5.1); Sodium Level 138 mmol/L (136-145)
== END | disposition home or self-care (01) ==
LOC: VSLAB 15:19
PROVIDERS: PCP Nurse Practitioner Family; Visit Provider Nurse Practitioner Family
DX: N17.9 Acute kidney failure, unspecified (principal)
CPT/HCPCS: 36415; 80048

== ENCOUNTER → 2024-02-28 | Outpatient (CLI) | payer MEDICARE, SELFPAY ==
[2024-02-28 14:05] LABS: Albumin, Serum 3.8 g/dL (3.2-5.0); BUN 19 mg/dL (7-18); BUN/Creat Ratio 12.5 RATIO (10-20); Calcium,Total 9.1 mg/dL (8.5-10.1); Chloride 104 mmol/L (98-107); Creatinine, Serum 1.52 mg/dL (0.55-1.02); EST Glomerular Filtration Rate 36 mL/min (>60); Est Glom Filt Rate - Afr Amer 44 mL/min (>60); Glucose 220 mg/dL (74-106); Phosphorus 2.6 mg/dL (2.5-4.9); Potassium 4.4 mmol/L (3.5-5.1); Sodium Level 137 mmol/L (136-145)
[2024-02-28 16:11] LABS: Protein, Urine (Random) 19.8 mg/dL (<11.9); Protein:Creat Ratio 156 mg/g CRE (0-200)
== END | disposition home or self-care (01) ==
LOC: LAB.FUTURE 12:59 → LAB 13:01
PROVIDERS: PCP Nurse Practitioner Family; Referring Provider Internal Medicine Nephrology; Visit Provider Internal Medicine Nephrology
DX: N18.31 Chronic kidney disease, stage 3a (principal)
CPT/HCPCS: 36415; 80069; 82570; 84156

== ENCOUNTER → 2024-05-29 | Outpatient (CLI) | payer MEDICARE, SELFPAY ==
[2024-05-29 15:36] LABS: Albumin, Serum 4.2 g/dL (3.4-4.8); BUN 21 mg/dL (4-19); BUN/Creat Ratio 16.7 RATIO (10-20); Calcium 9.8 mg/dL (7.6-11.0); Carbon Dioxide 26.1 mmol/L (22.0-29.0); Chloride 101 mmol/L (96-108); Creatinine, Serum 1.25 mg/dL (0.70-1.20); EST Glomerular Filtration Rate 48 (>60); Glucose 177 mg/dL (70-99); Phosphorus 2.8 mg/dL (2.7-4.5); Sodium Level 137 mmol/L (133-145)
[2024-05-29 15:51] LABS: Protein, Urine (Random) 17.3 mg/dL (0.0-12.0); Protein:Creat Ratio 182 mg/g CRE (0-200)
== END | disposition home or self-care (01) ==
PROVIDERS: PCP Nurse Practitioner Family; Referring Provider Internal Medicine Nephrology; Visit Provider Internal Medicine Nephrology
DX: N18.31 Chronic kidney disease, stage 3a (principal)
CPT/HCPCS: 36415; 80069; 82570; 84156

== ENCOUNTER → 2024-07-07 | Outpatient (CLI) | payer MEDICARE, SELFPAY ==
[2024-07-07 13:01] LABS: Absolute Lymphocyte Count 1.25 X10^3/uL (0.83-4.51); Absolute Neutrophil Count 3.4 X10^3/uL (2.0-7.7); Basophil# 0.01 X10^3/uL; Basophil% 0.2 % (0-1); Eosinophil# 0.07 X10^3/uL; Eosinophils% 1.4 % (0-5); Hematocrit 37.7 % (37-47); Hemoglobin 12.7 g/dL (12.0-15.0); Lymphocyte # 1.25 X10^3/ul (0.83-4.51); Lymphocyte % 24.2 % (19-41); Mean Corp Hgb Conc 33.7 g/dL (32-36); Mean Corpuscular Hgb 32.5 pg (27.0-32.0); Mean Corpuscular Volume 96.4 fL (81-99); Mean Platelet Vol. 13.3 fl (6.2-12.0); Monocyte# 0.42 X10^3/uL; Monocyte% 8.1 % (0-10); NRBC Flagged by Analyzer 0 % (0-5); Neutrophil % 65.9 % (47-70); POSITIVE COUNT YES; Platelet Count 62 K/mm3 (150-450); RBC Distribution Width CV 13.7 % (11.6-14.6); RBC Distribution Width SD 49.1 fl (35.1-43.9); Red Blood Count 3.91 M/mm3 (4.2-5.4); White Blood Count 5.2 K/mm3 (4.4-11.0)
[2024-07-07 13:13] LABS: ALB/GLOB Ratio 1.3 RATIO (0.9-2.4); AST(SGOT) 28 U/L (<=31); Alanine Aminotransfer ALT/SGPT 23 U/L (<=34); Albumin, Serum 4.6 g/dL (3.4-4.8); Alkaline Phosphatase 63 U/L (35-104); Anion Gap 16 (5-15); BUN 27 mg/dL (4-19); BUN/Creat Ratio 17.8 RATIO (10-20); Calcium,Total 10.1 mg/dL (7.6-11.0); Carbon Dioxide 23.8 mmol/L (21.0-32.0); Chloride 99 mmol/L (98-108); Creatinine, Serum 1.53 mg/dL (0.70-1.20); EST Glomerular Filtration Rate 37 (>60); Globulin 3.5 g/dL (2.2-4.2); Glucose 125 mg/dL (70-99); Potassium 3.6 mmol/L (3.3-5.1); Sodium Level 138 mmol/L (133-145); Total Bilirubin 1.56 mg/dL (0.00-1.30)
== END | disposition home or self-care (01) ==
LOC: VSLAB 09:29
PROVIDERS: PCP Nurse Practitioner Family; Visit Provider Family Medicine
DX: L29.9 Pruritus, unspecified (principal); D69.6 Thrombocytopenia, unspecified; K76.9 Liver disease, unspecified
CPT/HCPCS: 36415; 80053; 85025

== ENCOUNTER → 2024-09-15 | Outpatient (CLI) | payer MEDICARE, SELFPAY ==
[2024-09-15 17:05] LABS: Absolute Lymphocyte Count 1.04 X10^3/uL (0.83-4.51); Absolute Neutrophil Count 3.1 X10^3/uL (2.0-7.7); Basophil# 0.02 X10^3/uL; Basophil% 0.4 % (0-1); Eosinophil# 0.06 X10^3/uL; Eosinophils% 1.3 % (0-5); Hematocrit 34.6 % (37-47); Hemoglobin 11.5 g/dL (12.0-15.0); Lymphocyte # 1.04 X10^3/ul (0.83-4.51); Mean Corp Hgb Conc 33.2 g/dL (32-36); Mean Corpuscular Hgb 31.4 pg (27.0-32.0); Mean Corpuscular Volume 94.5 fL (81-99); Mean Platelet Vol. 13.3 fl (6.2-12.0); Monocyte# 0.31 X10^3/uL; Monocyte% 6.8 % (0-10); NRBC Flagged by Analyzer 0 % (0-5); Neutrophil # 3.09 X10^3/uL (2.7-7.7); Neutrophil % 68.3 % (47-70); POSITIVE COUNT YES; Platelet Count 63 K/mm3 (150-450); RBC Distribution Width CV 13.8 % (11.6-14.6); Red Blood Count 3.66 M/mm3 (4.2-5.4); White Blood Count 4.5 K/mm3 (4.4-11.0)
[2024-09-15 17:37] LABS: ALB/GLOB Ratio 1.2 RATIO (0.9-2.4); AST(SGOT) 28 U/L (<=31); Alanine Aminotransfer ALT/SGPT 24 U/L (<=34); Albumin, Serum 4.1 g/dL (3.4-4.8); Alkaline Phosphatase 78 U/L (35-104); Anion Gap 11 (5-15); BUN 29 mg/dL (4-19); BUN/Creat Ratio 22.3 RATIO (10-20); Calcium,Total 9.4 mg/dL (7.6-11.0); Carbon Dioxide 26.4 mmol/L (21.0-32.0); Chloride 97 mmol/L (98-108); Creatinine, Serum 1.28 mg/dL (0.70-1.20); EST Glomerular Filtration Rate 46 (>60); Globulin 3.4 g/dL (2.2-4.2); Glucose 213 mg/dL (70-99); Potassium 4.5 mmol/L (3.3-5.1); Protein, Total 7.5 g/dL (5.9-8.4); Sodium Level 135 mmol/L (133-145); Total Bilirubin 1.46 mg/dL (0.00-1.30)
== END | disposition home or self-care (01) ==
LOC: VSLAB 14:55
PROVIDERS: PCP Nurse Practitioner Family; Visit Provider Nurse Practitioner Family
DX: I10 Essential (primary) hypertension (principal); E11.65 Type 2 diabetes mellitus with hyperglycemia
CPT/HCPCS: 36415; 80053; 84443; 85025

== ENCOUNTER → 2024-10-01 | Outpatient (CLI) | payer MEDICARE, SELFPAY ==
[2024-10-01 13:17] LABS: Albumin, Serum 4.2 g/dL (3.4-4.8); Anion Gap 10 (5-15); BUN 18 mg/dL (4-19); BUN/Creat Ratio 14.6 RATIO (10-20); Calcium,Total 9.9 mg/dL (7.6-11.0); Carbon Dioxide 26.4 mmol/L (21.0-32.0); Chloride 100 mmol/L (98-108); Glucose 222 mg/dL (70-99); Potassium 4.8 mmol/L (3.3-5.1)
[2024-10-01 13:29] LABS: Creatinine, Urine (random) 111.00 mg/dL (28.00-217.00); Protein, Urine (Random) 26.7 mg/dL (0.0-12.0); Protein:Creat Ratio 241 mg/g CRE (0-200)
== END | disposition home or self-care (01) ==
LOC: LAB 11:42
PROVIDERS: PCP Nurse Practitioner Family; Referring Provider Internal Medicine Nephrology; Visit Provider Internal Medicine Nephrology
DX: N18.31 Chronic kidney disease, stage 3a (principal)
CPT/HCPCS: 36415; 80069; 82570; 84156

== ENCOUNTER 2024-10-05 01:44 | Emergency (ER) | payer MEDICARE, SELFPAY ==
[2024-10-05 01:45] VITALS: BP 125/50; PULSE 99; RESP 18; TEMP 36.5; O2SAT 93; BMI 22.8
[2024-10-05 01:48] VITALS: TEMP 36.5; O2SAT 98
[2024-10-05 03:00] VITALS: BP 100/79; PULSE 94; RESP 18; O2SAT 99
[2024-10-05 04:00] VITALS: PULSE 87; RESP 18; O2SAT 98
[2024-10-05 04:45] VITALS: BP 97/59; PULSE 91; RESP 18; TEMP 36.7; O2SAT 99
== END 2024-10-05 04:45 | disposition home or self-care (01) ==
PROVIDERS: Emergency Provider Emergency Medicine; PCP Nurse Practitioner Family; Visit Provider Emergency Medicine
DX: S01.01XA Laceration without foreign body of scalp, initial encounter (principal); E11.9 Type 2 diabetes mellitus without complications; F17.210 Nicotine dependence, cigarettes, uncomplicated; S52.022A Displaced fracture of olecranon process without intraarticular extension of left ulna, initial encounter for closed fracture; S52.612A Displaced fracture of left ulna styloid process, initial encounter for closed fracture; S52.502A Unspecified fracture of the lower end of left radius, initial encounter for closed fracture; W01.0XXA Fall on same level from slipping, tripping and stumbling without subsequent striking against object, initial encounter
CPT/HCPCS: 25600; 12002; 70450; 71250; 72125; 72128; 73080; 73110; 99284

== ENCOUNTER 2024-10-07 10:19 | Day surgery (SDC) | payer MEDICARE, SELFPAY ==
[2024-10-07] VITALS (10 sets, daily range): BP systolic 82–95; BP diastolic 40–55; PULSE 84–87; RESP 16–18; TEMP 36.4–36.6; O2SAT 93–100; BMI 22.2
[2024-10-07 11:01] LABS: Hematocrit 30.4 % (37-47); Hemoglobin 10.6 g/dL (12.0-15.0); Mean Corp Hgb Conc 34.9 g/dL (32-36); Mean Corpuscular Volume 93.5 fL (81-99); Mean Platelet Vol. 13.0 fl (6.2-12.0); POSITIVE COUNT YES; Platelet Count 51 K/mm3 (150-450); RBC Distribution Width CV 14.3 % (11.6-14.6); RBC Distribution Width SD 48.8 fl (35.1-43.9); Red Blood Count 3.25 M/mm3 (4.2-5.4); White Blood Count 5.4 K/mm3 (4.4-11.0)
[2024-10-07 11:03] LABS: Scan Indicated on CBC? Y/N NO
[2024-10-07] MEDS: Lactated Ringers 1,000 ML 15 ML IV (11:13)
--- NOTE | 2024-10-07 11:26 | PRE.ANES_ITS ---
ASA Classification* ASA Classification ASA Classification: 3 Assessment & Plan Anesthesia* Anesthesia Assessment Anesthesia Assessment: Discussed sedation and/or anesthesia options, risks, benefits, and alternatives with patient/parents/legal guardian/POA. Questions invited. The patient/parents/legal guardian/POA seems to understand and agrees to proceed with anesthesia plan. Reviewed the physical assessment, medical history, allergy history and patient home medications list prior to surgery/procedure/anesthetic and documented any changes. Performed airway and anesthesia risk assessments. Anesthesia Type Anesthesia Type: General History Source History Obtained from:: Patient and Chart Anesthesia Focused Assessment* Temperature: 97.6 F Pulse Rate: 84 Blood Pressure: 91/49 Respiratory Rate: 18 Pulse Ox: 93 Oxygen Delivery Method: Room Air Airway Assessment Mouth opens: >3 cm Mallampati Score: I Neck Range of motion (ROM): Full ROM Comment: Adentulous Labs Anesthesia Preop lab: CBC WBC 5.4 K/mm3 (4.4-11.0) 10/07/24 10:50 10/07/24 RBC 3.25 M/mm3 (4.2-5.4) L 10/07/24 10:50 10/07/24 Hgb 10.6 g/dL (12.0-15.0) L 10/07/24 10:50 5 Hct 30.4 % (37-47) L 10/07/24 10:50 10/07/24 Plt Count 51 K/mm3 (150-450) L 10/07/24 10:50 10/07/24 CHEMISTRY Potassium 4.8 mmol/L (3.3-5.1) 10/01/24 11:54 10/01/24 Sodium 137 mmol/L (133-145) 10/01/24 11:54 10/01/24 Magnesium 1.9 mg/dL (1.6-2.6) 12/11/23 13:54 12/11/23 Phosphorus 3.2 mg/dL (2.7-4.5) 10/01/24 11:54 10/01/24 BUN 18 mg/dL (4-19) 10/01/24 11:54 10/01/24 Creatinine 1.20 mg/dL (0.70-1.20) 10/01/24 11:54 10/01/24 Glucose 222 mg/dL (70-99) H 10/01/24 11:54 10/01/24 POC Glucose 190 mg/dL (74-106) H 12/10/22 05:44 12/10/22 TSH 1.620 uIU/mL (0.300-4.200) 09/15/24 14:55 08/30 10/23 COAG PT 16.1 SECONDS (11.7-14.9) H 11/15/23 14:51 10/30 09/22 Lab additional comments: Platelets 51 the information was communicated with the surgeon who stated okay to proceed with surgery Pre-Assessment Diagnosis/Proposed Procedure Planned Operative Procedure(s): LEFT ELBOW ORIF/ORIF LEFT WRIST Anesthesia History 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 When Was Last Pacemaker Check QUESTION #4 FULL TEXT: You/Your Family Experience fever (hyperthermia) with Anesthesia Last Oral Intake Last Oral intake: Last Oral Intake NPO since 08:00 10/07/24 11:03 Meds taken in AM with sips of No 10/07/24 11:03 water? Meds patient instructed to take am of surgery PONV PONV - soft work wrapper examiner: PONV - soft work wrapper examiner Female Yes 10/06/24 16:27 HX of Motion Sickness No 10/06/24 16:27 HX of N/V After Surgery No 10/06/24 16:27 Non-Smoker No 10/06/24 16:27 Duration of Surgery greater Yes 10/06/24 16:27 than 60 minutes Number of Risk Factors 2 10/06/24 16:27 PONV Score Moderate Risk 10/06/24 16:27 Height & Weight Height & Weight: Anesthesia: Height & Weight Height 4 ft 11 in 10/07/24 11:03 Weight: 50 kg 10/07/24 11:03 Body Mass Index (BMI) 22.2 10/07/24 11:03 Respiratory Assessment Respiratory Assessment - soft work wrapper examiner: Respiratory Tract Infection Hx - soft work wrapper examiner Hx Respiratory Tract Infection No 10/06/24 16:27 STOP Sleep Apnea STOP Sleep Apnea - soft work wrapper examiner: STOP Sleep Apnea - soft work wrapper examiner Hx Hypertension No 10/06/24 16:27 Hx Sleep Apnea Yes 10/06/24 16:27 CPAP No 10/06/24 16:27 BIPAP Yes: NONCOMPLIANT 10/06/24 16:27 Do you snore loudly (louder than talking or can be heard Do you often feel tired/ fatigued/ sleepy during daytime? Has anyone observed you stop breathing during sleep? STOP Results Positive 10/06/24 16:27 QUESTION #5 FULL TEXT : Do you snore loudly (louder than talking or can be heard through closed doors)? 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 Specify any problems Hx of Preganancy in last 3 No 10/06/24 16:27 Months Nurse Filling Out Transfusion DSCHRIBER 10/06/24 16:27 & Questions: Date: 10/06/24 10/06/24 16:27 Time: 16:28 10/06/24 16:27 Patient unable to answer at this time (ie. confused, unrespo /Reproduction History /Reproductive History - soft work wrapper examiner: /Reproductive Hx- soft work wrapper examiner Hx Now No 10/06/24 16:27 Gestational Age (in weeks): EDC: Hx Hx Para Hx Section SAB No 10/06/24 16:27 Active Medications Active Medications: Current Medications Generic Name Dose Route Start Last Admin Trade Name Leon PRN Reason Stop Dose Admin Lactated Ringer's 1,000 mls @ 15 mls/hr 10/07/24 10:30 10/07/24 11:13 IV 15 mls/hr .Q48H MARCY Administration Lactated Ringer's 1,000 mls @ 15 mls/hr 10/07/24 10:30 IV .Q48H MARCY PFSH Medical History (Updated 10/06/24 @ 16:53 by Angélica Soni) Cirrhosis Loss of hearing Abrasion Walker as ambulation aid History of renal disease Low iron Fatty liver Easy bruising Injury of head and neck Loss of consciousness History of IBS BiPAP (biphasic positive airway pressure) dependence Smoking greater than 40 pack years COVID Wears glasses Depression Anxiety Alcohol use Marijuana use Insulin dependent diabetes mellitus Blood disorder Restless legs Back pain Injury of back Blackout Dietary restriction Shortness of breath on exertion Leg cramps History of edema Contusion of multiple sites Closed displaced fracture of distal phalanx of left great toe Vision problem IBS (irritable bowel syndrome) Glaucoma Home Medications ?Medication ?Instructions ?Recorded ?Last Taken ?Type lancets 33 gauge (OneTouch Delica #100 ea 06/25/19 Unk nown Rx Lancets) blood-glucose meter (OneTouch #1 ea 06/29/19 Unknown R x Verio Flex Meter) gabapentin 600 mg tablet 600 mg PO BID neuropathy 10/06/24 History blood sugar diagnostic (OneTouch #120 ea 11/29/20 Unkn own Rx Verio test strips) atorvastatin 20 mg tablet 20 mg PO DAILY 06/01/2111/23 History insulin aspart U-100 100 unit/mL See Rx Instructions s ubcut TID PRN 06/01/21 10/06/24 History (3 mL) subcutaneous pen (Novolog hypoglycemia 10 FlexPen U-100 Insulin aspart) Disability Placard #1 ea 08/06/22 Unknown Rx spironolactone 25 mg tablet 50 mg (2 x 25 mg) PO DAILY 08/24/22 10/06/24 Rx diuretic #180 tabs furosemide 20 mg tablet 20 mg PO DAILY #30 tabs 10/3110/06/24 Rx albuterol sulfate 2.5 mg/3 mL 2.5 mg (3 mL) inhalation Q4H PRN 02/10/24 10/06/24 Rx (0.083 %) solution for nebulization Sob &/Or Wheezing #180 mL albuterol sulfate 90 mcg/actuation 2 puff inhalation Q 4H PRN 02/10/24 10/06/24 Rx aerosol inhaler shortness of breath or wheez ing #8.5 grams semaglutide 2 mg/dose (8 mg/3 mL) 2 mg subcut QWEEK 09/20/24 History subcutaneous pen injector (Ozempic) ondansetron 4 mg disintegrating 4 mg PO TID PRN nausea and 10/05/24 Unknown Rx tablet vomiting #21 tabs oxycodone 5 mg tablet 5 mg PO Q6H PRN pain 5 days #20 10/05/24 Unknown Rx tabs alendronate 70 mg tablet 70 mg PO QWEEK 10/06/24 Unkn own History cholecalciferol (vitamin D3) 25 25 mcg PO DAILY 10/06/24 History mcg (1,000 unit) capsule (Vitamin D3) Allergy/AdvReac Type Severity Reaction Status Date / Time amoxicillin (From Augmentin) Allergy Severe Hives, Verified 10/07/24 11:09 Nausea clavulanic acid (From Allergy Severe Hives, Verified 10/07/24 11:09 Augmentin) Nausea haloperidol (From Haldol) AdvReac Unknown Verified 10/07/24 11:09 haloperidol lactate (From AdvReac Unknown Verified 10/07/24 11:09 Haldol) prednisone AdvReac Mental Verified 10/07/24 11:09 status change Family History Unknown No problems noted. Other Foster child Surgical History (Updated 10/06/24 @ 16:53 by Angélica Soni) Hx of colonoscopy History of cataract extraction History of cholecystectomy History of Social History adopted: Yes household members: none housing: assisted living facility Smoking Status: Current every day smoker tobacco type: cigarettes Tobacco: How many years used: 44 alcohol intake: former details: 18+years . QUITOO3 substance use type: marijuana what type of physical activity do you participate in: none do you feel safe at home: Yes Review of Systems (Anesthesia) ROS Narrative System reviewed and no additional complaints, except as documented. Physical Exam Resp Auscultation: wheezes expiratory wheezes (DuoNeb breathing treatment given in preop)
--- NOTE | 2024-10-07 12:35 | RAD_ITS ---
PROCEDURE: WRIST 2 VIEWS 10/07/2024 REASON FOR EXAM: ORIF LT ELBOW AND WRIST TECHNIQUE: WRIST 2 VIEWS COMPARISON: 10/05/2024. FINDINGS: Intraoperative fluoroscopic images of a distal radius plate and screw fixation were performed. See procedure report for full details. RAD/Wrist 2 Views IMPRESSION: As above. Reading Location: [place] [id number]
--- NOTE | 2024-10-07 12:35 | RAD_ITS ---
EXAM: XR Left Elbow, 2 Views CLINICAL INDICATION: ORIF LT ELBOW AND WRIST TECHNIQUE: Frontal and lateral views of the left elbow. COMPARISON: No relevant prior studies available. FINDINGS: BONES/JOINTS: Unremarkable. No acute fracture. No dislocation. SOFT TISSUES: Unremarkable. OTHER FINDINGS: Total spot images were obtained. Total fluoroscopy time 19.3 seconds. Total radiation dose 0.82 mGy. RAD/Elbow 2 Views IMPRESSION: Fluoroscopic guidance was used intraoperatively. Please refer to the operative note for further details. Reading Location: [facility]
[2024-10-07] MEDS: Bupiv/Epi 0.25% 30 ML Vial ×2 (14:05)
--- NOTE | 2024-10-07 15:14 | OP.PCM_ITS ---
Operative Report (Standard) Operative Information Date of Procedure: 10/07/24 Pre-Operative Diagnosis: 1. Displaced left intra-articular olecranon fracture 2. Displaced extra-articular left distal radius fracture Post-Operative Diagnosis: 1. Grade 1 open displaced left intra-articular olecranon fracture 2. Closed displaced extra-articular left distal radius fracture Surgery/Procedure Performed: 1. Irrigation and debridement left elbow of skin, subcutaneous tissue, fascia, muscle and bone 2. Open reduction internal fixation left olecranon 3. Open reduction internal fixation left distal radius, extra-articular customer resolution specialist: Yes Seasonal Driver: Elham Oliver Tasks completed by first calender worker: Opening & closing, Implanting device and Hemostasis: Electrocautery Additional trading assistant?: No Type of Anesthesia: General RN Documented Start/Stop Times: Operation Date: 10/07/24 12:30 Case Time Into Pre-Op 10/07/24 10:26 Out of Pre-Op 10/07/24 12:23 Anesthesia Start 10/07/24 12:27 Into Room 10/07/24 12:27 Procedure Start 10/07/24 12:57 Procedure End 10/07/24 14:51 Anesthesia End 10/07/24 14:56 Out of Room 10/07/24 14:56 Procedure Start Time: 12:57 Procedure Stop Time: 14:51 Select all DRAINS/GRAFTS/IMPLANTS that apply: Implanted device Implanted device details: Synthes 3 hole narrow volar locking plate Synthes 6.5 mm x 60 mm partially-threaded cannulated screw and washer Estimated Blood Loss: 20 cc Specimen collected: No Description of surgery: Patient was identified in the preoperative holding area by name, medical record number, and date of . The operative extremity was marked. All questions were answered to the patient's satisfaction. At time of her procedure, patient was brought to the operative suite and positioned supine on a standard operating table. General anesthesia was induced and endotracheal tube placed. Hand table was attached to the patient's left side. We removed her splint. The splint was changed yesterday in the office and bright red blood was noted on the splint today. I was able to further assess the wound while she was under anesthesia and a small puncture wound was identified consistent with a grade 1 open fracture. We then utilized a Betadine prep to prepare the left upper extremity for surgery. A well-padded pneumatic tourniquet was applied to the left upper arm prior to prepping. We prepped and draped in normal sterile orthopedic fashion. Timeout was then called confirming the side, site, and operation to be performed. No concerns were voiced and we elected to proceed with surgery. 2 g Ancef was administered IV prior to tourniquet placed by anesthesia staff. I then exsanguinated left upper extremity Esmarch bandage. Tourniquet was infl ated to 250 mmHg which remained elevated for approximately 75 minutes. I first turned my attention to the elbow. The arm was brought across the patient's chest and held in place with a triangle placed on top of the hand table. Longitudinal incision was made sharply through skin and subcutaneous tissue overlying the olecranon with elliptical excision of the puncture wound. Hematoma was encountered at the level of the fracture. Necrotic tissue was debrided at the skin, subcutaneous level, fascial level, adjacent muscle. The bone was thoroughly irrigated at this time as well as the wound with a total of 3 L normal saline. Anatomic reduction was then achieved with a pointed reduction clamp of the olecranon. Orthogonal fluoroscopy confirmed reduction. A logical split in the triceps tendon was made to allow access to the intramedullary canal. I then used the vendor supplied threaded drill pin to plantar trajectory for an intramedullary screw through the proximal ulna. We drilled and measured in standard fashion. A washer was applied as well as a suture tape suture with the plan use as a tension band construct. There is excellent compression at the fracture site and anatomic reduction achieved. I then drilled bicortically through the dorsal cortex of the ulna distal to the fracture site and performed a [id number] orientation suture and tied in standard tension band technique. The elbow was stable through range of motion. Orthogonal fluoroscopy demonstrated appropriate positioning of hardware, sizing and anatomic reduction. I then turned my attention to the distal radius. Standard volar FCR approach was utilized.Skin was sharply incised with a 15 blade scalpel down to the level of the tendon sheath. The FCR tendon sheath was identified and split longitud inally in line with the incision. I then retracted the FCR tendon ulnarly, split the floor of the tendon sheath in line with the incision. The flexor pollicis longus muscle belly was then encountered and retracted ulnarly. The pronator quadratus was then encountered. A self-retaining retractor was placed deep. Performed an L-shaped tenotomy of the pronator quadratus and subperiosteally elevated it ulnarly. This exposed the fracture site. Fracture hematoma was debrided and irrigated out. Anatomic reduction was achieved with a slight volar translation of the carpus. Percutaneous K wires placed to the radial styloid to hold reduction. Orthogonal fluoroscopy confirmed anatomic reduction. I selected a narrow 3-hole plate and secured it to bone with 2 K wires. Appropriate position was noted. I then compressed the plate to bone with a bicortical screw in the distal segment. I then filled the distal cluster with locking screws and exchanged the cortical screw for a locking screw as well, all unicortical. The shaft was then filled with bicortical cortex screws in standard fashion. Fracture was stable. Pin was removed. Orthogonal fluoroscopy demonstrated anatomic reduction and appropriate position of hardware. Wound was irrigated with saline. Tourniquet was deflated. Hemostasis was excellent. With regards to the elbow, the triceps tendon was reapproximated with inte rrupted [id number] 0 Vicryl suture. Bursal layer was reapproximated with interrupted [id number] 0 Vicryl suture. Dermis was reapproximated buried 2-0 Vicryl intradermal suture and skin reapproximated with simple 2-0 nylon suture. Field blocks were administered with a total of 60 cc total quarter percent bupivacaine with epinephrine. The wrist incision was closed in layers with interrupted buried 2-0 Vicryl suture in the dermis and a running subcuticular 4-0 Monocryl, Dermabond and Steri-Strip. A bulky sterile compression dressing was applied. Xeroform was applied to the left elbow wound wound and abrasions. A short arm fiberglass splint was applied to the left wrist. Patient was placed in a simple sling. She was safely explained in the operative suite and awakened from anesthesia. She tolerated the procedure well without apparent complication. She was transferred to her gurney and subsequently to PACU in stable condition. Postoperative plan: Nonweightbearing to the operative extremity. Gentle range of motion of the left elbow. Ice and elevation. Oxycodone prescription provided. Plan for 7 days doxycycline due to open fracture. Follow-up in 1 week for wound check and x-rays in splint. Surgical Findings: Grade 1 open fracture left olecranon. No gross contamination. Left elbow and left wrist stable following fixation. Complications Complications: No Admit VTE Documentation VTE Present on Admission: No VTE Mechan Device Prophylaxis: SCD's VTE Pharm Prophylaxis ordered?: Yes
--- NOTE | 2024-10-07 15:24 | PCM.POST.ANE ---
Anesthesia: Postop Eval I Current Vital Signs Temperature: 97.6 F Pulse Rate: 84 Blood Pressure: 91/49 Respiratory Rate: 16 Pulse Ox: 93 Oxygen Delivery Method: Room Air Assessment Airway patent: Yes Spontaneous unlabored respirations: Yes Mental status: Awake and Calm nausea: No Vomiting: No Anesthesia Complication: No Fluid Hydration Crystalloid volume administer (ml): 600 Total IV fluid infused: 600 Progress Note Anesthesia document: Postop Eval 1 completed: Yes
--- NOTE | 2024-10-07 17:41 | POSTOPAN2_ITS ---
Anesthesia Postop Eval I Sum Postop Eval Completion status Anesthesia document: Postop Eval 1 completed: Yes Anesthesia Postop Eval I Summary Anesthesia Postop Eval I Summary: Anesthesia Postop Eval I: Assessment Summary Airway patent Yes 10/07/24 15:24 [email or web address] Spontaneous unlabored Yes 10/07/24 15:24 [email or web address] respirations Mental status Awake,Calm 10/07/24 15:24 [email or web address] [email or web address] nausea No 10/07/24 15:24 [email or web address] Vomiting No 10/07/24 15:24 [email or web address] Anesthesia Postop Eval I: Fluid Summary Crystalloid volume administer 600 10/07/24 15:24 [email or web address] (ml) Colloids volume administered ( ml) Blood Product volume administered (ml) Total IV fluid infused 600 10/07/24 15:24 [email or web address] Anesthesia Postop Eval I: Summary Notes Anesthesia Complication No 10/07/24 15:24 [email or web address] Anesthesia Complication Comment: Post-operative progress note Anesthesia: Postop Eval II Evaluation Mental status: Awake and Calm Pain Level: 1 nausea: No Vomiting: No Complications Anesthesia Complication: No
--- NOTE | 2024-10-07 17:41 | PCM.POSTANE2 ---
Anesthesia Postop Eval I Sum Postop Eval Completion status Anesthesia document: Postop Eval 1 completed: Yes Anesthesia Postop Eval I Summary Anesthesia Postop Eval I Summary: Anesthesia Postop Eval I: Assessment Summary Airway patent Yes 10/07/24 15:24 COVER [email or web address] Spontaneous unlabored Yes 10/07/24 15:24 COVER [email or web address] respirations Mental status Awake,Calm 10/07/24 15:24 COVER [email or web address] nausea No 10/07/24 15:24 COVER [email or web address] Vomiting No 10/07/24 15:24 COVER [email or web address] Anesthesia Postop Eval I: Fluid Summary Crystalloid volume administer 600 10/07/24 15:24 COVER [email or web address] (ml) Colloids volume administered ( ml) Blood Product volume administered (ml) Total IV fluid infused 600 10/07/24 15:24 COVER [email or web address] Anesthesia Postop Eval I: Summary Notes Anesthesia Complication No 10/07/24 15:24 COVER [email or web address] Anesthesia Complication Comment: Post-operative progress note Anesthesia: Postop Eval II Evaluation Mental status: Awake and Calm Pain Level: 1 nausea: No Vomiting: No Complications Anesthesia Complication: No
== END 2024-10-07 17:59 | disposition home or self-care (01) ==
LOC: SDC 10:22 → AC 10:22
PROVIDERS: Anesthesiology; PCP Nurse Practitioner Family; Visit Provider Student in an Organized Health Care Education/Training Program
PROC: (CPT 24685; principal; 2024-10-07 12:15)
DX: S52.032B Displaced fracture of olecranon process with intraarticular extension of left ulna, initial encounter for open fracture type I or II (principal); J44.9 Chronic obstructive pulmonary disease, unspecified; E11.9 Type 2 diabetes mellitus without complications; S52.552A Other extraarticular fracture of lower end of left radius, initial encounter for closed fracture; E78.00 Pure hypercholesterolemia, unspecified; W19.XXXA Unspecified fall, initial encounter; Y92.89 Other specified places as the place of occurrence of the external cause; F17.210 Nicotine dependence, cigarettes, uncomplicated; I10 Essential (primary) hypertension
CPT/HCPCS: 24685; 25607; 11012; 01740; 73070; 73100; 76000; 82962; 83036; 85027; 94640; C1713; J2405

== ENCOUNTER → 2025-01-01 | Outpatient (CLI) | payer MEDICARE, SELFPAY | END | disposition home or self-care (01) | LOC: PSN 12:37 | PROVIDERS: PCP Nurse Practitioner Family; Referring Provider Nurse Practitioner Acute Care; Visit Provider Nurse Practitioner Acute Care | DX: J43.2 Centrilobular emphysema (principal) | CPT/HCPCS: 94060; 94726; 94729 ==

== ENCOUNTER → 2025-01-04 | Outpatient (CLI) | payer MEDICARE, SELFPAY ==
[2025-01-04 12:30] VITALS: PULSE 77; PULSE 84; PULSE 92; PULSE 93; PULSE 94; PULSE 95; PULSE 97; O2SAT 96; O2SAT 97; O2SAT 98
--- NOTE | 2025-01-07 08:23 | WT_ITS ---
PSN 6 Minute Walk Test 6 Minute Walk Test 6 Minute Walk Test: 6 Minute Walk Test PSN:6-Minute Walk Test Start: 01/04/25 12:40 Freq: Status: Active Protocol: [id number].[id number] Document 01/04/25 12:30 AE (Rec: 01/04/25 12:46 [facility] [id number]) 6 Minute Walk Test Date Performed 01/04/25 Time Performed 12:30 Height 4 ft 11 in Weight: 108 lb Weight in Pounds 108.[address]: Kati Assistive device None used: Pre-test Oxygen Delivery Room Air Method Pulse Ox (%) 98 Pulse Rate (60-100 77 beats/min) Dyspnea Christopher Scale ( 0 0-10) Exertion Christopher Scale 6 (6-20) 1st minute Oxygen Delivery Room Air Method Pulse Ox (%) 97 Pulse Rate (60-100 92 beats/min) 2nd minute Oxygen Delivery Room Air Method Pulse Ox (%) 98 Pulse Rate (60-100 93 beats/min) 3rd minute Oxygen Delivery Room Air Method Pulse Ox (%) 96 Pulse Rate (60-100 95 beats/min) 4th minute Oxygen Delivery Room Air Method Pulse Ox (%) 97 Pulse Rate (60-100 97 beats/min) 5th minute Oxygen Delivery Room Air Method Pulse Ox (%) 96 Pulse Rate (60-100 94 beats/min) 6th minute Oxygen Delivery Room Air Method Pulse Ox (%) 98 Pulse Rate (60-100 93 beats/min) Dyspnea Christopher Scale ( 0 0-10) Exertion Christopher Scale 8 (6-20) Post-test Oxygen Delivery Room Air Method Pulse Ox (%) 98 Pulse Rate (60-100 84 beats/min) Full Laps Walked 13 Partial Lap, Number 30 of Tiles Walked Total Distance 797 Walked (ft) Interpretation Interpretation: The patient ambulated 797 feet over the course of 6 minutes beginning on room air without assistive devices. Pretesting oxygen saturation was noted to be 98% on room air. With ambulation, the lucio oxygen saturation was 96%. There was no significant exertional oxygen desaturation. Recommendations Recommendations: There is no indication for the use of supplemental oxygen at this time.
== END | disposition home or self-care (01) ==
LOC: PSN 12:14
PROVIDERS: PCP Nurse Practitioner Family; Referring Provider Nurse Practitioner Acute Care; Visit Provider Nurse Practitioner Acute Care
DX: J43.2 Centrilobular emphysema (principal)
CPT/HCPCS: 94618

== ENCOUNTER → 2025-01-29 | Outpatient (CLI) | payer MEDICARE, SELFPAY ==
--- NOTE | 2025-01-29 12:45 | CT_ITS ---
PROCEDURE: CT/Low Dose CT Lung Screening
== END | disposition home or self-care (01) ==
LOC: CT 12:45
PROVIDERS: PCP Nurse Practitioner Family; Referring Provider Nurse Practitioner Acute Care; Visit Provider Nurse Practitioner Acute Care
DX: F17.210 Nicotine dependence, cigarettes, uncomplicated (principal)
CPT/HCPCS: 71271